=== PATIENT | male | born 1960 | race Hispanic/Latino ===

== ENCOUNTER 2017-01-13 13:59 | Inpatient (IN) | payer MEDICARE ==
[~2017-01-13] VITALS: Ht 165.1 cm; Wt 85.0 kg
[~2017-01-13 13:59] MED LIST: ACET325T51 PO; CALC-761 PO; CHOL100043 PO; CITA20TA11 PO; DOCU-41 PO; GUAI600T86 PO; INSU100I13 SUBQ; KEP500TA PO; LORA-302 PO; MAGN400T4 PO; METO50TA3 PO; MULT-666 PO; OMEG10005 PO; PRD2.5T PO; SENN-133 PO; SULF1TAB35 PO; VALA500T38 PO; ZOF8 PO
[2017-01-13 17:08] VITALS: BP 156/82; PULSE 55; RESP 24; O2SAT 97
[2017-01-13] MEDS ORDERED: Ondansetron 2 mg/mL 2 mL Inj IVPUSH PRN (17:10)
[2017-01-13] MEDS ORDERED: Alum-Mag Hydrox-Simeth 30 mL Suspension PO PRN (17:10)
[2017-01-13] MEDS ORDERED: Polyethylene Glycol (PEG) 17 Gm Powder PO PRN (17:10)
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
[2017-01-13 17:44] LABS: BASOPHILS % (AUTO) 0.3 % (0-3); EOSINOPHILS % (AUTO) 10.7 % (0-5); MONOCYTES % (AUTO) 12.4 % (4-12); Mean Corpuscular Hemoglobin 34.4 pg (27.0-35.0); Mean Corpuscular Volume 103.3 fL (81-100); NEUTROPHILS % (AUTO) 39.1 % (40-74); Platelet Count 139 bil/L (150-400)
[2017-01-13] MEDS ORDERED: Glucose 40% Oral Gel 15 Gm Tube PO PRN (18:05)
--- NOTE | 2017-01-13 19:07 | CONS ---
[address] [address] CONSULTATION REPORT PATIENT: GERRY VILLALPANDO : 1960 MR#: [id number] ADMIT: 01/13/2017 JOB ID: [id number] DATE OF SERVICE: 01/13/[address] Tohmas for this timely consult. HISTORY OF PRESENT ILLNESS: The patient is a fascinating 56-year-old gentleman known to me from two admissions during last year. The patient's relevant past medical history starts back in 2013 when he was diagnosed with Frontier chromosome positive ALL and treated with induction chemo with hyper-CVAD and then just Dasatinib. He then got two cycles of additional chemotherapy with an MINE regimen and then got an allogeneic stem cell transplant in May 2014 at [facility]. He continued on Dasatinib for two years until August 03 and then it was stopped as he had a confirmed two year remission. His post transplant time was complicated by recurrent episodes of CMV reactivation. This was made worse when he had to receive low doses of steroids which led to worsening of his CMV. He was treated for a long period with IV ganciclovir and also received some foscarnet which was very problematic. I saw the patient back in 2015 on a couple of different occasions and, at that time, he was on valacyclovir for prophylaxis as CMV and doing reasonably well overall. During the two admissions I saw him during last year, he had parainfluenza virus three and influenza pneumonia and did reasonably well with both of these admissions. The more recent past medical history starts about a week or so ago when he developed a more or less nonproductive but persistent cough. He eventually sought evaluation and was given azithromycin which, according to both his daughter and the patient, made him better for several days. He then finished the azithromycin and worsened. Dr. Thomas, his heme/onc doctor was concerned about this persistent cough as well as some associated anorexia even though the patient had no fevers, chills, or sweats. He therefore obtained a CT scan of the chest which was done yesterday which shows dramatic bilateral parenchymal infiltrates which are definitely new. This led to the radiologist to offer a differential diagnosis of mycobacteria, fungus or recurrent malignancy. The patient was therefore admitted from heme/onc clinic today for evaluation of this cough. More discussion with the patient basically confirms the above-mentioned history. It seems as if the cough, which is nonproductive and not associated with dyspnea, fever or chills, began a couple of weeks ago. He then went to the [facility] and received azithromycin which definitely seemed to help. He then worsened after finishing the azithromycin which led to Dr. Thomas getting the CT disclosing today's findings. He has not had chest pain, pleuritic or substernal. He has not had hemoptysis, sores in the mouth, trouble swallowing or any GI symptoms. He has not traveled recently though he hails from [facility] and was down that way about two years ago. He has no unusual exposures at home and does not know anyone and has had no contact with anyone with tuberculosis. He reports previous tuberculosis testing prior to transplant was believed to be negative. His only meds at this point from an infection point of view include Bactrim once a day for Pneumocystis prophylaxis as well as valacyclovir 1 g b.i.d. for CMV suppression. His CMV PCR done four days ago through Dr. Thomas's office was negative, continuing a trend of negative PCR studies. PAST MEDICAL HISTORY: 1. Frontier chromosome ALL treated with chemotherapy and then an allogeneic stem cell transplant in 2013. 2. 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 3. Hypertension. 4. Diabetes mellitus with neuropathy. 5. History of recurrent viral pneumonia with documented parainfluenza virus as well as influenza infection. SOCIAL HISTORY: The patient is a nonsmoker, nondrinker. Lives in the local area. He was in [place] apparently in June 2016, according to notes from my prior consult. Additionally, he was in [facility] about two years ago. FAMILY HISTORY: Negative for TB in first and second-degree relatives. REVIEW OF SYSTEMS: The patient notes no headache. He has had some minimal irritation in his left ear. No sinus complaints. No sore throat. No sores in the mouth. No trouble swallowing. No stiff neck. He has a dry cough, as mentioned, but without dyspnea, pleuritic chest pain. No nausea, vomiting, diarrhea, dysuria. No swelling of the joints. Remainder of the review of systems is negative. PHYSICAL EXAMINATION: Reveals a comfortable-looking gentleman who is smiling and obviously not short of breath. His temperature is 36.5 and in clinic recently in the heme/onc clinic he has been consistently afebrile. Pulse in the 50s, respiratory rate in the teens, unlabored, saturating 95% on room air. Blood pressure 93/55. Head without trauma. No sinus tenderness. No conjunctival or scleral abnormalities. No eschars or abnormalities in the nose. The oral cavity is free of ulcerations, pharyngitis or thrush. Neck is supple without adenopathy. No supraclavicular adenopathy. Lungs with a few rhonchi at the bases, coarse rhonchi, but really pretty clear. Cardiac tones: Regular rate and rhythm without notable murmur. Abdomen: Soft and nontender without organomegaly. No Zuniga catheter. No suprapubic tenderness. No inguinal adenopathy. No swelling of the joints. He does have diabetic peripheral neuropathy. As his previously documented with numbness in his lower extremities. No skin breakdown though. The patient is neurologically intact, moves around easily and answers questions fluently. No skin rash anywhere. No petechia. LABORATORIES: Include white count 5400, four days ago. Today's is pending. Of great importance is the fact that the patient has 14% eosinophil and he had the same on a CBC 2 weeks ago. Prior to that, he never had eosinophilia. Creatinine 1.42, ALT 45, CRP 1.1, albumin 3.3. Urinalysis without white cells. Micro studies: None have been obtained yet though we will be after we see the patient. In reviewing his recent cultures, it is notable he had a parainfluenza virus 3 back in May. Prior to that, it had influenza. A chest CT was reviewed in great detail. On the view screen, it was compared to a chest CT done two years ago. His chest CT now shows extensive pulmonary and perihilar infiltrates which the radiologist thought could be consistent with lymphangitic spread of a tumor though fungal or mycobacterial infection might produce a similar pattern. IMPRESSION: This is a fascinating case of a 56-year-old gentleman who had an allogeneic stem cell transplant 2-1/2 years ago. 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 He now presents with about a 2-week history of cough which seemed to get better with azithromycin, but then worsened. A chest CT is dramatic in the bilateral infiltrates that have sprung up since his last CT two years ago. The differential diagnosis is broad. One primary concern I have here is the possibility of coccidiomycosis. This gentleman is from a highly endemic region and was visiting there about a year ago. He has an eosinophilia which is new and coccidioidomycosis is the only fungus that causes eosinophilia, so I am quite concerned. Other fungi of possible concern here would include crypto, Aspergillus, Caesarism and related organisms, but I think aside from cocci and crypto, the fungal possibilities are fairly unlikely. Mycobacterial infections might produce such a pattern and these would be responsive presumably to azithromycin, especially some of the atypical mycobacteria. TB is unlikely due to the lack of exposure and the fact I am sure he was tested before his transplant but it cannot be excluded. More likely might be MAC mycobacterium kansasii or other nontuberculous mycobacteria. As for routine bacteria that can cause such infiltrates, I would be especially concerned about Nocardia which could certainly take on this appearance. The prophylactic Bactrim he is on is not adequate to prevent Nocardia though it is adequate to prevent Pneumocystis. As for parasites, Strongyloides is possible here as the patient grew up in [facility] and, in general, [place] has a fair amount of Strongyloides and [facility] tends to be desert and is less likely. CMV pneumonitis could conceivably look like this, but I think it is highly unlikely given that he is on chronic valacyclovir suppression and his PCR a few days ago was negative. Lastly this could represent leukemia lymphoma process or a vasculitis. RECOMMENDATIONS: 1. This case was discussed in detail at the bedside with Dr. Gerardo and her team. 2. Sputum AFB x3. Should be done with the 1st sample going for nucleic acid amplification for TB. 3. AFB blood culture will be ordered looking for atypical mycobacteria. 4. QuantiFERON Gold will be checked. 5. Sputum Gram stain and culture. 6. Respiratory viral PCR. 7. Serum crypto antigen. 8. Serum Strongyloides antibody. 9. Galactomannan and fungitell will be checked. 10. I do not think the patient needs therapy at that time, as he looks completely nontoxic and really just has essentially asymptomatic pulmonary infiltrates except for a bit of dry cough. 11. If we do not get an answer fairly quickly with respect of course serologic and sputum studies, I think we will need to pursue bronchoscopy. 12. I will alert the lab to the possibility this patient does have coccidioidomycosis as this could be extremely dangerous if it grows on just the open plates on the benches. 13. Total time spent on this case exceeds 70 minutes.
[2017-01-13 20:29] VITALS: BP 122/73; PULSE 59; RESP 20; O2SAT 96
[2017-01-13] MEDS: levETIRAcetam 500 mg Tablet PO SCH (20:34)
[2017-01-13] MEDS: Insulin LISPRO 300 Unit/3 mL Inj SUBQ SCH (20:37)
[2017-01-13] MEDS ORDERED: INSU100C8 SUBQ (22:06)
[2017-01-14] VITALS (11 sets, daily range): BP systolic 126–152; BP diastolic 70–85; PULSE 55–70; RESP 16–22; O2SAT 93–97
[2017-01-14] MEDS: Insulin LISPRO 300 Unit/3 mL Inj SUBQ SCH ×4 (08:00→20:37)
[2017-01-14] MEDS: Insulin GLARgine 100 Unit/mL Syringe SUBQ SCH (08:30)
--- NOTE | 2017-01-14 10:02 | PROG NOTE ---
[address] [address] PROGRESS NOTE PATIENT: GERRY VILLALPANDO : 1960 MR#: [id number] ADMIT: 01/13/2017 JOB ID: [id number] DATE: 01/14/2017 REASON FOR FOLLOWUP: Bilateral pulmonary infiltrates of unknown etiology in a patient who is status post allogeneic stem cell transplant for ALL. INTERVAL HISTORY: Overnight, the patient has felt about the same. No fevers. No chills. Continues to have minimal dry cough, but is not particularly short of breath and does not feel bad otherwise. No GI symptoms. No symptoms. PHYSICAL EXAMINATION: Reveals an afebrile gentleman, in no acute distress. Respiratory rate approximately 20, blood pressure 148/83, saturating well on room air. Sitting up, very comfortable. Oral exam: No thrush or pharyngitis. Lungs are basically clear posteriorly. Cardiac tones without new murmur. Abdomen benign. No skin rash. LABORATORIES: Include a white count of 6800, a near normal differential except for 11% eosinophils, which persists. Creatinine 1.16. Hemoglobin A1c 5.5. Procalcitonin 0.11, which I would consider negative for our purposes. Many pending serologies including Cocci, Crypto, Fungitell, Aspergillus antigen, Strongyloides antibody and QuantiFERON Gold. Cultures include negative blood cultures to date. Sputum shows rare polys and mixed sunny. Sputum for AFB including AFB PCR is pending and we expect results on the PCR hopefully today. Respiratory viral multiplex PCR study is completely negative. IMAGING: Was discussed yesterday with the dramatic bilateral somewhat nodular pulmonary infiltrates. IMPRESSION: This remains a perplexing case of a gentleman with acute lymphocytic leukemia (ALL) in remission following allogeneic stem cell transplant. At this point, leading concerns here for me would be Coccidioidomycosis and Cryptococcus, and we await those serologies. Given his lack of symptoms, fever and an elevated procalcitonin, I see no indication for broad-spectrum antibiotics. Note that if we do not get an answer fairly quickly from our serologies, he will need a bronchoscopy. RECOMMENDATIONS: 1. We continue to await the many studies which are pending. 2. No antibiotics at this time. 3. If we do not get an answer soon, I think this patient will need a bronch, and preferably a bronch with transbronchial lung biopsies as histopathology might be very helpful in identifying some of the viral causes that could produce such a picture.
[2017-01-14] MEDS: Trimethoprim-Sulfa 160 mg-800 mg Tablet PO SCH (10:44)
[2017-01-14] MEDS: levETIRAcetam 500 mg Tablet PO SCH ×2 (10:45→20:33)
[2017-01-14] MEDS ORDERED: fentaNYL-PF 50 mCg/mL 2 mL Inj IVPUSH PRN ×2 (11:10→11:35)
[2017-01-14] MEDS: 0.9% Sodium Chloride 1,000 ML IV SCH ×2 (11:35→13:01)
[2017-01-14] MEDS ORDERED: Lidocaine Topical 2% 30 mL Jelly MUC_MEMBRM PRN (11:35)
[2017-01-14] MEDS ORDERED: Lidocaine PF 2% 5 mL Inj MUC_MEMBRM SCH (11:35)
[2017-01-14] MEDS ORDERED: Lidocaine PF 2% 10 mL Inj ONE (12:03)
--- NOTE | 2017-01-14 13:14 | CONS ---
[address] [address] CONSULTATION REPORT PATIENT: GERRY VILLALPANDO : 1960 MR#: [id number] ADMIT: 01/13/2017 JOB ID: [id number] DATE OF SERVICE: 01/14/2017 PULMONARY CONSULTATION NOTE: The patient is a 56-year-old man with stem-cell transplant for ALL in 2013 admitted to the hospital with bilateral pulmonary infiltrates and cough. I am seeing him in consultation at the request of Dr. Gerardo for bilateral pneumonia. HISTORY OF PRESENT ILLNESS: The patient is Chinese-speaking and had Dr. Gerardo interpreting for me but history was limited because of absence of an horn player at this time. Much of the history I have is obtained from review of medical records. A 56-year-old man with history of type 2 diabetes and ALL with Pawling chromosome who underwent stem allogeneic stem cell transplant in May 2014 at [facility]. She reportedly had recurrent episodes of CMV reactivation for which she was treated with IV ganciclovir and foscarnet. He has been on valacyclovir for CMV prophylaxis as well as Bactrim for PCP prophylaxis. He has been hospitalized with parainfluenza virus as well as influenza pneumonia in 2016. He currently presents with about a week or two of persistent dry cough. He denied any fevers, chills, sweats. He does say he has lost about 14 pounds in the last two weeks. Denies any sputum, hemoptysis, chest pain or shortness of breath. He did have a course of azithromycin as an outpatient and had a chest CT done as an outpatient which showed bilateral infiltrates. He was admitted for this reason, and seen by Dr. Waters who has seen him before and recommended a bronchoscopy. PAST MEDICAL HISTORY: 1. ALL with Pawling chromosome status post allogeneic stem-cell transplant at [facility] in May 2014. 2. Recurrent CMV reactivation. 3. Type 2 diabetes. 4. History of parainfluenza pneumonia and influenza pneumonia in 2016. SOCIAL HISTORY: Nonsmoker. Originally from [place]. No history of exposure to TB. No recent travel. FAMILY HISTORY: No history of TB in immediate family members-parents, siblings, children. REVIEW OF SYSTEMS: See HPI. Ten point review of systems is negative except as mentioned in HPI for dry cough and weight loss. PHYSICAL EXAMINATION: Vital signs reviewed. He is afebrile. Temperature is 36.8, pulse 62, respirations 18, BP 129/85, sats 96% on room air. Pleasant gentleman who is alert and oriented. In no distress. HEENT: No scleral icterus. Oral mucosa is moist. Neck: No cervical lymphadenopathy. Chest: Clear to auscultation bilaterally. Heart: Regular rate and rhythm. No murmurs. Abdomen: Soft, nontender. No organomegaly. Extremities: No cyanosis, clubbing or edema. Skin: No rashes. LABORATORIES: Reviewed. WBC 6.8, hemoglobin 13.5, platelets 139. Chemistry also reviewed and within normal limits. Cultures: No growth to date on blood cultures. Respiratory viral PCR is negative. An AFB smear and culture are pending. Sputum culture is also pending. IMAGING: A chest x-ray and chest CT reviewed. Chest CT, January 12, 2017, shows diffuse bilateral nodular infiltrate which is multilobar and does not seem to involve any particular part of the lung preferentially. There is no lymphadenopathy. ASSESSMENT AND RECOMMENDATIONS: 1. Bilateral nodular infiltrates concerning for pulmonary infection. 2. Immunocompromised patient status post allogeneic stem cell transplant May 2014. 3. History of ALL with Pawling chromosome. This 56-year-old immunocompromised gentleman is presenting with bilateral nodular pulmonary infiltrates. The appearance is concerning for a fungal infection such as Aspergillus but also atypical bacterial infection such as nocardia and mycobacterial disease including tuberculous as well as nontuberculous mycobacteria. Recommendation at this point would be to proceed with bronchoscopy. I do not expect to see something diagnostic on the bronch itself, but I would expect to be able to get samples that we can send for AFB, fungal and viral testing that will hopefully give us a diagnosis. It is helpful that he is not on any antibiotics right now and this will certainly improve our yield. He is getting Bactrim and valganciclovir for prophylaxis for PCP as well as CMV. Therefore, these two diagnoses are probably unlikely. Also the appearance is really not consistent with Pneumocystis. The Bactrim incidentally would also protect him from nocardial infection. I do think that we should get fungal and AFB PCRs on the BAL fluid and I will request those. I think we should hold off on antibiotic therapy until we have results from BAL. It depends on if the patient is clinically stable. We will proceed with bronchoscopy today. Consent was obtained from the patient and he agreed with proceeding.
[2017-01-14 14:33] LABS: BFWBC 51 /mm3; MONOCYTES,BODY FLUID 20 %
[2017-01-14 14:35] LABS: OTHER CELLS,BODY FLUID 19
--- NOTE | 2017-01-14 14:41 | ENDO ---
[address] [address] ENDOSCOPY PROCEDURE PATIENT: GERRY VILLALPANDO : 1960 MR#: [id number] ADMIT: 01/13/2017 JOB ID: [id number] DATE: 01/14/2017 PROCEDURE: Bronchoscopy. PERFORMED BY: Anabella Purvis MD, Pulmonary Medicine. INDICATION: Immunocompromised patient, bilateral pneumonia. DESCRIPTION OF PROCEDURE: Informed consent was obtained from the patient after risks and benefits of the procedure were discussed with him. The patient was asked to gargle lidocaine. Additional lidocaine was administered to the oropharynx via atomizer. IV sedation was then administered with midazolam and fentanyl and scope was passed through the mouth. Epiglottis and vocal cords were visualized and completely normal in appearance. Additional lidocaine was administered here. Scope was passed through the cords into the trachea. Trachea and emma were normal. More lidocaine was administered. We then proceeded to do a complete airway evaluation of both right and left-sided airways. There was no endobronchial lesion, abnormal secretions, mucosal abnormalities or masses. There was some evidence of airway wall edema more notable in the right upper lobe airway but otherwise airways look pretty normal. We then proceeded to do a bronchoalveolar lavage in the medial segment of the lingula on the left. Good return was obtained of clear fluid. Similarly we did a bronchoalveolar lavage in the right upper lobe anterior segment with good return of clearish fluid without any discoloration. The patient tolerated the procedure well. MEDICATIONS: 1. Midazolam 1.5 mg. 2. Fentanyl 50 mcg. 3. Topical lidocaine approximately 14 cc. COMPLICATIONS: None. SAMPLES: BAL right upper lobe and lingula was pooled and sent for bacterial, fungal, AFB, viral, Pneumocystis cytology and cell count. AFB and fungal PCRs were also added and these will be a send out.
--- NOTE | 2017-01-14 18:06 | PCM.ADCARE ---
Advance Care Planning Note Purpose of Encounter: To discuss patient's wishes and goals of care Parties in Attendance: The patient, the patient's daughter, 2 medical students, Dr. Arechiga Decisional Capacity: Good Plan: I reviewed in details the prognosis of the patient's current condition including potential intubation and mechanical intubation as well as CPR. The patient understands his condition and the available options and wishes to be a full code. CODE STATUS: Full code Time Spent Adv.Care Planning: Total time spent [id number] and education and discussion directly related to advanced care plannin minutes Cassie Gerardo DO Jan 14, 2017 18:06
--- NOTE | 2017-01-14 19:36 | CCS NOTE ---
[facility] [address], [address] [address] MEDICAL ONCOLOGY OFFICE NOTE PATIENT: GERRY VILLALPANDO : 1960 MR#: [id number] DATE: 01/13/2017 JOB ID: [id number] DATE: 01/14/2017 SUBJECTIVE: For details of his history, please refer to my office note of yesterday that led to his hospitalization and summarizing his course and findings. I appreciate Dr. Waters of Infectious Disease and Dr. Purvis of Pulmonology for their support of his complex care. He has remained afebrile and is not hypoxic and is undergoing extensive infectious disease workup. He has had sputum sent for AFB smear and culture and had a nasopharyngeal swab and today a bronchial washing. The bronchial washing has revealed out of a large panel of tests one organism of so-called human metapneumovirus. I am not sure about the clinical significance of this and will defer that to Dr. Waters. LABS: Remain stable with white count 6.8, with 39% neutrophils, hemoglobin 13, platelets 139. Chemistry stable, normal creatinine and LFTs. Procalcitonin was only insignificant with 0.11. EXAMINATION: On exam, his vitals are stable. He is afebrile. O2 sat 95% on room air. He appears comfortable. 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 For details, please refer to my summary note of yesterday of his office visit January 13 leading to his admission. I appreciate Infectious Disease and pulmonology support in evaluating this complex case, in particular of concern of a mycobacterial versus a fungal infection. His bronchial lavage washing from earlier today has tested positive for human metapneumovirus, the clinical significance of that is not clear to me. I defer that to Dr. Waters. At this point, we will defer from any steroid treatment since the patient is clinically stable and I would not want to compromise his immune system, and lead to another CMV reactivation. Workup for mycobacterial infection, coccidioidomycosis and cryptococcus are ongoing.
--- NOTE | 2017-01-14 20:45 | PCM.PNMED ---
Subjective Date of Service Jan 14, 2017 Subjective overnight: Patient remains in airborne precautions, in no acute events otherwise noted. Today: Patient states that he understands the need for a bronchoscopy. The patient states that he believes he had a bronchoscopy in the past. The patient denies any ongoing night sweats or weight loss. The bronchoscopy was discussed both before and after with magazine writer Dr. Purvis. She stated that she has sent the BAL for culture. She indicates that if we would like to get a nucleic acid amplification for TB the best would be done on the BAL. Exam Vital Signs Vital Sign - Last Date Time Temp Pulse Resp B/P Pulse Ox O2 Delivery O2 Flow Rate FiO2 01/14/17 05:48 37.1 61 20 128/79 95 Room Air Intake and Output 01/13/17 01/13/17 01/14/17 Cumulative From/Thru 15:00 23:00 07:00 01/13/17 17:06 - 01/14/17 06:54 Intake Total 480 ml 480 ml Balance 480 ml 480 ml Intake Oral 480 ml 480 ml # Voids 2 2 # Bowel Movements 1 1 Exam Gen.: Middle-aged German speaking only male, Alert and oriented x3, no acute distress, sitting comfortably in the hospital bed Eyes: Pupils equal round and reactive to light, sclera anicteric, noninjected conjunctiva HEENT Head atraumatic, normocephalic, Mucus membranes moist without central cyanosis, no oral thrush observed Neck: No cervical lymphadenopathy, neck supple, nontender, No JVD noted Cardiac: regular rate and rhythm with no murmur appreciated Lungs: With mild coarse breath sounds in mid to lower lung esteves bilaterally, no noted wheezing Abdomen: Normoactive bowel sounds, soft nontender nondistended : Zuniga absent Extremities: Radial pulses and dorsalis pedis pulses normal and equivalent bilaterally, No cyanosis, clubbing or edema Skin: Warm and dry No ulcerations/open wounds Neuro: No focal neurologic deficit, normal speech, patient can move upper and lower limbs grossly Psych: Mood and affect appropriate. IVs and Medications Medications Reviewed: Medications were reviewed in detail Lab and Diagnostics Result Diagram: 01/13/17170401/13/171704 X-Rays, CTs and MRIs PROCEDURE: CT CHEST WITHOUT CONTRAST IMPRESSION: 1. There is a new, moderate to severe degree of pulmonary and perihilar opacification as described above, most suggestive of lymphangitic spread of tumor. Disseminated mycobacterial/fungal infection could produce a similar appearance. 2. Corner artery disease. Dictated by: Virgil Omalley M.D. on 01/12/2017 at 9:09 Additional Diagnostics Bronchoscopy SAMPLES: BAL right upper lobe and lingula was pooled and sent for bacterial, fungal, AFB, viral, Pneumocystis cytology and cell count. AFB and fungal PCRs were also added and these will be a send out. Anabella Purvis MD 01/14/17 1302 Assessment & Plan Patient is a 56 year old male with a history of type 2 diabetes mellitus, ALL s/ p bone marrow transplant (in remission), and chronic CMV infection. He presented to [facility] from Dr. Thomas's office on 01/13/17 after having a persistent cough for two weeks. CT of the chest showed new changes suspicious for fungal or mycobacterial disease. Patient admitted for infectious disease and pulmonology work up. Hospital day 2 1. Pulmonary and perihilar opacification, moderate to severe, new finding on CT chest compared to 10/2015, present on admission, presumed stable - With leukocytosis differential diagnoses includes fungal lung infection, mycobacterial lung infection or even lymphangitic tumor spread. - Dr. Waters of infectious disease has been consulted and we appreciate his expertise. - Case discussed with Dr. Purvis who performed bronchoscopy. BAL sent for lab analysis including Gram stain and culture for both bacteria and fungi, cell count, cytology - Sputum culture ordered for bacteria and acid fast staining and fungi and pending as well as sputum AFB and NAAT. - Viral respiratory PCR results pending. - Quantiferon gold results pending. - Blood culture results pending. - Cryptococcus PCR negative 2. Chronic and recurrent CMV, presume stable. Present on admission - Continue valacyclovir 1000 mg BID. 3. Type 2 diabetes mellitus, chronic, presume stable. Present on admission -Well-controlled A1c of 5.5 - Continue Lantus 4 units QAM. - Low dose correction scale will be started. 4. History of ALL s/p allogeneic bone marrow transplant, currently in remission. Present on admission - Continue Bactrim DS 1 tablet daily for pneumocystis prophylaxis. 5. Seizure disorder, chronic, presume stable. Present on admission - Continue Keppra 500 mg BID. 6. Hypertension, chronic, presume stable. Present on admission - Continue metoprolol tartrate 25 mg BID. 7. Depression, chronic, presume stable. Present on admission - Continue citalopram 20 mg daily. 8. Macrocytosis, presumed chronic, present on admission - B12 and folate ordered pending - Antiemetic available PRN. - Antacid available PRN. - Bowel regimen available PRN. - Tylenol available PRN mild pain, fever. Patient will likely remain hospitalized for the next several days while ruling out TB and other infectious etiologies. Case was discussed with both Dr. Waters and Dr. Purvis GI Prophylaxis: Not indicated VTE Prophylaxis: SCDs Resuscitation Status: CPR: Attempt Resuscitation Time spent 1 hour Attending Statement The patient was seen and examined together with Dr. Urban on 01/14/17 and I have added additional information to the note above. Konrad Benitez DO Jan 14, 2017 07:51 Cassie Gerardo DO Jan 16, 2017 15:22
[2017-01-15 05:55] LABS: BASOPHILS % (AUTO) 0.5 % (0-3); EOSINOPHILS % (AUTO) 11.1 % (0-5); MONOCYTES % (AUTO) 15.8 % (4-12); Mean Corpuscular Hemoglobin 34.7 pg (27.0-35.0); Mean Corpuscular Volume 103.2 fL (81-100); NEUTROPHILS % (AUTO) 43.9 % (40-74); Platelet Count 104 bil/L (150-400)
[2017-01-15 06:01] VITALS: BP 146/77; PULSE 58; RESP 18; O2SAT 93
[2017-01-15] MEDS: Insulin LISPRO 300 Unit/3 mL Inj SUBQ SCH ×4 (07:35→22:00)
[2017-01-15] MEDS: Insulin GLARgine 100 Unit/mL Syringe SUBQ SCH (07:38)
[2017-01-15] MEDS: levETIRAcetam 500 mg Tablet PO SCH ×2 (10:10→20:43)
[2017-01-15] MEDS: Trimethoprim-Sulfa 160 mg-800 mg Tablet PO SCH (10:11)
--- NOTE | 2017-01-15 11:39 | PROG NOTE ---
[address] [address] PROGRESS NOTE PATIENT: GERRY VILLALPANDO : 1960 MR#: [id number] ADMIT: 01/13/2017 JOB ID: [id number] DATE: 01/15/2017 INFECTIOUS DISEASE FOLLOW UP NOTE: REASON FOR FOLLOWUP: Extensive bilateral nodular pulmonary infiltrates in a transplant patient. INTERVAL HISTORY: Overnight, the patient reports he is feeling reasonably well. No fevers, chills or sweats. Minimal shortness of breath and cough which are actually improved since admission. No hemoptysis, nausea, vomiting, diarrhea or skin rash. PHYSICAL EXAMINATION: Reveals a very comfortable afebrile gentleman, in no acute distress. Temperature 36.4, pulse 58, respiratory rate 18, blood pressure 144/77, saturating well on room air. He is in no distress as mentioned. Oral cavity benign. Lungs quite clear. Cardiac tones without new murmur. Abdomen soft and nontender. No skin rash. LABORATORIES: Include white count 6000 with continued eosinophilia 11%, creatinine 1.04. Albumin 2.8. Procalcitonin 0.11. Bronch wash had 51 white cells. Cryptococcal antigen serum negative. Galactomannan, Strongyloides, Charles C antibodies, QuantiFERON Gold are pending. On the micro side, we have all the bronch wash studies which are pending including AFB smears, mycobacteria and fungal PCRs, TB specific PCR, Legionella DFA, Pneumocystis smear, CMV culture and so far all of that is pending though we hope to have back the TB results. The only positive we have is the multiplex viral PCR on bronch wash which is positive for human metapneumovirus. IMAGING: We again reviewed the CT scan in detail with Dr. Purvis of Pulmonary. We both feel that it is unlikely but definitely possible that these infiltrates may be secondary to metapneumovirus alone but are concerned about fungal and mycobacterial causes. Imp: Bilateral pulm infiltrates an an ALL patient RECOMMENDATIONS: 1. I would keep the patient in isolation in the hospital until we have back the first nucleic acid implication or PCR for TB. If that is negative, he can be released from isolation and presumably released from the hospital pending the multiple other cultures and serologies that are pending. 2. If the patient's PCR for TB comes back negative and he is discharged, he should followup with me next week, January 21, in the Infectious Disease [facility] so we can catch up on all the many pending cultures and studies. 3. No antibiotics at this point. MTDD
[2017-01-15 12:28] VITALS: BP 140/70; PULSE 50; RESP 20; O2SAT 98
--- NOTE | 2017-01-15 13:31 | PROG NOTE ---
[address] [address] PROGRESS NOTE PATIENT: GERRY VILLALPANDO : 1960 MR#: [id number] ADMIT: 01/13/2017 JOB ID: [id number] DATE: 01/15/2017 PULMONARY PROGRESS NOTE: The patient is a 56-year-old man, status post allogeneic stem cell transplant in 2013 for ALL with [place] chromosome, seen in followup after bronchoscopy for pneumonia in the setting of immunocompromised state. INTERVAL HISTORY: He underwent uneventful bronchoscopy yesterday. Testing is still pending. Patient remains asymptomatic except for his cough. He says his cough is a little better. Denies shortness of breath, fevers, chills, chest pain. REVIEW OF SYSTEMS: As above. PHYSICAL EXAMINATION: Vital signs reviewed. Afebrile. Pulse 50, respirations 20, BP 140/70, sats 98% on room air. General: Alert, lying in bed. Chest is clear to auscultation. LABORATORIES: Reviewed and within normal limits. Most of BAL results are still pending. Gram stain is negative. The only positive result is human metapneumovirus positive PCR on bronchial wash which was interestingly negative on nasopharyngeal swab. ASSESSMENT AND RECOMMENDATIONS: 1. Bilateral nodular pneumonia. 2. Bilateral nodular infiltrates concerning for opportunistic pulmonary infection. 3. Immunocompromised patient, status post allogeneic stem cell transplant May 2014. 4. History of acute lymphocytic leukemia with [place] chromosome. 5. Metapneumovirus pneumonia. Still waiting on bronchoscopy results from January 14 which include AFB, fungal, viral cultures, as well PCRs which are sent out to the [facility]. The only positive result so far is a metapneumovirus PCR which interestingly is positive on bronchial wash but negative on nasopharyngeal swab. I would be surprised if metapneumovirus was the cause of these nodular infiltrates on a chest CT, but it is not impossible in a patient who is as immunocompromised as he is. However, I would wait to see the other test results before ruling out other possible etiologies. I cannot think of anything that I would start him on empirically with regards to antibiotics, especially since he is clinically stable and otherwise asymptomatic with the exception of his cough. I will continue to follow intermittently with Dr. Waters, but nothing else to add from a pulmonary standpoint except to wait on the BAL results. As expected, typically bronchoscopy is not diagnostic from a visual standpoint in patients such as this with opportunistic infection, so I did not "see" anything on the bronchoscopy on airway evaluation that would give me a diagnosis or narrow the differential.
--- NOTE | 2017-01-15 19:00 | PCM.PNMED ---
Subjective Date of Service Jan 15, 2017 Subjective Overnight patient transferred to medical and pediatric care floor. Patient had no concerns this morning, he is not experiencing any pain and does not endorse shortness of breath. He is wondering when he can go home. Necessity of test results was discussed. Encounter done with the assistance of a american sign language interpreter. Exam Vital Signs Vital Sign - Last Date Time Temp Pulse Resp B/P Pulse Ox O2 Delivery O2 Flow Rate FiO2 01/15/17 06:01 36.4 58 18 146/77 93 Room Air 01/14/17 13:09 2 Intake and Output 01/14/17 01/14/17 01/15/17 Cumulative From/Thru 15:00 23:00 07:00 01/13/17 17:06 - 01/15/17 06:43 Intake Total 500 ml 0 ml 980 ml Balance 500 ml 0 ml 980 ml Intake Oral 0 ml 480 ml IV Total 500 ml 500 ml # Voids 2 4 # Bowel Movements 1 Exam Gen.: Middle-aged Swazi speaking only male, Alert and oriented x3, no acute distress, sitting comfortably in the hospital bed Eyes: Pupils equal round and reactive to light, sclera anicteric, noninjected conjunctiva HEENT Head atraumatic, normocephalic, Mucus membranes moist without central cyanosis, no oral thrush observed Neck: No cervical lymphadenopathy, neck supple, nontender, No JVD noted Cardiac: regular rate and rhythm with no murmur appreciated Lungs: With mild coarse breath sounds in mid to lower lung esteves bilaterally, no noted wheezing Abdomen: Normoactive bowel sounds, soft nontender nondistended Extremities: Radial pulses and dorsalis pedis pulses normal and equivalent bilaterally, No cyanosis, clubbing or edema Skin: Warm and dry No ulcerations/open wounds, no rashes or subcutaneous nodules noted Neuro: No focal neurologic deficit, normal speech, patient can move upper and lower limbs grossly Psych: normal mood and affect, alert and oriented 3 Lab and Diagnostics Result Diagram: 01/15/17 0500 01/15/17 0500 X-Rays, CTs and MRIs PROCEDURE: CT CHEST WITHOUT CONTRAST IMPRESSION: 1. There is a new, moderate to severe degree of pulmonary and perihilar opacification as described above, most suggestive of lymphangitic spread of tumor. Disseminated mycobacterial/fungal infection could produce a similar appearance. 2. Corner artery disease. Dictated by: Virgil Omalley M.D. on 01/12/2017 at 9:09 Additional Diagnostics Bronchoscopy SAMPLES: BAL right upper lobe and lingula was pooled and sent for bacterial, fungal, AFB, viral, Pneumocystis cytology and cell count. AFB and fungal PCRs were also added and these will be a send out. Anabella Purvis MD 01/14/17 1302 Assessment & Plan Patient is a 56 year old male with a history of type 2 diabetes mellitus, ALL s/ p bone marrow transplant (in remission), and chronic CMV infection. He presented to [facility] from Dr. Thomas's office on 01/13/17 after having a persistent cough for two weeks. CT of the chest showed new changes suspicious for fungal or mycobacterial disease. Patient admitted for infectious disease and pulmonology work up. Hospital day 3 1. Pulmonary and perihilar opacification, moderate to severe, new CT chest finding, present on admission, presumed stable - A significant change when compared to old chest CT's starting in April 2015 to October 2015. - With leukocytosis differential diagnoses includes fungal lung infection, mycobacterial lung infection or even lymphangitic tumor spread. - Dr. Waters of infectious disease has been consulted and we appreciate his expertise. - s/p bronchoscopy on 01/14. Dr. Purvis stated that she saw nothing with her eyes that would give her a diagnosis. She has ordered all the appropriate labs for the bronchioloalveolar lavage including Gram stain and culture for both bacteria and fungi, cell count, cytology - Sputum culture ordered for bacteria and acid fast staining and fungi and pending as well as sputum AFB and NAAT. - Viral respiratory PCR positive only for human many Pneumovirus - Quantiferon gold ordered and pending. - Blood culture no growth at 2 days - Cryptococcus PCR negative - Patient to remain in isolation until first nucleic acid implication or PCR for TB have resulted - If bronchioloalveolar lavage results are negative and patient is negative for TB recommend proceeding with biopsy. 2. Chronic and recurrent CMV, presume stable. Present on admission - Continue valacyclovir 1000 mg BID. 3. Type 2 diabetes mellitus, chronic, presume stable. Present on admission -Well-controlled A1c of 5.5 - Continue Lantus 4 units QAM. - Low dose correction scale will be started. 4. History of ALL s/p allogeneic bone marrow transplant, currently in remission. Present on admission - Continue Bactrim DS 1 tablet daily for pneumocystis prophylaxis. 5. Seizure disorder, chronic, presume stable. Present on admission - Continue Keppra 500 mg BID. 6. Hypertension, chronic, presume stable. Present on admission - Continue metoprolol tartrate 25 mg BID. 7. Depression, chronic, presume stable. Present on admission - Continue citalopram 20 mg daily. 8. Macrocytosis, presumed chronic, present on admission - B12 and folate ordered pending - Antiemetic available PRN. - Antacid available PRN. - Bowel regimen available PRN. - Tylenol available PRN mild pain, fever. Patient will likely remain hospitalized for the next several days while ruling out TB and other infectious etiologies. GI Prophylaxis: Not indicated VTE Prophylaxis: SCDs Resuscitation Status: CPR: Attempt Resuscitation Attending Statement The patient was seen and examined independently on 01/15/2017 and case discussed with Dr. Masters , I agree with the history, exam and plan as outlined in the note above. Yoselin Masters DO Jan 15, 2017 08:10 Fabian Salazar MD Jan 15, 2017 19:44
[2017-01-15 20:20] VITALS: BP 160/80; PULSE 59; RESP 20; O2SAT 97
[2017-01-16 03:37] VITALS: BP 130/70; PULSE 57; RESP 16; O2SAT 97
[2017-01-16 06:37] LABS: BASOPHILS % (AUTO) 0.6 % (0-3); EOSINOPHILS % (AUTO) 10.5 % (0-5); MONOCYTES % (AUTO) 14.8 % (4-12); Mean Corpuscular Hemoglobin 34.6 pg (27.0-35.0); Mean Corpuscular Volume 103.3 fL (81-100); NEUTROPHILS % (AUTO) 41.2 % (40-74); Platelet Count 112 bil/L (150-400)
[2017-01-16] MEDS: Insulin LISPRO 300 Unit/3 mL Inj SUBQ SCH ×2 (07:58→11:48)
[2017-01-16 08:05] VITALS: BP 121/72; PULSE 64; RESP 16; O2SAT 94
[2017-01-16] MEDS: Insulin GLARgine 100 Unit/mL Syringe SUBQ SCH (08:07)
[2017-01-16] MEDS: Trimethoprim-Sulfa 160 mg-800 mg Tablet PO SCH (08:07)
[2017-01-16] MEDS: levETIRAcetam 500 mg Tablet PO SCH (08:07)
[2017-01-16 14:06] VITALS: BP 133/78; PULSE 53; RESP 16; O2SAT 98
--- NOTE | 2017-01-16 16:19 | PCM.DIMED ---
Yoselin Masters DO 01/16/17 1619: Discharge Instructions Date of Service Jan 16, 2017 Dates of Hospitalization Jan 13, 2017 at 14:52 Discharge Diagnosis Discharge Diagnosis 1. Pulmonary and perihilar opacification 2. Chronic and recurring cytomegalovirus infection 3. Type II diabetes mellitus 4. 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 Seizure disorder 6. Hypertension 7. Depression 8. Macrocytosis Medication Instructions Continue your medications as previously prescribed. Diet Heart Healthy Activity Limited until seen by PCP Patient Instructions It is still not clear what has caused this infection. Many of the tests are still pending. You can learn the results of your follow-up appointment. Follow-up plan Follow-up with Dr. Waters on January 28. You may also follow up with your primary care provider in the next 2 weeks or earlier if your symptoms worsen. Follow-up Provider: Bakari Waters MD Follow-up with PCP in: 2 weeks Provider: Jr Lakhani MD Follow-up in: 2 weeks Fabian Salazar MD 01/16/17 1051: Discharge Instructions Attending's Statement The patient was seen and examined independently on 01/16/2017 and case discussed with Dr. Masters , I agree with the discharge instructions as outlined in the note above. Yoselin Masters DO Jan 16, 2017 16:19 Fabian Salazar MD Jan 16, 2017 23:51
--- NOTE | 2017-01-16 16:42 | PROG NOTE ---
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 INTERVAL HISTORY: Symptom du he says his cough is actually better. Denies fevers, chills, sweats, shortness of breath or chest pain. REVIEW OF SYSTEMS: As above. PHYSICAL EXAMINATION: Vital signs reviewed. He is afebrile. Pulse 64, respirations 16, BP 121/72, sats 98% on room air. General: Alert. Chest: Occasional bilateral fine crackles. No wheezes or rhonchi. LABORATORIES: Reviewed. Cultures also reviewed. Notable for positive human metapneumovirus PCR on bronchial wash and AFB smear on BAL was negative as well. AFB culture, PCP, CMV, etc., are still pending. Legionella DFA is negative but culture is pending. Fungal and AFB PCRs are also pending and these are sent out to the [facility]. ASSESSMENT AND RECOMMENDATIONS: 1. Bilateral nodular infiltrates concerning for opportunistic pulmonary infection. 2. Immunocompromised patient status post allogeneic stem cell transplant. 3. 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 4. Metapneumovirus pneumonia. So far BAL results are negative with the exception of PCR for human metapneumovirus. I suppose it is possible that this is the source of the pulmonary infiltrates since he clinically does not seem sick at all. He is on room air, afebrile and his cough is already improving. His AFB smear is negative which means he does not need airborne isolation any longer. Since he has been doing so well for the last few days, Dr. Waters and I agree that he can be discharged home with close outpatient followup with ID which is already scheduled for about two weeks from now. In the meantime, if any of his BAL results turned positive, we can contact the patient. The patient also understands that if he develops fevers, chills, worsening shortness of breath, etc., he should come back to the hospital. Discussed with the primary team and with Dr. Waters.
--- NOTE | 2017-01-16 17:11 | PROG NOTE ---
[address] [address] PROGRESS NOTE PATIENT: GERRY VILLALPANDO : 1960 MR#: [id number] ADMIT: 01/13/2017 JOB ID: [id number] DATE: 01/16/2017 REASON FOR FOLLOWUP: Bilateral nodular infiltrates in a patient, status post allogenic bone marrow transplant for ALL. INTERVAL HISTORY: The patient continues to feel better and better. No fevers. No chills. No sweats. Minimal nonproductive cough. No GI or symptoms. He feels well and wants to go home. PHYSICAL EXAMINATION: Reveals an afebrile gentleman in no acute distress. Temp 36.7, pulse 53, respiratory rate 16, blood pressure 133/78. He is saturating well on room air. Mental status is clear. Oral cavity negative. Lungs relatively clear bilaterally. LABORATORIES: Include white count stable at 6200, 10% eosinophils continues. Creatinine 1.27. Bronch wash is AFB negative at this point. We are waiting on the AFB PCR on the bronch wash. Cocci antibody still pending. Crypto antigen negative. Fungitell negative. Galactomannan pending. Strongyloides negative and QuantiFERON Gold pending. The AFB PCR is pending on the bronch wash as mentioned as is the fungal PCR from the report I received from [facility]. The bronch wash itself was negative for AFB Pneumocystis. Smear is pending. CMV culture is pending. Recall that the serum quantitative CMV PCR was negative. Respiratory viral PCR was positive for human metapneumovirus. Sputum culture was negative. IMPRESSION: Bilateral pulmonary infiltrates in an acute lymphocytic leukemia patient likely secondary to human metapneumovirus, though we are working to exclude other possibilities such as mycobacteria or fungi. RECOMMENDATIONS: 1. The patient can be discharged today without specific antibiotics. 2. The patient was has been will advised not to go out too much in public but rather stay close to home with people he has already spent time with while we completed our rule out for tuberculosis. 3. The patient will see me in clinic on January 28 for followup on his many studies, but if he has any issues he will call me and I can fit him into my clinic on January 21. This was explained to the patient.
--- NOTE | 2017-01-16 19:03 | CCS NOTE ---
[facility] [address] [address] MEDICAL ONCOLOGY OFFICE NOTE PATIENT: GERRY VILLALPANDO : 1960 MR#: [id number] DATE: 01/13/2017 JOB ID: [id number] DATE: 01/15/2017 Patient appears very stable clinically. Has not had any fevers. Cough is still present, but slightly improved. He does not appear toxic or ill. Workup is ongoing with extensive microbiology evaluation and bronchioalveolar lavage. Serology for cryptococcus antigen came back negative. Fungal antibodies negative, which is very encouraging. Coccidiodes antibody is still pending as is the TB QuantiFERON test. Cultures so far have been negative except for the human metapneumovirus from the bronchoalveolar lavage. Labs otherwise without any significant abnormality. Normal creatinine. ASSESSMENT: A 56-year-old gentleman with above-mentioned history of ALL, that who is admitted for peculiar, very extensive, bilateral patchy pulmonary infiltrates, suggestive for an opportunistic infection. So far, the only positive test has been the bronchoalveolar lavage positive for human metapneumovirus. Fungal antibodies are negative. I spoke with Dr. Waters, who is now starting to think that the metapneumovirus might be the explanation given his immunosuppressive status, although usually it does not cause the such a severe multifocal pneumonia. Remaining tests are going to be followed as an outpatient and he will most likely be discharged later today. We will still hold off on any steroid therapy.
--- NOTE | 2017-01-16 20:35 | PCM.DC.MED ---
Discharge Summary Date of Service Jan 16, 2017 Dates of Hospitalization Date of Hospital Admission Jan 13, 2017 at 14:52 Date of Discharge: Jan 16, 2017 Providers: Admitting Physician: Cassie Gerardo DO Primary Care Physician: Jr Lakhani MD Attending Physician: Cassie Gerardo DO Diagnosis at Time of Discharge Diagnosis at Time of Discharge 1. Pulmonary and perihilar opacification 2. Chronic and recurring cytomegalovirus infection 3. Type II diabetes mellitus 4. 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 Seizure disorder 6. Hypertension 7. Depression 8. Macrocytosis Consultations Infectious disease Pulmonology Procedures XRay, CTs & MRIs PROCEDURE: CT CHEST WITHOUT CONTRAST IMPRESSION: 1. There is a new, moderate to severe degree of pulmonary and perihilar opacification as described above, most suggestive of lymphangitic spread of tumor. Disseminated mycobacterial/fungal infection could produce a similar appearance. 2. Corner artery disease. Dictated by: Virgil Omalley M.D. on 01/12/2017 at 9:09 Other Diagnostics Bronchoscopy SAMPLES: BAL right upper lobe and lingula was pooled and sent for bacterial, fungal, AFB, viral, Pneumocystis cytology and cell count. AFB and fungal PCRs were also added and these will be a send out. Anabella Purvis MD 01/14/17 1302 Brief History History of present illness on admission by Dr. Arechiga: Patient is a 56 year old male with a history of type 2 diabetes mellitus, ALL s/ p bone marrow transplant (in remission), and chronic CMV infection. He presented to [facility] from Dr. Thomas's office on 01/13/17. The patient has been having a persistent cough for about two weeks now. This cough prompted Dr. Thomas to order a CT of the chest which shows new findings that he felt were highly suspicious for possible fungal or mycobacterial illness. The patient does state that he has had a cough for two weeks. It is only modestly productive. He denies fever, chills, headache, and other cold/flu symptoms. He has had no sick contacts. He does endorse shortness of breath periodically but it is not linked to activity and occurs with exertion and at rest. The patient has felt nausea intermittently with a couple incidents of vomiting. He has had a poor appetite for about 1 week and a ten pound weight loss was noted. Patient was born in [place] and grew up in the [place] region near [facility], [place]. He left [place] about 30 years ago and has been living in [place], [place] since. His last visit to [place] was about two years ago and he has not travelled since then. He does not recall any exposure to TB nor has he ever been diagnosed with TB. Hospital Course Patient is a 56 year old male with a history of type 2 diabetes mellitus, ALL s/ p bone marrow transplant (in remission), and chronic CMV infection. He presented to [facility] from Dr. Thomas's office on 01/13/17 after having a persistent cough for two weeks. CT of the chest showed new changes suspicious for fungal or mycobacterial disease. Patient admitted for infectious disease and pulmonology work up. Hospital day 2 1. Pulmonary and perihilar opacification, moderate to severe, new finding on CT chest compared to 10/2015, present on admission, presumed stable - With leukocytosis differential diagnoses includes fungal lung infection, mycobacterial lung infection or even lymphangitic tumor spread. - Dr. Waters of infectious disease has been consulted and we appreciate his expertise. - Case discussed with Dr. Purvis who performed bronchoscopy. BAL sent for lab analysis including Gram stain and culture for both bacteria and fungi, cell count, cytology - Sputum culture ordered for bacteria and acid fast staining and fungi and pending as well as sputum AFB and NAAT. - Viral respiratory PCR results pending. - Quantiferon gold results pending. - Blood culture results pending. - Cryptococcus PCR negative -TB very unlikely ,ID recemented discharge home and follow up pending results with Dr Waters on 01/28 2. Chronic and recurrent CMV, presume stable. Present on admission - Continue valacyclovir 1000 mg BID. 3. Type 2 diabetes mellitus, chronic, presume stable. Present on admission -Well-controlled A1c of 5.5 - Continue Lantus 4 units QAM. - Low dose correction scale will be started. 4. History of ALL s/p allogeneic bone marrow transplant, currently in remission. Present on admission - Continue Bactrim DS 1 tablet daily for pneumocystis prophylaxis. 5. Seizure disorder, chronic, presume stable. Present on admission - Continue Keppra 500 mg BID. 6. Hypertension, chronic, presume stable. Present on admission - Continue metoprolol tartrate 25 mg BID. 7. Depression, chronic, presume stable. Present on admission - Continue citalopram 20 mg daily. 8. Macrocytosis, presumed chronic, present on admission - B12 and folate ordered pending - Antiemetic available PRN. - Antacid available PRN. - Bowel regimen available PRN. - Tylenol available PRN mild pain, fever. discharge home no need for isolation given AFB sputum is negative explained follow up plan to lizeth Fay and patient Exam Vital Signs (Last) Date Time Temp Pulse Resp B/P Pulse Ox O2 Delivery O2 Flow Rate FiO2 01/16/17 14:06 36.7 53 16 133/78 98 Room Air 01/14/17 13:09 2 Exam Gen.: Middle-aged Slovak speaking only male, Alert and oriented x3, no acute distress, sitting comfortably at edge of hospital bed Eyes: Pupils equal round and reactive to light, sclera anicteric, noninjected conjunctiva HEENT Head atraumatic, normocephalic, Mucus membranes moist without central cyanosis, no oral thrush observed Neck: No cervical lymphadenopathy, neck supple, nontender, No JVD noted Cardiac: regular rate and rhythm with no murmur appreciated Lungs: With mild coarse breath sounds in mid to lower lung esteves bilaterally, no noted wheezing or crackles. Abdomen: Normoactive bowel sounds, soft nontender nondistended Extremities: No cyanosis, clubbing or edema Skin: Warm and dry No ulcerations/open wounds, no rashes or subcutaneous nodules noted Neuro: No focal neurologic deficit, normal speech, patient can move upper and lower limbs grossly Psych: normal mood and affect, alert and oriented 3 Test 01/13/17 17:05 01/14/17 13:53 01/15/17 05:00 01/16/17 06:05 Hemoglobin A1c 5.5% (4.8-5.6) Hold Tovar Top Tube Received (Received) Cryptococcus Antigen Negative (Negative) Fungal Antibodies <31pg/mL (<80) Strongyloides IgG Antibody Negative (Negative) TB Test (QFT) Gold In Tube Negative (Negative) TB Test (QFT) Incubation Comment (.) TB Test (QFT) Mitogen 8.47IU/mL (.) TB Test (QFT) Antigen 0.13IU/mL (.) TB Test (QFT) Antigen Minus Nil <0.00IU/mL (.) TB Test (QFT) TB - Nil 0.15IU/mL (.) TB Test (QFT) Positive Criteria Comment (.) TB Test (QFT) Interpretation Comment (.) Body Fluid Source Bronchial washing Body Fluid Color Colorless (Clear) Body Fluid Appearance Hazy Body Fluid WBC 51/mm3 Body Fluid RBC 147/mm3 Body Fluid Polynuclear WBCs 42% Body Fluid Lymphocytes 15% Body Fluid Monocytes 20% Body Fluid Eosinophils 4% Body Fluid Basophils 0% Vitamin B12 Level 481pg/mL (211-946) Folate 6.0ng/mL (>3.0) Procalcitonin 0.11ng/mL (0.00-0.08) White Blood Count 6.2th/mm3 (3.8-10.1) Red Blood Count 3.38mil/mm3 (4.40-5.80) Hemoglobin 11.7g/dL (13.8-17.2) Hematocrit 34.9% (41.0-50.0) Mean Corpuscular Volume 103.3fL (81-100) Mean Corpuscular Hemoglobin 34.6pg (27.0-35.0) Mean Corpuscular Hemoglobin Concent 33.5% (32.0-37.0) Red Cell Distribution Width 13.6% (12.3-15.4) Platelet Count 112bil/L (150-400) Neutrophils (%) (Auto) 41.2% (40-74) Lymphocytes (%) (Auto) 32.7% (14-46) Monocytes (%) (Auto) 14.8% (4-12) Eosinophils (%) (Auto) 10.5% (0-5) Basophils (%) (Auto) 0.6% (0-3) Sodium Level 130mEq/L (134-144) Potassium Level 4.1mEq/L (3.5-5.2) Chloride Level 98mEq/L (97-108) Carbon Dioxide Level 21mmol/L (18-29) Blood Urea Nitrogen 21mg/dL (6-24) Creatinine 1.27mg/dL (0.76-1.27) Estimat Glomerular Filtration Rate 62mL/min (>59) Glucose Level 85mg/dL (60-99) Calcium Level 8.6mg/dL (8.5-10.1) Total Bilirubin 0.4mg/dL (0.0-1.2) Aspartate Amino Transf (AST/SGOT) 26U/L (0-50) Alanine Aminotransferase (ALT/SGPT) 22U/L (0-44) Alkaline Phosphatase 68U/L (25-150) Total Protein 6.8g/dL (6.4-8.4) Albumin 2.9g/dL (3.4-5.0) Microbiology Results Bronchial washing was negative for acid-fast bacilli, positive for human met a Pneumovax Legionella, CMV culture is pending Discharge Medications Discharge Medications Calcium Citrate/Vitamin D3 (Citracal + D Maximum Caplet) 1 Each Tablet 2 EACH PO BIDWM (Reported) Cholecalciferol (Vitamin D3) (Vitamin D) 1,000 Unit Tablet 1,000 UNIT PO DAILY ( Reported) Citalopram (Citalopram) 20 Mg Tablet 20 MG PO DAILY (Reported) Insulin Aspart (NovoLOG U100 Insulin Vial) 100 U/Ml U 2-4 UNIT SUBQ TIDWM ( Reported) Levetiracetam (Keppra) 500 Mg Tablet 500 MG PO BID (Reported) Magnesium Oxide (Magnesium Oxide) 400 Mg Tablet 400 MG PO DAILY (Reported) Metoprolol Tartrate (Metoprolol Tartrate) 50 Mg Tablet 25 MG PO BID (Reported) Multivitamin (Once Daily) 1 Each Tablet 1 EACH PO DAILY (Reported) Marbury-3 Fatty Acids (Marbury-3) 1,000 Mg Capsule 1,000 MG PO DAILY (Reported) Sulfamethoxazole/Trimeth 800-160 mg (Bactrim DS 800-160 mg) 1 Each Tablet 1 TABLET PO DAILY (Reported) Valacyclovir (Valacyclovir) 500 Mg Tablet 1,000 MG PO BID (Reported) As needed Acetaminophen (Acetaminophen) 325 Mg Tablet 325 MG PO DAILY PRN PRN For Pain ( Reported) Docusate Sodium (Colace) 100 Mg Capsule 100 MG PO BID PRN PRN For Constipation ( Reported) Guaifenesin (Guaifenesin ER) 600 Mg Tab.er.12h 1,200 MG PO BID PRN PRN For Cough (Reported) Lorazepam (Ativan) 0.5 Mg Tablet 0.5 MG PO Q6HRS PRN PRN PRN For Insomnia ( Reported) Ondansetron (Zofran) 8 Mg Tab 8 MG PO Q8HRS PRN PRN PRN For Nausea (Reported) Sennosides (Senna) 8.6 Mg Tablet 17.2 MG PO DAILY PRN PRN For Constipation ( Reported) Additional med instructions Continue your medications as previously prescribed. Followup Plan Disposition: Discharged home Follow-up plan Follow-up with Dr. Waters on January 28. You may also follow up with your primary care provider in the next 2 weeks or earlier if your symptoms worsen. Discharge Diet: Heart Healthy Discharge Activity: Limited until seen by PCP Patient Instructions It is still not clear what has caused this infection. Many of the tests are still pending. You can learn the results of your follow-up appointment. Follow-up Provider: Bakari Waters MD Follow-up with PCP in: 2 weeks Provider: Jr Lakhani MD Follow-up in: 2 weeks Mid-level Provider: Mckinley Rahman MD Follow-up with Mid-level in: 1 week Time spent 35 minutes Attending Statement The patient was seen and examined independently on 01/16/2017 and case discussed with Dr. Masters , I agree with the discharge summary as outlined in the note above. copies to: Mckinley Rahman MD; Bakari Waters MD; Jr Lakhani MD, Erika R DO Jan 16, 2017 20:35 Fabian Salazar MD Jan 16, 2017 23:55
--- NOTE | 2017-01-19 16:25 | PATH ---
SURGICAL PATHOLOGY Attending Physician:Anabella Purvis MD CASE STATUS: Signed Out PATIENT NAME: GERRY VILLALPANDO PID: [id number] : 1960 DATE COLLECTED:01/14/2017 00:00 SPECIMEN: Bronchial Washing CLINICAL HISTORY: Bronchial Washing ICD-10 code not given FINAL DIAGNOSIS: Bronchial Wash, Cytology: No cytologic evidence of malignancy. Alveolar macrophages, columnar epithelial cells, and blood cells identified. ICD10 R91.8 GROSS DESCRIPTION: Received fresh on 01/15/2017 is approximately 10 cc of clear colorless fluid. Prepared are one cell block and one ThinPrep slide. Vo MICRO DESCRIPTION: Examined are one ThinPrep slide and one cell block slide. These show alveolar macrophages, a few columnar epithelial cells, and peripheral blood cells. No atypical or malignant cells identified. ICD-9 CODES: CPT CODES: 1: 81359, 28210 Electronically Signed Out Alaina Joshi MD [facility] [address], [place] [address] Technical component performed at [facility], [facility] [address], [place], [address]
[2017-01-22 22:07] LABS: Cryptococcal Ag Negative (Negative)
[2017-02-20] MEDS ORDERED: FLUC100T4 PO (11:30)
[2017-02-25] MEDS ORDERED: PRE20 PO (11:16)
== END 2017-01-16 18:00 | disposition home or self-care (01) | DRG 194 ==
LOC: PCC 14:52 → MPC 01-14 23:13
PROVIDERS: ADMIT Neuromusculoskeletal Medicine & OMM; ATTEND Neuromusculoskeletal Medicine & OMM
PROC: 0B998ZX Drainage of Lingula Bronchus, Via Natural or Artificial Opening Endoscopic, Diagnostic (ICD-10-PCS; principal; 2017-01-14 12:30)
PROC: 0B948ZX Drainage of Right Upper Lobe Bronchus, Via Natural or Artificial Opening Endoscopic, Diagnostic (ICD-10-PCS; 2017-01-14 12:30)
DX: J12.3 Human metapneumovirus pneumonia (principal); Z94.81 Bone marrow transplant status; B25.9 Cytomegaloviral disease, unspecified; C91.01 Acute lymphoblastic leukemia, in remission; E11.9 Type 2 diabetes mellitus without complications; I10 Essential (primary) hypertension; F32.9 Major depressive disorder, single episode, unspecified; D75.89 Other specified diseases of blood and blood-forming organs; G40.909 Epilepsy, unspecified, not intractable, without status epilepticus; Z87.891 Personal history of nicotine dependence

== ENCOUNTER 2017-01-28 17:40 | Inpatient (IN) | payer MEDICAID, MEDICARE ==
[~2017-01-28] VITALS: Ht 167.6 cm; Wt 81.0 kg
[~2017-01-28 17:40] MED LIST changes: +INSU100C8 SUBQ; -INSU100I13 SUBQ; -PRD2.5T PO
[2017-01-28 18:43] VITALS: PULSE 71
[2017-01-28] MEDS ORDERED: Alum-Mag Hydrox-Simeth 30 mL Suspension PO PRN ×2 (18:45→19:25)
[2017-01-28] MEDS ORDERED: Ondansetron 2 mg/mL 2 mL Inj IVPUSH PRN (18:45)
[2017-01-28] MEDS: Sodium Chloride LOK Flush 10 mL Syringe IVFLUSH SCH (18:45)
[2017-01-28] MEDS ORDERED: Polyethylene Glycol (PEG) 17 Gm Powder PO PRN ×2 (18:45→19:25)
[2017-01-28 18:52] VITALS: BP 131/75; PULSE 65; RESP 22; O2SAT 100
--- NOTE | 2017-01-28 19:06 | NUR ---
Admit Pt admitted to the unit around 184. Family members at the bedside. VSS. Pt is alert. Telemetry leads attached. SR 70s. Pt on 10L oxy mask satting at 95%. Physicians currently speaking with patient.
[2017-01-28 19:30] VITALS: BP 123/71; PULSE 62; RESP 18; O2SAT 98
--- NOTE | 2017-01-28 19:38 | ABG ---
DateTimeAnalyzed 19:36:00 -_ pH ____7.410 - 7.350 7.450 pCO2 ___32.2__ -mmHg 35.0 45.0 pO2 ___84.7__ -mmHg 69.0 116 HCO3- ___20.0__ -mmol/L 22.0 26.0 ABE ___-3.3__ -mmol/L -2.0 2.0 tHb ___11.7__ -g/dL O2Hb ___94.2__ -% COHb ____0.9__ -% MetHb ____1.2__ -% sO2 ___96.2__ -% 25.0 FIO2 ___60.0__ -% Drawn By AF - Date/Time Notified____ 19:38:00 -_ Notified By AF - B 748 -mmHg tO2 ___15.5__ -Vol% Drake test _Positive -
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
--- NOTE | 2017-01-28 20:13 | DRSVH ---
PROCEDURE: X-RAY CHEST ONE VIEW, PORTABLE ([id number]) INDICATIONS: dyspnea TECHNIQUE: One view of the chest was acquired. COMPARISON: [facility], CR, XR CHEST 2VW, 08/25/2016, 11:32. [facility], CT , CT CHEST WO CON, 01/12/2017, 8:17. FINDINGS: Surgical changes and devices: None. Lungs and pleura: There are multiple bilateral patchy and confluent opacities within the lungs bilate rally appearing slightly worse when compared to CT exam of 01/12/17. Mediastinum: Mediastinal contours appear normal. Heart size is normal. Bones and chest wall: No suspicious bony lesions. Overlying soft tissues appear unremarkable. IMPRESSION: Bilateral patchy confluent opacities in the lungs, appearing mildly worse when compared t o 01/12/17. As previously identified, this could be related to infection including atypical like mycob acterial or fungal. However, lymphangitic spread of tumor should also be considered. Dictated by: Mela Solorio M.D. on 01/28/2017 at 20:08 Approved by: Mela Solorio M.D. on 01/28/2017 at 20:11
[2017-01-28 20:22] LABS: BASOPHILS % (AUTO) 0.6 % (0-3); EOSINOPHILS % (AUTO) 3.4 % (0-5); MONOCYTES % (AUTO) 13.7 % (4-12); Mean Corpuscular Volume 101.5 fL (81-100); NEUTROPHILS % (AUTO) 48.9 % (40-74); Platelet Count 233 bil/L (150-400)
[2017-01-28 20:37] LABS: INR 1.08 ratio
[2017-01-28 23:36] VITALS: BP 133/79; PULSE 65; RESP 20; O2SAT 94
[2017-01-29] VITALS (11 sets, daily range): BP systolic 121–152; BP diastolic 68–82; PULSE 60–114; RESP 16–24; O2SAT 96–99
[2017-01-29] MEDS: Sodium Chloride LOK Flush 10 mL Syringe IVFLUSH SCH ×3 (00:30→17:07)
[2017-01-29] MEDS: Heparin 5,000 Unit/mL Inj SUBQ SCH ×3 (02:05→17:06)
[2017-01-29] MEDS ORDERED: LORazepam 0.5 mg Tablet PO PRN (02:35)
[2017-01-29] MEDS ORDERED: Glucose 40% Oral Gel 15 Gm Tube PO PRN (02:40)
[2017-01-29 04:34] LABS: APPEARANCE,URINE CLEAR (CLEAR,HAZY); COLOR,URINE YELLOW (YELLOW); OCCULT BLOOD,URINE SMALL (NEGATIVE); UROBILINOGEN,URINE NORMAL (NORMAL)
--- NOTE | 2017-01-29 06:40 | NUR ---
Ambulation Pt steady on his feet requiring only SBA for safety while walking to the BR and back to bed. Denies any SOB or dizziness. On 6L NC and Sp02 at 98%.
[2017-01-29] MEDS: Insulin LISPRO 300 Unit/3 mL Inj SUBQ SCH ×4 (08:00→22:00)
[2017-01-29 08:42] LABS: BASOPHILS % (AUTO) 0.6 % (0-3); EOSINOPHILS % (AUTO) 6.5 % (0-5); MONOCYTES % (AUTO) 15.4 % (4-12); Mean Corpuscular Hemoglobin 34.6 pg (27.0-35.0); Mean Corpuscular Volume 102.6 fL (81-100); NEUTROPHILS % (AUTO) 44.5 % (40-74); Platelet Count 227 bil/L (150-400)
[2017-01-29] MEDS: levETIRAcetam 500 mg Tablet PO SCH ×2 (09:14→22:00)
[2017-01-29] MEDS: Trimethoprim-Sulfa 160 mg-800 mg Tablet PO SCH (09:17)
--- NOTE | 2017-01-29 11:21 | DRSVH ---
PROCEDURE: CT CHEST WITH CONTRAST ([id number]) INDICATIONS: 56-year-old male with history of acute lymphoblastic leukemia with dyspnea. TECHNIQUE: After the administration of intravenous contrast, 5 mm thick sections acquired from the pulmonary api anastacia to the posterior costophrenic angles. 7 mm thick coronal and sagittal MIP reformats were acquire d. For radiation dose reduction, the following was used: automated exposure control, adjustment of mA and/or kV according to patient size. COMPARISON: [facility], CT, CT CHEST WO [facility], 01/12/2017, 8:17. FINDINGS: Image quality: Excellent. Lungs and pleura: There are increased bilateral pulmonary nodules involving all lobes with confluent areas of perihilar consolidation associated with air bronchograms. The nodules appear to follow a p erilymphatic distribution with involvement along the bronchovascular bundles and subpleural regions. Interlobular septal thickening is not a dominant feature. No pleural effusions or pneumothorax. Mediastinum: Heart size is normal. No pericardial effusion. No mediastinal or hilar adenopathy by size criteria. Thoracic aorta and central pulmonary arteries are normal in size. Esophagus is obey l in caliber. No hiatal hernia. Bones and chest wall: No suspicious bony lesions. No vertebral body compression fractures. No axil vikki or supraclavicular adenopathy by size criteria. Thyroid gland demonstrates no discrete nodules. Abdomen: Visualized upper abdomen demonstrates surgical absence of the gallbladder. IMPRESSION: 1. Increased bilateral pulmonary nodules with confluent areas of consolidation in a perilymphatic di stribution. 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 The differential also includes lymphocyt ic interstitial pneumonia, sarcoidosis, occupational pneumoconiosis, and amyloidosis. Dictated by: Giovanni Stoll M.D. on 01/29/2017 at 11:07 Approved by: Giovanni Stoll M.D. on 01/29/2017 at 11:19
--- NOTE | 2017-01-29 11:53 | NUR ---
Oxymask Pt tolerating 3L oxymask SPO2 98% at approximately 1154. Care continues.
--- NOTE | 2017-01-29 13:55 | PCM.CONSUR ---
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 On chronic Bactrim for PCP prophylaxis. Patient was recently admitted to [facility] on 01/13/2017 at the request of Dr. Thomas, following two-week history of upper respiratory infection symptoms to include productive cough and dyspnea. Patient had CT of the chest done suggestive of moderate to severe degree pulmonary and perihilar opacification most suggestive of lymphangitic spread of tumor. Dawson negative on BAL at this point. He was seen as an outpatient in Dr. Waters is clinic this afternoon. His breathing status has worsened since discharge requiring increased work of breathing especially with exertion. Patient states he is only able to ambulate 10 feet before becoming short of breath and dizzy and needing to sit down. Associated symptoms include nausea, headache, one episode of diarrhea this morning. Patient is currently on oxygen mask satting 98% on 8L. Patient was admitted to the hospital at the request of Dr. Waters infectious disease. Pneumonia workup was initiated to include viral PCR. He denies fever, chills, recent sick contacts, recent travel since last hospitalization, abdominal pain, constipation. Patient was born in [place] and grew up in the [facility] region near [facility]. He left [place] about 30 years ago and has been living in [place], [place] since. His last visit to [place] was about two years ago and he has not travelled since then. CXR: Bilateral patchy confluent opacities in the lungs, appearing mildly worse when compared to 01/12/17. As previously identified, this could be related to infection including atypical like mycobacterial or fungal. However, lymphangitic spread of tumor should also be considered. ABG on 01/28/2017: PH 7.410, PCO2 32, PO2 84.7, bicarbonate 20, base -3.3 Vital signs: 37.0 temperature, respiratory rate 18, pulse 62, blood pressure 123 /71 with a map of 88, 98% on 8 L oxygen mask Hemogram showed WBCs 6.5, H/H 12.0/34.8, MCV 101.5, platelets 233, neutrophil percent 48.9 Chemistries were pending at time of this note. PT/INR: 11.6/1.08 Serologies done on last admission 01/13/2017 were as follows: Coccidioides inconclusive Cryptococcus is negative Fungal antibodies less than 31 and negative Hepatitis B surface antigen negative Hepatitis B antibody nonreactive Hepatitis C antibody was in 0.1 HIV nonreactive Urine Legionella negative Galactomannan 0.04 Strongyloides immunglobulin negative TB Quant gold negative Bronchial washings from 01/14/2017; Metaneumovirus Virus positive Legionella negative AFB negative PCP negative Sputum Gram stain negative for PMNs, negative organisms Fungal culture negative HSV negative Adenovirus negative Coronavirus negative Influenza negative History collected from clinic notes from oncology and ID as well as H&P from admission. Reason for Consultation Collection of Pulmonary Tissue sample for diagnostic purposes. Allergy Allergies: Coded Allergies: gabapentin (Verified Allergy, Unknown, Anaphylaxis, 08/19/16) linezolid (Verified Adverse Reaction, Severe, Anaphylaxis, 08/25/16) Had angioedema due to either oseltamavir or linezolid Uncoded Allergies: oselta (Adverse Reaction, Severe, Anaphylaxis, 08/25/16) Had angioedema due to either oseltamavir or linezolid Medications Home Meds Incl Beta Blockers: Yes Acetaminophen (Acetaminophen) 325 Mg Tablet 325 MG PO DAILY PRN PRN For Pain ( Reported) Calcium Citrate/Vitamin D3 (Citracal + D Maximum Caplet) 1 Each Tablet 2 EACH PO BIDWM (Reported) Cholecalciferol (Vitamin D3) (Vitamin D) 1,000 Unit Tablet 1,000 UNIT PO DAILY ( Reported) Citalopram (Citalopram) 20 Mg Tablet 20 MG PO DAILY (Reported) Docusate Sodium (Colace) 100 Mg Capsule 100 MG PO BID PRN PRN For Constipation ( Reported) Guaifenesin (Guaifenesin ER) 600 Mg Tab.er.12h 1,200 MG PO BID PRN PRN For Cough (Reported) Insulin Aspart (NovoLOG U100 Insulin Vial) 100 U/Ml U 2-4 UNIT SUBQ TIDWM ( Reported) Levetiracetam (Keppra) 500 Mg Tablet 500 MG PO BID (Reported) Lorazepam (Ativan) 0.5 Mg Tablet 0.5 MG PO Q6HRS PRN PRN PRN For Insomnia ( Reported) Magnesium Oxide (Magnesium Oxide) 400 Mg Tablet 400 MG PO DAILY (Reported) Metoprolol Tartrate (Metoprolol Tartrate) 50 Mg Tablet 25 MG PO BID (Reported) Multivitamin (Once Daily) 1 Each Tablet 1 EACH PO DAILY (Reported) [place]-3 Fatty Acids ([place]-3) 1,000 Mg Capsule 1,000 MG PO DAILY (Reported) Ondansetron (Zofran) 8 Mg Tab 8 MG PO Q8HRS PRN PRN PRN For Nausea (Reported) Sennosides (Senna) 8.6 Mg Tablet 17.2 MG PO DAILY PRN PRN For Constipation ( Reported) Sulfamethoxazole/Trimeth 800-160 mg (Bactrim DS 800-160 mg) 1 Each Tablet 1 TABLET PO DAILY (Reported) Valacyclovir (Valacyclovir) 500 Mg Tablet 1,000 MG PO BID (Reported) Past Surgical History Surgeries: Yes (doesn't remember the surgery but thinks it was gallblader removal.) Patient/Family Past Surgical: Positive for:: Blood Transfusions, Denies:: Anesthesia Reactions, Blood Transfuse Reaction, Malignant Hyperthermia Social History Hx Alcohol Use: Yes Hx Substance Use: No Hx Tobacco Use: Yes (Quit 27 years ago; prior to that smoked 1/2PPD for 30 years) PMH HEENT History History of ENT Problems?: No HEENT History: Denies:: Abnormal Airway Cataracts Difficult Intubation Dysphagia Hearing Problem Sinus Problem Cardiovascular History History of Heart Problems?: No Cardiovascular History: Positive for:: Hypertension Denies:: AICD Atrial Fibrillation Cardiac Surgery Chest Pain Congestive Heart Failure Edema Heart Murmur Irregular Heartbeat Pacemaker Rheumatic Fever Thrombophlebitis Valvular Heart Disease Respiratory History of Respiratory Problem: Yes Respiratory History: Positive for:: Dyspnea Pneumonia Denies:: Asthma COPD Chest Surgery Emphysema Hemoptysis Tuberculosis Neurological History Hx Neurologic Problems?: No Neurological History: Positive for:: CVA (in 2015) Seizures (one year ago, brought on by headaches) Denies:: Alzheimer's Disease Dementia Dizziness Headaches Parkinson's Disease Gastrointestinal History HX of GI Problems?: No Gastrointestinal History: Denies:: Cirrhosis Diverticulitis Gastroesphageal Reflux Gastrointestinal Bleeding Heartburn Hepatitis Hiatal Hernia Rectal Bleeding Genitourinary History Hx of Gu Problems?: No Genitourinary History: Denies: HX of Hemodialysis Kidney Stones Urinary Tract Infection Female/Male History Reproductive History Male: Denies: Prostate Problems Scrotal Mass Musculoskeletal History Hx Musculoskeletal Problems?: No Musculoskeletal History: Denies:: Back Injury Joint Replacement Musculoskeletal Trauma Psycho Social History Hx of Psycho/Social Problems?: No Psycho Social History: Denies:: Anxiety Bipolar Disorder Hx Depression Suicide Attempt Other History Hx Any Other Health Problems?: Yes Other History: Positive for:: Cancer (Leukemia) Hospitalization Denies:: Endocrine Disease Thyroid Disease Diabetes: YesBedside Blood Glucose: 80 Social History Hx Alcohol Use: YesHx Substance Use: NoHx Tobacco Use: Yes (Quit 27 years ago ; prior to that smoked 1/2PPD for 30 years) Smoking Status: Never Smoker Objective Exam Objective Did not complete interview. Will hold off till after IR attempts are unsuccessful, surgery will then complete interview and exam. Vital Signs & I/O Vital Sign- Last 8 Hours Date Time Temp Pulse Resp B/P Pulse Ox O2 Delivery O2 Flow Rate FiO2 01/29/17 11:56 36.9 60 18 126/78 96 OxyMask 3.00 01/29/17 09:05 Supplement Oxygen 01/29/17 09:05 36.6 67 16 138/82 99 01/29/17 08:00 114 01/29/17 05:28 68 Intake and Output- Last 8 Hour 01/29/17 Cumulative From/Thru 07:00 01/28/17 19:30 - 01/29/17 06:09 Intake Total 200 ml 200 ml Output Total 300 ml 300 ml Balance -100 ml -100 ml Intake Oral 200 ml 200 ml Output Urine Total 300 ml 300 ml Lab & Micro Results Laboratory Tests Test 01/28/17 20:12 01/29/17 04:20 01/29/17 04:25 01/29/17 04:40 White Blood Count 6.5th/mm3 (3.8-10.1) Red Blood Count 3.43mil/mm3 (4.40-5.80) Hemoglobin 12.0g/dL (13.8-17.2) Hematocrit 34.8% (41.0-50.0) Mean Corpuscular Volume 101.5fL (81-100) Mean Corpuscular Hemoglobin 35.0pg (27.0-35.0) Mean Corpuscular Hemoglobin Concent 34.5% (32.0-37.0) Red Cell Distribution Width 13.8% (12.3-15.4) Platelet Count 233bil/L (150-400) Neutrophils (%) (Auto) 48.9% (40-74) Lymphocytes (%) (Auto) 32.6% (14-46) Monocytes (%) (Auto) 13.7% (4-12) Eosinophils (%) (Auto) 3.4% (0-5) Basophils (%) (Auto) 0.6% (0-3) Prothrombin Time 11.6sec (8.1-12.5) Prothromb Time International Ratio 1.08ratio Sodium Level 126mEq/L (134-144) Potassium Level 4.6mEq/L (3.5-5.2) Chloride Level 95mEq/L (97-108) Carbon Dioxide Level 17mmol/L (18-29) Blood Urea Nitrogen 20mg/dL (6-24) Creatinine 1.33mg/dL (0.76-1.27) Estimat Glomerular Filtration Rate 59mL/min (>59) Glucose Level 142mg/dL (60-99) Hemoglobin A1c 5.4% (4.8-5.6) Calcium Level 8.8mg/dL (8.5-10.1) Magnesium Level 2.0mg/dL (1.6-2.6) Total Bilirubin 0.4mg/dL (0.0-1.2) Aspartate Amino Transf (AST/SGOT) 56U/L (0-50) Alanine Aminotransferase (ALT/SGPT) 41U/L (0-44) Alkaline Phosphatase 95U/L (25-150) Pro-B-Type Natriuretic Peptide 602.0pg/mL (0-210) Total Protein 7.8g/dL (6.4-8.4) Albumin 2.7g/dL (3.4-5.0) Procalcitonin 0.19ng/mL (0.00-0.08) 0.20ng/mL (0.00-0.08) Hold Tovar Top Tube Received (Received) Urine Color Yellow (YELLOW) Urine Appearance Clear (CLEAR,HAZY) Urine pH 7.0 (5.0-8.0) Urine Specific [place] 1.005 (1.003-1.035) Urine Protein Negativemg/dL (NEG,TRACE) Urine Glucose (UA) Negativemg/dL (NEGATIVE) Urine Ketones Negativemg/dL (NEGATIVE) Urine Occult Blood Small (NEGATIVE) Urine Nitrite Negative (NEGATIVE) Urine Bilirubin Negative (NEGATIVE) Urine Urobilinogen Normalmg/dL (NORMAL) Urine Leukocyte Esterase Negative (NEGATIVE) Urine RBC 3-10/hpf (0-2) Urine WBC 0-5/hpf (0-5) Urine Epithelial Cells Occasional/hpf (NONE-MOD) Urine Crystals None seen (NONE SEEN) Urine Bacteria None/hpf (NONE-FEW) Urine Hyaline Casts None/lpf (NONE) Urine Granular Casts None seen (NONE SEEN) Urine Waxy Casts None seen (NONE SEEN) Urine Red Blood Cell Casts None seen (NONE SEEN) Urine White Blood Cell Casts None seen (NONE SEEN) Urine Mucus None seen (None Seen) Urine Trichomonas None seen (NONE SEEN) Urine Yeast None (NONE SEEN) Urinalysis Comment None Urine Culture Reflexed Not indicated Urine Legionella pneumophilia Ag Negative (Negative) Test 01/29/17 08:20 White Blood Count 6.4th/mm3 (3.8-10.1) Red Blood Count 3.47mil/mm3 (4.40-5.80) Hemoglobin 12.0g/dL (13.8-17.2) Hematocrit 35.6% (41.0-50.0) Mean Corpuscular Volume 102.6fL (81-100) Mean Corpuscular Hemoglobin 34.6pg (27.0-35.0) Mean Corpuscular Hemoglobin Concent 33.7% (32.0-37.0) Red Cell Distribution Width 14.0% (12.3-15.4) Platelet Count 227bil/L (150-400) Neutrophils (%) (Auto) 44.5% (40-74) Lymphocytes (%) (Auto) 32.5% (14-46) Monocytes (%) (Auto) 15.4% (4-12) Eosinophils (%) (Auto) 6.5% (0-5) Basophils (%) (Auto) 0.6% (0-3) Sodium Level 128mEq/L (134-144) Potassium Level 4.6mEq/L (3.5-5.2) Chloride Level 100mEq/L (97-108) Carbon Dioxide Level 18mmol/L (18-29) Blood Urea Nitrogen 19mg/dL (6-24) Creatinine 1.13mg/dL (0.76-1.27) Estimat Glomerular Filtration Rate 71mL/min (>59) Glucose Level 75mg/dL (60-99) Calcium Level 8.5mg/dL (8.5-10.1) Total Bilirubin 0.4mg/dL (0.0-1.2) Aspartate Amino Transf (AST/SGOT) 49U/L (0-50) Alanine Aminotransferase (ALT/SGPT) 36U/L (0-44) Alkaline Phosphatase 89U/L (25-150) Total Protein 6.9g/dL (6.4-8.4) Albumin 2.5g/dL (3.4-5.0) Microbiology 01/28/17 Blood Culture, Received Pending 01/29/17 MRSA (PCR) - Final, Complete 01/29/17 Influenza Screen - Final, Complete 01/29/17 Streptococcus pneumoniae Ag Screen - Final, Complete Result Diagram: 01/29/1781901/29/17819 Review of Systems: Constitutional: Negative, except as otherwise mentioned in the history above. Ophthalmologic: Negative, except as otherwise mentioned in the history above. Cardiovascular: Negative, except as otherwise mentioned in the history above. Respiratory: Negative, except as otherwise mentioned in the history above. Gastrointestinal: Negative, except as otherwise mentioned in the history above. Genitourinary: Negative, except as otherwise mentioned in the history above. Musculoskeletal: Negative, except as otherwise mentioned in the history above. Neurological: Negative, except as otherwise mentioned in the history above. Psychiatric: Negative, except as otherwise mentioned in the history above. Hematologic/Lymphatic: Negative, except as otherwise mentioned in the history above. Allergic/Immunologic: Negative, except as otherwise mentioned in the history above. H&P Surgical Exam Exam Additional Information Physical exam withheld until percutaneous biopsy isn't successful. Assessment & Plan Assessment Patient with cough of unknown origin and pulmonary infiltrates on recent CT chest. Negative BAL. 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 Plan: Dr. Amaya will attempt Percutaneous pulmonary biopsy. There are 3 possible sites of percoutaneous access. Will await results, and If tissue biopsy was not successful with IR Surgery will attempt VATS. Discussed case with Dr. Amaya with IR, Dr. Waters with ID and Dr. Nuno with ICU/Pulmonary. Attending Statement: I personally discussed the case with Pulmonary Service and IR service. BRODIE STOREY DO Jan 29, 2017 13:32 Izaiah Corbett MD Jan 31, 2017 10:18
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
--- NOTE | 2017-01-29 15:30 | NUR ---
Social Work: Initial Assessment D: Per EMR review, pt is a 56 year old male admitted for Resp. Failure. Pt is Medicare with [facility] supplement; pt has no LTC insurance or VA benefits. PCP is Jr Lakhani MD. NOK is Yvette Valles, , . Advanced directives not completed- [place] Directives provided to pt. Readmit score not entered at this time. Pt is Bolivian speaking and requires an record press operator. ELECTRONIC DIE MAKER met with pt and spouse at bedside with the assistance of the record press operator on a stick. Sw role explained and contact info provided. See initial assessment. Pt is a readmit and was discharged home on 01/16 with no sw needs. Pt lives in [place] with his spouse. He is I at baseline but has been feeling very SOB. Pt does not have home 02. Pt has never had HH or [facility]. Pt drives when he is feeling well. Pt does not have [facility]. Pt and family state they intend for the pt to return home when he is medically stable but would like him to evaluated for his 02 needs. EMR reviewed; pt currently on 3 L 02. Pt has been ambulating to the bathroom I. A: pt who is I at baseline. P: Anticipate pt to discharge home via POV; ELECTRONIC DIE MAKER to r/o HH and/or home 02. AISHA Morrow Addendum: 01/29/17 at 1539 by ELIZABETH ROBERTS Amended: Links added.
--- NOTE | 2017-01-29 17:17 | PCM.PNMED ---
Subjective Date of Service Jan 29, 2017 Subjective This morning patient states that he fells better. He is comfortably sitting at the table eating lunch. He denies chest pain but does c/o mild shortness of breath. His is by bedside.She translates as the patient does not speak Kazakh. Exam Vital Signs Vital Sign - Last Date Time Temp Pulse Resp B/P Pulse Ox O2 Delivery O2 Flow Rate FiO2 01/29/17 16:20 37.1 64 18 152/81 97 OxyMask 4.00 Intake and Output 01/28/17 01/28/17 01/29/17 Cumulative From/Thru 15:00 23:00 07:00 01/28/17 19:30 - 01/29/17 06:09 Intake Total 200 ml 200 ml Output Total 300 ml 300 ml Balance -100 ml -100 ml Intake Oral 200 ml 200 ml Output Urine Total 300 ml 300 ml Exam General: Patient is alert and oriented 3, appears in mild distress but resting comfortably in bed speaking in full sentences. He is wearing a nonrebreather oxygen mask HEENT: NC/AT, eyes, PERRLA, EOMI, neck, soft supple, no adenopathy, no JVD, no masses, no thyromegaly, throat mucous membranes pink and moist, no erythema, no exudates. Lungs: Mild bilateral crackles in the lung bases otherwise lung sounds are good , no wheezes, no rhonchi,no use of accessory muscles of respiration, good air movement, good respiratory effort. Heart: Regular rate and rhythm, no murmur, S1-S2 present, no rub, no click, no distant heart sounds, Abdomen: Soft, nontender, nondistended, bowel sounds active, no rebound, no guarding, Genitourinary: No CVA tenderness, no suprapubic tenderness, no Zuniga catheter, Extremities: Muscle strength, 5 out of 5 upper/lower extremity and symmetric laterally, pulses equal and symmetric upper/lower extremity including radial and dorsalis pedis, no edema Neurologic: Grossly neurologically intact, speaking in full sentences, no focal neurological signs. Skin: Warm, dry, intact without rash Psychiatric: Mood and affect are congruent and appropriate. IVs and Medications Medications Home medications: Calcium Citrate/Vitamin D3 (Citracal + D Maximum Caplet) 1 Each Tablet 2 EACH PO BIDWM (Reported) Cholecalciferol (Vitamin D3) (Vitamin D) 1,000 Unit Tablet 1,000 UNIT PO DAILY ( Reported) Citalopram (Citalopram) 20 Mg Tablet 20 MG PO DAILY (Reported) Insulin Aspart (NovoLOG U100 Insulin Vial) 100 U/Ml U 2-4 UNIT SUBQ TIDWM ( Reported) Levetiracetam (Keppra) 500 Mg Tablet 500 MG PO BID (Reported) Magnesium Oxide (Magnesium Oxide) 400 Mg Tablet 400 MG PO DAILY (Reported) Metoprolol Tartrate (Metoprolol Tartrate) 50 Mg Tablet daily [place]-3 Fatty Acids ([place]-3) 1,000 Mg Capsule 1,000 MG PO DAILY (Reported) Sulfamethoxazole/Trimeth 800-160 mg (Bactrim DS 800-160 mg) 1 Each Tablet 1 TABLET PO DAILY (Reported) Valacyclovir (Valacyclovir) 500 Mg Tablet 1,000 MG PO BID (Reported) Lab and Diagnostics Result Diagram: 01/29/17 0820 01/29/17 0820 Microbiology Microbiology 01/28/17 Blood Culture, Received Pending 01/29/17 MRSA (PCR) - Negative 01/29/17 Influenza Screen - Negative 01/29/17 Streptococcus pneumoniae Ag Screen - Negative 01/29/17 Nasopharyngeal viral PCR all negative, including CMV X-Rays, CTs and MRIs X-RAY CHEST IMPRESSION: Bilateral patchy confluent opacities in the lungs, appearing mildly worse when compared to 01/12/17. As previously identified, this could be related to infection including atypical like mycobacterial or fungal. However, lymphangitic spread of tumor should also be considered. Dictated and approved by: Mela Solorio M.D. on 01/28/2017 at 20:08 CT CHEST WITH CONTRAST IMPRESSION: 1. Increased bilateral pulmonary nodules with confluent areas of consolidation in a perilymphatic distribution. 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 The differential also includes lymphocytic interstitial pneumonia, sarcoidosis, occupational pneumoconiosis, and amyloidosis. Dictated and approved by: Giovanni Stoll M.D. on 01/29/2017 at 11:07 Additional Diagnostics 01/28/17 PROCEDURE: X-RAY CHEST ONE VIEW, PORTABLE IMPRESSION: Bilateral patchy confluent opacities in the lungs, appearing mildly worse when compared to 01/12/17. As previously identified, this could be related to infection including atypical like mycobacterial or fungal. However, lymphangitic spread of tumor should also be considered. Dictated by: Mela Solorio M.D. on 01/28/2017 at 20:08 Approved by: Mela Solorio M.D. on 01/28/2017 at 20:11 01/29/17 PROCEDURE: CT CHEST WITH CONTRAST IMPRESSION: 1. Increased bilateral pulmonary nodules with confluent areas of consolidation in a perilymphatic distribution. 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 The differential also includes lymphocytic interstitial pneumonia, sarcoidosis, occupational pneumoconiosis, and amyloidosis. Dictated by: Giovanni Stoll M.D. on 01/29/2017 at 11:07 Approved by: Giovanni Stoll M.D. on 01/29/2017 at 11:19 . Assessment & Plan Patient is a 56 year old male with a history of type 2 diabetes mellitus, ALL s/ p bone marrow transplant (in remission), and chronic CMV infection. He presented to [facility] from Dr. Waters office on 01/28/2017. Patient admitted for infectious disease and pulmonology work up. Hospital day 2. 1. Pulmonary and perihilar opacification, moderate to severe, CT chest finding from 01/12/2017, present on admission. - Patient was recently admitted to [facility] having been discharged two weeks ago () for respiratory infection symptoms. At that hospitalization, he had extensive work-up for infection including BAL. BAL was negative for CMV, AFB, legionella, PCP, fungus, HSV, adenovirus, coronovirus and influenza, but was positive for metaneumovirus. Pathology did not show malignancy although it would be difficult to show pathology for ALL with a BAL since there would just be lymphocytes. Micro of blood, sputum, urine showed Coccidioides inconclusive, negative cryptococcus, negative fungal Ab, no hepatitis or HIV, legionella negative, galactomannan low, strongyloides immunoglobulin negative, TB quat gold negative. - CXR Bilateral patchy confluent opacities in the lungs, appearing mildly worse when compared to 01/12/17. As previously identified, this could be related to infection including atypical like mycobacterial or fungal. However, lymphangitic spread of tumor should also be considered. - Viral respiratory PCR negative, Urine strep pneumo and Legionella negative - Blood culture ordered and pending. - Today's CT chest findings are remarkable for bilateral pulmonary nodules - Dr. Amaya will attempt Percutaneous pulmonary biopsy. There are 3 possible sites of percutaneous access. Will await results, and If tissue biopsy was not successful with IR Surgery will attempt VATS. Discussed case with Dr. Amaya with IR, Dr. Waters with ID and Dr. Nuno with ICU/Pulmonary. 2. Chronic and recurrent CMV - Continue valacyclovir 1000 mg BID. 3. Type 2 diabetes mellitus, chronic, presume stable. - Continue Lantus 4 units QAM. - Low dose correction scale will be started. - Last A1c was 5.5 4. 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 - Continue Bactrim DS 1 tablet daily for PCP prophylaxis. 5. Seizure disorder, chronic, presume stable. - Continue Keppra 500 mg BID. 6. Hypertension, chronic, presume stable. - Continue metoprolol tartrate 25 mg BID. 7. Depression, chronic, presume stable. - Continue citalopram 20 mg daily. - Antiemetic available PRN. - Antacid available PRN. - Bowel regimen available PRN. - Tylenol available PRN mild pain, fever. Patient admitted under inpatient status with expected length of stay greater than 2 midnights for severity of present symptoms, complexities of treatment plan and risk for adverse events. VTE Prophylaxis: Subcutaneous heparin Resuscitation Status: CPR: Attempt Resuscitation Infectious disease Dr. Waters Pulmonology Dr. Purvis Patient's PCP Jr Lakhani Resuscitation Status: CPR: Attempt Resuscitation Attending Statement The patient was seen and examined together with Dr. Barrios on 01/29/17 and I agree with the history, exam and plan as outlined in the note above. Daria Barrios DO Jan 29, 2017 17:17 Fabian Salazar MD Jan 29, 2017 18:44
[2017-01-29] MEDS ORDERED: Albuterol-Ipratropium 3 mL Inhalation Solution NEB PRN (18:25)
--- NOTE | 2017-01-29 19:34 | NUR ---
O2 Pt desatting on ambulation 87%. Oxymask at 15L. Called RT. Notified MD. FiO2 administered by RT 50L at 50%. Pt resting, family at bedside. Pt shivering at shift report in room, provided 3 warm blankets, increased room temperature. Care continues.
--- NOTE | 2017-01-29 22:17 | PROG NOTE ---
[address] [address] PROGRESS NOTE PATIENT: GERRY VILLALPANDO : 1960 MR#: [id number] ADMIT: 01/28/2017 JOB ID: [id number] INFECTIOUS DISEASES FOLLOWUP: DATE: 01/29/2017 INTERVAL HISTORY: Recall that this is the 56-year-old gentleman who was seen yesterday in the outpatient clinic and whom I admitted from the outpatient clinic. 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 Following his transplant, he developed issues with ongoing CMV infection and required long courses of intravenous as well as oral anti-CMV treatment. More recently, the patient has been admitted three times in the last eight months or so with severe viral infections including parainfluenza virus #3, influenza, and last month human metapneumovirus. The patient was discharged about 2-1/2 weeks ago after he had a bronchoscopy on January 12, 2017, and a CT scan. At that point, it seemed as if his human metapneumovirus infection was improving. He had some nodular diffuse infiltrates which we were attempting to further evaluate with the bronch and the patient was sent home in reasonably good condition. Subsequently, found that all the studies from the bronch including a CMV bronch wash as well as Pneumocystis stains, routine fungal and AFB stains and cultures, and PCR done for fungi and mycobacteria were all entirely negative. The patient presented yesterday to [facility] for followup on these various studies and was found to be profoundly dyspneic with O2 sats in the 70s. He improved very slowly with a non-rebreather mask, and for that reason, we admitted him through clinic. The patient reports that overnight he is a little less short of breath. He has no fevers, no chills, no sweats. No significant headache or sore throat. He does not have any productive cough, but he says he gets short of breath just taking a couple of steps to the bathroom or even while eating. He and his agree that his shortness of breath has been progressive over the last few weeks. PHYSICAL EXAMINATION: Reveals an afebrile, chronically ill-appearing gentleman. Temperature 37.1 and he has been afebrile overnight since admission. Blood pressure 152/81, pulse 64, respiratory rate 18, pulse ox 98%, and he is on 4 L by nasal prongs. His mental status is sharp. Oral cavity unremarkable. Lungs remarkably clear posteriorly considering his oxygen situation. Cardiac tones: Regular rate and rhythm without significant new murmur. No skin rashes noted. LABORATORIES: Include white count 6400, platelet count 227. Creatinine 1.13. LFTs are normal. Albumin 2.5. Pro calcitonin 0.2. Urinalysis unremarkable. Urine Legionella and pneumococcal antigen negative. Blood cultures negative. Respiratory viral PCR culture negative for human metapneumovirus and negative for all other tested viruses. We reviewed carefully the CT scan and compared it to the one done January 12, 2017. We did this with the pulmonary attending. The new CT shows diffuse nodular and ground-glass infiltrates which are dramatically worse than they were on 2016. The radiologist opined that these could be from a wide variety of sources and included specifically lymphangitic spread of cancer as well as acute interstitial pneumonia, sarcoid, and amyloidosis. 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 We initially had a positive PCR in late December for human metapneumovirus, but that has now turned negative and he is worse. The only way forward here is to obtain some lung tissue. RECOMMENDATIONS: 1. After long discussions today between IR Surgery and Pulmonary, it has been decided to do a percutaneous lung biopsy tomorrow. 2. It will be essential that part of this lung biopsy be sent for histopath and special stains and another part sent for culture and PCR studies for bacteria, fungi, and mycobacteria. 3. CMV pulmonary infection would be best diagnosed by CMV culture of the biopsy material as well as by special stain. Thank you very much. Note that this case was discussed in great detail with the patient and his using an salon customer experience specialist.
--- NOTE | 2017-01-29 22:51 | NUR ---
N/V/Fever patient family called to room awoke nauseated experienced small emesis declined medication at this time nausea resolved after emesis Upon VS check fever of 103 notified MD obtained orders for Tylenol otherwise no new orders
[2017-01-30] VITALS (13 sets, daily range): BP systolic 104–157; BP diastolic 74–86; PULSE 49–96; RESP 16–24; O2SAT 93–100
[2017-01-30] MEDS: Sodium Chloride LOK Flush 10 mL Syringe IVFLUSH SCH ×3 (00:46→16:30)
[2017-01-30 04:50] LABS: BASOPHILS % (AUTO) 0.6 % (0-3); EOSINOPHILS % (AUTO) 4.7 % (0-5); MONOCYTES % (AUTO) 13.8 % (4-12); Mean Corpuscular Hemoglobin 35.1 pg (27.0-35.0); NEUTROPHILS % (AUTO) 46.2 % (40-74); Platelet Count 237 bil/L (150-400)
[2017-01-30 05:00] LABS: INR 1.11 ratio
[2017-01-30] MEDS: Insulin LISPRO 300 Unit/3 mL Inj SUBQ SCH ×4 (08:00→22:00)
[2017-01-30] MEDS: levETIRAcetam 500 mg Tablet PO SCH ×2 (08:01→20:14)
--- NOTE | 2017-01-30 08:05 | NUR ---
Bradycardia Pt bradycardic since 2330 per nurse monitoring. HR 49 this am. Pt states he's sleepy, lethargic. BP 115/75, T 36.8 FiO2 50L at 50% SPO2 100%. Repositioned pt, increased HR 54. MD notified. Care continues.
[2017-01-30] MEDS: Trimethoprim-Sulfa 160 mg-800 mg Tablet PO SCH (08:30)
--- NOTE | 2017-01-30 10:52 | PROG NOTE ---
[address] [address] PROGRESS NOTE PATIENT: GERRY VILLALPANDO : 1960 MR#: [id number] ADMIT: 01/28/2017 JOB ID: [id number] DATE: 01/30/2017 INFECTIOUS DISEASE FOLLOWUP NOTE: REASON FOR FOLLOWUP: ALL patient with recurrent viral respiratory tract infections, now admitted with progressive pulmonary infiltrates of unknown etiology with borderline respiratory function. INTERVAL HISTORY: Overnight, the patient has started to spike high fevers. These are new, and the patient and his deny that he has had fevers in the past couple of weeks leading up to last night's multiple spiking temperature elevations. He does not have significant chills or sweats associated with this fever and states, if anything, he feels a bit better overnight. He is still moderately short of breath and on 6 L by nasal prongs. He gets more short of breath when he gets up to go to the bathroom or do anything else. The patient denies sore throat. He has no cough and certainly no productive cough or hemoptysis. No chest pain. He has had a bit of nausea and he vomited once but no diarrhea and currently no nausea, vomiting, or diarrhea. He has had no difficulties with urination. Using the product tester fiberglass we went through a relatively complete review of systems and found nothing else today. OBJECTIVE: Temperature overnight spiked to 39.5 on one occasion and then dropped to 38 and then, he became afebrile again, currently 36.8. Pulse 50, respiratory rate 16, but he is on 6 L by nasal prongs. Blood pressure 115/75. Mental status: Completely clear. Eyes: With conjunctival hyperemia but no other abnormalities. Oral cavity: Benign. Lungs: Shockingly clear when auscultated posteriorly despite his very abnormal chest x-ray, which is indicative of interstitial pneumonia. Cardiac tones: Regular rate and rhythm without murmur, somewhat bradycardic. Abdomen: Soft and nontender. No new skin rashes appreciated. LABORATORIES: Include a white count of 6800, with 14% monos. Creatinine 1.22. AST stable at 56, albumin 2.5. Procalcitonin 0.2. Urinalysis is negative. Urine legionella and pneumococcus are negative. Blood cultures from two days ago negative. Respiratory viral PCR panel negative. MRSA screen negative. IMAGING: Includes a chest CT we discussed extensively yesterday which shows worsening bilateral infiltrates as compared to the CT of the chest done on January 12 which showed the bilateral nodular infiltrates with some ground glass infiltrates as well. IMPRESSION: This is a confusing case. The patient has acute lymphocytic leukemia and underwent stem cell transplant a couple of years ago. Since then, he has been troubled by frequent reactivations of cytomegalovirus, which seemed to be quiescent recently based on negative serum viral load and negative bronchial wash CMV cultures in late December. In May he had severe parainfluenza virus 3 infection and in the fall, influenza A. He was admitted in late December with respiratory process, which was PCR positive for human metapneumovirus. An extensive search for other pathogen including Charles C antibodies, crypto antigen, QuantiFERON Gold and bronchial wash with multiple PCRs were entirely negative. We were left with the assumption that perhaps his infiltrates seen on the CT scan of January 12 were due to human metapneumovirus. Unfortunately, the patient has gotten more short of breath as an outpatient which culminated in his admission on the from the [facility] where we had seen him. He continues, at this point, to be quite dyspneic but otherwise looks nontoxic. Last night's high fever to 39.5 is worrisome but overall, the patient says he feels better, and I am still not seen a compelling indication to start antibiotics in this hemodynamically stable gentleman with normal white count and relatively normal procalcitonin. The differential diagnosis here is broad and includes noninfectious causes such as pulmonary malignancy perhaps due to acute lymphocytic leukemia or another process engendered by his immunosuppression, sarcoid, amyloid, interstitial pneumonitis, or atypical infection. RECOMMENDATIONS: 1. I agree completely with the plans for lung biopsy today which is scheduled tentatively for noon. 2. I see no indication for additional antibiotics or any antibiotics at this point beyond the prophylactic Bactrim, and acyclovir he receives on a chronic basis. 3. Today, we have ordered two fungal blood cultures, as well as a repeat galactomannan, Fungitell and quantitative CMV PCR on blood. 4. We await with interest the results of today's biopsy, and I will be in touch with the [facility] regarding appropriate processing of those specimens.
--- NOTE | 2017-01-30 11:23 | NUR ---
Oxygen Off FiO2 per patient request, on 7L Oxymask SPO2 98%. Pt tolerating well. Care continues.
--- NOTE | 2017-01-30 11:43 | PCM.PNMED ---
Subjective Date of Service Jan 30, 2017 Subjective Overnight: patient had nausea and experienced small emesis. Nausea resolved after emesis. He also had fever of 103 and was given Tylenol. He was bradycardic with heart rate of 49 this am. Patient continues to be sleepy and lethargic for the most of the time. Currently on 7L oxymask SpO2 98%. Exam Vital Signs Vital Sign - Last Date Time Temp Pulse Resp B/P Pulse Ox O2 Delivery O2 Flow Rate FiO2 01/30/17 11:26 36.7 63 16 119/74 97 OxyMask 7.00 01/30/17 09:48 45 Intake and Output 01/29/17 01/29/17 01/30/17 Cumulative From/Thru 15:00 23:00 07:00 01/28/17 19:30 - 01/30/17 05:41 Intake Total 840 ml 0 ml 1040 ml Output Total 1150 ml 350 ml 1800 ml Balance -310 ml -350 ml -760 ml Intake Oral 840 ml 0 ml 1040 ml Output Urine Total 1150 ml 350 ml 1800 ml Exam General: Patient is alert and oriented 3, appears to be dyspneic HEENT: NC/AT, conjunctival hyperemia, neck, soft supple, no adenopathy Lungs: Mild bilateral crackles in the lung bases otherwise normal Heart: Regular rate and rhythm, no murmur, bradycardic Abdomen: Soft, nontender, nondistended, bowel sounds active Extremities: No edema Neurologic: Grossly neurologically intact Skin: Warm, dry, intact without rash Lab and Diagnostics Result Diagram: 01/30/17 0435 01/30/17 0435 Microbiology Microbiology 01/28/17 Blood Culture, Received Pending 01/29/17 MRSA (PCR) - Negative 01/29/17 Influenza Screen - Negative 01/29/17 Streptococcus pneumoniae Ag Screen - Negative 01/29/17 Nasopharyngeal viral PCR all negative, including CMV X-Rays, CTs and MRIs X-RAY CHEST IMPRESSION: Bilateral patchy confluent opacities in the lungs, appearing mildly worse when compared to 01/12/17. As previously identified, this could be related to infection including atypical like mycobacterial or fungal. However, lymphangitic spread of tumor should also be considered. Dictated and approved by: Mela Solorio M.D. on 01/28/2017 at 20:08 CT CHEST WITH CONTRAST IMPRESSION: 1. Increased bilateral pulmonary nodules with confluent areas of consolidation in a perilymphatic distribution. 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 The differential also includes lymphocytic interstitial pneumonia, sarcoidosis, occupational pneumoconiosis, and amyloidosis. Dictated and approved by: Giovanni Stoll M.D. on 01/29/2017 at 11:07 Additional Diagnostics 01/28/17 PROCEDURE: X-RAY CHEST ONE VIEW, PORTABLE IMPRESSION: Bilateral patchy confluent opacities in the lungs, appearing mildly worse when compared to 01/12/17. As previously identified, this could be related to infection including atypical like mycobacterial or fungal. However, lymphangitic spread of tumor should also be considered. Dictated by: Mela Solorio M.D. on 01/28/2017 at 20:08 Approved by: Mela Solorio M.D. on 01/28/2017 at 20:11 01/29/17 PROCEDURE: CT CHEST WITH CONTRAST IMPRESSION: 1. Increased bilateral pulmonary nodules with confluent areas of consolidation in a perilymphatic distribution. 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 The differential also includes lymphocytic interstitial pneumonia, sarcoidosis, occupational pneumoconiosis, and amyloidosis. Dictated by: Giovanni Stoll M.D. on 01/29/2017 at 11:07 Approved by: Giovanni Stoll M.D. on 01/29/2017 at 11:19 . Assessment & Plan Mr. 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 1. Acute hypoxic respiratory failure, present on admission. 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 -Recent hospitalization with human metapneumovirus -Additional infectious work up negative for crypto antigen, fungus, AFB, legionella, HSV, adenovirus, QuantiFERON Gold -No compelling indication to start antibiotics at this time per ID (normal white count and relatively normal procalcitonin -Chest CT shows worsening bilateral infiltrates as compared to the CT of the chest done on January 12 -DDx: noninfectious causes such as pulmonary malignancy, sarcoid, amyloid, interstitial pneumonitis, lymphangitis carcinomatosis -Percutaneous pulmonary biopsy today by Dr. Amaya 2. Chronic and recurrent CMV - Continue valacyclovir 1000 mg BID. 3. Type 2 diabetes mellitus, chronic, presume stable. - Continue Lantus 4 units QAM. - Low dose correction scale will be started. - Last A1c was 5.5 4. 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 - Continue Bactrim DS 1 tablet daily for PCP prophylaxis. 5. Seizure disorder, chronic, presume stable. - Continue Keppra 500 mg BID. 6. Hypertension, chronic, presume stable. - Continue metoprolol tartrate 25 mg BID. 7. Depression, chronic, presume stable. - Continue citalopram 20 mg daily. - Antiemetic available PRN. - Antacid available PRN. - Bowel regimen available PRN. - Tylenol available PRN mild pain, fever. Patient admitted under inpatient status with expected length of stay greater than 2 midnights for severity of present symptoms, complexities of treatment plan and risk for adverse events. VTE Prophylaxis: Subcutaneous heparin Resuscitation Status: CPR: Attempt Resuscitation Infectious disease Dr. Waters Pulmonology Dr. Purvis Patient's PCP Jr Winkes Include a white count of 6800, with 14% monos. Creatinine 1.22. AST stable at 56, albumin 2.5. Procalcitonin 0.2. Urinalysis is negative. Urine legionella and pneumococcus are negative. Blood cultures from two days ago negative. Respiratory viral PCR panel negative. MRSA screen negative. IMAGING: Includes a chest CT we discussed extensively yesterday which shows worsening bilateral infiltrates as compared to the CT of the chest done on January 12 which showed the bilateral nodular infiltrates with some ground glass infiltrates as well. IMPRESSION: This is a confusing case. The patient has acute lymphocytic leukemia and underwent stem cell transplant a couple of years ago. Since then, he has been troubled by frequent reactivations of cytomegalovirus, which seemed to be quiescent recently based on negative serum viral load and negative bronchial wash CMV cultures in late December. In May he had severe parainfluenza virus 3 infection and in the fall, influenza A. He was admitted in late December with respiratory process, which was PCR positive for human metapneumovirus. An extensive search for other pathogen including Charles C antibodies, crypto antigen, QuantiFERON Gold and bronchial wash with multiple PCRs were entirely negative. We were left with the assumption that perhaps his infiltrates seen on the CT scan of January 12 were due to human metapneumovirus. Unfortunately, the patient has gotten more short of breath as an outpatient which culminated in his admission on the from the [facility] where we had seen him. He continues, at this point, to be quite dyspneic but otherwise looks nontoxic. Last night's high fever to 39.5 is worrisome but overall, the patient says he feels better, and I am still not seen a compelling indication to start antibiotics in this hemodynamically stable gentleman with normal white count and relatively normal procalcitonin. The differential diagnosis here is broad and includes noninfectious causes such as pulmonary malignancy perhaps due to acute lymphocytic leukemia or another process engendered by his immunosuppression, sarcoid, amyloid, interstitial pneumonitis, or atypical infection. RECOMMENDATIONS: 1. I agree completely with the plans for lung biopsy today which is scheduled tentatively for noon. 2. I see no indication for additional antibiotics or any antibiotics at this point beyond the prophylactic Bactrim, and acyclovir he receives on a chronic basis. 3. Today, we have ordered two fungal blood cultures, as well as a repeat galactomannan, Fungitell and quantitative CMV PCR on blood. 4. We await with interest the results of today's biopsy, and I will be in touch with the [facility] regarding appropriate processing of those specimens. Attending Statement The patient was seen and examined together with Dr. Barrios on 01/30/17 and I agree with discharge instructions as outlined in the note above. Daria Barrios DO Jan 30, 2017 11:43 Fabian Salazar MD Jan 30, 2017 13:43
--- NOTE | 2017-01-30 13:37 | NUR ---
Blood Glucose Pt BG 68. Administering D5 bolus 25mL per order. MD notified. Recheck BG at 1350. Addendum: 01/30/17 at 1352 by VIC VALERA RN 15 minute check: BG 154.
[2017-01-30] MEDS: Dextrose 5% 0.9% NaCl 1,000 ML IV SCH (13:58)
--- NOTE | 2017-01-30 14:04 | NUR ---
Off floor to CT scan Pt off floor to CT Scan, transported via bed, IV D5W. BG 154.
--- NOTE | 2017-01-30 14:11 | NUR ---
Back to floor Pt transported back to floor, per transporter procedure postponed till further notice.
--- NOTE | 2017-01-30 18:30 | NUR ---
O2 Pt insisted on using bathroom for bowel movement with 6L oxymask. Pt desatted to high 70s, HiFlo administered 50L at 50% pt increased to 87%. RT called, reset FiO2 90L at 45%. SPO2 99%. Care continues.
[2017-01-31] VITALS (16 sets, daily range): BP systolic 107–130; BP diastolic 65–80; PULSE 56–88; RESP 20–26; O2SAT 92–100
[2017-01-31] MEDS: Sodium Chloride LOK Flush 10 mL Syringe IVFLUSH SCH ×4 (00:51→23:49)
[2017-01-31] MEDS: Dextrose 5% 0.9% NaCl 1,000 ML IV SCH ×2 (03:10→11:42)
[2017-01-31 04:21] LABS: BASOPHILS % (AUTO) 0.7 % (0-3); MONOCYTES % (AUTO) 13.6 % (4-12); Mean Corpuscular Hemoglobin 34.9 pg (27.0-35.0); Mean Corpuscular Volume 102.1 fL (81-100); NEUTROPHILS % (AUTO) 52.9 % (40-74); Platelet Count 239 bil/L (150-400)
--- NOTE | 2017-01-31 07:23 | NUR ---
Shivering/Emesis/Respiratory At beginning of shift pt c/o being cold and began to shiver. Pt's temp was taken and pt was afebrile. While the pt was shivering the pt's SpO2 did decrease to 89% and the pt's HR increased into the 120s. Pt also was hypertensive during the time when he was shivering. Multiple warm blankets were applied to the pt with no relief from the feeling of being cold and shivering. Pt had a small amount of clear emesis after drinking a few sips of water. After that pt was able to tolerate all PO. Pt was given HS PO medications including metoprolol. Within approximately 30-45 minutes of receiving HS PO medications the pt's shivering stopped and the pt's HR went down into the 70s. Once pt was asleep and no longer shivering the pt's O2 needs decreased. At beginning of shift pt was on hi-flow at 45L/90%. Pt was slowly titrated down by RT. Final settings on hi-eliel this AM for shift change was 45L/60% with SpO2 >92%.
[2017-01-31] MEDS: Insulin LISPRO 300 Unit/3 mL Inj SUBQ SCH ×4 (08:00→21:25)
[2017-01-31] MEDS: Trimethoprim-Sulfa 160 mg-800 mg Tablet PO SCH (11:40)
[2017-01-31] MEDS: levETIRAcetam 500 mg Tablet PO SCH ×2 (11:41→21:25)
--- NOTE | 2017-01-31 12:15 | NUR ---
NUTRITION ASSESSMENT: ASSESS:56 YO male admitted with hypoxic respiratory failure, pneumonia dyspnea, shortness of breath. 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 Lung biopsy tentatively scheduled for Thursday. Of note, pt. with weight loss 11.2 kg x 10 weeks = 12.19% = severe malnutrition. PMHx:Acute lymphocytic leukemia s/p stem cell transplant two years ago , frequent reactivations of cytomegalovirus, recent severe parainfluenza virus and influenza A, recent hospitalization with human metapneumovirus, type 2 diabetes, seizure disorder, HTN. DIET:Consistent carb. PO intake 100% x 1 tray. LABS: A1c 5.4, ca 8.4, AST 52, Alb 2.4. MEDICATIONS: Reviewed. NUTRITION FOCUSED PHYSICAL ASSESSMENT: GI symptoms / stool: BM x 1 (01/30).Ross: 19 Skin Integrity: No issues reported. ANTHROPOMETRICS: Current Wt: 80.7 kgBMI: 28.0 kg/m2.Admit weight: 82 kg. IBW: ESTIMATED NEEDS (CANCER): Calories: 2050 - 2460 kcal (25 - 30 kcal / kg BW) Protein: 82 - 123 g protein (1.0 - 1.5 g / kg BW) Fluid: 2460 - 2870 mL (30 - 35 mL / kg BW) NUTRITION DIAGNOSIS: 1)Increased nutrient needs related to ALL with potential pulmonary involvement, as evidenced by lung biopsy scheduled for Thursday. 2)Severe malnutrition related to ALL, recent severe parainfluenza virus and influenza A, recent hospitalization with human metapneumovirus, as evidenced by 12.19% weight loss x 10 weeks. INTERVENTION: 1) Will add Glucerna to lunch and dinner trays. MONITOR/EVALUATE: Diet / supplement tolerance, PO intake, labs, GI/nutrition status. Follow up per high nutrition risk guidelines.
--- NOTE | 2017-01-31 17:38 | PCM.PNMED ---
Subjective Date of Service Jan 31, 2017 Subjective Overnight patient pulse increased to 104 and respiration rate to 24, he was shivering but afebrile, desat O2 88%. Had one episode of small emesis. He was given metoprolol after which his heart rate went back to 70. he slept the rest of the night. This morning he denies any pain or discomfort. Exam Vital Signs Vital Sign - Last Date Time Temp Pulse Resp B/P Pulse Ox O2 Delivery O2 Flow Rate FiO2 01/31/17 16:22 37.0 56 24 111/68 98 Hi-Flow 01/31/17 11:53 60 01/31/17 04:15 45 Intake and Output 01/30/17 01/30/17 01/31/17 Cumulative From/Thru 15:00 23:00 07:00 01/28/17 19:30 - 01/31/17 06:24 Intake Total 400 ml 800 ml 2240 ml Output Total 3 ml 1803 ml Balance 400 ml 797 ml 437 ml Intake Oral 400 ml 800 ml 2240 ml Output Urine Total 3 ml 1803 ml # Voids 4 4 # Bowel Movements 1 1 Exam General: Patient is alert and oriented 3, appears to be dyspneic HEENT: NC/AT, conjunctival hyperemia, neck, soft supple, no adenopathy Lungs: Mild bilateral crackles in the lung bases otherwise normal Heart: Regular rate and rhythm, no murmur, bradycardic Abdomen: Soft, nontender, nondistended, bowel sounds active Extremities: No edema Neurologic: Grossly neurologically intact Skin: Warm, dry, intact without rash Lab and Diagnostics Result Diagram: 01/31/17 0410 01/31/17 0410 Microbiology Microbiology 01/28/17 Blood Culture, Received Pending 01/29/17 MRSA (PCR) - Negative 01/29/17 Influenza Screen - Negative 01/29/17 Streptococcus pneumoniae Ag Screen - Negative 01/29/17 Nasopharyngeal viral PCR all negative, including CMV X-Rays, CTs and MRIs X-RAY CHEST IMPRESSION: Bilateral patchy confluent opacities in the lungs, appearing mildly worse when compared to 01/12/17. As previously identified, this could be related to infection including atypical like mycobacterial or fungal. However, lymphangitic spread of tumor should also be considered. Dictated and approved by: Mela Solorio M.D. on 01/28/2017 at 20:08 CT CHEST WITH CONTRAST IMPRESSION: 1. Increased bilateral pulmonary nodules with confluent areas of consolidation in a perilymphatic distribution. 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 The differential also includes lymphocytic interstitial pneumonia, sarcoidosis, occupational pneumoconiosis, and amyloidosis. Dictated and approved by: Giovanni Stoll M.D. on 01/29/2017 at 11:07 Additional Diagnostics 01/28/17 PROCEDURE: X-RAY CHEST ONE VIEW, PORTABLE IMPRESSION: Bilateral patchy confluent opacities in the lungs, appearing mildly worse when compared to 01/12/17. As previously identified, this could be related to infection including atypical like mycobacterial or fungal. However, lymphangitic spread of tumor should also be considered. Dictated by: Mela Solorio M.D. on 01/28/2017 at 20:08 Approved by: Mela Solorio M.D. on 01/28/2017 at 20:11 01/29/17 PROCEDURE: CT CHEST WITH CONTRAST IMPRESSION: 1. Increased bilateral pulmonary nodules with confluent areas of consolidation in a perilymphatic distribution. 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 The differential also includes lymphocytic interstitial pneumonia, sarcoidosis, occupational pneumoconiosis, and amyloidosis. Dictated by: Giovanni Stoll M.D. on 01/29/2017 at 11:07 Approved by: Giovanni Stoll M.D. on 01/29/2017 at 11:19 . Assessment & Plan Mr. 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 1. Acute hypoxic respiratory failure, present on admission. 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 -Recent hospitalization with human metapneumovirus -Additional infectious work up negative for crypto antigen, fungus, AFB, legionella, HSV, adenovirus, QuantiFERON Gold -No compelling indication to start antibiotics at this time per ID (normal white count and relatively normal procalcitonin -Chest CT shows worsening bilateral infiltrates as compared to the CT of the chest done on January 12 -DDx: noninfectious causes such as pulmonary malignancy, sarcoid, amyloid, interstitial pneumonitis, lymphangitis carcinomatosis -Percutaneous pulmonary biopsy on Thursday by Dr. Amaya -As a side note talked to Dr. Corbett about possibly doing VATS today, but Dr. Corbett felt that percutaneous pulmonary biopsy needs to be done first 2. Chronic and recurrent CMV - Continue valacyclovir 1000 mg BID. 3. Type 2 diabetes mellitus, chronic, presume stable. - Continue Lantus 4 units QAM. - Low dose correction scale will be started. - Last A1c was 5.5 4. 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 - Continue Bactrim DS 1 tablet daily for PCP prophylaxis. 5. Seizure disorder, chronic, presume stable. - Continue Keppra 500 mg BID. 6. Hypertension, chronic, presume stable. - Continue metoprolol tartrate 25 mg BID. 7. Depression, chronic, presume stable. - Continue citalopram 20 mg daily. - Antiemetic available PRN. - Antacid available PRN. - Bowel regimen available PRN. - Tylenol available PRN mild pain, fever. Patient admitted under inpatient status with expected length of stay greater than 2 midnights for severity of present symptoms, complexities of treatment plan and risk for adverse events. VTE Prophylaxis: Subcutaneous heparin Resuscitation Status: CPR: Attempt Resuscitation Infectious disease Dr. Waters Pulmonology Dr. Purvis Patient's PCP Daria Ashraf DO Jan 31, 2017 17:38 Include a white count of 6800, with 14% monos. Creatinine 1.22. AST stable at 56, albumin 2.5. Procalcitonin 0.2. Urinalysis is negative. Urine legionella and pneumococcus are negative. Blood cultures from two days ago negative. Respiratory viral PCR panel negative. MRSA screen negative. IMAGING: Includes a chest CT we discussed extensively yesterday which shows worsening bilateral infiltrates as compared to the CT of the chest done on January 12 which showed the bilateral nodular infiltrates with some ground glass infiltrates as well. IMPRESSION: This is a confusing case. The patient has acute lymphocytic leukemia and underwent stem cell transplant a couple of years ago. Since then, he has been troubled by frequent reactivations of cytomegalovirus, which seemed to be quiescent recently based on negative serum viral load and negative bronchial wash CMV cultures in late December. In May he had severe parainfluenza virus 3 infection and in the fall, influenza A. He was admitted in late December with respiratory process, which was PCR positive for human metapneumovirus. An extensive search for other pathogen including Charles C antibodies, crypto antigen, QuantiFERON Gold and bronchial wash with multiple PCRs were entirely negative. We were left with the assumption that perhaps his infiltrates seen on the CT scan of January 12 were due to human metapneumovirus. Unfortunately, the patient has gotten more short of breath as an outpatient which culminated in his admission on the from [facility] where we had seen him. He continues, at this point, to be quite dyspneic but otherwise looks nontoxic. Last night's high fever to 39.5 is worrisome but overall, the patient says he feels better, and I am still not seen a compelling indication to start antibiotics in this hemodynamically stable gentleman with normal white count and relatively normal procalcitonin. The differential diagnosis here is broad and includes noninfectious causes such as pulmonary malignancy perhaps due to acute lymphocytic leukemia or another process engendered by his immunosuppression, sarcoid, amyloid, interstitial pneumonitis, or atypical infection. RECOMMENDATIONS: 1. I agree completely with the plans for lung biopsy today which is scheduled tentatively for noon. 2. I see no indication for additional antibiotics or any antibiotics at this point beyond the prophylactic Bactrim, and acyclovir he receives on a chronic basis. 3. Today, we have ordered two fungal blood cultures, as well as a repeat galactomannan, Fungitell and quantitative CMV PCR on blood. 4. We await with interest the results of today's biopsy, and I will be in touch with the [facility] regarding appropriate processing of those specimens. Daria Barrios DO Jan 31, 2017 17:38
[2017-02-01] VITALS (12 sets, daily range): BP systolic 104–121; BP diastolic 63–91; PULSE 59–65; RESP 22–24; O2SAT 94–97
[2017-02-01] MEDS: Trimethoprim-Sulfa 160 mg-800 mg Tablet PO SCH ×3 (02:43→17:04)
[2017-02-01] MEDS: Meropenem Inj 2,000 MG in 0.9% Sodium Chloride 100 ML IV SCH ×3 (02:43→17:05)
[2017-02-01] MEDS: Azithromycin Inj 500 MG in Dextrose 5% w/Vial Mate 250 ML IV SCH (02:44)
[2017-02-01 04:52] LABS: Mean Corpuscular Hemoglobin 34.8 pg (27.0-35.0); Mean Corpuscular Volume 101.2 fL (81-100)
--- NOTE | 2017-02-01 07:38 | NUR ---
Respiratory/Activity/Temp Pt remained on hi-flow throughout the shift at 45L/60% with SpO2 >92%. Pt does not c/o SOB at this time. Pt has not been OOB the entire shift. Pt did have a low-grade temperature during the end of the shift at 99.7 F and was slightly diaphoretic while sleeping. Pt does not c/o pain.
[2017-02-01] MEDS: Insulin LISPRO 300 Unit/3 mL Inj SUBQ SCH ×4 (07:50→22:00)
[2017-02-01] MEDS: levETIRAcetam 500 mg Tablet PO SCH ×2 (07:57→22:03)
[2017-02-01] MEDS: Sodium Chloride LOK Flush 10 mL Syringe IVFLUSH SCH ×2 (07:58→17:04)
[2017-02-01] MEDS ORDERED: 0.9% Sodium Chloride 250 ML ONE ×2 (08:02→09:30)
--- NOTE | 2017-02-01 08:53 | ABG ---
DateTimeAnalyzed 08:50:00 -_ pH ____7.425 - pCO2 ___33.0__ -mmHg pO2 ___60.9__ -mmHg HCO3- ___21.3__ -mmol/L ABE ___-1.9__ -mmol/L tHb ___12.8__ -g/dL O2Hb ___89.4__ -% COHb ____1.0__ -% MetHb ____1.1__ -% sO2 ___91.3__ -% FIO2 ___60.0__ -% Drawn By lab - Date/Time Notified____ 08:52:00 -_ Notified By ams - Notified Whom Dr Martin - B 757 -mmHg tO2 ___16.1__ -Vol% Drake test N/A -
--- NOTE | 2017-02-01 09:35 | PROG NOTE ---
[address] [address] PROGRESS NOTE PATIENT: GERRY VILLALPANDO : 1960 MR#: [id number] ADMIT: 01/28/2017 JOB ID: [id number] DATE: 02/01/2017 REASON FOR FOLLOWUP: Respiratory failure with extensive and worsening bilateral pulmonary infiltrates. INTERVAL HISTORY: Over the past 48 hours since I have last seen the patient, he has had a gradual decline in his respiratory status. He now reports increasing shortness of breath with very minimal dry cough. The shortness of breath has progressed to the point where he now is requiring very high flow nasal oxygen and is unable really to get out of bed secondary to profound dyspnea. He and his both state adamantly he has no fevers, no chills, no sweats. He has no headache, no sores in the mouth, no chest pain, no hemoptysis of course. No abdominal pain, nausea, vomiting, or diarrhea. PHYSICAL EXAMINATION: Reveals an afebrile gentleman, temperature 36.8, pulse in the 60s, respiratory rate in the low 20s on high-flow nasal oxygen and saturating fairly well. His blood pressure is 121/71. He is awake and alert. He looks depressed. Eyes without conjunctivitis. Oral cavity negative. Lungs with scattered fine rales lower lung esteves. Cardiac tones regular rate and rhythm without new murmur. Abdomen soft and nontender. No skin rash. LABORATORIES: Include a white count 7500. Platelets 224, the diff on the white count has been totally normal. His creatinine is 1.17 which is stable. Procalcitonin last done yesterday is 0.36 which is slightly up from admission. Urinalysis was of course negative. CMV quantitative PCR and blood is pending. Fungitell and galactomannan is pending. All other studies have been negative so far this admission including blood cultures, urine antigens for pneumococcus and Legionella. Respiratory viral PCR panel and sputum fungal blood cultures are also pending. Recall that our CT scan on admission on the showed increased bilateral pulmonary nodules in a perilymphatic pattern which the radiologist opined would likely be due to lymphangitic carcinomatosis with a broad differential. IMPRESSION: This has been a very complex case over the past year or so during which I have known this patient. He has been admitted 3 times for respiratory tract infections over the past 9 months including parainfluenza virus #3 last summer, influenza in the fall, and in December a metapneumovirus infection. After each of these 3 serious viral infections the patient bounced back significantly. During his late December admission we were very concerned because a CT scan showed a number of pulmonary nodules and some small infiltrates that would be unusual for human metapneumovirus. Because of our concerns about a possible other pathogen the patient was bronched on January 12, but the results of this bronchoscopy were entirely negative. The patient was discharged looking fairly good the last week of December. Since then, he has gotten more short of breath, but without any real fevers or chills. I admitted him from clinic on January 29 when he showed up for his regular followup appointment looking very dyspneic. The CT scan showed that his infiltrates were much worse at that time, and we have commenced a workup. So far, we have all negative cultures. Aside from a single high fever spike night, he has been completely afebrile with normal white count and procalcitonin is less than 0.4 on 2 occasions. I doubt that this represents a bacterial process, and of course I am concerned about the possibility of fungal or mycobacterial process. Nocardia would also fit with this differential diagnosis. Overall my suspicion has been that this has been a noninfectious cause such as pulmonary malignancy or some vasculitic process, but we still did not have any lung tissue. At the end of last week we arranged for a needle biopsy of the lung. After considerable discussion between surgery and Interventional Radiology as to whether a needle biopsy of the lung or a VATS procedure would be the correct approach to this patient. From an Infectious Disease point of view, it makes little difference but I think the main thing is that we get tissue in a timely fashion as we really have no idea what is going on with this steadily declining patient. On Thursday, he was scheduled for needle biopsy and extensive efforts were made to arrange proper handling of specimens, but it was canceled because his respiratory status was getting worse and the interventional radiologist, with whom I spoke in detail, was very concerned about the possibility of causing a respiratory decompensation. It was decided instead to do this tomorrow, Thursday the , with anesthesia back up. I also discussed the case again yesterday with the surgeon on-call regarding VATS but the surgical opinion is that we should proceed with needle biopsy 1st and if that is nondiagnostic to go to VATS. Again, this makes little difference from an Infectious Disease point of view, as the issue here is tissue rather than the exact method by which it is procured. RECOMMENDATIONS: 1. Last night I became increasingly concerned about his declining respiratory status and decided we had no alternative but to treat with broad-spectrum antibiotics even though this does not appear to be in any way a typical process. I based this decision on the fact the biopsy has now been delayed and so our initial plan to get a biopsy swiftly while we waited on antibiotics has now had given way to the pragmatism as just covering this worsening patient on the off chance this is a bacterial or fungal process. 2. At this point, I have started a combination of high-dose Bactrim which will provide coverage for Pneumocystis as well as Nocardia. Note that he has been on Bactrim prophylaxis at low doses, which should be effective in terms of Pneumocystis prevention, but the possibility of Nocardia still exists as does the possibility of a serious Staph aureus infection of course, which would be covered by high-dose Bactrim . 3. Cresemba will be added in maximal IV doses. Cresemba is a new broad-spectrum azole antifungal with coverage against many organisms including mucor. 4. Meropenem will be added for broad-spectrum antibiotic coverage even though as mentioned above I think it is highly unlikely this is a typical bacterial process. 5. We await and urgently need tissue to resolve the issue as to the nature of these bilateral pulmonary infiltrates and his ongoing respiratory decline. This case discussed with the primary team as well as general surgery and others within the past 24 hours. PELOND
--- NOTE | 2017-02-01 10:30 | NUR ---
Social Work- Continued D/C Planning D: EMR review. Pt is on day 4 of hospitalization for Resp. Failure. 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 Pt is not medically stable at this time. Pt has been ambulating I. Pt to receive lung biopsy on Thursday. ID is following pt. Pt continues to be on high flow O2. Pt anticipated to discharge home with to transport via POV. R/O HH and home O2. SW will continue to follow. A: pt who is I at baseline. P: Anticipate pt to discharge home via POV; SUPERVIS[employer] to r/o HH and/or home 02. Debbi Koehler [employer]
--- NOTE | 2017-02-01 13:42 | PCM.PNMED ---
Subjective Date of Service Feb 01, 2017 Subjective Patient continues to have worsening of his dyspnea now requiring high flow FIO2 60%. Patient not on home oxygen at baseline . Remains afebrile but had an episode of fever 2 days ago. IR Biopsy has been postponed to Thursday to be done with anesthesia. Exam Vital Signs Vital Sign - Last Date Time Temp Pulse Resp B/P Pulse Ox O2 Delivery O2 Flow Rate FiO2 02/01/17 12:04 37.0 61 24 104/63 96 Hi-flow 60 02/01/17 09:15 45 Intake and Output 01/31/17 01/31/17 02/01/17 Cumulative From/Thru 15:00 23:00 07:00 01/28/17 19:30 - 02/01/17 06:22 Intake Total 180 ml 800 ml 3220 ml Output Total 300 ml 400 ml 2503 ml Balance -120 ml 400 ml 717 ml Intake Oral 180 ml 200 ml 2620 ml IV Total 600 ml 600 ml Output Urine Total 300 ml 400 ml 2503 ml # Voids 1 2 7 # Bowel Movements 1 2 Exam General: Patient is alert and oriented 3, in moderate respiratory distress requiring high flow FIO2 60% HEENT: NC/AT, conjunctival hyperemia, neck, soft supple, no adenopathy Lungs: Mild bilateral crackles in the lung bases otherwise normal Heart: Regular rate and rhythm, no murmur, bradycardic Abdomen: Soft, nontender, nondistended, bowel sounds active Extremities: No edema Neurologic: Grossly neurologically intact Skin: Warm, dry, intact without rash IVs and Medications Medications Reviewed: Medications were reviewed in detail Lab and Diagnostics Result Diagram: 02/01/17 0445 02/01/17 0445 Microbiology Microbiology 01/28/17 Blood Culture, Received Pending 01/29/17 MRSA (PCR) - Negative 01/29/17 Influenza Screen - Negative 01/29/17 Streptococcus pneumoniae Ag Screen - Negative 01/29/17 Nasopharyngeal viral PCR all negative, including CMV X-Rays, CTs and MRIs X-RAY CHEST IMPRESSION: Bilateral patchy confluent opacities in the lungs, appearing mildly worse when compared to 01/12/17. As previously identified, this could be related to infection including atypical like mycobacterial or fungal. However, lymphangitic spread of tumor should also be considered. Dictated and approved by: Mela Solorio M.D. on 01/28/2017 at 20:08 CT CHEST WITH CONTRAST IMPRESSION: 1. Increased bilateral pulmonary nodules with confluent areas of consolidation in a perilymphatic distribution. 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 The differential also includes lymphocytic interstitial pneumonia, sarcoidosis, occupational pneumoconiosis, and amyloidosis. Dictated and approved by: Giovanni Stoll M.D. on 01/29/2017 at 11:07 Additional Diagnostics 01/28/17 PROCEDURE: X-RAY CHEST ONE VIEW, PORTABLE IMPRESSION: Bilateral patchy confluent opacities in the lungs, appearing mildly worse when compared to 01/12/17. As previously identified, this could be related to infection including atypical like mycobacterial or fungal. However, lymphangitic spread of tumor should also be considered. Dictated by: Mela Solorio M.D. on 01/28/2017 at 20:08 Approved by: Mela Solorio M.D. on 01/28/2017 at 20:11 01/29/17 PROCEDURE: CT CHEST WITH CONTRAST IMPRESSION: 1. Increased bilateral pulmonary nodules with confluent areas of consolidation in a perilymphatic distribution. 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 The differential also includes lymphocytic interstitial pneumonia, sarcoidosis, occupational pneumoconiosis, and amyloidosis. Dictated by: Giovanni Stoll M.D. on 01/29/2017 at 11:07 Approved by: Giovanni Stoll M.D. on 01/29/2017 at 11:19 . Assessment & Plan Mr. 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 1. Acute hypoxic respiratory failure, present on admission. 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 -Patient has somehow rapid decline of his respiratory status in the last 48 hrs. he also had an episode of fever 2 days ago. The initial plan was to hold off on antibiotics until tissue biopsy was obtained. Patient has decline in his respiratory status and IR biopsy postponed to Thursday. Due to concern of atypical infection possibly fungal ,Dr Waters started him on meropenem, azithromycin and antifungal Cresemba today 02/01 . he also did not get any antibiotic trial on recent hospitalization as well. 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 -Recent hospitalization with same diffuse infiltrate. Infectious Workup unrevealing except Human metapneumovirus -Additional infectious work up negative for crypto antigen, fungus, AFB, legionella, HSV, adenovirus, QuantiFERON Gold -Chest CT shows worsening bilateral infiltrates as compared to the CT of the chest done on January 12 -DDx: noninfectious causes such as pulmonary malignancy, sarcoid, amyloid, interstitial pneumonitis, lymphangitis carcinomatosis -Percutaneous pulmonary biopsy on Thursday by Dr. Amaya with anaesthesia 2. Chronic and recurrent CMV - Continue valacyclovir 1000 mg BID. 3. Type 2 diabetes mellitus, chronic, presume stable. - Continue Lantus 4 units QAM. - Low dose correction scale will be started. - Last A1c was 5.5 4. 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 - Continue Bactrim DS 1 tablet daily for PCP prophylaxis. 5. Seizure disorder, chronic, presume stable. - Continue Keppra 500 mg BID. 6. Hypertension, chronic, presume stable. - Continue metoprolol tartrate 25 mg BID. 7. Depression, chronic, presume stable. - Continue citalopram 20 mg daily. - Antiemetic available PRN. - Antacid available PRN. - Bowel regimen available PRN. - Tylenol available PRN mild pain, fever. Disposition: Patient in acute hypoxic respiratory failure of unclear etiology, may need several days of inpatient hospitalization for workup and treatment. Fabian Salazar MD Feb 01, 2017 13:42
--- NOTE | 2017-02-01 14:13 | NUR ---
[facility] signed with family interpreting as hospital buncher hand not available on the weekend and the portable buncher hand was not working. AISHA Álvarez
--- NOTE | 2017-02-01 16:45 | NUR ---
Respiratory Pt. 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 Blood gas was ordered and done. Dr. Salazar reviewed blood gas result. No new order. Continue IV antibiotics per ID. Pt. still on high flow O2 (45L/min and 60% FiO2). He was able to sit up and dangle with min. assist. Pt. and spouse was instructed NPO after midnight, anticipate lung biopsy with anesthesia back-up tomorrow 02/03/17.
[2017-02-02] VITALS (15 sets, daily range): BP systolic 99–124; BP diastolic 61–82; PULSE 55–67; RESP 17–24; O2SAT 92–98
[2017-02-02] MEDS: Sodium Chloride LOK Flush 10 mL Syringe IVFLUSH SCH ×3 (00:30→15:58)
[2017-02-02] MEDS: Trimethoprim-Sulfa 160 mg-800 mg Tablet PO SCH ×3 (00:34→16:03)
[2017-02-02] MEDS: Azithromycin Inj 500 MG in Dextrose 5% w/Vial Mate 250 ML IV SCH (00:35)
[2017-02-02] MEDS: Meropenem Inj 2,000 MG in 0.9% Sodium Chloride 100 ML IV SCH ×3 (00:53→16:21)
[2017-02-02 04:46] LABS: BASOPHILS % (AUTO) 0.6 % (0-3); EOSINOPHILS % (AUTO) 7.5 % (0-5); Mean Corpuscular Hemoglobin 34.9 pg (27.0-35.0); Mean Corpuscular Volume 102.3 fL (81-100); NEUTROPHILS % (AUTO) 47.3 % (40-74); Platelet Count 234 bil/L (150-400)
--- NOTE | 2017-02-02 05:15 | NUR ---
Blood sugar: Pt's blood sugar checked this early education teacher as HS sugar was 86 and pt is NPO. Blood sugar was 72, night resident notified and aware of value. No new orders, recheck in a couple hours. Addendum: 02/02/17 at 0627 by MACIEL IVEY RN Rechecked sugar at 0530, it was down to 69. 1/2 amp D50 administered, sugar increased to 118.
[2017-02-02] MEDS: Insulin LISPRO 300 Unit/3 mL Inj SUBQ SCH ×4 (08:00→21:16)
[2017-02-02] MEDS: levETIRAcetam 500 mg Tablet PO SCH ×2 (08:26→21:14)
--- NOTE | 2017-02-02 08:57 | PROG NOTE ---
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 INTERVAL HISTORY: Over the weekend, the patient has remained severely dyspneic with even minimal exertion. Just sitting up to eat or getting up to use the urinal leaves the patient profoundly short of breath with desaturation to the 70s. He is currently requiring high-flow nasal oxygen to maintain reasonable saturations at rest. The patient states he has had no fevers, chills, or sweats over the weekend. His cough continues to be very minimal and nonproductive, as it has been for weeks. He has no chest pain. He does note some mild headache, no sore throat. No nausea, vomiting, diarrhea or dysuria. PHYSICAL EXAMINATION: Reveals a critically ill gentleman, moderately short of breath at rest lying in bed. Temperature 36.7, pulse 60, respiratory rate 20-25, blood pressure 122/67, saturating well on high-flow nasal oxygen. Note that he desaturates though with minimal movement. Mental status is clear. Oral cavity without thrush or pharyngitis. Eyes without conjunctivitis. Lungs were carefully auscultated from the posterior as well as the anterior approach. There are no significant rales or rhonchi. No pleural rub is heard. Cardiac tones regular rate and rhythm. Abdomen soft, nontender. No skin rash noted. LABORATORIES: Include white count stable at 8500, now with 7% eosinophils, which is new. Creatinine 1.29, which likely represents an artifactual jump due to the addition of high-dose Bactrim. Procalcitonin is bouncing between 0.2-0.35, today is 0.2. Urinalysis without pyuria. Crypto antigen, CMV, PCR, Fungitell and galactomannan all pending. Blood cultures, MRSA screen, urine pneumococcal and Legionella antigens and respiratory viral panel for PCR all negative. IMPRESSION: This patient continues to be an enigma. He has progressive bilateral pulmonary infiltrates of a nodular type, which are completely unexplained. A bronch wash done during the last week of December and sent for fungal and AFB PCRs as well as multiple other studies and cytology was negative and, at that point, it seemed likely the patient's pulmonary problems were due to the metapneumovirus. Unfortunately, over the next 15-20 days, he has progressively worsened, leading to this admission. We are still awaiting a lung biopsy by transbronchial needle biopsy or by VATS procedure. Over the weekend, due to increasing concerns about possible untreated infection, I added azithromycin, high-dose Bactrim, Cresemba and meropenem. There has been no real change at all since the addition of these antibiotics Thursday evening, which was January 31. RECOMMENDATIONS: 1. Will continue with these antibiotics. 2. This case was discussed in detail over the weekend with surgery as well as the Pulmonary attending at the bedside today. 3. We await either needle biopsy today or, if that cannot be done, a prompt switch to VATS procedure to attempt to obtain some tissue and figure out what is going on with this patient. Possibilities include many noninfectious causes as well as a wide gamut of possible bacterial, mycobacterial, fungal or viral infections. 4. Total time we spent on this case over the last 24 hours since I wrote yesterday's note is well over 1 hour. Addendum at 1230 Anesth called me-they feel risk of VATS excessive. Attempting transfer to as we are unable to get tissue here Long talk with family who are understandably upset regarding his decline over past several days RAFAEL
--- NOTE | 2017-02-02 09:22 | DRSVH ---
PROCEDURE: X-RAY CHEST ONE VIEW, PORTABLE ([id number]) INDICATIONS: dyspnea TECHNIQUE: One view of the chest was acquired. COMPARISON: [facility], CR, XR CHEST 1VW (PORTABLE), 01/28/2017, 19:36. FINDINGS: Surgical changes and devices: None. Lungs and pleura: No pleural effusions or pneumothorax. Lungs are abnormal with prominent patchy bi lateral moderate and moderately severe alveolar opacification, best seen during recent CT scanning. A lung biopsy is scheduled for 02/02/17. Mediastinum: Mediastinal contours appear normal. Heart size is normal. Bones and chest wall: No suspicious bony lesions. Overlying soft tissues appear unremarkable. IMPRESSION: Relatively severe patchy bilateral moderate and moderately severe alveolar opacification best seen by recent CT scanning 4 days ago. No contraindication to anticipated lung biopsy scheduled for later today. Dictated by: Parag Lemus M.D. on 02/02/2017 at 9:18 Approved by: Parag Lemus M.D. on 02/02/2017 at 9:20
--- NOTE | 2017-02-02 11:40 | PCM.PNMED ---
Subjective Date of Service Feb 02, 2017 Subjective PULMONOLOGY PROGRESS NOTE Note that [place]ian interpretation was through our hospital cnc maintenance technician service. Over the weekend patient has progressively worsened. He feels very tired and is requiring more oxygen. Patient is too tired to speak very much but is in the room and through the cnc maintenance technician, is discussing the case with the physicians. She believes that he is getting worse and would like him transferred out if the biopsy cannot be done at this hospital. Exam Vital Signs Vital Sign - Last Date Time Temp Pulse Resp B/P Pulse Ox O2 Delivery O2 Flow Rate FiO2 02/02/17 11:13 60 02/02/17 08:17 37.0 22 112/66 97 High flow 60 02/02/17 07:43 50 Intake and Output 02/01/17 02/01/17 02/02/17 Cumulative From/Thru 15:00 23:00 07:00 01/28/17 19:30 - 02/02/17 06:45 Intake Total 930 ml 50 ml 4200 ml Output Total 1300 ml 600 ml 4403 ml Balance -370 ml -550 ml -203 ml Intake Oral 300 ml 50 ml 2970 ml IV Total 630 ml 1230 ml Output Urine Total 1300 ml 600 ml 4403 ml # Voids 2 9 # Bowel Movements 2 Exam General: Patient is sleepy and stated so. Otherwise, he is not participatory in the conversation but is actively listening and nodding appropriately. HEENT: NC/AT, Lungs: Clear to auscultation B/L. On high flow O2. Heart: Regular rate and rhythm, no murmur Abdomen: Soft Extremities: No edema Neuro: EOMI IVs and Medications Medications Reviewed: Medications were reviewed in detail Lab and Diagnostics Result Diagram: 02/02/17 0440 02/02/17 0440 Microbiology Microbiology 01/28/17 Blood Culture, Received Pending 01/29/17 MRSA (PCR) - Negative 01/29/17 Influenza Screen - Negative 01/29/17 Streptococcus pneumoniae Ag Screen - Negative 01/29/17 Nasopharyngeal viral PCR all negative, including CMV X-Rays, CTs and MRIs X-RAY CHEST IMPRESSION: Bilateral patchy confluent opacities in the lungs, appearing mildly worse when compared to 01/12/17. As previously identified, this could be related to infection including atypical like mycobacterial or fungal. However, lymphangitic spread of tumor should also be considered. Dictated and approved by: Mela Solorio M.D. on 01/28/2017 at 20:08 CT CHEST WITH CONTRAST IMPRESSION: 1. Increased bilateral pulmonary nodules with confluent areas of consolidation in a perilymphatic distribution. 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 The differential also includes lymphocytic interstitial pneumonia, sarcoidosis, occupational pneumoconiosis, and amyloidosis. Dictated and approved by: Giovanni Stoll M.D. on 01/29/2017 at 11:07 Date of Service: 02/02/17 0816 X-RAY CHEST ONE VIEW, PORTABLE IMPRESSION: Relatively severe patchy bilateral moderate and moderately severe alveolar opacification best seen by recent CT scanning 4 days ago. No contraindication to anticipated lung biopsy scheduled for later today. Dictated by: Parag Lemus M.D. on 02/02/2017 at 9:18 Approved by: Parag Lemus M.D. on 02/02/2017 at 9:20 . Additional Diagnostics 01/28/17 PROCEDURE: X-RAY CHEST ONE VIEW, PORTABLE IMPRESSION: Bilateral patchy confluent opacities in the lungs, appearing mildly worse when compared to 01/12/17. As previously identified, this could be related to infection including atypical like mycobacterial or fungal. However, lymphangitic spread of tumor should also be considered. Dictated by: Mela Solorio M.D. on 01/28/2017 at 20:08 Approved by: Mela Solorio M.D. on 01/28/2017 at 20:11 01/29/17 PROCEDURE: CT CHEST WITH CONTRAST IMPRESSION: 1. Increased bilateral pulmonary nodules with confluent areas of consolidation in a perilymphatic distribution. 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 The differential also includes lymphocytic interstitial pneumonia, sarcoidosis, occupational pneumoconiosis, and amyloidosis. Dictated by: Giovanni Stoll M.D. on 01/29/2017 at 11:07 Approved by: Giovanni Stoll M.D. on 01/29/2017 at 11:19 . Assessment & Plan Mr. 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 Nam[place]ian translation is through the hospital translation service. 1. Acute hypoxic respiratory failure, present on admission. Active -Patient continues to decline regarding his respiratory status, now requiring hi -flow oxygen. VATS procedure was scheduled for this morning; however, upon examination by anesthesiology, it was determined that the patient would not likely survive the procedure and the surgery was cancelled. Guided needle biopsy has only a small likelihood of giving a firm diagnosis and might only serve to delay specific treatment. Given his worsening conditions and the likely low-yield, it was cancelled as well. After much discussion between surgery (Dr. Tesfaye), anesthesiology, hospitalist team (Drs. Pérez & Denis), Bench Jeweler, Dr. Castellanos, patient's and patient,it was decided to call and [facility] for transfer request. His stem cell transplant was at three years ago. If we are unable to find an accepting doctor at or [facility], Dr. Castellanos will attempt a bronchoscopy with biopsy. A bronch is obviously not ideal and will be performed if patient stays here at [facility]. Infectious disease physician, Dr. Waters, has patient on empiric antibiotics. Patient will be moved to CCU at this time because of increased intensity of care. . [facility] Addendum: 56 yr male admitted with Acute respiratory failure, hypoxic, secondary to bilat pulmonary infiltrate of unclear etiology. D/W family in detail regarding need of diagnostic evaluation preferably VAT and Wedge biopsy for definitive diagnosis. Initially agreed upon to proceed with VATS and also transfer to [facility] has received BMT in [facility] . Arrangements were made but later on family changed their mind and do not want to proceed with intubation for purpose of transportation or procedure. They want to continue empiric treatment with steroids , antibiotics,antiviral and antifungal.Pt. was also offered for possible transfer with [facility] and 100%fio2 with associated risk but family is declining transfer at this time. I talked to family on multiple occasions, they understand that if pt. cond gets worse he may not be able to get transferred at that time. They seems to be understanding and willing to take the chance. Will cont. steroids Will cont Abx, anti viral and anti fungal meds as recommended by ID Cont. other supportive care Pt. overall condition is critical. At least 120 mins of CCT provided in pt. care including transfer calls, family meetings, D/W other physician involved in care. Brian Castellanos MD Pulm/[facility] Time spent 90 minutes total Attending Statement CCM Addendum: 56 yr male admitted with Acute respiratory failure, hypoxic, secondary to bilat pulmonary infiltrate of unclear etiology. D/W family in detail regarding need of diagnostic evaluation preferably VAT and Wedge biopsy for definitive diagnosis. Initially agreed upon to proceed with VATS and also transfer to [facility] has received BMT in [facility] . Arrangements were made but later on family changed their mind and do not want to proceed with intubation for purpose of transportation or procedure. They want to continue empiric treatment with steroids , antibiotics,antiviral and antifungal.Pt. was also offered for possible transfer with [facility] and 100%fio2 with associated risk but family is declining transfer at this time. I talked to family on multiple occasions, they understand that if pt. cond gets worse he may not be able to get transferred at that time. They seems to be understanding and willing to take the chance. Will cont. steroids Will cont Abx, anti viral and anti fungal meds as recommended by ID Cont. other supportive care Pt. overall condition is critical. At least 120 mins of CCT provided in pt. care including transfer calls, family meetings, D/W other physician involved in care. Brian Castellanos MD Pulm/[facility] Sonia Hernandez DO Feb 02, 2017 11:40 Brian Castellanos MD Feb 02, 2017 16:40
--- NOTE | 2017-02-02 12:16 | NUR ---
Multidisciplinary Communication/Care/Family Frustrations About 0740 - Was in the patient room and the thought he was becoming dehydrated and asked for IV fluids. Told her this nurse would discuss it with the Doctor. Jr the Respiratory Therapist (RT) was in the room assess his O2 needs and noted that the continuous pulse oximeter in the room was reading 95%, but RT's personal finger oximeter was only reading about 89%. He turned up his high flow O2 to 50L and 65%. He also discussed with this nurse how the pt's lungs sound clear, his respirations were 22, but he was concerned that maybe he didn't have the mental O2 drive that he should. About 0800 - Was getting his morning medication together and noted that both Valtrex by mouth and Cresemba IV were missing. Discussed this with the Pharmacist Parag Wen who said he would look into getting them. 08 - Spoke with Dr. Nuno about 's concerns of him becoming dehydrated and RT's concerns about mental O2 drive. He was preparing to go in the room to assess the patient he after looking at his labs said he was not concerned about dehydration at this time. The science interpreter was called so that he could have his assessment performed and medications given. Dr. Waters and Dr. Nuno came into the room with the science interpreter to assess and make the plan of care. They spoke to the patient and his about performing a lung biopsy as soon as possible. Took his blood glucose and noted it was 76 and that he was complaining of a headache and feeling sweaty. 0854 - Paged Dr. Lexis Barrios to discuss the blood glucose concerns, but did not receive a response. Also, spoke with the via the science interpreter about her frustrations with the care he has received here. She said that this biopsy was supposed to happen on Thursday, but that it did not and nothing was done over the weekend. She requested that he be transferred to [facility] where he could receive better round the clock care. Told her that this nurse heard her frustrations and would speak to the Doctors about her concerns and see what could be done. 904 - Spoke with Pharmacist Parag Wen about her D50 protocol parameters of giving if the blood glucose was lower than 70s, but that he was symptomatic. He said to try and track down one of the [facility] team doctors to get the protocol changed. Spoke with Dr. Pérez and Denis about the protocol and Dr. Barrios said she would change it, but to go ahead and given half a D50 ampule. Also, notified them that this was the second dose of D50 would receive within that last 5 hours. Gave it and upon recheck a few minutes later his blood glucose was 98 and he said his headache had decreased and he no longer felt sweaty. 1000 - During morning multidisciplinary rounds discussed the 's request to transfer to the [facility] and discussed his care with Dr. Pérez and Dr. Franklin. The Cresemba IV had not arrived yet and so a 2nd request was made to Pharmacist Parag Martin. He said that the pharmacy was running low or was out of the medication, but was working on obtaining more. He said he would follow up on the status of it. 1045 - The charge nurse, Meli Mckinley, spoke via the science interpreter with patient and his about their frustrations regarding his care and requested to transfer to the . Discussed this and his care with the doctors. 1140 - The Doctor's were working on calling the to see if transfer was possible, but found out they would not accept him. Said they would look into transferring to [place]. He was transferred from [facility] 2030 to CCU 2019 with the assistance of this nurse, a FAST FOOD MANAGER, the charge nurse, and two respiratory therapists. He was temporarily placed on a non-rebreather for the transport before being placed back on the highflow O2 once in the room. His belongings were taken with him and the family followed. Gave report to Huong JEFFERSON from the CCU being sure to mention his blood glucose issues and the family's frustrations and wishes for transfer. Care continues.
[2017-02-02] MEDS ORDERED: MethylprednisoLONE Sodium Succinate 62.5 mg/mL 2 mL Inj IVPUSH ONE (13:55)
[2017-02-02] MEDS: Dextrose 5% 0.9% NaCl 1,000 ML IV SCH (14:20)
--- NOTE | 2017-02-02 14:30 | NUR ---
spiritual care: staff with translator/interpreter, introduced self to family and per request contacted wrapping machine operator. Father Iain arrived and offered prayer/ritual. Family appreciative of spiritual support as medical plan is taking shape and concerns are expressed. Pt participated in prayer, very drowsy. will plan to follow
--- NOTE | 2017-02-02 14:48 | NUR ---
P: Respiratory Distress I: Transferred form 2030 to 2019 and status changed to CCU. High Flow 50Liters/70% FiO2. Turns self in bed. NPO. Saline lock patent without redness or swelling at the site. IVF infusing without difficulty. Blood sugar 77 and D5NS at 50cc hung to stabilize blood sugars. Voids per urinal. SB with BP stable. Family at bedside. E: Guarded S: Alert and oriented. Frequent rounding. Awaiting possible transfer to [facility].
[2017-02-02] MEDS: MethylprednisoLONE Sodium Succinate 62.5 mg/mL 2 mL Inj IVPUSH SCH (17:03)
--- NOTE | 2017-02-02 17:50 | NUR ---
P: Respiratory Distress I: Transfer discontinued. Bronch cancelled. Pt taking diet and fluids well. HNV this shift, but has been NPO since midnight with TKO IVF. E: Stable S: Alert and oriented. Family at beside and helped make the decisions above.
--- NOTE | 2017-02-02 17:52 | PCM.PNMED ---
Subjective Date of Service Feb 02, 2017 Subjective Patient continues to require high flow oxygen 50L/min, FiO2 65%. He remains to spend all of his time in bed as even minimal physical activity such as walking to the bathroom causes O2 desaturation. He continues to be very weak and tired. Decision to be transferred to [facility] was made earlier in the day, however, patient's family has changed their mind. foam rubber fabricator helped to facilitate the conversation. Exam Vital Signs Vital Sign - Last Date Time Temp Pulse Resp B/P Pulse Ox O2 Delivery O2 Flow Rate FiO2 02/02/17 16:37 36.8 58 17 124/82 98 High Flow 70 02/02/17 15:58 50 Intake and Output 02/01/17 02/01/17 02/02/17 Cumulative From/Thru 15:00 23:00 07:00 01/28/17 19:30 - 02/02/17 06:45 Intake Total 930 ml 50 ml 4200 ml Output Total 1300 ml 600 ml 4403 ml Balance -370 ml -550 ml -203 ml Intake Oral 300 ml 50 ml 2970 ml IV Total 630 ml 1230 ml Output Urine Total 1300 ml 600 ml 4403 ml # Voids 2 9 # Bowel Movements 2 Exam General: Patient is alert and oriented 3, in moderate respiratory distress requiring high flow FIO2 50-60% HEENT: Conjunctival hyperemia, neck, soft supple, no adenopathy Lungs: Mild bilateral crackles in the lung bases otherwise normal Heart: Regular rate and rhythm, no murmur, bradycardic Abdomen: Soft, nontender, nondistended, bowel sounds active Extremities: No edema Neurologic: Grossly neurologically intact Skin: Warm, dry, intact without rash Lab and Diagnostics Result Diagram: 02/02/17 0440 02/02/17 0440 Microbiology Microbiology 01/28/17 Blood Culture, Received Pending 01/29/17 MRSA (PCR) - Negative 01/29/17 Influenza Screen - Negative 01/29/17 Streptococcus pneumoniae Ag Screen - Negative 01/29/17 Nasopharyngeal viral PCR all negative, including CMV X-Rays, CTs and MRIs X-RAY CHEST IMPRESSION: Bilateral patchy confluent opacities in the lungs, appearing mildly worse when compared to 01/12/17. As previously identified, this could be related to infection including atypical like mycobacterial or fungal. However, lymphangitic spread of tumor should also be considered. Dictated and approved by: Mela Solorio M.D. on 01/28/2017 at 20:08 CT CHEST WITH CONTRAST IMPRESSION: 1. Increased bilateral pulmonary nodules with confluent areas of consolidation in a perilymphatic distribution. 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 The differential also includes lymphocytic interstitial pneumonia, sarcoidosis, occupational pneumoconiosis, and amyloidosis. Dictated and approved by: Giovanni Stoll M.D. on 01/29/2017 at 11:07 X-RAY CHEST IMPRESSION: Relatively severe patchy bilateral moderate and moderately severe alveolar opacification best seen by recent CT scanning 4 days ago. No contraindication to anticipated lung biopsy scheduled for later today. Dictated and approved by: Parag Lemus M.D. on 02/02/2017 at 9:18 X-RAY CHEST IMPRESSION: Relatively severe patchy bilateral moderate and moderately severe alveolar opacification best seen by recent CT scanning 4 days ago. No contraindication to anticipated lung biopsy scheduled for later today. Dictated and approved by: Parag Lemus M.D. on 02/02/2017 at 9:18 Additional Diagnostics 01/28/17 PROCEDURE: X-RAY CHEST ONE VIEW, PORTABLE IMPRESSION: Bilateral patchy confluent opacities in the lungs, appearing mildly worse when compared to 01/12/17. As previously identified, this could be related to infection including atypical like mycobacterial or fungal. However, lymphangitic spread of tumor should also be considered. Dictated by: Mela Solorio M.D. on 01/28/2017 at 20:08 Approved by: Mela Solorio M.D. on 01/28/2017 at 20:11 01/29/17 PROCEDURE: CT CHEST WITH CONTRAST IMPRESSION: 1. Increased bilateral pulmonary nodules with confluent areas of consolidation in a perilymphatic distribution. 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 The differential also includes lymphocytic interstitial pneumonia, sarcoidosis, occupational pneumoconiosis, and amyloidosis. Dictated by: Giovanni Stoll M.D. on 01/29/2017 at 11:07 Approved by: Giovanni Stoll M.D. on 01/29/2017 at 11:19 . Assessment & Plan Mr. 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 1. Acute hypoxic respiratory failure, present on admission. 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 -Patient has somehow rapid decline of his respiratory status in the last 48 hrs. he also had an episode of fever 2 days ago. The initial plan was to hold off on antibiotics until tissue biopsy was obtained. Patient has decline in his respiratory status and IR biopsy postponed to Thursday. Due to concern of atypical infection possibly fungal ,Dr Waters started him on meropenem, azithromycin and antifungal Cresemba today 02/01. He also did not get any antibiotic trial on recent hospitalization as well. 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 -Recent hospitalization with same diffuse infiltrate. Infectious Workup unrevealing except Human metapneumovirus -Additional infectious work up negative for crypto antigen, fungus, AFB, legionella, HSV, adenovirus, QuantiFERON Gold -Chest CT shows worsening bilateral infiltrates as compared to the CT of the chest done on January 12 -Differential diagnosis. noninfectious causes such as pulmonary malignancy, sarcoid, amyloid, interstitial pneumonitis, lymphangitis carcinomatosis -Percutaneous pulmonary biopsy was planned today with anaesthesia. However, due to the fact that patient's respiratory status continues to decline, and after extensive discussion between surgery, anesthesiology, hospitalist team, house steward/stewardess, Dr. Castellanos, patient's and patient,it was decided to transfer patient to [facility] for a higher level of care.Call was placed and patient was accepted, however, patient needed to be intubated for the transfer but the family was reluctant to do intubation, so they declined the transfer. Patient will be moved to CCU and started on solu-medrol, 80 mg intravenously every 8 hours. Will continue steroids, antibiotics and other supportive care at this time. However, patient's prognosis is poor. 2. Chronic and recurrent CMV - Continue valacyclovir 1000 mg BID. 3. Type 2 diabetes mellitus, chronic, presume stable. - Continue Lantus 4 units QAM. - Low dose correction scale will be started. - Last A1c was 5.5 4. 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 - Continue Bactrim DS 1 tablet daily for PCP prophylaxis. 5. Seizure disorder, chronic, presume stable. - Continue Keppra 500 mg BID. 6. Hypertension, chronic, presume stable. - Continue metoprolol tartrate 25 mg BID. 7. Depression, chronic, presume stable. - Continue citalopram 20 mg daily. - Antiemetic available PRN. - Antacid available PRN. - Bowel regimen available PRN. - Tylenol available PRN mild pain, fever. Disposition: Patient in acute hypoxic respiratory failure of unclear etiology, may need several days of inpatient hospitalization for workup and treatment. Pain Evaluation: Adequate Pain Control GI Prophylaxis: H2 jeanie VTE Prophylaxis: Sub-Q Heparin (Unfractionated) Resuscitation Status: CPR: Attempt Resuscitation Attending Statement The patient was seen and examined together with Dr. Barrios on 02/02/2017 and I agree with the history, exam and plan as outlined in the note above. . Daria Barrios DO Feb 02, 2017 17:52 Carlton Pérez MD Feb 06, 2017 07:53 extensive discussion between surgery, anesthesiology, hospitalist team, house steward/stewardess, Dr. Castellanos, patient's and patient,it was decided to transfer patient to [facility] for a higher level of care.Call was placed and patient was accepted, however, patient needed to be intubated for the transfer but the family was reluctant to do intubation, so they declined the transfer. Patient will be moved to CCU and started on solu-medrol, 80 mg intravenously every 8 hours. Will continue steroids, antibiotics and other supportive care at this time. However, patient's prognosis is poor. 2. Chronic and recurrent CMV - Continue valacyclovir 1000 mg BID. 3. Type 2 diabetes mellitus, chronic, presume stable. - Continue Lantus 4 units QAM. - Low dose correction scale will be started. - Last A1c was 5.5 4. 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 - Continue Bactrim DS 1 tablet daily for PCP prophylaxis. 5. Seizure disorder, chronic, presume stable. - Continue Keppra 500 mg BID. 6. Hypertension, chronic, presume stable. - Continue metoprolol tartrate 25 mg BID. 7. Depression, chronic, presume stable. - Continue citalopram 20 mg daily. - Antiemetic available PRN. - Antacid available PRN. - Bowel regimen available PRN. - Tylenol available PRN mild pain, fever. Disposition: Patient in acute hypoxic respiratory failure of unclear etiology, may need several days of inpatient hospitalization for workup and treatment. Daria Barrios DO Feb 02, 2017 17:52
--- NOTE | 2017-02-02 19:16 | CCS NOTE ---
[facility] [address] [place] [id number] MEDICAL ONCOLOGY OFFICE NOTE PATIENT: GERRY VILLALPANDO : 1960 MR#: [id number] DATE: 01/28/2017 JOB ID: [id number] DATE: 02/02/2017 HISTORY OF PRESENT ILLNESS: I was notified today around noontime by Dr. Waters about the patient having been admitted last Thursday with worsening respiratory status. He has a history of [place] chromosome positive acute lymphoblastic leukemia/ALL that has been in remission post treatment and allogeneic stem cell transplant. For details, please refer to my summary notes of January 13, 2017. He was diagnosed with this leukemia three years ago in spring 2016 treated with induction chemotherapy followed by allogeneic stem cell transplant at [facility] in May 2014 combined with oral agent, dasatinib, that continued until July 2016 for maintenance. He has been in documented remission since then, including a flow cytometry from peripheral blood that was done on January 13, 2017. He had a recent hospitalization between January 13 and January 16 for a peculiar pulmonary process with new onset of patchy solid multifocal and nodular-appearing consolidations in the periphery of the lungs diffusely with mass-like consolidations as summarized in my previous notes, her CT scan that we obtained on January 12 and he was admitted the following day for a workup. Given the pattern of these changes and a rather subacute onset, an infectious process was favored and he was broadly evaluated and worked up by Infectious Disease and Pulmonary Medicine including a bronchoscopy with bronchial lavage with cultures. He was fairly oligosymptomatic with a slight cough, no shortness of breath or room-air hypoxia, and had requested to be discharged which was followed through on January 16. He had a followup on January [address] Waters with Infectious Disease to evaluate the pending serologies and tests. His fungal antibodies were negative. However, apparently he did start becoming more symptomatic by the end of the week around January 22. He had called our office on afternoon, January 22, with his stating that he was getting more short of breath now. Since I was leaving town the following day, I advised him to go to the emergency department and be reimaged and evaluated. However, apparently he did not go. His was not able to convince him. He awaited the followup that was previously scheduled with Dr. Waters on January 28 at which time he was noticed by him that he was fairly short of breath and he was admitted at that time. I was out of town this entire past week and returned today when notified by Dr. Waters about his admission and his oxygen requirements worsening over the past few days. The only positive culture was from the previous bronchial lavage showing positivity for human metapneumovirus which likely cannot explain the severity of his course. All others including Pneumocystis and cytomegalovirus and AFB smears and fungal antibodies and cultures have remained negative including Aspergillus galactomannan antigen. He has had a previous CMV reactivation biochemically and which took a long time to get under control but eventually became undetectable. His last CMV PCR from peripheral blood of January 09, 2017 was still undetectable performed at [facility] at the time he was having this pulmonary infiltrate. Repeat CT of the chest performed upon readmission on January 29 shows radiographic worsening of those changes with bilateral pulmonary nodules involving all lobes more confluent in the perihilar area now with air bronchograms. A broad differential diagnosis was given including so-called lymphocytic interstitial pneumonia, sarcoidosis, amyloidosis and lymphangitic carcinomatosis which is not the case in this gentleman. Also, leukemic infiltrate is highly unlikely given the fact that he has documented remission based on flow cytometry of just 2-1/2 weeks ago. He has been placed on a broad antimicrobial coverage including meropenem, azithromycin and Bactrim. His bronchial lavage for Pneumocystis was negative. He did have one episode of fever of 39.5 in the evening of January 29 and has been afebrile since then. His oxygen requirement has significantly increased particularly over the past weekend since January 30, now on initially 50% and now on 70% FiO2 with high-flow nasal oxygen. At this level, his oxygenation is currently 98%. LABORATORIES: White count 8.6, hemoglobin 12.0, platelets 234. Differential shows no major abnormalities. Slight increase in monocytes. Chemistry shows a slightly abnormal creatinine of 1.29 today, but it has been in the last few days rather normal with 1.2. Liver enzymes essentially normal except slight elevation of AST of 57. Albumin 2.4. Procalcitonin only minimally elevated with 0.29. His fungal antibodies that were undetectable on January 13, 2017 are repeated on January 30 and are pending. Aspergillus galactomannan antigen of January 30 which was his 2nd test was again negative with 0.03. PHYSICAL EXAMINATION: On exam, he is currently afebrile, blood pressure 123/78, O2 sat 98% on high-flow oxygen of 65,FiO2 with nasal administration. He is oriented and answers questions. I visited him with his and son and daughter with grease and tallow pumper. His is relatively rarely with him during his clinic visits with me in the last three years, but his daughter is routinely with him. He describes feeling weak and somewhat dizzy and short of breath. Denies any chest pain. His lungs show coarse breath sounds. No wheezing. Oral cavity shows no lesions. Skin shows no rash, and there is no evidence of systemic [id number] disease. ASSESSMENT AND PLAN: A 56-year-old gentleman with history of [place] chromosome positive acute lymphoblastic leukemia diagnosed three years ago who is currently in documented remission by flow cytometry of peripheral blood of three weeks ago and has received allogeneic stem cell transplant in May 2014 at [facility] and was on maintenance oral dasatinib which is a tyrosine kinase inhibitor until July 2016 and was then discontinued. He did not have any evidence of bkjrw-bzkopg-wknr disease chronically post transplant, although he did have one episode of a peculiar mild pneumonitis in 2014 which had a totally different radiographic appearance than what is going on currently. He did receive a course of prednisone which helped at that time, but that resulted in a reactivation of CMV which took almost one and a half years to control. This was only a biochemical reactivation of CMV and not a CMV infection, but he had to be on IV ganciclovir and at times foscarnet for a year and a half until he became CMV-negative since last July, and this has been verified again just recently with the PCR of peripheral blood. He has developed this new pulmonary process, as described above, which has been mostly radiographically apparent on the CT scan of January 12, and he had barely symptoms, but now he has become much more symptomatic with room-air hypoxia and weakness. He was admitted for a few days between January 13 and January 16 and was evaluated both by Infectious Disease and Pulmonology including a bronchoscopy and extensive serologic and cultural workup without any obvious etiology. The radiographic changes are worsening on the current CAT scan when he was readmitted. Again, last week I was out of town and learned about his readmission around noon. I have visited the patient and family twice today and had protracted conversations with the physicians involved including Dr. Waters who involved me earlier today around noon and Dr. Castellanos of Pulmonary and Critical Care and Dr. Pérez of the hospitalist team. In summary, Dr. Waters had planned for a CT-guided percutaneous biopsy, but this was then canceled by Radiology at the last minute due to concern about the patient's worsening hypoxia. A surgical VATS associated biopsy was being considered, but that was also declined by Anesthesiology for same reasons. The patient was being considered for a transfer to the [facility] and possibly repeat bronchoscopy with transbronchial biopsy attempts but for both of these procedures he would require an intubation to make sure his oxygenation is adequately managed. Dr. Castellanos was able to arrange for transfer but at the last minute, the family has decided not to proceed with that. They had multiple family members now involved and discussed this and in my second visit along with Dr. Pérez, the family and the patient clearly do not want him to have an intubation for the purpose of a procedure or for the sake of transfer. They are afraid that he might not recover. I had recommended empiric initiation of treatment with steroids for possibility of a noninfectious autoimmune process such as a lymphocytic pneumonitis or other processes since an infectious etiology at this point is not established, and the patient despite of antibiotics is worsening. This was carried out in early afternoon with Solu-Medrol 80 mg IV which is 1 mg/kg. The family would like to see whether the initiation of steroids can help him improve, and they are willing to take the risk that he might further deteriorate, and the patient is desiring that as well. He is willing to consider intubation for restoring his airway and oxygenation in an emergency setting should his condition deteriorate, but not for the purpose of bronchoscopy or biopsy or transfer. I re-emphasized that despite of initiation of steroids, his condition might further deteriorate and we might not learn what exactly is going on in his lungs without a biopsy, but the family and patient are aware of this limitation and would prefer not to have intubation or transfer at this point. With the previous admission a couple of weeks ago, initiation of steroids was weighed into the differential diagnosis, but it was deferred as an infectious workup was still in process and we did not want to subject him likely to steroids, particularly with him not being much symptomatic and risk another episodes of CMV reactivation that would take more than a year to control. However, currently this is a different situation. It appears that the fungal pneumonia seems to become less likely with the fungal antibody and Aspergillus galactomannan and bronchial lavage being all negative. The patient's situation remains guarded. TIME SPENT WITH PATIENT: Approximately 1 hour and 20 minutes were spent in counseling and coordination of care.
[2017-02-02] MEDS ORDERED: Famotidine Inj 20 MG in IV Premix 1 EACH IV SCH (20:30)
--- NOTE | 2017-02-02 21:31 | PCM.PNSURG ---
Subjective Visit Information: Reason for Visit Resp Failure Surgery/Surgery Date Post-Op Day # Date of Admission: Jan 28, 2017 at 18:48 Hospital Day # Subjective: I was contacted by Dr. Coleman, CCU attending, regarding this patient and the possibility of VATS biopsies for pulmonary infiltrates. He has worsening hypoxia and severe bilateral infiltrates. I reviewed his case in detail and discussed with our anesthesiology team to determine if he is a candidate for VATS bx. Dr. Camarena reviewed the case and talked to the patient and they determined together that he was not a candidate for intubation/single lung ventilation. Therefore, I did not meet the patient or examine him but was involved in the decision making process today. Aida Tesfaye MD General Surgeon Objective Vital Sign- Last 8 Hours Date Time Temp Pulse Resp B/P Pulse Ox O2 Delivery O2 Flow Rate FiO2 02/02/17 20:00 36.7 67 18 99/61 97 High Flow 70 02/02/17 19:42 63 22 97 Nasal Cannula 50 70 02/02/17 16:37 36.8 58 17 124/82 98 High Flow 70 02/02/17 15:58 59 20 97 Nasal Cannula 50 70 Intake and Output- Last 8 Hour 02/02/17 Cumulative From/Thru 07:00 01/28/17 19:30 - 02/02/17 06:45 Intake Total 50 ml 4200 ml Output Total 600 ml 4403 ml Balance -550 ml -203 ml Intake Oral 50 ml 2970 ml IV Total 1230 ml Output Urine Total 600 ml 4403 ml # Voids 2 9 # Bowel Movements 2 Result Diagram: 02/02/17 0440 02/02/17 0440 Assessment & Plan VTE Prophylaxis: Sub-Q Heparin (Unfractionated) Resuscitation Status: CPR: Attempt Resuscitation Aida Tesfaye MD Feb 02, 2017 21:31
[2017-02-03] VITALS (11 sets, daily range): BP systolic 98–135; BP diastolic 60–69; PULSE 52–77; RESP 16–23; O2SAT 95–98
[2017-02-03] MEDS: Sodium Chloride LOK Flush 10 mL Syringe IVFLUSH SCH ×3 (00:30→15:04)
[2017-02-03] MEDS: Azithromycin Inj 500 MG in Dextrose 5% w/Vial Mate 250 ML IV SCH (01:10)
[2017-02-03] MEDS: Trimethoprim-Sulfa 160 mg-800 mg Tablet PO SCH ×2 (01:10→08:27)
[2017-02-03] MEDS: Meropenem Inj 2,000 MG in 0.9% Sodium Chloride 100 ML IV SCH ×3 (01:10→16:01)
[2017-02-03] MEDS: MethylprednisoLONE Sodium Succinate 62.5 mg/mL 2 mL Inj IVPUSH SCH ×3 (02:44→17:05)
[2017-02-03 03:38] LABS: BASOPHILS % (AUTO) 0.2 % (0-3); EOSINOPHILS % (AUTO) 0 % (0-5); MONOCYTES % (AUTO) 3.2 % (4-12); Mean Corpuscular Hemoglobin 34.8 pg (27.0-35.0); Mean Corpuscular Volume 102.7 fL (81-100); NEUTROPHILS % (AUTO) 65.1 % (40-74); Platelet Count 219 bil/L (150-400)
[2017-02-03 03:55] LABS: Magnesium 2.2 mg/dL (1.6-2.6)
--- NOTE | 2017-02-03 05:30 | ABG ---
DateTimeAnalyzed 05:27:00 -_ pH ____7.365 - 7.350 7.450 pCO2 ___31.5__ -mmHg 35.0 45.0 pO2 ___72.8__ -mmHg 69.0 116 HCO3- ___17.6__ -mmol/L 22.0 26.0 ABE ___-6.4__ -mmol/L -2.0 2.0 tHb ___12.0__ -g/dL O2Hb ___92.5__ -% COHb ____0.5__ -% MetHb ____1.1__ -% sO2 ___94.0__ -% 25.0 FIO2 ___70.0__ -% Drawn By blf - Date/Time Notified____ 05:30:00 -_ Spontaneous_RR ___18.0__ -b/min Liter_Flow ___50.0__ -L/min Oxygen Device 1 HIGH FLOW NC - Notified By BLF - Notified Whom ABU ASHWINI RN - B 754 -mmHg tO2 ___15.6__ -Vol% Drake test _Positive -
--- NOTE | 2017-02-03 07:18 | NUR ---
Respiratory Pt remains on High Flow 50 L FIO2 70% . Pt denies SOB. VSS. No overt complications noted. Family at the bedside providing support and comfort.
[2017-02-03] MEDS: Insulin LISPRO 300 Unit/3 mL Inj SUBQ SCH ×4 (08:00→20:33)
[2017-02-03] MEDS: levETIRAcetam 500 mg Tablet PO SCH ×2 (08:27→19:42)
--- NOTE | 2017-02-03 08:39 | DRSVH ---
PROCEDURE: X-RAY CHEST ONE VIEW, PORTABLE ([id number]) INDICATIONS: RESPIRATORY FAILURE, BOOP, PARAKEET RAISER? TECHNIQUE: One view of the chest was acquired. COMPARISON: [facility], CT, CT CHEST W CON, 01/29/2017, 1:52. [facility], CR , XR CHEST 1VW (PORTABLE), 02/02/2017, 8:35. FINDINGS: Surgical changes and devices: None. Lungs and pleura: Bilateral patchy consolidations consistent with pneumonia or BOOP. Overall, no sig nificant change. No pleural effusions or pneumothorax. Mediastinum: Mediastinal contours appear normal. Heart size is normal. Bones and chest wall: No suspicious bony lesions. Overlying soft tissues appear unremarkable. IMPRESSION: Bilateral patchy consolidations are unchanged. Dictated by: Suzi Gu M.D. on 02/03/2017 at 8:37 Approved by: Suzi Gu M.D. on 02/03/2017 at 8:38
--- NOTE | 2017-02-03 09:01 | PROG NOTE ---
[address] [address] PROGRESS NOTE PATIENT: GERRY VILLALPANDO : 1960 MR#: [id number] ADMIT: 01/28/2017 JOB ID: [id number] DATE: 02/03/2017 INFECTIOUS DISEASE FOLLOWUP NOTE: REASON FOR FOLLOWUP: Bilateral pulmonary infiltrates in a patient status post stem cell transplant for ALL. INTERVAL HISTORY: Yesterday, marked and extraordinary burst of activity regarding this patient and possible transfer to [place]. The patient's family was disconcerted that a lung biopsy had not been performed during his five days in the hospital between Thursday evening and yesterday, and requested transfer to the [facility] when it became clear that a lung biopsy was not going to be done here either by the percutaneous route or through a VATS procedure due to concerns about anesthesia and possible borderline respiratory function. Eventually, a transfer was worked out but the ICU team here felt the patient should be intubated or at least on BiPAP for safe transfer, and the patient and family, after discussion, concluded that they did not want the patient to be more aggressively supported with respect to his respiratory status unless it was absolutely essential for reasons other than simply to transfer. Overnight, the patient reports that he is slightly better. He reports his cough, which was already minimal, is now essentially gone. He notes he is slightly less short of breath than he was. He has no fever, no chills, no sweats. No significant headache. He has some chronic eye and foot complaints related to his earlier chemo and stem cell transplant but these have not changed. No nausea, vomiting, diarrhea and no overt toxicity of the medications that he has noted. The patient reports his appetite is good, and he is eating his meals and is preparing to eat his breakfast. PHYSICAL EXAMINATION: Reveals an afebrile gentleman, temperature 36.8, pulse 56, respiratory rate 18, blood pressure 102/63. He is still on 70% high-flow nasal oxygen but is oxygenating 98 or so percent on that. In general, the patient is more awake and interactive than he was yesterday. His mental status is clear. Eyes without conjunctivitis. Oral cavity: No thrush, pharyngitis, or ulcerative lesions. Neck is supple. Lungs remain strangely clear despite careful posterior auscultation suggesting this is largely an interstitial process. Cardiac exam: Regular rate and rhythm without significant murmur. He remains relatively bradycardic considering how ill he is with a pulse consistently around 58-60. His abdomen is soft and nontender without organomegaly. His feet and legs are without edema, skin breakdown, or rash. LABORATORIES: Include a white count this morning 6500 and platelets 219. Creatinine 1.46, and this is steadily increasing from a baseline of about 1.2, likely due to the addition of high-dose Bactrim. His potassium is 5.4, sodium 126, glucose 246 and undoubtedly due to the steroids that were added yesterday. ALT and AST continue to slowly climb; AST 63 and ALT 48. Albumin 2.3. Last procalcitonin was 0.25. The CMV quantitative PCR has returned negative. Recall that we had one in late December which was negative and now, we have another CMV PCR in blood which is negative. In addition, we had the bronch CMV culture from late December which was also negative. The galactomannan has come back negative. Fungitell is still pending, as is the repeat crypto antigen, with the first one having been negative. Other cultures of note include MRSA PCR of the nares which is negative, sputum from the had no polys and grew minimal oral normal sunny, fungal blood cultures are negative, respiratory viral PCR negative and the urine legionella and pneumococcal antigens are negative. IMAGING: A chest x-ray was just done and I compared on the screen to prior films. I did not see much difference in the extensive bilateral infiltrates. The heme/onc notes were reviewed. , Dr. Thomas and I had a long meeting yesterday afternoon after the prior notes were written and discussed possible transfer, as well as the addition of steroids. We all felt that the addition of steroids was worthwhile, though not completely a risk free intervention, and high-dose steroids were instituted yesterday afternoon in addition to our plans to continue broad-spectrum coverage. IMPRESSION: This patient appears slightly better today than yesterday but remains critically ill from a respiratory point of view. Beginning a little more than a month ago the patient started to develop increasing shortness of breath with a minimal dry cough and some weight loss. Pulmonary nodular infiltrates were found on imaging in late December which led to a bronchoscopy and a series of blood tests, which failed to find any cause except for the presence of a human metapneumovirus. The patient was observed following his discharge while we awaited AFB and fungal PCRs and other cultures. He was then seen in my clinic on December 28 and it became clear that his shortness of breath after having improved for a while had gotten much worse and that led to this readmission. Our goal since readmission on the evening of the was to pursue a lung biopsy by either percutaneous route or through video-assisted thoracoscopic surgery but we have been unable to get either one because of concerns about a percutaneous biopsy causing a pneumothorax with resultant difficulties and because of Anesthesia's concerns about using one lung ventilation as part of the video-assisted thoracoscopic surgery. Unfortunately, this has left us in a position where we really have no idea whether this is an inflammatory, noninfectious process or an infection. I have once again reviewed the literature related to late stem cell or bone marrow transplant pulmonary infections. If this is an infection, it would seem to be the leading candidates here would be a fungus such as aspergillus, an atypical bacterial process such as nocardia, or perhaps mycobacterium. The PCRs that were done on the bronchial wash during the last couple days of December are very specific but there sensitivity in a bronchial wash is by no means perfect leaving all of these possibilities on the board. When the patient deteriorated and we were unable to get a biopsy over the weekend, Cresemba, high-dose Bactrim, azithromycin and meropenem were added. It is unclear how long any of these should be continued but my sense would be to continue fairly short-term with azithromycin and meropenem, as this is unlikely a conventional bacterial process and if it was, it should respond fairly promptly. More challenging is what to do with the high-dose Bactrim, which is now causing an increase in his creatinine, which is likely artifactual, plus an increase in his potassium which is real. Also, perhaps most difficult to knows is what to do with the Cresemba. This is a potent new azole antifungal agent with reasonably good coverage for most fungi, though not for pseudallescheria or necessarily fusarium, both of which are quite unlikely in this circumstance. If the patient would seem to improve over the next few days, I think we would be locked into a very long course of Cresemba unless we had tissue or a culture to definitively identify a fungus. RECOMMENDATIONS: 1. After a prolonged discussion with the ICU team, Heme/Onc, Surgery, Interventional Radiology and the Medicine teams caring for the patient, I believe our present course is reasonable given the absence of any additional data. 2. Will add an LDH and CRP to today's labs. 3. Will continue with our broad-spectrum antibiotics including azithromycin, meropenem, Septra and Cresemba. 4. Will continue with our trial of steroids. 5. Will continue to carefully monitor the patient's respiratory status, as well as chest x-ray. 6. Should the patient's condition improve enough to allow it, I think a VATS procedure would be ideal to try and definitively answer what is the nature of these infiltrates. 7. Should the patient deteriorate to the point he requires intubation, then I think it would be reasonable to either move the patient to the [facility] for additional invasive studies or perhaps to attempt a VATS procedure or least a bronchoscopy with wash and transbronchial lung biopsies here. 8. This situation was discussed using an log operations coordinator again with the family today.
--- NOTE | 2017-02-03 09:11 | PCM.PNMED ---
Subjective Date of Service Feb 03, 2017 Subjective PULMONOLOGY / INTENSIVE CARE PROGRESS NOTE Overnight the patient states that his breathing is easier and his cough has lessened in frequency. He feels stronger. He has been eating but not ambulating. Denies any pain (other than usual B/L foot pain from diabetic neuropathy), nausea, vomiting, constipation, diarrhea, dizziness, chest pain. Exam Vital Signs Vital Sign - Last Date Time Temp Pulse Resp B/P Pulse Ox O2 Delivery O2 Flow Rate FiO2 02/03/17 08:23 36.5 54 18 118/69 96 70 02/03/17 04:00 High Flow 02/03/17 01:10 50 Intake and Output 02/02/17 02/02/17 02/03/17 Cumulative From/Thru 15:00 23:00 07:00 01/28/17 19:30 - 02/03/17 04:42 Intake Total 1192 ml 943 ml 6335 ml Output Total 0 ml 450 ml 4853 ml Balance 1192 ml 493 ml 1482 ml Intake Oral 240 ml 400 ml 3610 ml IV Total 952 ml 543 ml 2725 ml Output Urine Total 0 ml 450 ml 4853 ml # Voids 9 # Bowel Movements 2 Exam General: Much more interactive today. Sat up when talked to, unlike yesterday. HEENT: NC/AT Lungs: Clear to auscultation B/L. On high flow nasal oxygen. No use of accessory muscles. Speaking in full sentences without distress. Heart: Regular rate and rhythm, no murmurs appreciated Abdomen: Soft and non-tender Extremities: No edema, diminished dorsalis pedis and posterior tibial pulses but equal B/L Neuro: EOMI IVs and Medications IV Fluids None. Patient is drinking. Medications Reviewed: Medications were reviewed in detail Lab and Diagnostics Procalcitonin 0.21, LDH 351, CRP 8.0 Hyperkalemia (see below), elevated creatinine (see below), hyponatremia (see below) ABG: pH 7.365 / pCO2 31.5 / pO2 7.8 / HCO3- 17.6 Result Diagram: 02/03/17 0330 02/03/17 0330 Microbiology Microbiology 01/28/17 Blood Culture, Received Pending 01/29/17 MRSA (PCR) - Negative 01/29/17 Influenza Screen - Negative 01/29/17 Streptococcus pneumoniae Ag Screen - Negative 01/29/17 Nasopharyngeal viral PCR all negative, including CMV Serology: cryptococcus Ag pending, CMV DNA negative, fungal antibodies pending, Urine L. pneumophilia Ag negative, A. galactomannan Ag 0.03 . X-Rays, CTs and MRIs X-RAY CHEST IMPRESSION: Bilateral patchy confluent opacities in the lungs, appearing mildly worse when compared to 01/12/17. As previously identified, this could be related to infection including atypical like mycobacterial or fungal. However, lymphangitic spread of tumor should also be considered. Dictated and approved by: Mela Solorio M.D. on 01/28/2017 at 20:08 CT CHEST WITH CONTRAST IMPRESSION: 1. Increased bilateral pulmonary nodules with confluent areas of consolidation in a perilymphatic distribution. 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 The differential also includes lymphocytic interstitial pneumonia, sarcoidosis, occupational pneumoconiosis, and amyloidosis. Dictated and approved by: Giovanni Stoll M.D. on 01/29/2017 at 11:07 X-RAY CHEST IMPRESSION: Relatively severe patchy bilateral moderate and moderately severe alveolar opacification best seen by recent CT scanning 4 days ago. No contraindication to anticipated lung biopsy scheduled for later today. Dictated and approved by: Parag Lemus M.D. on 02/02/2017 at 9:18 X-RAY CHEST IMPRESSION: Relatively severe patchy bilateral moderate and moderately severe alveolar opacification best seen by recent CT scanning 4 days ago. No contraindication to anticipated lung biopsy scheduled for later today. Dictated and approved by: Parag Lemus M.D. on 02/02/2017 at 9:18 X-RAY CHEST IMPRESSION: Bilateral patchy consolidations are unchanged. Dictated by: Suzi Gu M.D. on 02/03/2017 at 8:37 . Additional Diagnostics 01/28/17 PROCEDURE: X-RAY CHEST ONE VIEW, PORTABLE IMPRESSION: Bilateral patchy confluent opacities in the lungs, appearing mildly worse when compared to 01/12/17. As previously identified, this could be related to infection including atypical like mycobacterial or fungal. However, lymphangitic spread of tumor should also be considered. Dictated by: Mela Solorio M.D. on 01/28/2017 at 20:08 Approved by: Mela Solorio M.D. on 01/28/2017 at 20:11 01/29/17 PROCEDURE: CT CHEST WITH CONTRAST IMPRESSION: 1. Increased bilateral pulmonary nodules with confluent areas of consolidation in a perilymphatic distribution. 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 The differential also includes lymphocytic interstitial pneumonia, sarcoidosis, occupational pneumoconiosis, and amyloidosis. Dictated by: Giovanni Stoll M.D. on 01/29/2017 at 11:07 Approved by: Giovanni Stoll M.D. on 01/29/2017 at 11:19 . Assessment & Plan Mr. 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 Hospital day 6 (02/03). 1. Acute hypoxic respiratory failure, secondary to B/L pulmonary infiltrate of unclear etiology, present on admission. Active -Patient continues to be on 70% high-flow nasal oxygen. Saturating 97%. Continues to be unclear whether this is an infectious or inflammatory process. Appreciate infectious disease, Dr. Waters, who is managing the antibiotics, anti-viral and anti-fungal medications. Appreciate oncology, Dr. Thomas, who recommended Solu-Medrol 80 mg IV (1 mg/kg) empiric steroids for possibility of a noninfectious autoimmune process such as a lymphocytic pneumonitis. Respiratory acidosis with hyponatremia - bicarb 1300mg every 6 hours. If patient worsens requiring intubation, will again discuss transfer with patient' s family. At this point, continue with antibiotics, supportive care, steroids, with the hope that patient will improve to the point of getting a tissue biopsy. Patient's overall condition is critical. 2. Acute kidney injury, not present on admission - Creatinine 1.46 from 1.2. Bactrim is contributing. Will continue to monitor creatinine. Patient is eating and drinking but is not on IV fluids given his pulmonary infiltrates. 3. Elevated transaminases, not present on admission - Again, likely to be antibiotic medications. Continue to monitor liver function. 4. Electrolyte disturbances, hyponatremia, hyperkalemia, not present on admission - bicarb 1300mg every 6 hours to help with acidosis and sodium. Monitor K+ closely and treat. 5. Type 2 diabetes mellitus, chronic, presume stable. - Insulin. Last A1c was 5.5 6. 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 - Appreciate oncology, Dr. Thomas 7. Seizure disorder, chronic, presume stable. - Continue Keppra 8. Hypertension, chronic, stable. - currently 102/63 9. Depression, chronic, presume stable. - Continue citalopram 20 mg daily. Total time: 60 minutes GI Prophylaxis: H2 jeanie VTE Prophylaxis: Sub-Q Heparin (Unfractionated) Resuscitation Status: CPR: Attempt Resuscitation Attending Statement [facility] addendum: Above note reviewed, agreed with plan. Pt. remain stable over night, continue to require O2 HFNC 70%. Chest xray without sig change. Hemodynamics are stable.Evidence of worsening renal function , non oliguric, with associated metabolic acidosis. Will continue HFNC as needed Start PO Bicarb Cont. Abx per ID Agree with decreasing Bactrim dose for concern of renal failure Cont. Steroids empirically Supportive care for now. 35 min of CCT provided . Brian Castellanos MD Pulm./[facility] Sonia Hernandez DO Feb 03, 2017 09:11 Brian Castellanos MD Feb 03, 2017 11:24
[2017-02-03] MEDS: Dextrose 5% 0.9% NaCl 1,000 ML IV SCH ×2 (09:59→20:34)
[2017-02-03 10:11] LABS: Antiribosomal P Antibodies <0.2 AI (0.0-0.9); Antiscleroderma - 70 AB <0.2 AI (0.0-0.9); Cryptococcal Ag Negative (Negative)
[2017-02-03] MEDS: Heparin 5,000 Unit/mL Inj SUBQ SCH ×2 (10:11→16:02)
--- NOTE | 2017-02-03 10:39 | NUR ---
NUTRITION FOLLOW-UP: ASSESS: 56 YO male admitted with hypoxic respiratory failure, pneumonia dyspnea, shortness of breath. Pulmonology, ID and Oncology are following. Pt is slowly improving. Lung Biopsy was cancelled. He is tolerating PO well on Diabetic Diet at 95-100% of meals, however he has been on and off NPO. Pt has lost ~11.2 kg x 10 weeks = 12.19% = severe wt loss. Wt loss likely related to decreased respiratory status. 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 DIET: Consistent carb. PO intake 95-100% LABS: Na 126, K 5.4, CO2 16, Bun 25, Third Rigger 1.46, Glu 246, Ca 8.2, AST 63, ALT 48, Alb 2.3 MEDICATIONS: Reviewed. Solu-medrol GI: BM x 1 (01/31). Skin Integrity: No issues reported. ANTHROPOMETRICS: Current Wt: 78.3 kg BMI: 27.9 kg/m2. Admit weight: 82 kg ESTIMATED NEEDS: IVETTE Calories: 2050 - 2460 kcal (25 - 30 kcal / kg BW) Protein: 65-80 g protein (.8-1.0 g / kg BW) NUTRITION DIAGNOSIS: 1) Increased nutrient needs related to respiratory status, as evidenced by pt with recent wt loss.--IMPROVING 2) Moderate pro/kcal malnutrition related to chronic illness as evidenced by 12.19% weight loss x 10 weeks and increased weakness.--IMPROVING INTERVENTION: 1) Continue Glucerna on L and D trays MONITOR/EVALUATE: PO intake, wt, labs, GI/nutrition status. Follow up per moderate nutrition risk guidelines.
--- NOTE | 2017-02-03 15:23 | PCM.PNMED ---
Subjective Date of Service Feb 03, 2017 Subjective Patient states that he noticed improvement in his overall wellbeing. he states he feels less tired and his appetite has improved (patient is on high dose steroid). He has not been ambulating yet even from bed to chair and he expressed desire to try to do so. Denies headache, chest pain, nausea, vomiting , constipation, diarrhea, dizziness. Exam Vital Signs Vital Sign - Last Date Time Temp Pulse Resp B/P Pulse Ox O2 Delivery O2 Flow Rate FiO2 02/03/17 12:00 36.5 64 18 116/66 95 70 02/03/17 12:00 Supplement Oxygen 02/03/17 11:31 50 Intake and Output 02/02/17 02/02/17 02/03/17 Cumulative From/Thru 15:00 23:00 07:00 01/28/17 19:30 - 02/03/17 04:42 Intake Total 1192 ml 943 ml 6335 ml Output Total 0 ml 450 ml 4853 ml Balance 1192 ml 493 ml 1482 ml Intake Oral 240 ml 400 ml 3610 ml IV Total 952 ml 543 ml 2725 ml Output Urine Total 0 ml 450 ml 4853 ml # Voids 9 # Bowel Movements 2 Exam General: Patient is alert and oriented 3, in no acute distress, with eyes open HEENT: Conjunctival hyperemia, neck, soft supple, no adenopathy Lungs: Mild bilateral crackles in the lung bases otherwise normal, requiring high flow 50 L, FIO2 70% Heart: Regular rate and rhythm, no murmur, bradycardic Abdomen: Soft, nontender, nondistended, bowel sounds active Extremities: No edema Neurologic: Grossly neurologically intact Skin: Warm, dry, intact without rash Lab and Diagnostics Result Diagram: 02/03/17 0330 02/03/17 0330 Microbiology Microbiology 01/28/17 Blood Culture, Received Pending 01/29/17 MRSA (PCR) - Negative 01/29/17 Influenza Screen - Negative 01/29/17 Streptococcus pneumoniae Ag Screen - Negative 01/29/17 Nasopharyngeal viral PCR all negative, including CMV Serology: cryptococcus Ag pending, CMV DNA negative, fungal antibodies pending, Urine L. pneumophilia Ag negative, A. galactomannan Ag 0.03 . X-Rays, CTs and MRIs X-RAY CHEST IMPRESSION: Bilateral patchy confluent opacities in the lungs, appearing mildly worse when compared to 01/12/17. As previously identified, this could be related to infection including atypical like mycobacterial or fungal. However, lymphangitic spread of tumor should also be considered. Dictated and approved by: Mela Solorio M.D. on 01/28/2017 at 20:08 CT CHEST WITH CONTRAST IMPRESSION: 1. Increased bilateral pulmonary nodules with confluent areas of consolidation in a perilymphatic distribution. 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 The differential also includes lymphocytic interstitial pneumonia, sarcoidosis, occupational pneumoconiosis, and amyloidosis. Dictated and approved by: Giovanni Stoll M.D. on 01/29/2017 at 11:07 X-RAY CHEST IMPRESSION: Relatively severe patchy bilateral moderate and moderately severe alveolar opacification best seen by recent CT scanning 4 days ago. No contraindication to anticipated lung biopsy scheduled for later today. Dictated and approved by: Parag Lemus M.D. on 02/02/2017 at 9:18 X-RAY CHEST IMPRESSION: Relatively severe patchy bilateral moderate and moderately severe alveolar opacification best seen by recent CT scanning 4 days ago. No contraindication to anticipated lung biopsy scheduled for later today. Dictated and approved by: Parag Lemus M.D. on 02/02/2017 at 9:18 X-RAY CHEST IMPRESSION: Bilateral patchy consolidations are unchanged. Dictated by: Suzi Gu M.D. on 02/03/2017 at 8:37 . Additional Diagnostics 01/28/17 PROCEDURE: X-RAY CHEST ONE VIEW, PORTABLE IMPRESSION: Bilateral patchy confluent opacities in the lungs, appearing mildly worse when compared to 01/12/17. As previously identified, this could be related to infection including atypical like mycobacterial or fungal. However, lymphangitic spread of tumor should also be considered. Dictated by: Mela Solorio M.D. on 01/28/2017 at 20:08 Approved by: Mela Solorio M.D. on 01/28/2017 at 20:11 01/29/17 PROCEDURE: CT CHEST WITH CONTRAST IMPRESSION: 1. Increased bilateral pulmonary nodules with confluent areas of consolidation in a perilymphatic distribution. 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 The differential also includes lymphocytic interstitial pneumonia, sarcoidosis, occupational pneumoconiosis, and amyloidosis. Dictated by: Giovanni Stoll M.D. on 01/29/2017 at 11:07 Approved by: Giovanni Stoll M.D. on 01/29/2017 at 11:19 . Assessment & Plan Mr. 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 1. Acute hypoxic respiratory failure, present on admission. 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 -Patient has somehow rapid decline of his respiratory status in the last 48 hrs. he also had an episode of fever 2 days ago. The initial plan was to hold off on antibiotics until tissue biopsy was obtained. Patient has decline in his respiratory status and IR biopsy postponed to Thursday. Due to concern of atypical infection possibly fungal ,Dr Waters started him on meropenem, azithromycin and antifungal Cresemba today 02/01. He also did not get any antibiotic trial on recent hospitalization as well. 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 -Recent hospitalization with same diffuse infiltrate. Infectious Workup unrevealing except Human metapneumovirus -Additional infectious work up negative for crypto antigen, fungus, AFB, legionella, HSV, adenovirus, QuantiFERON Gold -Chest CT shows worsening bilateral infiltrates as compared to the CT of the chest done on January 12 -Differential diagnosis: noninfectious causes such as pulmonary malignancy, sarcoid, amyloid, interstitial pneumonitis, lymphangitis carcinomatosis -Percutaneous pulmonary biopsy and VATS are not an option for the patient right now due to his respiratory status. -Will consider transferring to [facility] once again if patient condition improves -Continue trial of solu-medrol, 80 mg intravenously every 8 hours and supportive treatment -Continue with broad-spectrum antibiotics including azithromycin, meropenem, and cresemba 2. Acute kidney injury, not present on admission. Active - Increase in creatinine to 1.46 from 1.29, most likely due to bactrim - Decrease bactrim to one tablet daily and start minocycline, 100 mg orally twice a day - Continue to monitor creatinine 3. Electrolyte disturbances, hyponatremia, hyperkalemia, not present on admission. Active - Start sodium bicarbonate, 1300mg every 6 hours by mouth to help with acidosis and sodium - Monitor potassium 4. Transaminitis, mild, not present on admission. Active - Mile elevation of AST and ALT, most likely due to antibiotic' s toxicity especially cresemba - Continue to monitor 5. Chronic and recurrent CMV - Continue valacyclovir 1000 mg BID. 6. Type 2 diabetes mellitus, chronic, presume stable. - Continue NPH insulin 50 units twice a day - Last A1c was 5.5 7. 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 - Decrease bactrim to one tablet daily and start minocycline, 100 mg twice a day orally for PCP prophylaxis. 8. Seizure disorder, chronic, presume stable. - Continue Keppra 500 mg BID. 9. Hypertension, chronic, presume stable. - Continue metoprolol tartrate 25 mg BID. 10. Depression, chronic, presume stable. - Continue citalopram 20 mg daily. - Antiemetic available PRN. - Antacid available PRN. - Bowel regimen available PRN. - Tylenol available PRN mild pain, fever. Disposition: Patient in acute hypoxic respiratory failure of unclear etiology, may need several days of inpatient hospitalization for workup and treatment. GI Prophylaxis: H2 jeanie VTE Prophylaxis: Sub-Q Heparin (Unfractionated) Resuscitation Status: CPR: Attempt Resuscitation Mr. 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 Hospital day 6 (02/03). 1. Acute hypoxic respiratory failure, secondary to B/L pulmonary infiltrate of unclear etiology, present on admission. Active -Patient continues to be on 70% high-flow nasal oxygen. Saturating 97%. Continues to be unclear whether this is an infectious or inflammatory process. Appreciate infectious disease, Dr. Waters, who is managing the antibiotics, anti-viral and anti-fungal medications. Appreciate oncology, Dr. Thomas, who recommended Solu-Medrol 80 mg IV (1 mg/kg) empiric steroids for possibility of a noninfectious autoimmune process such as a lymphocytic pneumonitis. Respiratory acidosis with hyponatremia - bicarb 1300mg every 6 hours. If patient worsens requiring intubation, will again discuss transfer with patient' s family. At this point, continue with antibiotics, supportive care, steroids, with the hope that patient will improve to the point of getting a tissue biopsy. Patient's overall condition is critical. 2. Acute kidney injury, not present on admission - Creatinine 1.46 from 1.2. Bactrim is contributing. Will continue to monitor creatinine. Patient is eating and drinking but is not on IV fluids given his pulmonary infiltrates. 3. Elevated transaminases, not present on admission - Again, likely to be antibiotic medications. Continue to monitor liver function. 4. Electrolyte disturbances, hyponatremia, hyperkalemia, not present on admission - bicarb 1300mg every 6 hours to help with acidosis and sodium. Monitor K+ closely and treat. 5. Type 2 diabetes mellitus, chronic, presume stable. - Insulin. Last A1c was 5.5 6. 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 - Appreciate oncology, Dr. Thomas 7. Seizure disorder, chronic, presume stable. - Continue Keppra 8. Hypertension, chronic, stable. - currently 102/63 9. Depression, chronic, presume stable. - Continue citalopram 20 mg daily. Total time: 60 minutes Pt. remain stable over night, continue to require O2 HFNC 70%. Chest xray without sig change. Hemodynamics are stable.Evidence of worsening renal function , non oliguric, with associated metabolic acidosis. Will continue HFNC as needed Start PO Bicarb Cont. Abx per ID Agree with decreasing Bactrim dose for concern of renal failure Cont. Steroids empirically Supportive care for now. Pain Evaluation: Adequate Pain Control GI Prophylaxis: H2 jeanie VTE Prophylaxis: Sub-Q Heparin (Unfractionated) Resuscitation Status: CPR: Attempt Resuscitation Attending Statement The patient was seen and examined together with Dr. Barrios on 02/03/2017 and I agree with the history, exam and plan as outlined in the note above. . Daria Barrios DO Feb 03, 2017 15:23 Carlton Pérez MD Feb 06, 2017 07:54
[2017-02-03] MEDS: Polyethylene Glycol (PEG) 17 Gm Powder PO SCH ×2 (15:40→15:52)
--- NOTE | 2017-02-03 18:01 | NUR ---
POTASSIUM Patient's potassium 5.4 this morning w/ recheck this afternoon at 1500. Result of 5.5 on recheck, so Kayexalate ordered to help decrease potassium levels. Patient very apprehensive about taking this medication, does not want to be up all night w/ diarrhea, but explained the side effects of hyperkalemia, and the importance of keeping this value WNL, and patient agreed to one time dose, for now. Repeat labs ordered for AM and will continue to monitor vitals, telemetry and respiratory status.
--- NOTE | 2017-02-03 18:29 | CCS NOTE ---
[facility] [address] [address] MEDICAL ONCOLOGY OFFICE NOTE PATIENT: GERRY VILLALPANDO : 1960 MR#: [id number] DATE: 01/28/2017 JOB ID: [id number] DATE: 02/03/2017 SUBJECTIVE: Patient has been started on Solu-Medrol 80 mg IV every 8 hours since yesterday afternoon around 2 p.m. Overnight, his condition has not deteriorated any further. In fact, he feels a minimal improvement in form of a sense of slightly improved energy and a sense of less cough. His oxygen requirement has not changed, and he is still on high-flow rate with 70% FiO2 but his respiratory rate is stable around 16-18. On exam, he remains afebrile. Oral cavity shows no lesions. No skin lesions. Abdomen nontender. LABORATORIES: Show a low sodium of 126, potassium 5.4. Creatinine increased to 1.46. LFTs relatively stable with minimal elevation of AST and ALT. Bilirubin normal. Albumin 2.0. C-reactive protein clearly elevated with 8.0. MEDICATIONS: He is on Cresemba which, in my communication with Dr. Waters, was started on Thursday for empiric therapy of possible fungal pulmonary infection. In addition, he is on meropenem, azithromycin, and full-dose Bactrim for possibility of Pneumocystis, which has not been confirmed. Dr. Waters has now switched the Bactrim to just one tablet daily for prophylactic dose and started him on minocycline 100 mg p.o. b.i.d. ASSESSMENT/PLAN: A 56-year-old gentleman with ALL in 2013, post allogeneic stem cell transplant, who has been in remission. At least by most recent flow cytometry of peripheral blood from three weeks ago, he continues to be in molecular remission. Details summarized in my notes of yesterday. His pulmonary status at least has not worsened any further over the past 24 hours. The main two changes that have occurred, was the addition of steroids yesterday afternoon, and in my communication with Dr. Waters, the antifungal agent described above was started on Thursday. His pulmonary situation and respiratory status and oxygen requirements continued to deteriorate until yesterday. At this point, it is not clear that whether the stabilization of his respiratory insufficiency is due to the initiated steroids yesterday or the effect of the initiated antifungal agent since Thursday that could have taken place with a delay of few days, but overall, we feel that it is more likely to be an effect from the steroids. I discussed with the family that I would still hope that he will and should get a lung biopsy. I am hopeful that his respiratory status might improve so that we can get a lung biopsy by the end of this week, either percutaneously or by VATS.
[2017-02-04] VITALS (10 sets, daily range): BP systolic 105–143; BP diastolic 55–78; PULSE 62–79; RESP 12–20; O2SAT 95–100
[2017-02-04] MEDS: Sodium Chloride LOK Flush 10 mL Syringe IVFLUSH SCH ×3 (00:19→16:41)
[2017-02-04] MEDS: Heparin 5,000 Unit/mL Inj SUBQ SCH ×3 (00:20→16:41)
[2017-02-04] MEDS: Meropenem Inj 2,000 MG in 0.9% Sodium Chloride 100 ML IV SCH ×3 (00:20→16:41)
[2017-02-04] MEDS: MethylprednisoLONE Sodium Succinate 62.5 mg/mL 2 mL Inj IVPUSH SCH ×3 (02:57→18:44)
[2017-02-04 03:50] LABS: Mean Corpuscular Hemoglobin 34.7 pg (27.0-35.0); Mean Corpuscular Volume 101.6 fL (81-100)
--- NOTE | 2017-02-04 06:21 | ABG ---
DateTimeAnalyzed 06:18:00 -_ pH ____7.440 - 7.350 7.450 pCO2 ___31.5__ -mmHg 35.0 45.0 pO2 ___76.5__ -mmHg 69.0 116 HCO3- ___21.0__ -mmol/L 22.0 26.0 ABE ___-1.9__ -mmol/L -2.0 2.0 tHb ___11.9__ -g/dL O2Hb ___93.9__ -% COHb ____0.7__ -% MetHb ____1.2__ -% sO2 ___95.7__ -% 25.0 FIO2 ___70.0__ -% Drawn By blf - Date/Time Notified____ 06:20:00 -_ Spontaneous_RR ___18.0__ -b/min Liter_Flow ___50.0__ -L/min Oxygen Device 1 HIGH FLOW NC - B 757 -mmHg tO2 ___15.7__ -Vol% Drake test _Positive -
--- NOTE | 2017-02-04 06:27 | NUR ---
Cardiac/Resp Patient rested in bed on High flow O2 at 70%/50L, HR 60-70's NSR denied feeling short of breath all shift, RR 16-20, denied chest pain, no complaints and vital signs stable. Eating well and taking fluids without nausea, afebrile, uneventful shift, ABG drawn by RT, no distress noted this shift. Addendum: 02/04/17 at 0635 by GABRIEL DONOHUE RN Amended: Links added.
[2017-02-04] MEDS: Insulin LISPRO 300 Unit/3 mL Inj SUBQ SCH ×4 (07:29→20:14)
[2017-02-04] MEDS: levETIRAcetam 500 mg Tablet PO SCH ×2 (07:30→20:07)
[2017-02-04] MEDS: Trimethoprim-Sulfa 160 mg-800 mg Tablet PO SCH (07:30)
--- NOTE | 2017-02-04 09:53 | DRSVH ---
PROCEDURE: X-RAY CHEST ONE VIEW, PORTABLE ([id number]) INDICATIONS: HYPOXIA TECHNIQUE: One view of the chest was acquired. COMPARISON: [facility], CR, XR CHEST 1VW (PORTABLE), 02/03/2017, 4:58. [facility], CR, XR CHEST 1VW (PORTABLE), 02/02/2017, 8:35. FINDINGS: Surgical changes and devices: None. Lungs and pleura: No pleural effusions or pneumothorax. Lungs are abnormal with patchy bilateral pn eumonia pattern there is moderately severe, without appreciable change from comparison studies over t he prior 2 days. Mediastinum: Mediastinal contours appear normal. Heart size is normal. Bones and chest wall: No suspicious bony lesions. Overlying soft tissues appear unremarkable. IMPRESSION: Stable bilateral moderately severe patchy pneumonia, symmetric. Dictated by: Parag Lemus M.D. on 02/04/2017 at 9:51 Approved by: Parag Lemus M.D. on 02/04/2017 at 9:52
--- NOTE | 2017-02-04 09:55 | PROG NOTE ---
[address] [address] PROGRESS NOTE PATIENT: GERRY VILLALPANDO : 1960 MR#: [id number] ADMIT: 01/28/2017 JOB ID: [id number] DATE: 02/04/2017 INFECTIOUS DISEASE FOLLOW UP NOTE: REASON FOR FOLLOWUP: Respiratory failure with bilateral infiltrates in a patient status post a stem cell transplant for ALL. INTERVAL HISTORY: This continues to be an incredibly complex case. Today over 1 hour was spent discussing this case with the ICU team as well as the patient, his family and consultants in [place]. The patient reports this morning that he is about the same as yesterday. During the night, he was a bit better, however, in terms or shortness of breath, but this morning he got up to the commode to have a bowel movement and became profoundly dyspneic and required a step-up in his oxygen concentration. He remains relatively comfortable at rest with minimal shortness of breath on the very high flow nasal oxygen but with any movement he desaturates and gets profoundly short of breath. He denies fever, chills, productive cough or pleuritic chest pain. He does have a very minimal nonproductive cough which has not changed in weeks. He has no abdominal complaints. No nausea, vomiting or diarrhea. No dysuria. No itching. No adverse reactions to medications. PHYSICAL EXAMINATION: The patient remains afebrile. Temperature 36.7, pulse 66, respiratory rate 17, blood pressure 114/63. He is on 70% by high-flow nasal oxygen and saturating quite well though with any movement he desaturates. The patient's mental status is completely clear. Oral cavity negative. Lungs: Crackles scattered through the lung esteves but relatively and still surprisingly clear considering his chest x-ray appearance. Cardiac tones: Regular rate and rhythm. Abdomen: Soft and nontender. No organomegaly. No skin rash. He has a peripheral IV in his left forearm which looks fine. No peripheral edema. LABORATORIES: Include a white count which has jumped from 6000 to 22,000 after the institution of high-dose steroids. Platelets stable at 241. His creatinine 1.32. AST is 72, ALT 66, albumin 2.4. Urinalysis: 0-5 white cells. Crypto antigen negative. CMV quantitative PCR negative. Galactomannan and Fungitell from this admission both negative. Note that they were also both completely negative in his late December admission. Micro studies include a MRSA screen x2 negative. Sputum negative. Blood cultures including fungal blood cultures negative. Respiratory viral PCR panel negative. IMAGING: Includes today's chest x-ray which has not changed from yesterday and shows bilateral patchy consolidation. IMPRESSION: This continues to be a case of really tremendous complexity with a patient who is more than two years out status post stem cell transplant for ALL. He has been hospitalized three times before this admission in May, in August and in December with apparent influenza virus, influenza and metapneumovirus respectively. During his December admission, there was a nodular appearance to his CT scan which can be explained by metapneumovirus, but we went as far as we could in terms of trying to make a diagnosis including doing bronchoscopy with routine fungal AFB cultures as well as AFB and fungal PCR studies, all of which were entirely negative. Following his discharge on January 16, the patient worsened and was admitted through my clinic last week, exactly one week ago with respiratory decompensation. CT scan showed that the small pulmonary nodules and interstitial infiltrates present in late December attributed to the metapneumovirus by exclusion had dramatically worsened. We have been trying to get either transbronchial lung biopsy or VATS procedure to get lung tissue ever since then, but have been unable to for a variety of reasons, primarily related to his very borderline respiratory function and the inherent dangers of performing either of these studies. Efforts to transfer the patient to the [facility] have also been stymied as the patient and his family declined to be intubated to ensure safe transport. At this point, we are pursuing a broad strategy where we are treating with minocycline for the possibility of Nocardia as well as atypical pathogens. Until yesterday, I had been using high-dose Bactrim but because of increasing creatinine and potassium, I thought it was as reasonable to use simply minocycline and maintain the patient on once a day Bactrim for Pneumocystis prophylaxis which we have done. In addition, he is receiving a short course of meropenem which I think will be of no benefit. More importantly the patient is on Cresemba for coverage of Aspergillus and perhaps Mucor as fungal possibilities even though we have negative galactomannan and Fungitell as well as a negative fungal culture and PCR from the bronch wash of January 14. The patient has also had high-dose steroids added over the past 48 hours and this may have led to some degree of symptomatic improvement. These are aimed at the possibilities of BOOP or similar related non infectious processes. RECOMMENDATIONS: 1. Will continue with our complex regimen which includes prophylactic daily doses of Bactrim plus minocycline, meropenem and Cresemba. 2. Will continue with a high-dose steroid strategy. 3. Once the patient improves enough, I think he still urgently needs a lung biopsy, either cutaneous, transbronchial with a bronchoscopy or preferably a VATS procedure for a larger piece of tissue. 4. Transfer to the [facility] remains a viable option when the patient is stable. 5. I am awaiting a call back from the Transplant Infectious Disease group with whom I have been discussing this case. Thank you very much and also note that about a half an hour was spent with the blueprinting machine operator discussing this case with the patient and his .
--- NOTE | 2017-02-04 12:11 | PCM.PNMED ---
Subjective Date of Service Feb 04, 2017 Subjective PULMONOLOGY / CRITICAL CARE Patient states that he feels better than yesterday. Still only a mild cough that is the same. He has been eating. Tried to get up to use the bedside commode but he desaturated. Other than the chronic eye problems and B/L foot neuropathy, he denies pain. He has been eating. Also denies nausea, vomiting, constipation, diarrhea. Exam Vital Signs Vital Sign - Last Date Time Temp Pulse Resp B/P Pulse Ox O2 Delivery O2 Flow Rate FiO2 02/04/17 07:19 36.7 66 17 114/63 97 70 02/04/17 07:19 Supplement Oxygen 02/04/17 04:15 50 Intake and Output 02/03/17 02/03/17 02/04/17 Cumulative From/Thru 15:00 23:00 07:00 01/28/17 19:30 - 02/04/17 05:28 Intake Total 1814 ml 265 ml 8414 ml Output Total 1000 ml 475 ml 6328 ml Balance 814 ml -210 ml 2086 ml Intake Oral 1300 ml 4910 ml IV Total 514 ml 265 ml 3504 ml Output Urine Total 1000 ml 475 ml 6328 ml # Voids 9 # Bowel Movements 0 0 2 Exam General: No acute distress. Lying in bed. HEENT: NC/AT Lungs: Clear to auscultation B/L. On high flow nasal oxygen, NC. No use of accessory muscles. Speaking in full sentences without distress. Heart: Regular rate and rhythm, no murmurs appreciated Abdomen: Soft and non-tender Extremities: No edema, diminished dorsalis pedis and posterior tibial pulses but equal B/L Neuro: EOMI IVs and Medications Medications Reviewed: Medications were reviewed in detail Lab and Diagnostics ABG: pH 7.440 / pCO2 32 / pO2 76.5 / cHCO3- 21.0 / cbase -1.9 Hyponatremia improved today over yesterday. Hypokalemia resolved. Transaminases increased. Creatinine decreased. Leukocytosis Result Diagram: 02/04/175 02/04/17314 Microbiology Microbiology 01/28/17 Blood Culture, Received Pending 01/29/17 MRSA (PCR) - Negative 01/29/17 Influenza Screen - Negative 01/29/17 Streptococcus pneumoniae Ag Screen - Negative 01/29/17 Nasopharyngeal viral PCR all negative, including CMV Serology: cryptococcus Ag negative, CMV DNA negative, fungal antibodies negative , Urine L. pneumophilia Ag negative, A. galactomannan Ag 0.03 . X-Rays, CTs and MRIs X-RAY CHEST IMPRESSION: Bilateral patchy confluent opacities in the lungs, appearing mildly worse when compared to 01/12/17. As previously identified, this could be related to infection including atypical like mycobacterial or fungal. However, lymphangitic spread of tumor should also be considered. Dictated and approved by: Mela Solorio M.D. on 01/28/2017 at 20:08 CT CHEST WITH CONTRAST IMPRESSION: 1. Increased bilateral pulmonary nodules with confluent areas of consolidation in a perilymphatic distribution. 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 The differential also includes lymphocytic interstitial pneumonia, sarcoidosis, occupational pneumoconiosis, and amyloidosis. Dictated and approved by: Giovanni Stoll M.D. on 01/29/2017 at 11:07 X-RAY CHEST IMPRESSION: Relatively severe patchy bilateral moderate and moderately severe alveolar opacification best seen by recent CT scanning 4 days ago. No contraindication to anticipated lung biopsy scheduled for later today. Dictated and approved by: Parag Lemus M.D. on 02/02/2017 at 9:18 X-RAY CHEST IMPRESSION: Relatively severe patchy bilateral moderate and moderately severe alveolar opacification best seen by recent CT scanning 4 days ago. No contraindication to anticipated lung biopsy scheduled for later today. Dictated and approved by: Parag Lemus M.D. on 02/02/2017 at 9:18 X-RAY CHEST IMPRESSION: Bilateral patchy consolidations are unchanged. Dictated by: Suzi Gu M.D. on 02/03/2017 at 8:37 Date of Service: 02/04/17 0500 X-RAY CHEST IMPRESSION: Stable bilateral moderately severe patchy pneumonia, symmetric. Dictated by: Parag Lemus M.D. on 02/04/2017 at 9:51 Approved by: Parag Lemus M.D. on 02/04/2017 at 9:52 . Additional Diagnostics 01/28/17 PROCEDURE: X-RAY CHEST ONE VIEW, PORTABLE IMPRESSION: Bilateral patchy confluent opacities in the lungs, appearing mildly worse when compared to 01/12/17. As previously identified, this could be related to infection including atypical like mycobacterial or fungal. However, lymphangitic spread of tumor should also be considered. Dictated by: Mela Solorio M.D. on 01/28/2017 at 20:08 Approved by: Mela Solorio M.D. on 01/28/2017 at 20:11 01/29/17 PROCEDURE: CT CHEST WITH CONTRAST IMPRESSION: 1. Increased bilateral pulmonary nodules with confluent areas of consolidation in a perilymphatic distribution. 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 The differential also includes lymphocytic interstitial pneumonia, sarcoidosis, occupational pneumoconiosis, and amyloidosis. Dictated by: Giovanni Stoll M.D. on 01/29/2017 at 11:07 Approved by: Giovanni Stoll M.D. on 01/29/2017 at 11:19 . Assessment & Plan Mr. 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 Hospital day 7 (02/04). 1. Acute hypoxic respiratory failure, secondary to B/L pulmonary infiltrate of unclear etiology, present on admission. Active -Basically patient is showing not much change. X-ray today was the same as yesterday. He continues to be on 70% high-flow nasal oxygen and saturating well while laying still. Unfortunately, any movement or even discussion causes him to desaturate. Continues to be unclear whether this is an infectious or non- infectious inflammatory process. Appreciate infectious disease, Dr. Waters, who is managing the antibiotics, anti-viral and anti-fungal medications. Appreciate oncology, Dr. Thomas, who recommended Solu-Medrol 80 mg IV (1 mg/kg) empiric steroids for possibility of a noninfectious autoimmune process such as a lymphocytic pneumonitis. Respiratory acidosis with hyponatremia improved today - continue bicarb 1300mg every 6 hours. Kidney function improved (creatinine 1.32 from 1.46) likely as a result of the change in antibiotics. Leukocytosis likely from high-dose steroids. Potassium normalized. Liver transaminases continue to increase also likely to antibiotics as well. Continue supportive care since he is not well-enough to undergo VATS procedure and CT-guided biopsy not likely to yield definitive diagnosis. Steroids can take several days to show improvement, if it is inflammatory. Continue treatment with broad-spectrum antibiotics per infectious disease. If patient worsens requiring intubation, will again discuss transfer with patient's family. At this point, continue with antibiotics, supportive care, steroids, with the hope that patient will improve to the point of getting a tissue biopsy for definitive diagnosis. Patient's overall condition is critical. . GI Prophylaxis: H2 jeanie VTE Prophylaxis: Sub-Q Heparin (Unfractionated) Resuscitation Status: CPR: Attempt Resuscitation Attending Statement [facility] addendum: Above note reviewed , agreed with assessment and plan. Pt.remains stable with out any deterioration in his resp. status except when he used washroom and became very SOB with desaturation into 60's. Placed back quickly on bed with 100% fio2, recovered slowly to base line and now on 70 % fio2 with HFNC.Denies any other complaints.Continue to receive empiric antibiotics, anti viral, anti fungal along with steroids for probable inflammatory disease process involving his lungs. Also D/W , she wants to continue current care. 35 min of CCT provided in care of this Pt. more than 50% time spend in D/W pt. and family and counseling. Brian Castellanos MD Pulm./[facility] Sonia Hernandez DO Feb 04, 2017 11:52 Brian Castellanos MD Feb 04, 2017 15:17
--- NOTE | 2017-02-04 15:11 | NUR ---
RESPIRATORY Patient up to [facility] this morning for BM. SpO2 decreased to 68% on HFNC at 70% FiO2 and 50L, so advised patient that he will have to remain on bedrest until his respiratory and oxygenation status improves. He states he is feeling better, but cannot seem to get a handle on his breathing, which is comfortable at rest, but declines w/ any activity. Will continue to monitor.
--- NOTE | 2017-02-04 17:00 | PCM.PNMED ---
Subjective Date of Service Feb 04, 2017 Subjective Patient continues to feel better. He is afebrile and does not complain of any pain. He has a good appetite. Continues to be on high flow oxygen 50 L FiO2 70 , O2 97%. Any movement or even discussion causes him to desaturate. His family continues to be supportive and are by his bedside. Exam Vital Signs Vital Sign - Last Date Time Temp Pulse Resp B/P Pulse Ox O2 Delivery O2 Flow Rate FiO2 02/04/17 16:00 64 02/04/17 15:53 36.6 18 128/66 98 HFNC 50.00 65 Intake and Output 02/03/17 02/03/17 02/04/17 Cumulative From/Thru 15:00 23:00 07:00 01/28/17 19:30 - 02/04/17 05:28 Intake Total 1814 ml 265 ml 8414 ml Output Total 1000 ml 475 ml 6328 ml Balance 814 ml -210 ml 2086 ml Intake Oral 1300 ml 4910 ml IV Total 514 ml 265 ml 3504 ml Output Urine Total 1000 ml 475 ml 6328 ml # Voids 9 # Bowel Movements 0 0 2 Exam General: Patient is alert and oriented 3, in no acute distress, with eyes open , conversive HEENT: Conjunctival hyperemia, neck, soft supple, no adenopathy Lungs: Mild bilateral crackles in the lung bases otherwise normal, requiring high flow 50 L, FIO2 70% Heart: Regular rate and rhythm, no murmur, bradycardic Abdomen: Soft, nontender, nondistended, bowel sounds active Extremities: No edema Neurologic: Grossly neurologically intact Skin: Warm, dry, intact without rash Lab and Diagnostics Result Diagram: 02/04/17 0315 02/04/17 0315 Microbiology Microbiology 01/28/17 Blood Culture, Received Pending 01/29/17 MRSA (PCR) - Negative 01/29/17 Influenza Screen - Negative 01/29/17 Streptococcus pneumoniae Ag Screen - Negative 01/29/17 Nasopharyngeal viral PCR all negative, including CMV Serology: cryptococcus Ag negative, CMV DNA negative, fungal antibodies negative , Urine L. pneumophilia Ag negative, A. galactomannan Ag 0.03 . X-Rays, CTs and MRIs X-RAY CHEST IMPRESSION: Bilateral patchy confluent opacities in the lungs, appearing mildly worse when compared to 01/12/17. As previously identified, this could be related to infection including atypical like mycobacterial or fungal. However, lymphangitic spread of tumor should also be considered. Dictated and approved by: Mela Solorio M.D. on 01/28/2017 at 20:08 CT CHEST WITH CONTRAST IMPRESSION: 1. Increased bilateral pulmonary nodules with confluent areas of consolidation in a perilymphatic distribution. 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 The differential also includes lymphocytic interstitial pneumonia, sarcoidosis, occupational pneumoconiosis, and amyloidosis. Dictated and approved by: Giovanni Stoll M.D. on 01/29/2017 at 11:07 X-RAY CHEST IMPRESSION: Relatively severe patchy bilateral moderate and moderately severe alveolar opacification best seen by recent CT scanning 4 days ago. No contraindication to anticipated lung biopsy scheduled for later today. Dictated and approved by: Parag Lemus M.D. on 02/02/2017 at 9:18 X-RAY CHEST IMPRESSION: Relatively severe patchy bilateral moderate and moderately severe alveolar opacification best seen by recent CT scanning 4 days ago. No contraindication to anticipated lung biopsy scheduled for later today. Dictated and approved by: Parag Lemus M.D. on 02/02/2017 at 9:18 X-RAY CHEST IMPRESSION: Bilateral patchy consolidations are unchanged. Dictated by: Suzi Gu M.D. on 02/03/2017 at 8:37 Date of Service: 02/04/17 0500 X-RAY CHEST IMPRESSION: Stable bilateral moderately severe patchy pneumonia, symmetric. Dictated by: Parag Lemus M.D. on 02/04/2017 at 9:51 Approved by: Parag Lemus M.D. on 02/04/2017 at 9:52 . Additional Diagnostics 01/28/17 PROCEDURE: X-RAY CHEST ONE VIEW, PORTABLE IMPRESSION: Bilateral patchy confluent opacities in the lungs, appearing mildly worse when compared to 01/12/17. As previously identified, this could be related to infection including atypical like mycobacterial or fungal. However, lymphangitic spread of tumor should also be considered. Dictated by: Mela Solorio M.D. on 01/28/2017 at 20:08 Approved by: Mela Solorio M.D. on 01/28/2017 at 20:11 01/29/17 PROCEDURE: CT CHEST WITH CONTRAST IMPRESSION: 1. Increased bilateral pulmonary nodules with confluent areas of consolidation in a perilymphatic distribution. 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 The differential also includes lymphocytic interstitial pneumonia, sarcoidosis, occupational pneumoconiosis, and amyloidosis. Dictated by: Giovanni Stoll M.D. on 01/29/2017 at 11:07 Approved by: Giovanni Stoll M.D. on 01/29/2017 at 11:19 . Assessment & Plan Mr. 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 1. Acute hypoxic respiratory failure, present on admission. 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 -Patient has somehow rapid decline of his respiratory status in the last 48 hrs. he also had an episode of fever 2 days ago. The initial plan was to hold off on antibiotics until tissue biopsy was obtained. Patient has decline in his respiratory status and IR biopsy postponed to Thursday. Due to concern of atypical infection possibly fungal ,Dr Waters started him on meropenem, azithromycin and antifungal Cresemba today 02/01. He also did not get any antibiotic trial on recent hospitalization as well. 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 -Recent hospitalization with same diffuse infiltrate. Infectious Workup unrevealing except Human metapneumovirus -Additional infectious work up negative for crypto antigen, fungus, AFB, legionella, HSV, adenovirus, QuantiFERON Gold -Chest CT shows worsening bilateral infiltrates as compared to the CT of the chest done on January 12 -Differential diagnosis: noninfectious causes such as pulmonary malignancy, sarcoid, amyloid, interstitial pneumonitis, lymphangitis carcinomatosis -Percutaneous pulmonary biopsy and VATS are not an option for the patient right now due to his respiratory status. -Will consider transferring to [facility] once again if patient condition improves -Continue trial of solu-medrol, 80 mg intravenously every 8 hours and supportive treatment -Continue with broad-spectrum antibiotics including azithromycin, meropenem, and cresemba -New chest x-ray x-ray without changes 2. Acute kidney injury, not present on admission. Active - Improved creatinine today likely due to decrease in bactrim dose - Decreased bactrim to one tablet daily and started minocycline, 100 mg orally twice a day, continued - Continue to monitor creatinine 3. Electrolyte disturbances, hyponatremia, hyperkalemia, not present on admission. Active - Start sodium bicarbonate, 1300mg every 6 hours by mouth to help with acidosis and sodium - Potassium normalized status post kayexalate, 30 mg by mouth -Continue to monitor 4. Transaminitis, mild, not present on admission. Active - Mild elevation of AST and ALT, most likely due to antibiotic' s toxicity especially cresemba - Continues to increase - Continue to monitor 5. Chronic and recurrent CMV - Continue valacyclovir 1000 mg BID. 6. Type 2 diabetes mellitus, chronic, presume stable. - Continue NPH insulin 50 units twice a day - Last A1c was 5.5 7. 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 - Decrease bactrim to one tablet daily and start minocycline, 100 mg twice a day orally for PCP prophylaxis. 8. Seizure disorder, chronic, presume stable. - Continue Keppra 500 mg BID. 9. Hypertension, chronic, presume stable. - Continue metoprolol tartrate 25 mg BID. 10. Depression, chronic, presume stable. - Continue citalopram 20 mg daily. - Antiemetic available PRN. - Antacid available PRN. - Bowel regimen available PRN. - Tylenol available PRN mild pain, fever. Disposition: Patient in acute hypoxic respiratory failure of unclear etiology, may need several days of inpatient hospitalization for workup and treatment. Pain Evaluation: Adequate Pain Control GI Prophylaxis: H2 jeanie VTE Prophylaxis: Sub-Q Heparin (Unfractionated) Resuscitation Status: CPR: Attempt Resuscitation Attending Statement The patient was seen and examined together with Dr. Barrios on 02/04/2017 and I agree with the history, exam and plan as outlined in the note above. . Daria Barrios DO Feb 04, 2017 17:00 Carlton Pérez MD Feb 06, 2017 07:54
--- NOTE | 2017-02-04 17:01 | NUR ---
goals of care/ oral care/ night time request family and patient's goal is to spend quality time together and only intubate if it becomes absolutely necessary. Pt brushes his teeth and washes his face independently. 1600 Dr Pérez sees pt, family is requesting less night time disturbance to let him sleep. Orders received.
--- NOTE | 2017-02-04 20:50 | CCS NOTE ---
[facility] [address] [address] MEDICAL ONCOLOGY OFFICE NOTE PATIENT: GERRY VILLALPANDO : 1960 MR#: [id number] DATE: 01/28/2017 JOB ID: [id number] DATE: 02/04/2017 SUBJECTIVE: I met with the patient with his , son and daughter and other family members who came in later in the afternoon. The patient's respiratory status has not changed significantly over the past 24 hours. There has been a minimal improvement in oxygen requirement from an FiO2 of 70 to now 65 still with high-flow nasal cannula. His saturation has been addressed 98% to 99%, but with movement like using the bathroom, he gets easily short of breath. He has not had any productive cough. No fevers. His chest x-ray of this morning showed bilateral patchy infiltrates. No significant change compared to yesterday. LABORATORIES: Show a white count of 22 that is elevated due to steroid effect. Hemoglobin 11, platelets 241. Chemistry shows improvement of creatinine after reduction of Bactrim to now 1.32. Transaminase is slightly elevated. Albumin 2.4. On exam, oral cavity shows no lesions. Lungs: Coarse breath sounds. Abdomen is soft. A few hyperpigmented areas of skin in the palms and feet. He is fully oriented and fully involved in the conversation. 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 He is admitted with this peculiar bilateral patchy infiltrates with a nodular and condensed appearance involving all lobes in his lungs and worsening room-air hypoxia. For details, please refer to my notes of yesterday and Thursday. Currently, he has had no evidence of any culture growing an organism, and is empirically managed with minocycline to cover for possibility of Nocardia. His meropenem has been now stopped today by Dr. Waters since it has not made any difference and he had gotten worse while on meropenem and there is no evidence of a bacterial infection. The antifungal agent started since January 31 is continuing for possibility of Aspergillus for mucor. Steroids were empirically started per my recommendation on Thursday, February 02, at 80 mg of Solu-Medrol every 8 hours which is 1 mg/kg every 8 hours IV. The main differential has been either an inflammatory/autoimmune lung process/cryptogenic pneumonia versus a fungal infection. His antifungal antibodies, however, have been negative and his BAL and other tests did not support a mycobacterial infection. Another very rare differential diagnosis possibility would be an isolated relapse of leukemic cells within the lungs without having recurrence in the peripheral blood or bone marrow of his leukemia. This is very unusual but case reports exist for recurrences of lymphoblastic leukemia/lymphoma in solid organs without involving the previous site of marrow and therefore this needs to be included although less likely in the differential diagnosis. The addition of steroids has helped stopping the rapid deterioration that he was showing between last Thursday up to Thursday and we are seeing no further deterioration but only a minimal improvement over the past 48 hours. His FiO2 is now down to 65% with high flow per nasal cannula. I have discussed with the family that the patient would still require a more definitive diagnosis by tissue acquisition. The family did not want to have an elective intubation or transfer that would require an intubation before transfer as discussed earlier. I discussed with Dr. Virgil Omalley of Interventional Radiology as well as Dr. Chris Quintero of Radiology in detail today his CAT scan and the possibility of a percutaneous biopsy, and they are willing to consider a percutaneous biopsy under CT guidance of one of these lesions granted that there is anesthesiology support on site during the biopsy so that if he deteriorates, he can be immediately intubated in the emergency setting. In addition, they need him to be able to hold his breath for 20-30 seconds while the needle is being advanced to the lesion. I did perform a test with him in the room, and he was able to hold his breath for 30 seconds without any desaturation. After about 35 seconds, he started breathing again as he was feeling more short of breath. A VATS procedure would deliver a more secure tissue specimen for more definitive evaluation, however, that would clearly require a more intense anesthesia. At this point, after protracted discussion, the patient and family are willing to undergo a percutaneous biopsy but not so much interested in a VATS surgery. They understand that during the biopsy the patient still can get a pneumothorax and require an intubation in an emergency setting and that is a high-risk situation given his reduced pulmonary reserve. I have also spoken this evening to Dr. Leonardo Mckeon of the anesthesiology group, explaining the situation and he will discuss that with his partners at least over the phone. He thinks that this approach with Anesthesiology on sides during the procedure is reasonable but for possible need of emergency intubation. If his respiratory status had shown a significant improvement after 2-3 days of steroid therapy, we could more easily this was an autoimmune inflammatory process in the lungs, but since I am not seeing a very significant improvement, we remain concerned about other possibilities including fungal infection versus the rare possibility of isolated pulmonary leukemic relapse discussed above. In this latter setting, his prognosis would be quite poor. Dr. Waters has had a lot of effort also today in communication with the Infectious Disease group at the [facility], and I have discussed this issue with him as well. If all are agreeable, the procedure could be tentatively scheduled for this Thursday. Dr. Quintero will be on for interventional Radiology. The current dose of steroids are relatively high and I explained to the family that he cannot stay at this level for too long before having other complications. One might consider obtaining a noncontrast CT of chest, abdomen, and pelvis tomorrow, , to see the status of the lungs compared to the chest CT of last week more objectively and also making sure there are no other abnormalities below the diaphragm before committing to the biopsy. The family seems to have now a very good understanding of the situation, and I reviewed the actual CT scan images with them. I am not in the office tomorrow, but I am available if needed over the phone and I am back on Thursday. TIME SPENT WITH PATIENT: Approximately 1 hour and 35 minutes were spent in counseling and coordination of care.
[2017-02-05] VITALS (11 sets, daily range): BP systolic 116–144; BP diastolic 61–75; PULSE 64–74; RESP 13–19; O2SAT 97–100
[2017-02-05] MEDS: Heparin 5,000 Unit/mL Inj SUBQ SCH ×4 (00:17→22:38)
[2017-02-05] MEDS: Dextrose 5% 0.9% NaCl 1,000 ML IV SCH ×2 (00:18→22:10)
[2017-02-05] MEDS: Sodium Chloride LOK Flush 10 mL Syringe IVFLUSH SCH ×4 (00:18→19:39)
[2017-02-05] MEDS: Meropenem Inj 2,000 MG in 0.9% Sodium Chloride 100 ML IV SCH ×3 (00:18→16:54)
[2017-02-05] MEDS: MethylprednisoLONE Sodium Succinate 62.5 mg/mL 2 mL Inj IVPUSH SCH (02:02)
[2017-02-05 03:20] LABS: BASOPHILS % (AUTO) 0.1 % (0-3); EOSINOPHILS % (AUTO) 0 % (0-5); MONOCYTES % (AUTO) 3.6 % (4-12); Mean Corpuscular Hemoglobin 34.6 pg (27.0-35.0); Mean Corpuscular Volume 101.6 fL (81-100); NEUTROPHILS % (AUTO) 83.4 % (40-74); Platelet Count 231 bil/L (150-400)
--- NOTE | 2017-02-05 06:04 | NUR ---
Cardiac/Resp Patient rested in bed on High flow O2 at 65%/50L, HR 60-70's NSR denied feeling short of breath this shift, RR 16-20, denied chest pain, no complaints and vital signs stable, vital signs Q4H. Eating well and taking fluids without nausea, afebrile, uneventful shift, no distress noted this shift, notified xray to wait till after 0800 to do CXR so patient can rest.
[2017-02-05] MEDS: Polyethylene Glycol (PEG) 17 Gm Powder PO SCH (08:10)
[2017-02-05] MEDS: levETIRAcetam 500 mg Tablet PO SCH ×2 (08:12→20:41)
[2017-02-05] MEDS: Trimethoprim-Sulfa 160 mg-800 mg Tablet PO SCH (08:12)
[2017-02-05] MEDS: Insulin LISPRO 300 Unit/3 mL Inj SUBQ SCH ×4 (08:19→22:39)
--- NOTE | 2017-02-05 08:54 | PROG NOTE ---
[address] [address] PROGRESS NOTE PATIENT: GERRY VILLALPANDO : 1960 MR#: [id number] ADMIT: 01/28/2017 JOB ID: [id number] DATE: 02/05/2017 INFECTIOUS DISEASE FOLLOWUP NOTE: REASON FOR FOLLOWUP: Diffuse pulmonary infiltrates and respiratory failure in a patient status post stem cell transplant for ALL. INTERVAL HISTORY: Overnight, little has changed. The patient reports he is minimally short of breath while at rest on high-flow nasal oxygen but with any movement he desaturates and becomes profoundly dyspneic with considerable time to recover. He still has very little cough, which is entirely nonproductive. No fevers and no chills. No headache. He has no GI symptoms. No nausea, vomiting, or diarrhea, and he reports he is eating extremely well. Aside from his shortness of breath, which is almost completely precipitated by exertion, he actually feels not too bad. His , however, has noted some dark-colored spots, which have appeared on the plantar surface of his feet and to a lesser extent, on his hands. These seem to have been coming on over the last few weeks by her report. The patient says these lesions are entirely asymptomatic nor do they itch, and he is really not aware of them. This case was discussed in the room with the road packer operator with the ICU physician, the Internal Medicine team physician, Nursing and the patient's family. PHYSICAL EXAMINATION: Reveals an afebrile gentleman. Temp 36.6, pulse 65, respiratory rate 16, blood pressure 116/72. He is saturating 98% to 100% on 65% which is down a little bit from yesterday's 70%. Mental status is completely clear. Eyes without conjunctival hemorrhage. Oral cavity without thrush or palatal petechia. Neck without adenopathy. His lungs were carefully auscultated on the posterior aspect. There are few wheezes and some scattered rales bilaterally but surprisingly good air flow without much in the way of adventitial sounds. His back is straight and without tenderness. His abdomen is soft and nontender. His feet have innumerable dark-colored macular lesions present scattered across the plantar surface of both feet. These are nontender, nonblanchable and nonexcoriated lesions. There is no palpable substance to these lesions. There are a couple of these similar lesions on his fingers, especially the right 5th finger. Neurologically, the patient is intact. LABORATORIES: Include white count 17,000 today. Creatinine 1.17, which continues to improve. Potassium 4.5. ALT is 60, albumin 2.3. The last procalcitonin was a few days ago and was 0.21. Crypto antigen negative. CMV quantitative PCR negative. Fungitell and galactomannan negative. LDH 351, which is moderately elevated but likely just reflects lung injury. Micro includes negative MRSA screen x2, negative sputum from the 15th, negative fungal and routine blood cultures, negative respiratory viral multiplex PCR. A chest x-ray from yesterday was carefully examined and compared to prior. It sows stable bilateral infiltrates. Today's x-ray has been ordered but not done yet. IMPRESSION: Multiple discussions have been held regarding this patient with the pulmonary attending, Dr. Coleman, as well as the heme/onc attending, Dr. Thomas, as well as the people at the [facility] Transplant/Infectious Disease service and the person I speak to there is Sandra De La Garza PA-C. I discussed this case with these people on an almost daily basis. The people at the [facility] reviewed the CT and x-rays findings. They thought pneumocystis should be included in the differential diagnosis which, of course, is a possibility, though we did bronchoscope the patient recently three weeks ago and had a negative pneumocystis smear, and he has been on prophylaxis throughout for months. They also thought we should consider April-Gaona virus-associated posttransplant lymphoproliferative disorder and order an April-Agona viral study, which I have done. Otherwise, they have little to add other than suggesting that a biopsy be obtained when possible. Dr. Thomas also brought up the possibility that these could be leukemic infiltrates in his lungs and the importance of obtaining an MRI scan as well. My overall feelings about this case are that these infiltrates could represent nocardia or fungal infection. More conventional bacteria seem highly unlikely, as do mycobacterial based on her prior studies. With respect to the non-infectious disease differential diagnosis, I think it is much more broad. The possibilities here would include leukemic infiltrates, April-Gaona virus and associated posttransplant disease, SHADE CLASSIFIER, or some other form of vasculitis or localized hrbiq-auxrbr-huwj disease. We are currently going in two different directions here providing aggressive antibacterial and antifungal therapy while also simultaneously administering high-dose steroids. The patient does seem a bit better over the last 2-3 days but it is hard to know if this is from the institution of Cresemba, now five days ago, or possibly steroids. RECOMMENDATIONS: 1. I agree in general with the plans to move forward with a lung biopsy, acknowledging there will be significant risk. I would still prefer a VATS procedure so we would get more tissue but if a percutaneous biopsy can be done more expeditiously, that makes sense. Will make sure the Micro Lab is alerted for proper distribution of samples. 2. Will continue with our current antibiotics, which include Cresemba, meropenem, minocycline, prophylactic Bactrim and prophylactic Valtrex. 3. Total time I spent on this case per day continues to exceed 1 hour. MTDD
--- NOTE | 2017-02-05 09:31 | ABG ---
DateTimeAnalyzed 09:26:00 -_ pH ____7.457 - 7.350 7.450 pCO2 ___32.4__ -mmHg 35.0 45.0 pO2 ___65.5__ -mmHg 69.0 116 HCO3- ___22.6__ -mmol/L 22.0 26.0 ABE ___-0.3__ -mmol/L -2.0 2.0 tHb ___11.7__ -g/dL O2Hb ___92.5__ -% COHb ____0.8__ -% MetHb ____0.6__ -% sO2 ___93.8__ -% 25.0 FIO2 ___65.0__ -% Drawn By gj - Date/Time Notified____ 09:30:00 -_ Liter_Flow ___50.0__ -L/min Oxygen Device 1 HIGH FLOW - Notified By GJ - Notified Whom ___DR. GATZKE - B 761 -mmHg tO2 ___15.2__ -Vol% Drake test _Positive -
[2017-02-05 10:14] LABS: INR 1.05 ratio
--- NOTE | 2017-02-05 11:32 | DRSVH ---
PROCEDURE: X-RAY CHEST ONE VIEW ([id number]) INDICATIONS: resp failure on high flow TECHNIQUE: One view of the chest was acquired. COMPARISON: [facility], CR, XR CHEST 1VW (PORTABLE), 02/04/2017, 4:57. FINDINGS: Surgical changes and devices: None. Lungs and pleura: Low lung volumes as before. No definite pleural effusion or pneumothorax. Unchanged appearance of diffuse bilateral widespread consolidative and groundglass opacities since yesterday. Mediastinum: Mediastinal contours appear normal. Heart size is normal. Bones and chest wall: No suspicious bony lesions. Overlying soft tissues appear unremarkable. Diff use discogenic changes. IMPRESSION: Overall, stable examination since yesterday minimal with redemonstration of low lung volumes and wide spread bilateral consolidative opacities. Dictated by: Ugo Luevano M.D. on 02/05/2017 at 11:28 Approved by: Ugo Luevano M.D. on 02/05/2017 at 11:30
[2017-02-05] MEDS: MethylprednisoLONE Sodium Succinate 40 mg/mL Inj IVPUSH SCH ×2 (11:34→19:39)
--- NOTE | 2017-02-05 14:39 | PCM.PROC ---
Procedure Note Date of Service: Feb 05, 2017 Pre Procedure Diagnosis: Brown macules on fingertips and soles of feet Post Procedure Diagnosis: Brown macules on fingertips and soles of feet Procedure: Punch biopsy to right fifth fingerpad Provider and Housing Installer: Sonia Hernandez DO Housing Installer, Sally Elizalde RN Attending, Dr. Maddox Indication for Procedure: New onset rash (3 weeks). Considering a vasculitis. Procedural Analgesia: digital block, 2 mL 1% lidocaine Procedure Details: Risks, benefits, alternatives, indications for procedure explained to patient and through [facility] j[facility]ese interpreterThao Consent was obtained with the assistance of the [facility] japanese interpreterThao. Signed Consent in Mauritian and is in the file. Area prepped with chlorhexidine 4mm punch biopsy 2 sutures with 5-0 nylon Adhesive bandage Patient tolerated procedure well Specimen: 4mm tissue sample sent to laboratory in formalin Post Procedure Plan: Remove sutures in 7-10 days Sonia Hernandez DO Feb 05, 2017 14:39
--- NOTE | 2017-02-05 14:50 | PCM.PNMED ---
Subjective Date of Service Feb 05, 2017 Subjective Patient continues to feel better. He is afebrile and does not complain of any pain. He has a good appetite. Continues to be on high flow oxygen 50 L FiO2 65 , O2 98%. Any movement or even discussion causes him to desaturate. His family continues to be supportive and are by his bedside. Percutaneous biopsy planned for tomorrow morning. Family agrees and supports the plan. Exam Vital Signs Vital Sign - Last Date Time Temp Pulse Resp B/P Pulse Ox O2 Delivery O2 Flow Rate FiO2 02/05/17 12:00 68 17 117/61 99 02/05/17 08:00 36.6 02/05/17 07:35 Nasal Cannula 50 65 Intake and Output 02/04/17 02/04/17 02/05/17 Cumulative From/Thru 15:00 23:00 07:00 01/28/17 19:30 - 02/05/17 06:03 Intake Total 1783 ml 471 ml 67672 ml Output Total 1400 ml 525 ml 8253 ml Balance 383 ml -54 ml 2415 ml Intake Oral 1250 ml 240 ml 6400 ml IV Total 533 ml 231 ml 4268 ml Output Urine Total 1400 ml 525 ml 8253 ml # Voids 9 # Bowel Movements 1 3 Exam General: Patient is alert and oriented 3, in no acute distress, with eyes open , conversive HEENT: Conjunctival hyperemia, neck, soft supple, no adenopathy Lungs: Mild bilateral crackles in the lung bases otherwise normal, requiring high flow 50 L, FIO2 70% Heart: Regular rate and rhythm, no murmur, bradycardic Abdomen: Soft, nontender, nondistended, bowel sounds active Extremities: No edema Neurologic: Grossly neurologically intact Skin: Dark-colored macular lesions scattered across the plantar surface of both feet, nontender, nonblanchable and nonexcoriated. And a couple of similar lesions on his fingers, especially the right 5th finger. Lab and Diagnostics Result Diagram: 02/05/17 0305 02/05/17 0305 Microbiology Microbiology 01/28/17 Blood Culture, Received Pending 01/29/17 MRSA (PCR) - Negative 01/29/17 Influenza Screen - Negative 01/29/17 Streptococcus pneumoniae Ag Screen - Negative 01/29/17 Nasopharyngeal viral PCR all negative, including CMV Serology: cryptococcus Ag negative, CMV DNA negative, fungal antibodies negative , Urine L. pneumophilia Ag negative, A. galactomannan Ag 0.03 . X-Rays, CTs and MRIs X-RAY CHEST IMPRESSION: Overall, stable examination since yesterday minimal with redemonstration of low lung volumes and widespread bilateral consolidative opacities. Dictated and approved by: Ugo Luevano M.D. on 02/05/2017 at 11:28 X-RAY CHEST IMPRESSION: Bilateral patchy confluent opacities in the lungs, appearing mildly worse when compared to 01/12/17. As previously identified, this could be related to infection including atypical like mycobacterial or fungal. However, lymphangitic spread of tumor should also be considered. Dictated and approved by: Mela Solorio M.D. on 01/28/2017 at 20:08 CT CHEST WITH CONTRAST IMPRESSION: 1. Increased bilateral pulmonary nodules with confluent areas of consolidation in a perilymphatic distribution. 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 The differential also includes lymphocytic interstitial pneumonia, sarcoidosis, occupational pneumoconiosis, and amyloidosis. Dictated and approved by: Giovanni Stoll M.D. on 01/29/2017 at 11:07 X-RAY CHEST IMPRESSION: Relatively severe patchy bilateral moderate and moderately severe alveolar opacification best seen by recent CT scanning 4 days ago. No contraindication to anticipated lung biopsy scheduled for later today. Dictated and approved by: Parag Lemus M.D. on 02/02/2017 at 9:18 X-RAY CHEST IMPRESSION: Relatively severe patchy bilateral moderate and moderately severe alveolar opacification best seen by recent CT scanning 4 days ago. No contraindication to anticipated lung biopsy scheduled for later today. Dictated and approved by: Parag Lemus M.D. on 02/02/2017 at 9:18 X-RAY CHEST IMPRESSION: Bilateral patchy consolidations are unchanged. Dictated by: Suzi Gu M.D. on 02/03/2017 at 8:37 Date of Service: 02/04/17 0500 X-RAY CHEST IMPRESSION: Stable bilateral moderately severe patchy pneumonia, symmetric. Dictated by: Parag Lemus M.D. on 02/04/2017 at 9:51 Approved by: Parag Lemus M.D. on 02/04/2017 at 9:52 . Additional Diagnostics 01/28/17 PROCEDURE: X-RAY CHEST ONE VIEW, PORTABLE IMPRESSION: Bilateral patchy confluent opacities in the lungs, appearing mildly worse when compared to 01/12/17. As previously identified, this could be related to infection including atypical like mycobacterial or fungal. However, lymphangitic spread of tumor should also be considered. Dictated by: Mela Solorio M.D. on 01/28/2017 at 20:08 Approved by: Mela Solorio M.D. on 01/28/2017 at 20:11 01/29/17 PROCEDURE: CT CHEST WITH CONTRAST IMPRESSION: 1. Increased bilateral pulmonary nodules with confluent areas of consolidation in a perilymphatic distribution. 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 The differential also includes lymphocytic interstitial pneumonia, sarcoidosis, occupational pneumoconiosis, and amyloidosis. Dictated by: Giovanni Stoll M.D. on 01/29/2017 at 11:07 Approved by: Giovanni Stoll M.D. on 01/29/2017 at 11:19 . Assessment & Plan Mr. 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 1. Acute hypoxic respiratory failure, present on admission. 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 -Patient has somehow rapid decline of his respiratory status in the last 48 hrs. he also had an episode of fever 2 days ago. The initial plan was to hold off on antibiotics until tissue biopsy was obtained. Patient has decline in his respiratory status and IR biopsy postponed to Thursday. Due to concern of atypical infection possibly fungal ,Dr Waters started him on meropenem, azithromycin and antifungal Cresemba today 02/01. He also did not get any antibiotic trial on recent hospitalization as well. 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 -Recent hospitalization with same diffuse infiltrate. Infectious Workup unrevealing except Human metapneumovirus -Additional infectious work up negative for crypto antigen, fungus, AFB, legionella, HSV, adenovirus, QuantiFERON Gold -Chest CT shows worsening bilateral infiltrates as compared to the CT of the chest done on January 12 -Differential diagnosis: noninfectious causes such as pulmonary malignancy, sarcoid, amyloid, interstitial pneumonitis, lymphangitis carcinomatosis -Percutaneous pulmonary biopsy and VATS are not an option for the patient right now due to his respiratory status. -Will consider transferring to [facility] once again if patient condition improves -Continue trial of solu-medrol, 80 mg intravenously every 8 hours and supportive treatment -Continue with broad-spectrum antibiotics including azithromycin, meropenem, and cresemba -New chest x-ray revealed stable examination since yesterday minimal with redemonstration of low lung volumes and widespread bilateral consolidative opacities -Percutaneous biopsy planned for tomorrow morning 2. Acute kidney injury, not present on admission. Active - Improved creatinine today likely due to decrease in bactrim dose - Decreased bactrim to one tablet daily and started minocycline, 100 mg orally twice a day, continued - Continue to monitor creatinine 3. Electrolyte disturbances, hyponatremia, hyperkalemia, not present on admission. Active - Start sodium bicarbonate, 1300mg every 6 hours by mouth to help with acidosis and sodium - Potassium normalized status post kayexalate, 30 mg by mouth -Continue to monitor 4. Transaminitis, mild, not present on admission. Active - Mild elevation of AST and ALT, most likely due to antibiotic' s toxicity especially cresemba - Continues to increase - Continue to monitor 5. Chronic and recurrent CMV - Continue valacyclovir 1000 mg BID. 6. Type 2 diabetes mellitus, chronic, presume stable. - Continue NPH insulin 50 units twice a day - Last A1c was 5.5 7. 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 - Decrease bactrim to one tablet daily and start minocycline, 100 mg twice a day orally for PCP prophylaxis. 8. Seizure disorder, chronic, presume stable. - Continue Keppra 500 mg BID. 9. Hypertension, chronic, presume stable. - Continue metoprolol tartrate 25 mg BID. 10. Depression, chronic, presume stable. - Continue citalopram 20 mg daily. - Antiemetic available PRN. - Antacid available PRN. - Bowel regimen available PRN. - Tylenol available PRN mild pain, fever. Disposition: Patient in acute hypoxic respiratory failure of unclear etiology, may need several days of inpatient hospitalization for workup and treatment. Pain Evaluation: Adequate Pain Control GI Prophylaxis: H2 jeanie VTE Prophylaxis: Sub-Q Heparin (Unfractionated) Resuscitation Status: CPR: Attempt Resuscitation Attending Statement The patient was seen and examined together with Dr. Barrios on 02/05/2017 and I agree with the history, exam and plan as outlined in the note above. . Daria Barrios DO Feb 05, 2017 14:50 Carlton Pérez MD Feb 06, 2017 07:55
--- NOTE | 2017-02-05 16:41 | PCM.PNMED ---
Subjective Date of Service Feb 05, 2017 Subjective Patient states that he again feels better than yesterday. He continues to desaturate with movement. showed me the brown macules that patient had on both his feet and the finger pads which began 3 weeks ago. Patient denies pruritus. Had a long discussion today, through the stress test technician Thao, with patient, and Dr. Maldonado, Anesthesiologist, regarding the CT-guided biopsy scheduled for tomorrow. The is afraid that Sumeet will need "three weeks" of intubation if he gets intubated. She is also concerned that his mentation will decrease and he will not wake up from the procedure. Dr. Maldonado was very patient and answered their questions thoroughly. In the end, patient stated that he is willing to have the biopsy with just a local anesthetic to decrease the risk of needing intubation. We also discussed a punch biopsy of one of the macules on his right 5th fingerpad. Still only a mild cough that has not changed. He has been eating and now is asking family to bring in outside food rather than eating hospital food. Other than the chronic eye problems and B/L foot neuropathy, he denies pain, nausea, vomiting, diarrhea, constipation, dizziness. . Exam Vital Signs Vital Sign - Last Date Time Temp Pulse Resp B/P Pulse Ox O2 Delivery O2 Flow Rate FiO2 02/05/17 15:08 61 16 100 Nasal Cannula 50 65 02/05/17 12:00 117/61 02/05/17 08:00 36.6 Intake and Output 02/04/17 02/04/17 02/05/17 Cumulative From/Thru 15:00 23:00 07:00 01/28/17 19:30 - 02/05/17 06:03 Intake Total 1783 ml 471 ml 39303 ml Output Total 1400 ml 525 ml 8253 ml Balance 383 ml -54 ml 2415 ml Intake Oral 1250 ml 240 ml 6400 ml IV Total 533 ml 231 ml 4268 ml Output Urine Total 1400 ml 525 ml 8253 ml # Voids 9 # Bowel Movements 1 3 Exam General: No acute distress. Lying in bed. HEENT: NC/AT Lungs: Clear to auscultation B/L. On high flow nasal oxygen, NC. No use of accessory muscles. Speaking in full sentences without distress. Heart: Regular rate and rhythm, no murmurs appreciated Abdomen: Soft and non-tender Extremities: No edema, diminished dorsalis pedis and posterior tibial pulses but equal B/L Skin: scattered brown macules 4-5mm on soles of feet, 2 on right 5th digit and 1 on right 2nd digit. Not tender, palpable. No edema, erythema, discharge. Neuro: EOMI Psych: Appropriate mood and effect IVs and Medications Medications Reviewed: Medications were reviewed in detail Lab and Diagnostics 02/05/17 ABG: pH7.457 / pCO2 32.4 / pO2 65.5 / HCO3- 22.6 Result Diagram: 02/05/17 0305 02/05/17 0305 Microbiology Microbiology 01/28/17 Blood Culture, Received Pending 01/29/17 MRSA (PCR) - Negative 01/29/17 Influenza Screen - Negative 01/29/17 Streptococcus pneumoniae Ag Screen - Negative 01/29/17 Nasopharyngeal viral PCR all negative, including CMV Serology: cryptococcus Ag negative, CMV DNA negative, fungal antibodies negative , Urine L. pneumophilia Ag negative, A. galactomannan Ag 0.03 . X-Rays, CTs and MRIs X-RAY CHEST IMPRESSION: Overall, stable examination since yesterday minimal with redemonstration of low lung volumes and widespread bilateral consolidative opacities. Dictated and approved by: Ugo Luevano M.D. on 02/05/2017 at 11:28 X-RAY CHEST IMPRESSION: Bilateral patchy confluent opacities in the lungs, appearing mildly worse when compared to 01/12/17. As previously identified, this could be related to infection including atypical like mycobacterial or fungal. However, lymphangitic spread of tumor should also be considered. Dictated and approved by: Mela Solorio M.D. on 01/28/2017 at 20:08 CT CHEST WITH CONTRAST IMPRESSION: 1. Increased bilateral pulmonary nodules with confluent areas of consolidation in a perilymphatic distribution. 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 The differential also includes lymphocytic interstitial pneumonia, sarcoidosis, occupational pneumoconiosis, and amyloidosis. Dictated and approved by: Giovanni Stoll M.D. on 01/29/2017 at 11:07 X-RAY CHEST IMPRESSION: Relatively severe patchy bilateral moderate and moderately severe alveolar opacification best seen by recent CT scanning 4 days ago. No contraindication to anticipated lung biopsy scheduled for later today. Dictated and approved by: Parag Lemus M.D. on 02/02/2017 at 9:18 X-RAY CHEST IMPRESSION: Relatively severe patchy bilateral moderate and moderately severe alveolar opacification best seen by recent CT scanning 4 days ago. No contraindication to anticipated lung biopsy scheduled for later today. Dictated and approved by: Parag Lemus M.D. on 02/02/2017 at 9:18 X-RAY CHEST IMPRESSION: Bilateral patchy consolidations are unchanged. Dictated by: Suzi Gu M.D. on 02/03/2017 at 8:37 Date of Service: 02/04/17 0500 X-RAY CHEST IMPRESSION: Stable bilateral moderately severe patchy pneumonia, symmetric. Dictated by: Paarg Lemus M.D. on 02/04/2017 at 9:51 Approved by: Parag Lemus M.D. on 02/04/2017 at 9:52 X-RAY CHEST IMPRESSION: Overall, stable examination since yesterday minimal with redemonstration of low lung volumes and widespread bilateral consolidative opacities. Dictated by: Ugo Luevano M.D. on 02/05/2017 at 11:28 . . Additional Diagnostics 01/28/17 PROCEDURE: X-RAY CHEST ONE VIEW, PORTABLE IMPRESSION: Bilateral patchy confluent opacities in the lungs, appearing mildly worse when compared to 01/12/17. As previously identified, this could be related to infection including atypical like mycobacterial or fungal. However, lymphangitic spread of tumor should also be considered. Dictated by: Mela Solorio M.D. on 01/28/2017 at 20:08 Approved by: Mela Solorio M.D. on 01/28/2017 at 20:11 01/29/17 PROCEDURE: CT CHEST WITH CONTRAST IMPRESSION: 1. Increased bilateral pulmonary nodules with confluent areas of consolidation in a perilymphatic distribution. 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 The differential also includes lymphocytic interstitial pneumonia, sarcoidosis, occupational pneumoconiosis, and amyloidosis. Dictated by: Giovanni Stoll M.D. on 01/29/2017 at 11:07 Approved by: Giovanni Stoll M.D. on 01/29/2017 at 11:19 . Assessment & Plan Mr. 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 Hospital day 8 (02/05/17). Problem list: 1. Acute hypoxic respiratory failure, present on admission. Active 2. Acute kidney injury, not present on admission. Active 3. Electrolyte disturbances, hyponatremia, hyperkalemia, not present on admission. Active 4. Transaminitis, mild, not present on admission. Active 5. Chronic and recurrent CMV 6. Type 2 diabetes mellitus, chronic, presume stable. 7. 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 8. Seizure disorder, chronic, presume stable. 9. Hypertension, chronic, presume stable. 10. Depression, chronic, presume stable. Still unclear whether this is an infectious or non-infectious inflammatory process. Appreciate infectious disease, Dr. Waters, who is managing the antibiotics, anti-viral and anti-fungal medications. Appreciate oncology, Dr. Thomas, who recommended Solu-Medrol 80 mg IV (1 mg/kg) empiric steroids for possibility of a noninfectious autoimmune process such as a lymphocytic pneumonitis. CT-guided biopsy is planned for tomorrow. Also took a punch biopsy of one of the macules on patient's finger because of a concern for vasculitis ( considered unlikely). Patient continues to be stable -- possibly mildly improving but not deteriorating. X-ray today was the same as yesterday. Saturating well on 65% high-flow nasal oxygen while laying still. Blood gases improved today. pH7.457 / pCO2 32.4 / pO2 65.5 / HCO3- 22.6. BP 110s-140s over 60s-70s. Respiratory acidosis with hyponatremia improved today - continue bicarb 1300mg every 6 hours. Kidney function normalized (cr 1.17). Leukocytosis likely from high-dose steroids. Potassium normalized. Liver transaminases decreasing. GI Prophylaxis: H2 jeanie VTE Prophylaxis: Sub-Q Heparin (Unfractionated) Resuscitation Status: CPR: Attempt Resuscitation Attending Statement CCM Addendum: Above note reviewed, agreed with plan. Respiratory Status remains the same with out significant improvement or deterioration. Pt. is arranged for Ct guided biopsy by Oncology in AM Skin Bx of palm lesion is done Cont current therapy and supportive care. 35 min spend in Pt. care Brian Castellanos MD Pulm./[facility] Sonia Hernandez DO Feb 05, 2017 16:41 Brian Castellanos MD Feb 05, 2017 17:33 fio2 with HFNC.Denies any other complaints.Continue to receive empiric antibiotics, anti viral, anti fungal along with steroids for probable inflammatory disease process involving his lungs. Also D/W , she wants to continue current care. 35 min of CCT provided in care of this Pt. more than 50% time spend in D/W pt. and family and counseling. GI Prophylaxis: H2 jeanie VTE Prophylaxis: Sub-Q Heparin (Unfractionated) Resuscitation Status: CPR: Attempt Resuscitation Sonia Hernandez DO Feb 05, 2017 16:41 8. Seizure disorder, chronic, presume stable. - Continue Keppra 500 mg BID. 9. Hypertension, chronic, presume stable. - Continue metoprolol tartrate 25 mg BID. 10. Depression, chronic, presume stable. - Continue citalopram 20 mg daily. - Antiemetic available PRN. - Antacid available PRN. - Bowel regimen available PRN. - Tylenol available PRN mild pain, fever. Disposition: Patient in acute hypoxic respiratory failure of unclear etiology, may need several days of inpatient hospitalization for workup and treatment. GI Prophylaxis: H2 jeanie VTE Prophylaxis: Sub-Q Heparin (Unfractionated) Resuscitation Status: CPR: Attempt Resuscitation Sonia Hernandez DO Feb 05, 2017 16:41
--- NOTE | 2017-02-05 16:49 | DRSVH ---
[facility] [address] [place] [address] Echocardiogram Report Name: GERRY ARROYO MStudy Date: Height: 66 in Hospital Exam Location: [facility] Weight: 173 lb Gender: Male BSA: 1.9 m2 : 1960 Age: 56 yrs BP: 116/72 mmHg Reason For Study: Ordering Physician: HOSPITALIST [facility] Performed By: Ray Blum Referring Physician: DEWAYNE CAI Interpretation Summary Left ventricular wall thickness is mildly increased. Left ventricular systolic function is normal without focal wall motion abnormalities. The ejection fraction is estimated to be 60-65%. The right ventricle grossly appears normal in size with probable normal systolic function. Pulmonary artery pressures cannot be estimated because of the lack of a measurable TR jet velocity. The left atrium is mildly dilated. Right atrial size is normal. There is no significant valvular heart disease. There is no obvious valvular vegetation identified on this exam. Consider SEBLE if there is a high degree of clinical suspicion for endocarditis and clinically appropriate. The ascending aorta is mildly enlarged. No changes since prior echocardiograms (08/2016, 01/2015, 03/2014). Procedure: A two-dimensional transthoracic echocardiogram with color flow and Doppler was performed. The study quality was technically adequate. Comparison is made with the echocardiogram of 08/23/16. The patient was in normal sinus rhythm during the exam. Left Ventricle: Left ventricular wall thickness is mildly increased. The left ventricle is normal in size. Left ventricular systolic function is normal without focal wall motion abnormalities. The ejection fraction is estimated to be 60-65%. Right Ventricle: The right ventricle grossly appears normal in size with probable normal systolic function. Atria: The left atrium is mildly dilated. Right atrial size is normal. The interatrial septum is intact with no evidence for an atrial septal defect. Mitral Valve: The mitral valve is normal. There is trace mitral regurgitation. Aortic Valve: The aortic valve is normal in structure and function. There is trace aortic regurgitation. Tricuspid Valve: The tricuspid valve is normal. Pulmonary artery pressures cannot be estimated because of the lack of a measurable TR jet velocity. Pulmonic Valve: The pulmonic valve leaflets are thin and pliable; valve motion is normal. There is a trace or physiologic amount of pulmonic regurgitation. There is no significant valvular heart disease. There is no obvious valvular vegetation identified on this exam. Consider SEBLE if there is a high degree of clinical suspicion for endocarditis and clinically appropriate. Great Vessels: The aortic root is normal size. The ascending aorta is mildly enlarged. The pulmonary artery is normal size. The IVC is of normal diameter and collapses greater than 50% with a sniff. This suggests a low right atrial pressure of 3 mm Hg. Pericardium/ Pleura There is no pericardial effusion. There is no pleural effusion. MMode/2D Measurements & Calculations LVIDd: 4.0 cm RA long axis LVOT diam LVIDs: 2.3 cm LA A2 area: 18.4 cm FS: 43.8 % LA A4 area: 22.0 cm RA area Ao root diam IVSd: 1.2 cm LA length (vol): 5.2 cm LVPWd: 1.0 cm LA vol: 66.0 ml : 11.2 cm asc Aorta LA vol index RA vol: 20.1 mlDiam: 3.6 cm RA : 35.1 ml/m2 : 10.7 mm2 LV ley. diameter/BSA LV sys. diameter/BSA RVD1 (basal) TAPSE: 1.8 cm (cm/m^2): 2.1 (cm/m^2): 1.2 Doppler Measurements & Calculations Ao V2 max: 133.8 cm/sec MV E max michael MV E/A: 0.81 PA V2 max Ao max P.2 mmHg : 85.9 cm/sec : 81.9 cm/sec Ao mean P.6 mmHg MV A max michael PA mean PG LVOT Max Michael : 105.8 cm/sec : 1.5 mmHg : 113.4 cm/sec CHIRAG(I,D): 4.3 cm sev ratio: 0.89 MV dec time: 0.30 sec Ao V2 mean LV V1 max PG PA V2 mean : 90.7 cm/sec : 59.2 cm/sec Ao V2 VTI: 25.5 cm LV V1 VTI PA pr(Accel) : 22.8 cm : 35.4 mmHg CHIRAG(V,D): 4.0 cm2 CHIRAG indexed to BSA (cm^2/m^2): 2.3 Reading Physician:PM
--- NOTE | 2017-02-05 17:08 | NUR ---
Breathing is "better" today, reports less dyspnea with activity. Remains on hi-flow 02, tolerating well. Vital signs stable, afebrile. Sinus rhythm on tele. frickertron checker assisted with questions/concerns, plan of care. Biopsy planned for tomorrow afternoon, NPO after 0000, patient aware. Denies pain, appears in no distress. Supportive large family at bedside.
--- NOTE | 2017-02-05 17:17 | NUR ---
spiritual care: follow up with wirer maintenance, brief conversational visit with query about brand activation manager follow up after pt requested blessing/ritual. family and pt welcoming of prayer and referral for brand activation manager follow up.
--- NOTE | 2017-02-05 23:43 | NUR ---
P) Medication While giving HS meds I asked pt. when the last time was that he had a seizure, as he is on Keppra, pt., and mother state that he has never had a seizure and is very concerned as he does not know why he would be on a seizure medication. I reviewed the last 3 admissions and Keppra is listed as a med in each one. Pt. states that when he was on chemo 2 years ago he fell to the floor and could not get up, states he was told this was a side effect of chemo. Pt. initially refused Keppra at hs, but on researching the med it recommends against abrupt discontinuation, so he agreed to take half a tablet and will discuss the need for the medication in the am. I) I will pass info to day shift. E) Resting quietly with eyes closed.
[2017-02-06] VITALS (11 sets, daily range): BP systolic 115–144; BP diastolic 63–76; PULSE 55–64; RESP 16–20; O2SAT 97–100
[2017-02-06] MEDS: Meropenem Inj 2,000 MG in 0.9% Sodium Chloride 100 ML IV SCH ×4 (01:11→23:39)
[2017-02-06 02:59] LABS: BASOPHILS % (AUTO) 0 % (0-3); EOSINOPHILS % (AUTO) 0 % (0-5); MONOCYTES % (AUTO) 6.6 % (4-12); Mean Corpuscular Hemoglobin 34.7 pg (27.0-35.0); Mean Corpuscular Volume 102.5 fL (81-100); NEUTROPHILS % (AUTO) 76.6 % (40-74); Platelet Count 238 bil/L (150-400)
[2017-02-06] MEDS: MethylprednisoLONE Sodium Succinate 40 mg/mL Inj IVPUSH SCH ×3 (03:13→18:49)
[2017-02-06] MEDS: Sodium Chloride LOK Flush 10 mL Syringe IVFLUSH SCH ×3 (03:13→23:40)
--- NOTE | 2017-02-06 04:39 | ABG ---
DateTimeAnalyzed 04:35:00 -_ pH ____7.404 - 7.350 7.450 pCO2 ___43.6__ -mmHg 35.0 45.0 pO2 ___49.7__ -mmHg 69.0 116 HCO3- ___26.7__ -mmol/L 22.0 26.0 ABE ____2.2__ -mmol/L -2.0 2.0 tHb ___10.8__ -g/dL O2Hb ___82.9__ -% COHb ____0.7__ -% MetHb ____1.3__ -% sO2 ___84.6__ -% 25.0 FIO2 ___50.0__ -% Drawn By MK - Date/Time Notified____ 04:38:00 -_ Liter_Flow ___45.0__ -L/min Oxygen Device 1 _highflow - Notified By MK - Notified Whom natacha josiah - B 767 -mmHg tO2 ___12.6__ -Vol% Drake test _Positive -
--- NOTE | 2017-02-06 04:46 | ABG ---
DateTimeAnalyzed 04:42:00 -_ pH ____7.429 - 7.350 7.450 pCO2 ___39.7__ -mmHg 35.0 45.0 pO2 ___76.4__ -mmHg 69.0 116 HCO3- ___25.8__ -mmol/L 22.0 26.0 ABE ____1.9__ -mmol/L -2.0 2.0 tHb ___11.0__ -g/dL O2Hb ___93.7__ -% COHb ____0.7__ -% MetHb ____1.2__ -% sO2 ___95.5__ -% 25.0 FIO2 ___50.0__ -% Drawn By MK - Date/Time Notified____ 04:46:00 -_ Liter_Flow ___45.0__ -L/min Oxygen Device 1 _highflow - B 767 -mmHg tO2 ___14.5__ -Vol% Drake test _Positive -
[2017-02-06] MEDS: Polyethylene Glycol (PEG) 17 Gm Powder PO SCH (07:34)
[2017-02-06] MEDS: levETIRAcetam 500 mg Tablet PO SCH ×2 (07:44→20:27)
[2017-02-06] MEDS: Trimethoprim-Sulfa 160 mg-800 mg Tablet PO SCH (07:45)
[2017-02-06] MEDS: Insulin LISPRO 300 Unit/3 mL Inj SUBQ SCH ×4 (07:53→22:03)
--- NOTE | 2017-02-06 08:48 | PROG NOTE ---
[address] [address] PROGRESS NOTE PATIENT: GERRY VILLALPANDO : 1960 MR#: [id number] ADMIT: 01/28/2017 JOB ID: [id number] DATE: 02/06/2017 INFECTIOUS DISEASE FOLLOW UP NOTE: REASON FOR FOLLOWUP: Bilateral pulmonary infiltrates and respiratory failure in a patient status post stem cell transplant for ALL. INTERVAL HISTORY: Overnight, the patient reports his breathing is a little better. He was able to get up to the commode late yesterday with less shortness of breath than he has had in past days. While lying in bed with his high-flow nasal oxygen going, he has no shortness of breath at all though he does as he moves around in bed even or sits up, but it is less severe than it has been in recent days. He has almost no cough. No headache, no sore throat. No nausea or vomiting. He has been eating and drinking well though not today as he is n.p.o. for an upcoming lung biopsy. PHYSICAL EXAMINATION: Reveals an afebrile gentleman, temperature 36.7, blood pressure 130/69, pulse 72, respiratory rate 16. Examination of the oral cavity is unremarkable. Mental status is clear. Eyes without conjunctivitis. Lungs relatively clear posteriorly with a few crackles, but if anything, more clear than yesterday. Cardiac tones without new murmur. Abdomen benign. The margaret-colored macules that were seen on his hands and feet yesterday have not changed. LABORATORIES: Include a white count of 12,000, platelet 238. Creatinine 1.21. ALT is creeping up, now 91. AST 76, albumin 2.3. Urinalysis negative. EBV PCR is pending. Micro studies include the negative blood cultures, negative MRSA screen, negative respiratory viral PCR. Yesterday's chest x-ray showed unchanged bilateral infiltrates. IMPRESSION: This continues to be an enigmatic case. Our leading differential diagnosis here is an infection such as Nocardia or fungus versus some inflammatory non-infectious conditions such as chronic obstructive pulmonary disease. Remotely possible would be leukemic infiltrates of the lung or EBV associated posttransplant disease. This case has been discussed at the bedside again today with the ICU team, the Medicine team and the ICU nursing staff. I have continued to discuss this case on an almost daily basis with the [facility] transplant team. We are hoping that today we will be able to proceed with the lung biopsies which had been scheduled but canceled earlier in the week because of concerns about his respiratory status. The patient is now somewhat more stable and we are going to have anesthesia standby for this procedure. Hopefully this will give us some better idea whether this is a noninfectious or infectious condition and if it is infectious, perhaps deliver a diagnosis. RECOMMENDATIONS: 1. Will continue with the extremely broad-spectrum antibiotics which include daily Cresemba, meropenem, minocycline and prophylactic doses of trimethoprim sulfamethoxazole and Valtrex. 2. I will again today review with the micro lab, as well as the Interventional Radiology team, the proper handling and processing of the specimens to obtain the many studies which we have outlined clearly in the chart need to be done on the lung biopsy tissue to look for infectious causes. Obviously additional chunks of tissue will need to be sent for histopath as part of our multi pronged attempt to figure out the cause of these pulmonary infiltrates. 3. This case discussed in great detail with the patient's family and the patient himself at the bedside using a office sweeper.
--- NOTE | 2017-02-06 10:01 | PCM.PNMED ---
Subjective Date of Service Feb 06, 2017 Subjective PULMONOLOGY / CRITICAL CARE PROGRESS NOTE Patient states that he again feels better than yesterday. Still only a mild cough that has not changed and has a little bit of diarrhea. He has no trouble eating. Other than the chronic eye problems and B/L foot neuropathy, he denies pain, nausea, vomiting, dizziness or abdominal pain. Exam Vital Signs Vital Sign - Last Date Time Temp Pulse Resp B/P Pulse Ox O2 Delivery O2 Flow Rate FiO2 02/06/17 08:00 36.4 63 16 144/76 97 high flow NC 50 02/06/17 04:48 45 Intake and Output 02/05/17 02/05/17 02/06/17 Cumulative From/Thru 15:00 23:00 07:00 01/28/17 19:30 - 02/06/17 06:35 Intake Total 715 ml 1457 ml 94801 ml Output Total 8253 ml Balance 715 ml 1457 ml 4587 ml Intake Oral 240 ml 720 ml 7360 ml IV Total 475 ml 737 ml 5480 ml Output Urine Total 8253 ml # Voids 3 2 14 # Bowel Movements 1 4 Exam General: No acute distress. Lying in bed. HEENT: NC/AT Lungs: Course breath sounds diffusely but greatest in right base. On high flow nasal oxygen, NC. No use of accessory muscles. Speaking in full sentences without distress. When he sat up so that we could auscultate, he desaturated to 83%. Heart: Regular rate and rhythm, no murmurs appreciated Abdomen: Soft and non-tender Extremities: No edema, diminished dorsalis pedis and posterior tibial pulses but equal B/L Skin: scattered brown macules 4-5mm on soles of feet, fingerpads. Unchanged from yesterday. Not tender, palpable. No edema, erythema, discharge. R 5th digit biopsy site is clean and dry. Neuro: EOMI Psych: Appropriate mood and effect . IVs and Medications Medications Reviewed: Medications were reviewed in detail Lab and Diagnostics ABG 02/06/17: pH 7.42 / pCO2 39.7 / pO2 76.4 / 25.8 Result Diagram: 02/06/17 0239 02/06/17 0239 Microbiology Microbiology 01/28/17 Blood Culture, Received Pending 01/29/17 MRSA (PCR) - Negative 01/29/17 Influenza Screen - Negative 01/29/17 Streptococcus pneumoniae Ag Screen - Negative 01/29/17 Nasopharyngeal viral PCR all negative, including CMV Serology: cryptococcus Ag negative, CMV DNA negative, fungal antibodies negative , Urine L. pneumophilia Ag negative, A. galactomannan Ag 0.03 . X-Rays, CTs and MRIs X-RAY CHEST IMPRESSION: Overall, stable examination since yesterday minimal with redemonstration of low lung volumes and widespread bilateral consolidative opacities. Dictated and approved by: Ugo Luevano M.D. on 02/05/2017 at 11:28 X-RAY CHEST IMPRESSION: Bilateral patchy confluent opacities in the lungs, appearing mildly worse when compared to 01/12/17. As previously identified, this could be related to infection including atypical like mycobacterial or fungal. However, lymphangitic spread of tumor should also be considered. Dictated and approved by: Mela Solorio M.D. on 01/28/2017 at 20:08 CT CHEST WITH CONTRAST IMPRESSION: 1. Increased bilateral pulmonary nodules with confluent areas of consolidation in a perilymphatic distribution. 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 The differential also includes lymphocytic interstitial pneumonia, sarcoidosis, occupational pneumoconiosis, and amyloidosis. Dictated and approved by: Giovanni Stoll M.D. on 01/29/2017 at 11:07 X-RAY CHEST IMPRESSION: Relatively severe patchy bilateral moderate and moderately severe alveolar opacification best seen by recent CT scanning 4 days ago. No contraindication to anticipated lung biopsy scheduled for later today. Dictated and approved by: Parag Lemus M.D. on 02/02/2017 at 9:18 X-RAY CHEST IMPRESSION: Relatively severe patchy bilateral moderate and moderately severe alveolar opacification best seen by recent CT scanning 4 days ago. No contraindication to anticipated lung biopsy scheduled for later today. Dictated and approved by: Parag Lemus M.D. on 02/02/2017 at 9:18 X-RAY CHEST IMPRESSION: Bilateral patchy consolidations are unchanged. Dictated by: Suzi Gu M.D. on 02/03/2017 at 8:37 Date of Service: 02/04/17 0500 X-RAY CHEST IMPRESSION: Stable bilateral moderately severe patchy pneumonia, symmetric. Dictated by: Parga Lemus M.D. on 02/04/2017 at 9:51 Approved by: Parag Lemus M.D. on 02/04/2017 at 9:52 X-RAY CHEST IMPRESSION: Overall, stable examination since yesterday minimal with redemonstration of low lung volumes and widespread bilateral consolidative opacities. Dictated by: Ugo Luevano M.D. on 02/05/2017 at 11:28 . . Additional Diagnostics 01/28/17 PROCEDURE: X-RAY CHEST ONE VIEW, PORTABLE IMPRESSION: Bilateral patchy confluent opacities in the lungs, appearing mildly worse when compared to 01/12/17. As previously identified, this could be related to infection including atypical like mycobacterial or fungal. However, lymphangitic spread of tumor should also be considered. Dictated by: Mela Solorio M.D. on 01/28/2017 at 20:08 Approved by: Mela Solorio M.D. on 01/28/2017 at 20:11 01/29/17 PROCEDURE: CT CHEST WITH CONTRAST IMPRESSION: 1. Increased bilateral pulmonary nodules with confluent areas of consolidation in a perilymphatic distribution. 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 The differential also includes lymphocytic interstitial pneumonia, sarcoidosis, occupational pneumoconiosis, and amyloidosis. Dictated by: Giovanni Stoll M.D. on 01/29/2017 at 11:07 Approved by: Giovanni Stoll M.D. on 01/29/2017 at 11:19 . Assessment & Plan Mr. 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 Hospital day 9 (02/06/17). Problem list: 1. Acute hypoxic respiratory failure, present on admission. Unknown etiology. Active 2. Acute kidney injury, not present on admission. Resolved 3. Electrolyte disturbances, hyponatremia, hyperkalemia, not present on admission. Resolved 4. Transaminitis, mild, not present on admission. Active 5. Chronic and recurrent CMV 6. Type 2 diabetes mellitus, chronic, stable. 7. 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 8. 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 Hypertension 10. Depression Patient continues to be stable -- not deteriorating and mildly improving on high flow O2 which is reduced today to 50%, 45 L. Desaturated to 83% when sitting him up for desaturation. X-ray today was the same as yesterday. Blood gases improved today. pH 7.42 / pCO2 39.7 / pO2 76.4 / HCO3- 25.8. BP 110s-140s over 60s-70s. Kidney function normalized. Leukocytosis likely from high-dose steroids. Potassium normalized. Liver transaminases mildly increased again. Appreciate infectious disease, Dr. Waters, who is managing the antibiotics and is considering deescalating abx treatment tomorrow. Appreciate oncology, Dr. Thomas. CT guided biopsy planned today by interventional radiology with anesthesiology assisting. Appreciate IR and anesthesiology. Punch biopsy of one of the macules on patient's finger 02/05/17. I called pathology today to confirm that the specimen will be evaluated. Patient's continues to be upset and confused. Today stating that he does not take Keppra at home. [facility] and [facility] patient's home medications which include Keppra 500mg BID last picked up from pharmacy on . Our med rec is accurate and told the patient and through the drying equipment operator. continues to be upset and confused regarding patient's care and treatment options. I have consulted palliative care for help discussing patient's condition with the family, especially since there are so many specialists involved. Will continue to follow. If patient's status deteriorates, will again consider transferring to [facility]. If patient's condition improves, consider VATS. . GI Prophylaxis: H2 jeanie VTE Prophylaxis: Sub-Q Heparin (Unfractionated) Resuscitation Status: CPR: Attempt Resuscitation Attending Statement [facility] Addendum: Reviewed above note, agreed with plan. Pt. stable from resp stand poit , minimal improvement in FIO2 requirement.Planned to undergo CT guided Bx as arranged by Oncology. 2d echo negative for valvular vegitations. Will continue current management and supportive care. 35 min provided in this Pt. care including D/w with the help of interprator. Brian Castellanos MD Pulm./[facility] Sonia Hernandez DO Feb 06, 2017 10:00 Brian Castellanos MD Feb 06, 2017 12:57
--- NOTE | 2017-02-06 11:00 | NUR ---
Social Work- Continued D/C Planning D: EMR review. Pt is on day 9 of hospitalization for Resp. Failure. Pt is German speaking and requires an german instructor. Pt is not medically stable at this time. ID continues to follow pt. Palliative care is involved for goals of care. Pt is on high flow O2, which is reduced today to 50%, 45 L. Pt to receive CT guided biopsy. Pt anticipated to discharge home with to transport via POV. SW will continue to follow for needs. A: Pt who is I at baseline. P: Anticipate pt to discharge home via POV; DESKTOP ADMINISTRATOR will follow closely for needs. Debbi Koehler MSW
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
--- NOTE | 2017-02-06 12:17 | PCM.PNMED ---
Subjective Date of Service Feb 06, 2017 Subjective Patient continues to report that he is feeling much better. He states his energy level is better and hi appetite is great. Him and his family are anticipating CT-guided lung biopsy today. Exam Vital Signs Vital Sign - Last Date Time Temp Pulse Resp B/P Pulse Ox O2 Delivery O2 Flow Rate FiO2 02/06/17 08:00 36.4 63 16 144/76 97 high flow NC 50 02/06/17 04:48 45 Intake and Output 02/05/17 02/05/17 02/06/17 Cumulative From/Thru 14:59 22:59 06:59 01/28/17 19:30 - 02/06/17 06:35 Intake Total 715 ml 1457 ml 84148 ml Output Total 8253 ml Balance 715 ml 1457 ml 4587 ml Intake Oral 240 ml 720 ml 7360 ml IV Total 475 ml 737 ml 5480 ml Output Urine Total 8253 ml # Voids 3 2 14 # Bowel Movements 1 4 Exam General: No acute distress. Lying in bed. Lungs: Course breath sounds diffusely, R>L. On high flow nasal oxygen. Heart: Regular rate and rhythm, no murmurs appreciated Abdomen: Soft and non-tender Extremities: No edema, diminished dorsalis pedis and posterior tibial pulses but equal B/L Skin: scattered brown macules 4-5mm on soles of feet, fingerpads. Unchanged from yesterday. Not tender, palpable. No edema, erythema, discharge. R 5th digit biopsy site is clean and dry. Lab and Diagnostics Result Diagram: 02/06/17 0239 02/06/17 0239 Microbiology Microbiology 01/28/17 Blood Culture, Received Pending 01/29/17 MRSA (PCR) - Negative 01/29/17 Influenza Screen - Negative 01/29/17 Streptococcus pneumoniae Ag Screen - Negative 01/29/17 Nasopharyngeal viral PCR all negative, including CMV Serology: cryptococcus Ag negative, CMV DNA negative, fungal antibodies negative , Urine L. pneumophilia Ag negative, A. galactomannan Ag 0.03 . X-Rays, CTs and MRIs X-RAY CHEST IMPRESSION: Overall, stable examination since yesterday minimal with redemonstration of low lung volumes and widespread bilateral consolidative opacities. Dictated and approved by: Ugo Luevano M.D. on 02/05/2017 at 11:28 X-RAY CHEST IMPRESSION: Bilateral patchy confluent opacities in the lungs, appearing mildly worse when compared to 01/12/17. As previously identified, this could be related to infection including atypical like mycobacterial or fungal. However, lymphangitic spread of tumor should also be considered. Dictated and approved by: Mela Solorio M.D. on 01/28/2017 at 20:08 CT CHEST WITH CONTRAST IMPRESSION: 1. Increased bilateral pulmonary nodules with confluent areas of consolidation in a perilymphatic distribution. 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 The differential also includes lymphocytic interstitial pneumonia, sarcoidosis, occupational pneumoconiosis, and amyloidosis. Dictated and approved by: Giovanni Stoll M.D. on 01/29/2017 at 11:07 X-RAY CHEST IMPRESSION: Relatively severe patchy bilateral moderate and moderately severe alveolar opacification best seen by recent CT scanning 4 days ago. No contraindication to anticipated lung biopsy scheduled for later today. Dictated and approved by: Parag Lemus M.D. on 02/02/2017 at 9:18 X-RAY CHEST IMPRESSION: Relatively severe patchy bilateral moderate and moderately severe alveolar opacification best seen by recent CT scanning 4 days ago. No contraindication to anticipated lung biopsy scheduled for later today. Dictated and approved by: Parag Lemus M.D. on 02/02/2017 at 9:18 X-RAY CHEST IMPRESSION: Bilateral patchy consolidations are unchanged. Dictated by: Suzi Gu M.D. on 02/03/2017 at 8:37 Date of Service: 02/04/17 0500 X-RAY CHEST IMPRESSION: Stable bilateral moderately severe patchy pneumonia, symmetric. Dictated by: Parag Lemus M.D. on 02/04/2017 at 9:51 Approved by: Parag Lemus M.D. on 02/04/2017 at 9:52 X-RAY CHEST IMPRESSION: Overall, stable examination since yesterday minimal with redemonstration of low lung volumes and widespread bilateral consolidative opacities. Dictated by: Ugo Luevano M.D. on 02/05/2017 at 11:28 . . Cardiac Echo Impressions ECHO Interpretation Summary Left ventricular wall thickness is mildly increased. Left ventricular systolic function is normal without focal wall motion abnormalities. The ejection fraction is estimated to be 60-65%. The right ventricle grossly appears normal in size with probable normal systolic function. Pulmonary artery pressures cannot be estimated because of the lack of a measurable TR jet velocity. The left atrium is mildly dilated. Right atrial size is normal. There is no significant valvular heart disease. There is no obvious valvular vegetation identified on this exam. Consider SEBLE if there is a high degree of clinical suspicion for endocarditis and clinically appropriate. The ascending aorta is mildly enlarged. No changes since prior echocardiograms (08/2016, 01/2015, 03/2014). Reading Physician:PM Additional Diagnostics 01/28/17 PROCEDURE: X-RAY CHEST ONE VIEW, PORTABLE IMPRESSION: Bilateral patchy confluent opacities in the lungs, appearing mildly worse when compared to 01/12/17. As previously identified, this could be related to infection including atypical like mycobacterial or fungal. However, lymphangitic spread of tumor should also be considered. Dictated by: Mela Solorio M.D. on 01/28/2017 at 20:08 Approved by: Mela Solorio M.D. on 01/28/2017 at 20:11 01/29/17 PROCEDURE: CT CHEST WITH CONTRAST IMPRESSION: 1. Increased bilateral pulmonary nodules with confluent areas of consolidation in a perilymphatic distribution. 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 The differential also includes lymphocytic interstitial pneumonia, sarcoidosis, occupational pneumoconiosis, and amyloidosis. Dictated by: Giovanni Stoll M.D. on 01/29/2017 at 11:07 Approved by: Giovanni Stoll M.D. on 01/29/2017 at 11:19 . Assessment & Plan Mr. 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 1. Acute hypoxic respiratory failure, present on admission. 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 -Patient has somehow rapid decline of his respiratory status in the last 48 hrs. he also had an episode of fever 2 days ago. The initial plan was to hold off on antibiotics until tissue biopsy was obtained. Patient has decline in his respiratory status and IR biopsy postponed to Thursday. Due to concern of atypical infection possibly fungal ,Dr Waters started him on meropenem, azithromycin and antifungal Cresemba today 02/01. He also did not get any antibiotic trial on recent hospitalization as well. 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 -Recent hospitalization with same diffuse infiltrate. Infectious Workup unrevealing except Human metapneumovirus -Additional infectious work up negative for crypto antigen, fungus, AFB, legionella, HSV, adenovirus, QuantiFERON Gold -Chest CT shows worsening bilateral infiltrates as compared to the CT of the chest done on January 12 -Differential diagnosis: noninfectious causes such as pulmonary malignancy, sarcoid, amyloid, interstitial pneumonitis, lymphangitis carcinomatosis -Percutaneous pulmonary biopsy and VATS are not an option for the patient right now due to his respiratory status. -Will consider transferring to [facility] once again if patient condition improves -Continue trial of solu-medrol, 80 mg intravenously every 8 hours and supportive treatment -Continue with broad-spectrum antibiotics including azithromycin, meropenem, and cresemba -New chest x-ray revealed stable examination since yesterday minimal with redemonstration of low lung volumes and widespread bilateral consolidative opacities -Percutaneous biopsy planned for today 2. Acute kidney injury, not present on admission. Improved - Improved creatinine today likely due to decrease in bactrim dose - Decreased bactrim to one tablet daily and started minocycline, 100 mg orally twice a day, continued - Continue to monitor creatinine 3. Electrolyte disturbances, hyponatremia, hyperkalemia, not present on admission. Resolved - Start sodium bicarbonate, 1300mg every 6 hours by mouth to help with acidosis and sodium - Potassium normalized status post kayexalate, 30 mg by mouth -Continue to monitor 4. Transaminitis, mild, not present on admission. Active - Mild elevation of AST and ALT, most likely due to antibiotic' s toxicity especially cresemba - Continue to monitor 5. Chronic and recurrent CMV - Continue valacyclovir 1000 mg BID. 6. Type 2 diabetes mellitus, chronic, presume stable. - Continue NPH insulin 50 units twice a day - Last A1c was 5.5 7. History of ALL Art chromosome positive s/p allogeneic bone marrow transplant, currently in remission. - Decrease bactrim to one tablet daily and start minocycline, 100 mg twice a day orally for PCP prophylaxis. 8. Seizure disorder, chronic, presume stable. - Continue Keppra 500 mg BID. 9. Hypertension, chronic, presume stable. - Continue metoprolol tartrate 25 mg BID. 10. Depression, chronic, presume stable. - Continue citalopram 20 mg daily. - Antiemetic available PRN. - Antacid available PRN. - Bowel regimen available PRN. - Tylenol available PRN mild pain, fever. Disposition: Patient in acute hypoxic respiratory failure of unclear etiology, may need several days of inpatient hospitalization for workup and treatment. Pain Evaluation: Adequate Pain Control GI Prophylaxis: H2 jeanie VTE Prophylaxis: Sub-Q Heparin (Unfractionated) Resuscitation Status: CPR: Attempt Resuscitation Attending Statement The patient was seen and examined together with House Staff/Resident on 02/06/17 and I agree with the history, exam and plan as outlined in the note above. Daria Barrios DO Feb 06, 2017 12:17 Artur Romero Feb 10, 2017 19:20
--- NOTE | 2017-02-06 12:32 | NUR ---
Palliative Care Palliative Care received order from Dr Hernandez 02/06/17 to assist with family support. Patient is a 56 year old Georgian-speaking man with hx of leukemia and chronic immune suppression issues. He was at hospitalized at [facility] 01/13-01/16 and was readmitted 01/28/17 due to acute hypoxic respiratory failure. Patient lives at home with his . Yvette Valles () [phone] Tatianaermelinda Menon (sister in law) [phone] Palliative Care to follow. Beth Batista
--- NOTE | 2017-02-06 14:16 | NUR ---
spiritual care: follow up-- contacted for pastoral follow up. referral made to croatian speaking Fr. Richardson for ongoing care.
--- NOTE | 2017-02-06 14:37 | NUR ---
Respiratory/Pt care/CT scan Pt has been on high flow NC at 50%, 45L throughout shift, sats in the high 90s, RR around 16-22. Desats with extreme movement even in bed, but does not desat with small movements as reported before. Pt denies any pain or nausea at this time. Assessment done with portfolio consultant. Asked pt if he would like me to help him clean up and have a full bed bath and said yes, and that she has had to do it herself because no one has offered. Got all the stuff to help clean up as well as fresh linens and gown and then pt's insisted on doing it herself and did not want assistance with bathing him. Pt went down to CT scan for biopsy with portfolio consultant. Anesthesia at bedside discussing procedure with patient and . Pt on 15L oxymask sats in the high 90s, RR between 19-27/minute. Report passed on to oncoming RONNY Holman
--- NOTE | 2017-02-06 15:06 | NUR ---
1500 Bianka JEFFERSON assuming care from Ambar JEFFERSON. All questions asked and answered. Pt is still in CT.
--- NOTE | 2017-02-06 15:28 | PCM.ANEP1 ---
Post Anesthesia Phase 1 PACU Phase 1 Assessment Date of Service: Feb 05, 2017 Vital Signs Vital Signs Date Time Temp Pulse Resp B/P Pulse Ox O2 Delivery O2 Flow Rate FiO2 02/06/17 12:00 36.6 55 17 137/73 98 high flow 50 02/06/17 08:00 36.4 63 16 144/76 97 high flow NC 50 02/06/17 08:00 Supplement Oxygen Anesthetic Administered: Other Level of Alertness: Awake, talking Pain: Yes (MILD DISCOMFORT AROUND ct SITE) Nausea or Vomiting: No Oxygen Delivery: OxyMask Marcos Do MD Feb 06, 2017 15:28
--- NOTE | 2017-02-06 15:57 | DRSVH ---
PROCEDURE: CT-GUIDED BIOPSY OF THE LUNG OR MEDIASTINUM ([id number]) No conscious sedation. INDICATIONS: Bilateral lung infiltrates TECHNIQUE: The indications, alternatives, benefits, risks, and possible complications of the procedure were comm unicated to the patient. Informed written consent from the patient was obtained and placed in the art. Continuous EKG and hemodynamic monitoring was started by trained personnel. For radiation dose reduction, the following was used: automated exposure control, adjustment of mA and/or kV according to patient size. The patient was brought to the CT suite and fire protection engineering technician spiral CT imaging was performed with localization g rid. The appropriate site for percutaneous access to the biopsy target was marked, was prepped and d raped sterilely, and was infused with local anaesthesia. Under CT guidance, a core biopsy trocar and needle set was advanced to the biopsy target, and specimen(s) were obtained. The trocar and needle were then removed, and the patient was sent for post-procedure monitoring. Procedure imaging demonstrated a moderate-sized right-sided pneumothorax. Access site for percutaneou s pigtail catheter was localized using CT guidance. Access site was prepped and draped in usual steri le fashion. Access site was locally anesthetized using approximately 8 cc 1% lidocaine solution. An 1 8 gauge Chiba needle was advanced under CT guidance into the right hemithorax. An 0.32 inch J-tipped guidewire was advanced the guide needle into the right hemithorax and the access needle was removed o hailey the guidewire. An 8 German pigtail catheter was then advanced over the guidewire to the right hem ithorax and the guidewire was removed. A pigtail catheter was affixed to the skin surface and the cat heter was placed to wall suction. Imaging following the placement of a pigtail catheter demonstrated near-complete resolution of the right-sided pneumothorax. COMPARISON: None. FINDINGS: Biopsy site: Anterolateral right upper lobe infiltrate. Needle: 20 gauge biopsy needle with introducer trocar. Number of passes: 4 Medications: 1% lidocaine for local anaesthesia Complications: Right-sided pneumothorax requiring placement of percutaneous pigtail catheter. IMPRESSION: Successful CT-guided biopsy of right upper lobe infiltrate. Postbiopsy pneumothorax requ iring placement of percutaneous pigtail catheter. There was near complete resolution of the right-feliberto ed pneumothorax following placement of the right-sided catheter. Patient was sent to the floor in bot h hemodynamically and neurologically stable condition. Dictated by: Deepti Quintero MD, PhD on 02/06/2017 at 15:51 Approved by: Deepti Quintero MD, PhD on 02/06/2017 at 15:55
[2017-02-06] MEDS: Dextrose 5% 0.9% NaCl 1,000 ML IV SCH (17:03)
--- NOTE | 2017-02-06 18:40 | NUR ---
chest tube/pain/oxygen Pt returns from CT guided bx with a chest tube in the right flank. 20CM H20 suction, no air leak, no drainage, no crepitus. Pt c/o pain at CT site. Oxycodone given, pt feels better after 1 oxy but declines to take any more this shift. Pt is on 15L OM satting 100%, solar thermal installer turns him down to 7L OM satting in the mid 90's. Dr Thomas rounds on pt, they ask when results will be available, he says not untill mid next week or later.
--- NOTE | 2017-02-06 18:41 | CCS NOTE ---
[facility] [address], [address] [address] MEDICAL ONCOLOGY OFFICE NOTE PATIENT: GERRY VILLALPANDO : 1960 MR#: [id number] DATE: 01/28/2017 JOB ID: [id number] DATE: 02/06/2017 SUBJECTIVE: The patient's oxygen requirements have somewhat improved over the past 48 hours. On Thursday, his FiO2 had to be at 70%. It was gradually titrated down to 60% and today it has been at 50% and he is maintaining his oxygen saturation above 95%. He does desaturate with movement. His states that he was able to get up and sit at the bedside for a few minutes yesterday. LABORATORY DATA: Labs show a white count of 12.1, hemoglobin 11, platelets 238. Chemistry shows normal electrolytes, BUN 1.21. AST 76, ALT 91. Albumin 2.3. Bilirubin normal. MEDICATIONS: He remains on antifungal agent, Cresemba and minocycline and meropenem, and prophylactic dose of Bactrim. At the same time, he is on high-dose steroids with Solu-Medrol 80 mg (1 mg/kg) IV every 8 hours that we started since February 02. PHYSICAL EXAMINATION: His mental status is good. He is communicating and conversing. Oral cavity shows no evidence of thrush. Abdomen is soft. Extremities show no edema. 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 Workup for this peculiar multifocal patchy and nodular pulmonary infiltrates has been ongoing. I have been in communication yesterday with multiple providers involved including Anesthesiology who agree to plan of percutaneous biopsy with Anesthesiology on site for elective emergency intubation if needed and mild sedation. The patient's oxygen requirement over the past two days has slightly improved. He is on 50% FiO2 now instead of 70%. I had several conversations with Dr. Quintero of Radiology today preparing his percutaneous biopsy that was performed around 2 p.m. I have also spoken with pathologist on-call of [facility], which I have requested the specimen to be sent to for histology. At the same time, Dr. Waters has asked additional specimen to be sent for microbiology and fungal evaluation. I have requested the specimen to be processed urgently given the biopsy time of Thursday, and the pathologist is alerted about that. I am hopeful that by early next week we should have some preliminary results. The patient did suffer a small pneumothorax and required a chest tube placement after the biopsy but tolerated the procedure well and did not require any intubation. At this point, I would recommend to reduce the frequency of steroids as consideration at this high dose will possibly lead to further issues associated with high-dose steroids and recommended to reduce it to 80 mg IV q.12 h. instead of every 8 hours. TIME SPENT WITH PATIENT: Approximately 1 hour and 10 minutes were spent in counseling and coordination of care.
[2017-02-06] MEDS: Heparin 5,000 Unit/mL Inj SUBQ SCH ×2 (18:49→23:39)
--- NOTE | 2017-02-06 22:56 | NUR ---
Chest Tube/Pain Pt reports of incisional site pain 03/28. He reports pain down to 4-5/10 with Tylenol and Oxycodone. Chest tube dressing cdi. Noted small sanginous drainage on the chamber. No air leak or fluctuation noted. Addendum: 02/06/17 at 2316 by ANIYAH MCDERMOTT RN Report and transfer care to [facility].
[2017-02-07] VITALS (10 sets, daily range): BP systolic 105–143; BP diastolic 55–90; PULSE 55–77; RESP 16–23; O2SAT 95–100
[2017-02-07] MEDS ORDERED: Insulin LISPRO 300 Unit/3 mL Inj SUBQ ONE (03:20)
[2017-02-07 03:33] LABS: BASOPHILS % (AUTO) 0.1 % (0-3); EOSINOPHILS % (AUTO) 0 % (0-5); Mean Corpuscular Hemoglobin 34.8 pg (27.0-35.0); Mean Corpuscular Volume 103.2 fL (81-100); NEUTROPHILS % (AUTO) 70.7 % (40-74); Platelet Count 228 bil/L (150-400)
--- NOTE | 2017-02-07 05:01 | ABG ---
DateTimeAnalyzed 04:57:00 -_ pH ____7.376 - 7.350 7.450 pCO2 ___45.9__ -mmHg 35.0 45.0 pO2 ___50.4__ -mmHg 69.0 116 HCO3- ___26.3__ -mmol/L 22.0 26.0 ABE ____1.3__ -mmol/L -2.0 2.0 tHb ___10.9__ -g/dL O2Hb ___83.0__ -% COHb ____0.7__ -% MetHb ____1.3__ -% sO2 ___84.7__ -% 25.0 FIO2 ___45.0__ -% Drawn By MK - Date/Time Notified____ 05:00:00 -_ Liter_Flow ____7.0__ -L/min Oxygen Device 1 __oxymask - Notified By MK - B 753 -mmHg tO2 ___12.7__ -Vol% Drake test _Positive -
--- NOTE | 2017-02-07 06:08 | NUR ---
Respiratory/BG Assumed patient care @ 2300, received patient report from Edmond Alexander RN. Pt a/o x4, Romansh speaking only, denies any pain; Rt Chest tube with scanty serious drains, sp02 >96%, slowly weaned off 02 from oxymask of 7L to 4L this am; FBS 363 this am, covered with lispro. vital signs stable.
[2017-02-07] MEDS: Meropenem Inj 2,000 MG in 0.9% Sodium Chloride 100 ML IV SCH ×2 (08:15→15:57)
[2017-02-07] MEDS: Trimethoprim-Sulfa 160 mg-800 mg Tablet PO SCH (08:29)
[2017-02-07] MEDS: levETIRAcetam 500 mg Tablet PO SCH ×2 (08:29→20:10)
[2017-02-07] MEDS: Insulin LISPRO 300 Unit/3 mL Inj SUBQ SCH ×4 (08:29→22:00)
[2017-02-07] MEDS: Polyethylene Glycol (PEG) 17 Gm Powder PO SCH (08:30)
[2017-02-07] MEDS: Sodium Chloride LOK Flush 10 mL Syringe IVFLUSH SCH ×3 (08:30→20:10)
[2017-02-07] MEDS: MethylprednisoLONE Sodium Succinate 40 mg/mL Inj IVPUSH SCH ×2 (08:30→20:09)
[2017-02-07] MEDS: Heparin 5,000 Unit/mL Inj SUBQ SCH ×2 (08:31→15:57)
--- NOTE | 2017-02-07 08:58 | DRSVH ---
PROCEDURE: X-RAY CHEST ONE VIEW, PORTABLE ([id number]) INDICATIONS: b/l infiltrates. High-flow O2 TECHNIQUE: One view of the chest was acquired. COMPARISON: [facility], CT, CT BX LUNG MEDIASTINUM, 02/06/2017, 13:46. [facility], CR, XR CHEST 1VW, 02/05/2017, 9:15. [facility], CR, XR CHEST 1VW (PORTABLE), 2016, 4:57. FINDINGS: Surgical changes and devices: A right-sided lower lateral percutaneous catheter for pneumothorax diane tment after lung biopsy yesterday is again seen, in normal position. Lungs and pleura: No pleural effusions. The residual pneumothorax after placement of the percutaneo us catheter for pneumothorax treatment during CT scanning yesterday had measured up to 1.3 cm and the current measurement of that lateral pneumothorax is 9 mm. Lungs are abnormal with the previously id entified patchy pneumonitis pattern stable over time. Mediastinum: Mediastinal contours appear normal. Heart size is normal. Bones and chest wall: No suspicious bony lesions. Overlying soft tissues appear unremarkable. IMPRESSION: Slowly resolving small lateral residual right pneumothorax previously measuring 1.[address] lung biopsy yesterday and currently measuring 9 mm. The percutaneous catheter for pneumothorax t reatment remains in stable normal position lateral right lower chest. Dictated by: Parag Lemus M.D. on 02/07/2017 at 8:51 Approved by: Parag Lemus M.D. on 02/07/2017 at 8:57
--- NOTE | 2017-02-07 10:06 | NUR ---
Bradycardia / Oxygen/ Pain: Tele: Sinus Bradycardia 50's. Scheduled dose of Metoprolol 50mg PO held. MD Aware. SpO2: high 90's on 4L oxymask at rest and desaturates to low 80's with exertion. Pt reports 3/10 pain at R chest tube site. Declines pain medication at this time.
--- NOTE | 2017-02-07 11:00 | NUR ---
[facility] Signed
--- NOTE | 2017-02-07 11:13 | NUR ---
NUTRITION FOLLOW-UP: ASSESS: 56 YO male admitted with hypoxic respiratory failure, pneumonia dyspnea, shortness of breath. Pulmonology, ID and Oncology are following. Pt is slowly improving. Lung biopsy results pending; pt will likely discharge once results received. PO intake remains good, 50 - 100% trays, when diet advanced beyond NPO status. Pt has lost ~11.2 kg x 10 weeks = 12.19% = severe wt loss. Wt loss likely related to decreased respiratory status. 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 DIET: Consistent carb. PO intake 50 -100% trays. LABS: BUN 33, Glu 396, A1c 5.4, Ca 8.3, ALT 64, Alb 2.4. MEDICATIONS: Reviewed. Solu-medrol. GI: BM x 1 (02/06). Skin Integrity: No issues reported. ANTHROPOMETRICS: Current Wt: 80.0 kg BMI: 28.0 kg/m2. Admit weight: 82 kg ESTIMATED NEEDS: IVETTE Calories: 2050 - 2460 kcal (25 - 30 kcal / kg BW) Protein: 65-80 g protein (.8-1.0 g / kg BW) NUTRITION DIAGNOSIS: 1) Increased nutrient needs related to respiratory status, as evidenced by pt with recent wt loss - IMPROVED. 2) Moderate pro/kcal malnutrition related to chronic illness as evidenced by 12.19% weight loss x 10 weeks and increased weakness - IMPROVED. INTERVENTION: 1) Continue Glucerna on L and D trays. MONITOR/EVALUATE: PO intake, wt, labs, GI/nutrition status. Follow up per moderate nutrition risk guidelines.
--- NOTE | 2017-02-07 13:37 | PROG NOTE ---
[address] [address] PROGRESS NOTE PATIENT: GERRY VILLALPANDO : 1960 MR#: [id number] ADMIT: 01/28/2017 JOB ID: [id number] DATE: 02/07/2017 SUBJECTIVE: The patient appears to be comfortable. Communication was done with the help of nursing staff, who were fluent in Turkmen and were able to communicate with the patient. Patient is stating that he is feeling better from respiratory standpoint. Denies any concern of chest pain. Patient is currently status post CT-guided biopsy on the right lung which led to the complication of pneumothorax and currently he is status post chest tube placement by Interventional Radiology. OBJECTIVE DATA: Temperature 36.5, pulse is 76, respiratory rate 23, blood pressure 129/90. Pulse ox is 96% on OxyMask 4 L. Lungs: Few rhonchi at the right base. Cardiovascular exam: Rate, rhythm regular. Abdomen: Soft, no hepatosplenomegaly. Bowel sounds positive. Extremities: Edema of feet negative. Neurologic exam: No focal deficit appreciated. HEENT exam: Head is Normocephalic, atraumatic. Pupils are equal, reacting fully to light. Neck is supple. No JVD appreciated. No thyromegaly, no cervical lymphadenopathy. Skin exam within normal limits. Lymphatic exam: No peripheral lymphadenopathy appreciated. White count of 9.1, hemoglobin 11.0, hematocrit 32.6, platelets are 228. Chemistry revealed sodium 134, potassium 4.5, chloride 101, bicarb 21. BUN 33, creatinine 1.08, glucose 396. Calcium 8.3. Chest x-ray is evident of a small right pneumothorax. Chest tube is in place and persistent bilateral diffuse infiltrative process does not appear to be any different compared to previous studies. Arterial blood gas analysis, pH 7.37, pCO2 45, pO2 50, bicarb 26, saturation is 83% on 45% Venti mask. ASSESSMENT: 1. Acute hypoxemic respiratory failure secondary to problem #2. 2. Bilateral diffuse infiltrative process, inflammatory versus infectious process. Patient is currently empirically covered with antibacterial, antiviral, and antifungal medications as recommended by Infectious Disease, and he is also receiving high-dose steroid for probable underlying inflammatory process. Patient is status post CT-guided biopsy of his right lung with complications leading to right-sided pneumothorax. Appear to be very small and patient is status post chest tube placement without any evidence of air leak at this time. 3. History of ALL, status post bone marrow transplant three years ago. Appears to be in remission per Oncology. RECOMMENDATION: 1. At this time, will continue steroids. 2. Will continue antibiotics, antifungal, antiviral as recommended by ID. 3. Will follow up on the biopsy reports. 4. Continue otherwise supportive care. Thirty-five minutes provided in this patient's care.
[2017-02-07] MEDS: Dextrose 5% 0.9% NaCl 1,000 ML IV SCH ×2 (15:11→22:07)
--- NOTE | 2017-02-07 18:10 | PCM.PNMED ---
Subjective Date of Service Feb 07, 2017 Subjective Denies any pain or discomfort. Says breathing seems to be improving Exam Vital Signs Vital Sign - Last Date Time Temp Pulse Resp B/P Pulse Ox O2 Delivery O2 Flow Rate FiO2 02/07/17 16:44 Supplement Oxygen 02/07/17 16:15 18 97 02/07/17 16:02 36.6 63 143/74 4.00 02/06/17 12:00 50 Intake and Output 02/06/17 02/06/17 02/07/17 Cumulative From/Thru 15:00 23:00 07:00 01/28/17 19:30 - 02/07/17 06:37 Intake Total 880 ml 868 ml 46495 ml Output Total 1100 ml 525 ml 9878 ml Balance -220 ml 343 ml 4710 ml Intake Oral 400 ml 200 ml 7960 ml IV Total 480 ml 668 ml 6628 ml Output Urine Total 1100 ml 525 ml 9878 ml Chest Tube Drainage Total 0 ml 0 ml # Voids 14 # Bowel Movements 0 4 General: Alert, Oriented X3, Cooperative, No Acute Distress Head: Normal Eyes: Scleral Anicteric Nose: Mucous Membr Moist/[place] Mouth: Mucous Membr Moist/[place] Neck: Supple Chest & Lungs: Clear to auscultation & percussion, Other (right chest tube in place) Cardiovascular: Regular Rate/Rhythm Pulses: NL carotid, radial, femoral, DP, PT Abdomen: Non-tender, Non-distended, Normoactive bowel tones, Soft Extremities: No cyanosis/clubbing/edma bilat Neurological: Grossly Neurologically Intact, Normal Speech IVs and Medications Medications Reviewed: Medications were reviewed in detail Lab and Diagnostics Result Diagram: 02/07/17 0303 02/07/17 0303 Microbiology Microbiology 01/28/17 Blood Culture, Received Pending 01/29/17 MRSA (PCR) - Negative 01/29/17 Influenza Screen - Negative 01/29/17 Streptococcus pneumoniae Ag Screen - Negative 01/29/17 Nasopharyngeal viral PCR all negative, including CMV Serology: cryptococcus Ag negative, CMV DNA negative, fungal antibodies negative , Urine L. pneumophilia Ag negative, A. galactomannan Ag 0.03 . X-Rays, CTs and MRIs X-RAY CHEST IMPRESSION: Overall, stable examination since yesterday minimal with redemonstration of low lung volumes and widespread bilateral consolidative opacities. Dictated and approved by: Ugo Luevano M.D. on 02/05/2017 at 11:28 X-RAY CHEST IMPRESSION: Bilateral patchy confluent opacities in the lungs, appearing mildly worse when compared to 01/12/17. As previously identified, this could be related to infection including atypical like mycobacterial or fungal. However, lymphangitic spread of tumor should also be considered. Dictated and approved by: Mela Solorio M.D. on 01/28/2017 at 20:08 CT CHEST WITH CONTRAST IMPRESSION: 1. Increased bilateral pulmonary nodules with confluent areas of consolidation in a perilymphatic distribution. 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 The differential also includes lymphocytic interstitial pneumonia, sarcoidosis, occupational pneumoconiosis, and amyloidosis. Dictated and approved by: Giovanni Stoll M.D. on 01/29/2017 at 11:07 X-RAY CHEST IMPRESSION: Relatively severe patchy bilateral moderate and moderately severe alveolar opacification best seen by recent CT scanning 4 days ago. No contraindication to anticipated lung biopsy scheduled for later today. Dictated and approved by: Parag Lemus M.D. on 02/02/2017 at 9:18 X-RAY CHEST IMPRESSION: Relatively severe patchy bilateral moderate and moderately severe alveolar opacification best seen by recent CT scanning 4 days ago. No contraindication to anticipated lung biopsy scheduled for later today. Dictated and approved by: Parag Lemus M.D. on 02/02/2017 at 9:18 X-RAY CHEST IMPRESSION: Bilateral patchy consolidations are unchanged. Dictated by: Suzi Gu M.D. on 02/03/2017 at 8:37 Date of Service: 02/04/17 0500 X-RAY CHEST IMPRESSION: Stable bilateral moderately severe patchy pneumonia, symmetric. Dictated by: Parag Lemus M.D. on 02/04/2017 at 9:51 Approved by: Parag Lemus M.D. on 02/04/2017 at 9:52 X-RAY CHEST IMPRESSION: Overall, stable examination since yesterday minimal with redemonstration of low lung volumes and widespread bilateral consolidative opacities. Dictated by: Ugo Luevano M.D. on 02/05/2017 at 11:28 . . Cardiac Echo Impressions ECHO Interpretation Summary Left ventricular wall thickness is mildly increased. Left ventricular systolic function is normal without focal wall motion abnormalities. The ejection fraction is estimated to be 60-65%. The right ventricle grossly appears normal in size with probable normal systolic function. Pulmonary artery pressures cannot be estimated because of the lack of a measurable TR jet velocity. The left atrium is mildly dilated. Right atrial size is normal. There is no significant valvular heart disease. There is no obvious valvular vegetation identified on this exam. Consider SEBLE if there is a high degree of clinical suspicion for endocarditis and clinically appropriate. The ascending aorta is mildly enlarged. No changes since prior echocardiograms (08/2016, 01/2015, 03/2014). Reading Physician:PM Additional Diagnostics 01/28/17 PROCEDURE: X-RAY CHEST ONE VIEW, PORTABLE IMPRESSION: Bilateral patchy confluent opacities in the lungs, appearing mildly worse when compared to 01/12/17. As previously identified, this could be related to infection including atypical like mycobacterial or fungal. However, lymphangitic spread of tumor should also be considered. Dictated by: Mela Solorio M.D. on 01/28/2017 at 20:08 Approved by: Mela Solorio M.D. on 01/28/2017 at 20:11 01/29/17 PROCEDURE: CT CHEST WITH CONTRAST IMPRESSION: 1. Increased bilateral pulmonary nodules with confluent areas of consolidation in a perilymphatic distribution. 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 The differential also includes lymphocytic interstitial pneumonia, sarcoidosis, occupational pneumoconiosis, and amyloidosis. Dictated by: Giovanni Stoll M.D. on 01/29/2017 at 11:07 Approved by: Giovanni Stoll M.D. on 01/29/2017 at 11:19 . 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 # Acute hypoxemic respiratory failure, present on admission. 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 -Continue with supplemental Oxygen -Chest CT shows worsening bilateral infiltrates as compared to the CT of the chest done on January 12 -Percutaneous pulmonary biopsy and VATS are not an option for the patient right now due to his respiratory status. -Continue antibiotics, antifungal, antiviral as recommended by ID. -Follow up on the biopsy reports. -Continue steroids. # Status post CT-guided biopsy of right lung with complications leading to right-sided pneumothorax post chest tube placement on 02/06/17 - Without any evidence of air leak at this time. - Appreciate pulmonology and surgery consults. 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 - Appreciate Oncology consult by Dr. Thomas. Will followup with recommendations. - Decrease Bactrim to one tablet daily and start minocycline, 100 mg twice a day orally for PCP prophylaxis. # Acute kidney injury, not present on admission. Resolved wit IV fluid - Continue to monitor # Acute Electrolyte disturbances, hyponatremia, hyperkalemia, not present on admission. Resolved -Continue to monitor # Acute transaminitis, mild, not present on admission. Improving - Mild elevation of AST and ALT, most likely due to antibiotic' s toxicity especially cresemba - Continue to monitor # Chronic and recurrent CMV - Continue valacyclovir 1000 mg BID. # Type 2 diabetes mellitus, chronic, presume stable. - Continue NPH insulin 50 units twice a day - Last A1c was 5.5 # Seizure disorder, chronic, presume stable. - Continue Keppra 500 mg BID. # Hypertension, chronic, presume stable. - Continue metoprolol tartrate 25 mg BID. # Depression, chronic, presume stable. - Continue citalopram 20 mg daily. Dispo: 2-3 days GI Prophylaxis: H2 jeanie VTE Prophylaxis: Sub-Q Heparin (Unfractionated) Resuscitation Status: CPR: Attempt Resuscitation Artur Romero Feb 07, 2017 18:10 Disposition: Patient in acute hypoxic respiratory failure of unclear etiology, may need several days of inpatient hospitalization for workup and treatment. Pain Evaluation: Adequate Pain Control 1. secondary to problem #2. 2. Bilateral diffuse infiltrative process, inflammatory versus infectious process. Patient is currently empirically covered with antibacterial, antiviral, and antifungal medications as recommended by Infectious Disease, and he is also receiving high-dose steroid for probable underlying inflammatory process. Patient is 3. History of ALL, status post bone marrow transplant three years ago. Appears to be in remission per Oncology. RECOMMENDATION: 1. At this time, will continue steroids. 2. Will continue antibiotics, antifungal, antiviral as recommended by ID. 3. Will follow up on the biopsy reports. 4. Continue otherwise supportive care. GI Prophylaxis: H2 jeanie VTE Prophylaxis: Sub-Q Heparin (Unfractionated) Resuscitation Status: CPR: Attempt Resuscitation Artur Romero Feb 07, 2017 18:10
[2017-02-08] VITALS (8 sets, daily range): BP systolic 134–148; BP diastolic 64–87; PULSE 55–74; RESP 14–20; O2SAT 90–98
[2017-02-08] MEDS: Meropenem Inj 2,000 MG in 0.9% Sodium Chloride 100 ML IV SCH ×3 (00:33→17:32)
[2017-02-08] MEDS: Heparin 5,000 Unit/mL Inj SUBQ SCH ×3 (00:33→17:31)
--- NOTE | 2017-02-08 03:36 | NUR ---
P) Respiratory Alert pt. resting quietly in bed, lots of visitors tonight, denied pain until he apparently moved himself in the bed, then had pain 7/10 at chest tube site. Lungs slightly coarse and decreased, breath sounds greater on the R than the Left. Chest tube in place with a minimal amount of sanguinous drainage, no crepitus or air leak noted. I) Meds per 's orders, one oxycodone. E) Pt. stated oxycodone helped a lot.
[2017-02-08] MEDS: Insulin LISPRO 300 Unit/3 mL Inj SUBQ SCH ×4 (07:53→21:33)
[2017-02-08] MEDS: levETIRAcetam 500 mg Tablet PO SCH ×2 (07:54→20:16)
[2017-02-08] MEDS: MethylprednisoLONE Sodium Succinate 40 mg/mL Inj IVPUSH SCH ×2 (07:54→21:27)
[2017-02-08] MEDS: Sodium Chloride LOK Flush 10 mL Syringe IVFLUSH SCH ×2 (07:55→16:30)
[2017-02-08] MEDS: Trimethoprim-Sulfa 160 mg-800 mg Tablet PO SCH (07:55)
[2017-02-08] MEDS: Polyethylene Glycol (PEG) 17 Gm Powder PO SCH (07:56)
[2017-02-08 08:36] LABS: BASOPHILS % (AUTO) 0.1 % (0-3); EOSINOPHILS % (AUTO) 0 % (0-5); MONOCYTES % (AUTO) 6.5 % (4-12); Mean Corpuscular Hemoglobin 34.7 pg (27.0-35.0); Mean Corpuscular Volume 103.6 fL (81-100); Platelet Count 233 bil/L (150-400)
--- NOTE | 2017-02-08 09:41 | DRSVH ---
PROCEDURE: X-RAY CHEST ONE VIEW ([id number]) INDICATIONS: pneumothorax TECHNIQUE: One view of the chest was acquired. COMPARISON: [facility], CR, XR CHEST 1VW (PORTABLE), 02/07/2017, 3:56. [facility], CR, XR CHEST 1VW, 02/05/2017, 9:15. FINDINGS: Surgical changes and devices: Right-sided pigtail chest tube is stable in position. Lungs and pleura: Right-sided pneumothorax has increased in size compared to 02/07/2017. Patchy opacit ies in the lungs bilaterally unchanged. Mediastinum: Mediastinal contours appear normal. Heart size is normal. Bones and chest wall: No suspicious bony lesions. Overlying soft tissues appear unremarkable. IMPRESSION: 1. Enlarging, moderate-sized, right-sided pneumothorax. 2. Findings telephoned to Dr. Romero on 02/08/2017 at 0935 hours. Dictated by: Deepti Quintero MD, PhD on 02/08/2017 at 9:25 Approved by: Deepti Quintero MD, PhD on 02/08/2017 at 9:40
--- NOTE | 2017-02-08 10:36 | PROG NOTE ---
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 He denies any concern of cough, fever, chills, chest pain. OBJECTIVE: Vital signs include blood pressure 146/79, respiratory rate is 17-20, temperature 36.4, pulse is 58, pulse ox is 95% on 2 L via Oxymizer. Lungs are clear to auscultation. Cardiovascular exam with minimal rhonchi at the right base. Cardiovascular exam rate and rhythm regular. Abdomen is soft, no hepatosplenomegaly. Bowel sounds positive. Extremities: Edema feet negative. Neurologic exam no focal deficit appreciated. HEENT exam within normal limits. Skin exam within normal limits. Lymphatic exam no focal lymphadenopathy appreciated. ANCILLARY DATA: Includes Gram stain and C and S on surgical tissue obtained on February 06 is so far negative for any growth. Rest of the studies still pending. Data otherwise white count of 9.9, hemoglobin 12.7, hematocrit 37.9, platelets are 233. Chemistry revealed sodium 133, potassium 5.4, chloride 102, bicarb is 23, BUN 30, creatinine 1.01. Glucose is 164. Calcifium is 8.5. Magnesium is not available. A chest x-ray done this morning is evident of worsened right-sided pneumothorax. Chest tube appears to be in the soft tissue. ASSESSMENT: 1. Acute hypoxemic respiratory failure secondary to problem #2. Bilateral diffuse infiltrative process, inflammatory versus infectious process. Most likely, inflammatory process. Patient is currently on empiric antibiotic, antifungal, and antiviral along with systemic steroids. The patient is currently status post CT-guided biopsy on February 06, 2017. So far Gram stain and C and S is negative. Rest of the studies and pathology are still pending. 2. Right-sided pneumothorax appeared to be slightly greater than yesterday. This pneumothorax is a complication of the procedure that was CT-guided biopsy. Chest tube appeared to be within the soft tissue. 3. 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 4. Acute kidney injury. Appeared to have resolved. RECOMMENDATION: 1. At this time will continue systemic steroids. 2. Will continue antibiotics, antifungal, and antiviral as per recommendation per ID. 3. Follow up on the pathology and rest of the cultures on CT-guided biopsy on Thursday. 4. I discussed with Dr. Romero who is the admitting physician regarding the need of manipulation of the chest tube either repositioning or having a new chest tube to resolve his pneumothorax as patient does not have any pulmonary reserve to tolerate a small insult on top of his underlying pulmonary pathology. He is going to consult with interventional radiology again regarding the chest tube placement or repositioning of the chest tube and if they are not available he will communicate with the surgery for further help. Meanwhile will increase FiO2 to keep saturation above 92%. Will follow along with you. Thirty-five minutes of time provided in care of this patient.
--- NOTE | 2017-02-08 14:19 | PCM.PNMED ---
Subjective Date of Service Feb 08, 2017 Subjective Denies any pain or discomfort. Says breathing seems to be improving Exam Vital Signs Vital Sign - Last Date Time Temp Pulse Resp B/P Pulse Ox O2 Delivery O2 Flow Rate FiO2 02/08/17 12:55 36.7 67 15 139/87 98 OxyMask 4.00 02/06/17 12:00 50 Intake and Output 02/07/17 02/07/17 02/08/17 Cumulative From/Thru 15:00 23:00 07:00 01/28/17 19:30 - 02/08/17 06:26 Intake Total 1710 ml 447 ml 83324 ml Output Total 740 ml 1 ml 03609 ml Balance 970 ml 446 ml 6126 ml Intake Oral 900 ml 200 ml 9060 ml IV Total 810 ml 247 ml 7685 ml Output Urine Total 700 ml 67402 ml Chest Tube Drainage Total 40 ml 40 ml Drainage Total 1 ml 1 ml # Voids 2 16 # Bowel Movements 1 5 Exam General: Alert, Cooperative, No Acute Distress Head: Normal Eyes: Scleral Anicteric Nose: Mucous Membr Moist/[place] Mouth: Mucous Membr Moist/[place] Neck: Supple Chest & Lungs: Clear to auscultation, Other (right chest tube in place) Cardiovascular: Regular Rate/Rhythm Pulses: NL carotid, radial, femoral, DP, PT Abdomen: Non-tender, Non-distended, Normoactive bowel tones, Soft Extremities: No cyanosis/clubbing/edema bilat Neurological: Grossly Neurologically Intact, Normal Speech IVs and Medications Medications Reviewed: Medications were reviewed in detail Lab and Diagnostics Result Diagram: 02/08/1725 02/08/17 0825 Microbiology Microbiology 01/28/17 Blood Culture, Received Pending 01/29/17 MRSA (PCR) - Negative 01/29/17 Influenza Screen - Negative 01/29/17 Streptococcus pneumoniae Ag Screen - Negative 01/29/17 Nasopharyngeal viral PCR all negative, including CMV Serology: cryptococcus Ag negative, CMV DNA negative, fungal antibodies negative , Urine L. pneumophilia Ag negative, A. galactomannan Ag 0.03 . X-Rays, CTs and MRIs X-RAY CHEST IMPRESSION: Overall, stable examination since yesterday minimal with redemonstration of low lung volumes and widespread bilateral consolidative opacities. Dictated and approved by: Ugo Luevano M.D. on 02/05/2017 at 11:28 X-RAY CHEST IMPRESSION: Bilateral patchy confluent opacities in the lungs, appearing mildly worse when compared to 01/12/17. As previously identified, this could be related to infection including atypical like mycobacterial or fungal. However, lymphangitic spread of tumor should also be considered. Dictated and approved by: Mela Solorio M.D. on 01/28/2017 at 20:08 CT CHEST WITH CONTRAST IMPRESSION: 1. Increased bilateral pulmonary nodules with confluent areas of consolidation in a perilymphatic distribution. 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 The differential also includes lymphocytic interstitial pneumonia, sarcoidosis, occupational pneumoconiosis, and amyloidosis. Dictated and approved by: Giovanni Stoll M.D. on 01/29/2017 at 11:07 X-RAY CHEST IMPRESSION: Relatively severe patchy bilateral moderate and moderately severe alveolar opacification best seen by recent CT scanning 4 days ago. No contraindication to anticipated lung biopsy scheduled for later today. Dictated and approved by: Parag Lemus M.D. on 02/02/2017 at 9:18 X-RAY CHEST IMPRESSION: Relatively severe patchy bilateral moderate and moderately severe alveolar opacification best seen by recent CT scanning 4 days ago. No contraindication to anticipated lung biopsy scheduled for later today. Dictated and approved by: Parag Lemus M.D. on 02/02/2017 at 9:18 X-RAY CHEST IMPRESSION: Bilateral patchy consolidations are unchanged. Dictated by: Suzi Gu M.D. on 02/03/2017 at 8:37 Date of Service: 02/04/17 0500 X-RAY CHEST IMPRESSION: Stable bilateral moderately severe patchy pneumonia, symmetric. Dictated by: Parag Lemus M.D. on 02/04/2017 at 9:51 Approved by: Parag Lemus M.D. on 02/04/2017 at 9:52 X-RAY CHEST IMPRESSION: Overall, stable examination since yesterday minimal with redemonstration of low lung volumes and widespread bilateral consolidative opacities. Dictated by: Ugo Luevano M.D. on 02/05/2017 at 11:28 . . Cardiac Echo Impressions ECHO Interpretation Summary Left ventricular wall thickness is mildly increased. Left ventricular systolic function is normal without focal wall motion abnormalities. The ejection fraction is estimated to be 60-65%. The right ventricle grossly appears normal in size with probable normal systolic function. Pulmonary artery pressures cannot be estimated because of the lack of a measurable TR jet velocity. The left atrium is mildly dilated. Right atrial size is normal. There is no significant valvular heart disease. There is no obvious valvular vegetation identified on this exam. Consider SEBLE if there is a high degree of clinical suspicion for endocarditis and clinically appropriate. The ascending aorta is mildly enlarged. No changes since prior echocardiograms (08/2016, 01/2015, 03/2014). Reading Physician:AMADOU Additional Diagnostics 01/28/17 PROCEDURE: X-RAY CHEST ONE VIEW, PORTABLE IMPRESSION: Bilateral patchy confluent opacities in the lungs, appearing mildly worse when compared to 01/12/17. As previously identified, this could be related to infection including atypical like mycobacterial or fungal. However, lymphangitic spread of tumor should also be considered. Dictated by: Mela Solorio M.D. on 01/28/2017 at 20:08 Approved by: Mela Solorio M.D. on 01/28/2017 at 20:11 01/29/17 PROCEDURE: CT CHEST WITH CONTRAST IMPRESSION: 1. Increased bilateral pulmonary nodules with confluent areas of consolidation in a perilymphatic distribution. 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 The differential also includes lymphocytic interstitial pneumonia, sarcoidosis, occupational pneumoconiosis, and amyloidosis. Dictated by: Giovanni Stoll M.D. on 01/29/2017 at 11:07 Approved by: Giovanni Stoll M.D. on 01/29/2017 at 11:19 . 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 # Acute hypoxemic respiratory failure, present on admission. 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 -Continue with supplemental Oxygen -Chest CT shows worsening bilateral infiltrates as compared to the CT of the chest done on January 12 -Percutaneous pulmonary biopsy and VATS are not an option for the patient right now due to his respiratory status. -Continue antibiotics, antifungal, antiviral as recommended by ID. -Follow up on the biopsy reports. -Continue steroids. # Status post CT-guided biopsy of right lung with complications leading to right-sided pneumothorax - Post chest tube placement on 02/06/17 - CXR today showing enlarging pneumothorax. - Discussed with radiology, pulmonology and surgery. Appreciate surgery consult help in managing the chest tube. 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 - Appreciate Oncology consult by Dr. Thomas. Will followup with recommendations. - Decrease Bactrim to one tablet daily and start minocycline, 100 mg twice a day orally for PCP prophylaxis. # Acute kidney injury, not present on admission. Resolved wit IV fluid - Continue to monitor # Acute Electrolyte disturbances, hyponatremia, hyperkalemia, not present on admission. Resolved -Continue to monitor # Acute transaminitis, mild, not present on admission. Improving - Mild elevation of AST and ALT, most likely due to antibiotic' s toxicity especially cresemba - Continue to monitor # Chronic and recurrent CMV - Continue valacyclovir 1000 mg BID. # Type 2 diabetes mellitus, chronic, presume stable. - Continue NPH insulin 50 units twice a day - Last A1c was 5.5 # Seizure disorder, chronic, presume stable. - Continue Keppra 500 mg BID. # Hypertension, chronic, presume stable. - Continue metoprolol tartrate 25 mg BID. # Depression, chronic, presume stable. - Continue citalopram 20 mg daily. Dispo: 2-3 days GI Prophylaxis: H2 jeanie VTE Prophylaxis: Sub-Q Heparin (Unfractionated) Resuscitation Status: CPR: Attempt Resuscitation Artur Romero Feb 08, 2017 14:19
--- NOTE | 2017-02-08 14:34 | CONS ---
[address] [address] CONSULTATION REPORT PATIENT: GERRY VILLALPANDO : 1960 MR#: [id number] ADMIT: 01/28/2017 JOB ID: [id number] DATE OF SERVICE: 02/08/2017 REQUESTED BY: Artur Romero MD. REASON FOR CONSULTATION: Iatrogenic right pneumothorax. HISTORY: The patient is a 56-year-old man who had a percutaneous lung biopsy on February 06, 2017. Pathology is pending. The indication was bilateral pulmonary infiltrates. He had a pneumothorax and a percutaneous pigtail catheter was placed, but today's chest x-ray showed an increased moderate-sized right-sided pneumothorax. I was consulted. The patient is non-Swazi speaking. I saw him with his nurse, Erika, functioning as an bar assistant. His is also present in the room and she is also a patient of mine. He currently states he has no chest pain and no shortness of breath. He states he feels no different than he did yesterday. He is on subcutaneous heparin but no other anticoagulants. He has never had a previous chest tube. ALLERGIES: 1. GABAPENTIN. 2. LINEZOLID. 3. OSELTA. REVIEW OF SYSTEMS: Otherwise negative. He was previously seen by our team for consideration of a lung biopsy but was felt by Anesthesia not to be stable enough to go to the operating room. PHYSICAL EXAMINATION: Alert, no acute distress. BMI 28.5, temperature 36.4, brachial blood pressure 146/79, pulse 58, respiratory rate is 17. O2 sat on 2 L 95%. HEENT: No scleral icterus. Neck: No subcutaneous air, crepitus. Lungs: Clear. Right chest: Pleural catheter placed right laterally and it is kinked after it comes out of the skin. Cardiac exam: Regular rhythm. No murmurs or gallops appreciated. Chest x-ray from today: Increased right pneumothorax without tension. IMPRESSION: He has an increased right pneumothorax. It is possible that it is simply due to the fact that the catheter was kinked after it exited the skin. I have straightened it out and it is being retaped to prevent further kinking. I discussed options with him. The first intervention I would attempt would be a thoracentesis, simply pumping the air out by using an angio catheter, a three-way stopcock and a 60 cc syringe placed through the midclavicular line anteriorly in the 2nd or 3rd intercostal space. I discussed this with him. Another option would be to place a small apical chest tube. A 3rd option, especially with the fact that the indwelling catheter was kinked, is that we repeat a chest x-ray later this afternoon and to see if this has progressed or diminished. I think because he has already had a complication from an intervention, he is not excited about any further intervention at this time as he does not notice any change of symptoms. Therefore, I am going to repeat a chest x-ray later this afternoon and tomorrow morning. However, if it increases, I think he should have something done. If it is stable to improved, I think he could be further observed. Erika, his nurse, functioned as an bar assistant. The patient is non-Swazi speaking. I also discussed this with his as she is present. I have her scheduled for an elective operation in a couple of weeks and she knows if she needs to, she could postpone her operation. Time spent with patient, family and in coordination of care, one hour.
--- NOTE | 2017-02-08 17:18 | DRSVH ---
PROCEDURE: X-RAY CHEST ONE VIEW, PORTABLE ([id number]) INDICATIONS: pneumothorax TECHNIQUE: One view of the chest was acquired. COMPARISON: [facility], CR, XR CHEST 1VW, 02/08/2017, 8:05. FINDINGS: Surgical changes and devices: Right-sided pigtail chest tube is stable compared to prior examination . Cholecystectomy clips are stable. Lungs and pleura: Moderate-sized right-sided pneumothorax stable to slightly increased in size dioni red to 02/08/17 at 0810 hrs. Patchy bilateral lung opacities are stable. Mediastinum: Mediastinal contours appear normal. Heart size is normal. Bones and chest wall: No suspicious bony lesions. Overlying soft tissues appear unremarkable. IMPRESSION: Moderate-sized, right-sided pneumothorax stable to slightly increased in size compared t o 02/08/17 at 0810 hrs. Dictated by: Deepti Quintero MD, PhD on 02/08/2017 at 17:15 Approved by: Deepti Quintero MD, PhD on 02/08/2017 at 17:17
--- NOTE | 2017-02-08 20:19 | NUR ---
Respiratory/Chest tube: Received call from Dr Merida whom requested that this RN aspirate air/fluid from existing chest drain. Total sero-sanguineous fluid aspirated was 40cc and 60cc of air total. Pt reports breathing is the same or minimally better than before aspiration. SpO2: maintains mid 90's on 4L oxymask. Dr Merida was made aware of the findings and stated that chest x-ray will be repeated in the AM. NOC nurse made aware and Dr Merida should be called with any complications.
[2017-02-09] VITALS (7 sets, daily range): BP systolic 144–165; BP diastolic 78–82; PULSE 56–77; RESP 14–19; O2SAT 95–97
[2017-02-09] MEDS: Sodium Chloride LOK Flush 10 mL Syringe IVFLUSH SCH ×3 (00:19→16:33)
[2017-02-09] MEDS: Heparin 5,000 Unit/mL Inj SUBQ SCH ×3 (00:19→16:33)
[2017-02-09] MEDS: Meropenem Inj 2,000 MG in 0.9% Sodium Chloride 100 ML IV SCH ×2 (00:19→07:59)
[2017-02-09] MEDS: Dextrose 5% 0.9% NaCl 1,000 ML IV SCH (04:57)
--- NOTE | 2017-02-09 06:18 | NUR ---
resp status ls-= clear on left , right with air movement t/o but mildly decreased, right base with fine faint crackles, right lateral chest tube drain in place with 3ml's of serousang output during this shift, ct to 20cm wall suction, no air leak or crepitus noted, dressing with same amount of serousang drainage as per report, resp rate in teens, pt denies sob at rest or when moving self in bed, pt able to sleep with hob at 20 degrees, sats upper 90's on 4 liters o2 per oxymask, tele- sb/sr, denies cp, see ccu flow sheet for vital signs, afebrile, denies n/v, abd round/soft, bt present, no stool, antonio po liquids well during night, rodney uop per urinal, pt's at bedside and helps pt with adl's, community health nurse supervisor offered to pt, his and family, family at bedside during evening spoke very good swedish, pt's understands fair amount of swedish, pt /pt's family state they will request community health nurse supervisor as they feel they need one, pt's spent night at bedside and appeared happy with care, md aware sodium level decreasing, see ccu flow sheet, plan: monitor pt's resp status, am cxr done,
[2017-02-09] MEDS: Trimethoprim-Sulfa 160 mg-800 mg Tablet PO SCH (07:57)
[2017-02-09] MEDS: Polyethylene Glycol (PEG) 17 Gm Powder PO SCH (07:58)
[2017-02-09] MEDS: levETIRAcetam 500 mg Tablet PO SCH ×2 (07:58→20:32)
[2017-02-09] MEDS: MethylprednisoLONE Sodium Succinate 40 mg/mL Inj IVPUSH SCH (07:59)
[2017-02-09] MEDS: Insulin LISPRO 300 Unit/3 mL Inj SUBQ SCH ×4 (08:01→21:40)
--- NOTE | 2017-02-09 08:50 | PCM.PNSURG ---
Subjective Date of Service: Feb 09, 2017 Date of Service: Feb 09, 2017 Visit Information: Reason for Visit Resp Failure Surgery/Surgery Date Post-Op Day # Date of Admission: Jan 28, 2017 at 18:48 Hospital Day # Subjective: The patient is a 56-year-old man who had a percutaneous lung biopsy on January. Pathology is pending. The indication was bilateral pulmonary infiltrates. He had a pneumothorax and a percutaneous pigtail catheter was placed, but today's chest x-ray showed an increased moderate-sized right-sided pneumothorax. Patient is a [place] speaking gentleman. Jennie was present and actin as motor vehicle parts interpreter during the interview Patient's is also present in the room. He currently states he has no chest pain and no shortness of breath. He states he feels no different than he did yesterday. He would like to await a decision regarding chest tube till a bit later today. Objective Vital Sign- Last 8 Hours Date Time Temp Pulse Resp B/P Pulse Ox O2 Delivery O2 Flow Rate FiO2 02/09/17 04:00 36.6 56 16 144/78 96 OxyMask 4.00 02/09/17 04:00 Supplement Oxygen 02/09/17 04:00 56 Intake and Output- Last 8 Hour 02/09/17 Cumulative From/Thru 07:00 01/28/17 19:30 - 02/09/17 05:44 Intake Total 455 ml 22683 ml Output Total 1528 ml 25701 ml Balance -1073 ml 7153 ml Intake Oral 300 ml 15728 ml IV Total 155 ml 8345 ml Output Urine Total 1525 ml 02357 ml Chest Tube Drainage Total 40 ml Drainage Total 3 ml 9 ml # Voids 17 # Bowel Movements 0 5 General: Alert, Oriented X3 Lungs: Diminished, Wheezes, Other (right lateral pleural catheter in place. ) Heart: Regular Rate/Rhythm Abdomen: Benign, Soft Result Diagram: 02/08/17 0825 02/09/17 0400 Assessment & Plan Impression He has a right pneumothorax that is stable from yesterday's CXR without change in patient vitals. It is possible that it is simply due to the fact that the catheter was kinked after it exited the skin. Problems: Plan We discussed options with him regarding stable small right pneumothorax. 1. Place a chest tube. 2. Do nothing, wait and watch. 3. Attempt a thoracentesis. For now we will turn suction off of right lateral pleural catheter and repeat C- XR today. If it increases, I think we should have something done. If it is stable to improved, I think he could befurther observed. VTE Prophylaxis: Sub-Q Heparin (Unfractionated) Resuscitation Status: CPR: Attempt Resuscitation Attending Statement: I examined the pt and I agree with Dr. Storey's assessment and plan. BRODIE STOREY DO Feb 09, 2017 08:41 Izaiah Corbett MD Feb 11, 2017 18:15
--- NOTE | 2017-02-09 08:59 | PCM.PNSURG ---
Subjective Date of Service: Feb 09, 2017 Visit Information: Reason for Visit Resp Failure Surgery/Surgery Date Post-Op Day # Date of Admission: Jan 28, 2017 at 18:48 Hospital Day #13 Subjective: This patient was examined with the assistance of the hospital sheep sorter. The patient believes that his reading is at baseline, no worse than yesterday. Denies shortness of breath, PND, orthopnea. Endorses occasional nonproductive cough. No complaints of pain. Postop General: No Shortness of Breath, Other (as above) Pain Management: PO, No or Minimal Pain Objective Vital Sign- Last 8 Hours Date Time Temp Pulse Resp B/P Pulse Ox O2 Delivery O2 Flow Rate FiO2 02/09/17 04:00 36.6 56 16 144/78 96 OxyMask 4.00 02/09/17 04:00 Supplement Oxygen 02/09/17 04:00 56 Intake and Output- Last 8 Hour 02/09/17 Cumulative From/Thru 07:00 01/28/17 19:30 - 02/09/17 05:44 Intake Total 455 ml 80412 ml Output Total 1528 ml 24300 ml Balance -1073 ml 7153 ml Intake Oral 300 ml 20614 ml IV Total 155 ml 8345 ml Output Urine Total 1525 ml 77105 ml Chest Tube Drainage Total 40 ml Drainage Total 3 ml 9 ml # Voids 17 # Bowel Movements 0 5 General: Alert, Cooperative, No Acute Distress Lungs: Other (decreased at right apex) Heart: Other (irregular) Chest: Minimal chest tube output, no air leak Extremities: Thigh&Calf Soft/Nontender Neuro: Normal Speech Catheters: None Result Diagram: 02/08/17 0825 02/09/17 0400 Diagnostics: Morning chest x-ray reviewed with Dr. Lemus, no change in pneumothorax from yesterday. Assessment & Plan Impression Primary diagnoses: 1. Iatrogenic right pneumothorax. Stable persistent small right pneumothorax. 2. Pulmonary and perihilar opacification, inflammatory versus infectious 3. Acute hypoxemic respiratory failure. Stable at this time. Other chronic conditions: 1. Diabetes mellitus type 2 2. Chronic and recurrent CMV 3. 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 Hypertension 5. Depression 6. Former cigarette smoker 7. Chronic seizure disorder Problems: Plan Chest drain to waterseal. Repeat chest x-ray in 2 hours. If pneumothorax is stable will leave on waterseal and repeat chest x-ray in the morning. This plan was implemented at Dr. Corbett's direction. Pain Management: Oral analgesic VTE Prophylaxis: Sub-Q Heparin (Unfractionated) Resuscitation Status: CPR: Attempt Resuscitation Espinoza Amado PA-C Feb 09, 2017 08:59
--- NOTE | 2017-02-09 09:43 | DRSVH ---
PROCEDURE: X-RAY CHEST ONE VIEW, PORTABLE ([id number]) INDICATIONS: pneumothorax TECHNIQUE: One view of the chest was acquired. COMPARISON: [facility], CR, XR CHEST 1VW, 02/08/2017, 8:05. [facility], CR, XR CHEST 1VW (PORTABLE), 02/07/2017, 3:56. [facility], CT, CT BX LUNG MEDIASTINUM, 017, 13:46. [facility], CR, XR CHEST 1VW (PORTABLE), 02/08/2017, 16:50. FINDINGS: Surgical changes and devices: Right-sided pigtail chest tube is stable compared to prior examination . Cholecystectomy clips are stable. Lungs and pleura: Moderate-sized right-sided pneumothorax stable in size compared to 02/08/17 at 0810 hrs. Patchy bilateral lung opacities are stable. Mediastinum: Mediastinal contours appear normal. Heart size is normal. Bones and chest wall: No suspicious bony lesions. Overlying soft tissues appear unremarkable. IMPRESSION: 1. Stable positioning of right basilar pigtail catheter and size of moderate right pneumothorax. Dictated by: Al Amaya [facility] Interpreted: Parag Lemus MD on 02/09/2017 at 9:40 Transcribed by: JOSELO on 02/09/2017 at 9:42 Approved by: Parag Lemus M.D. on 02/09/2017 at 10:52
--- NOTE | 2017-02-09 09:57 | PROG NOTE ---
[address] [address] PROGRESS NOTE PATIENT: GERRY VILLALPANDO : 1960 MR#: [id number] ADMIT: 01/28/2017 JOB ID: [id number] DATE: 02/09/2017 REASON FOR FOLLOW UP: Respiratory failure and pulmonary infiltrates in a patient status post transplant for AML. INTERVAL HISTORY: Recall that last week, the patient was struggling with very borderline respiratory function and was near intubation most of the week on high-flow oxygen. On Thursday, he underwent Interventional Radiology lung biopsy on the right side. As a complication of this, he developed a pneumothorax but otherwise tolerated the procedure reasonably well. Starting really on late and especially Thursday and over the weekend, the patient's respiratory status, however, has improved considerably. He now reports he is less short of breath at rest and with exertion, and his O2 requirements have declined considerably. No fevers or chills. No productive cough. No significant pain, though he does have a pigtail drain in his right chest because of his pneumothorax there. No abdominal complaints, nausea, vomiting or diarrhea. PHYSICAL EXAMINATION: Reveals an afebrile gentleman, who looks much more comfortable when I last saw him two days ago. Temp 36.6, pulse 56, respiratory rate 16, blood pressure 124/78. He is saturating well on 4 L at this time. His mental status is clear. Conjunctivae normal. Oral cavity benign. Lungs with a few crackles at the bases but not impressive and better than it was on Thursday. His cardiac tones without new murmur. Abdomen soft and nontender. No skin rash at all. Neurologically intact. LABORATORIES: Include a white count down to 9900. His creatinine is 1.08, which is steady. LFTs normal except for an ALT 51, albumin 2.3. Urinalysis without white cells. EBV serology, EBV PCR is pending. Crypto antigen, CMV PCR, galactomannan and Fungitell are negative. All cultures from this admission are negative, and that includes the lung biopsies from the in the afternoon. Those cultures are also negative. We await multiple studies including PCR, cytology, histology and flow cytometry. IMAGING: Includes today's chest x-ray which shows continued right-sided pneumothorax and the bilateral infiltrates. IMPRESSION: Over the past four days or so, there has really been a pretty steady improvement of this patient's course. The difficult question at this point is whether the improvement was due to minocycline, meropenem, Cresemba, or the steroids. We have no proof at this point of a bacterial process and I am inclined to doubt this is a conventional bacteria. Also possible would be Nocardia, and he has been on minocycline for several days, so it is possible that is what is causing his improvement, though I tend to doubt it. A bigger concern would be the possibility that this is a fungal process. The steroids are aimed at multiple possibilities including cough or posttransplant April-[place] virus associated process. My hunch is that the steroids are the main factor here, but it is very difficult to say that the Cresemba or even possibly the minocycline is not causing this improvement. RECOMMENDATIONS: 1. Will go ahead and stop the meropenem today. 2. We await the many lung studies that were sent on Thursday. 3. I have been in close contact with the micro lab to make sure all the specimens are properly process. 4. I will be presenting this case to the [facility] transplant group later this morning and will have additional input into the case later today or tomorrow morning at the latest.
--- NOTE | 2017-02-09 10:41 | DRSVH ---
PROCEDURE: X-RAY CHEST ONE VIEW, PORTABLE ([id number]) INDICATIONS: RIGHT PNEUMOTHORAX TECHNIQUE: One view of the chest was acquired. COMPARISON: [facility], CR, XR CHEST 1VW (PORTABLE), 02/08/2017, 16:50. [facility], CR, XR CHEST 1VW (PORTABLE), 02/09/2017, 4:30. FINDINGS: Surgical changes and devices: A right lateral pigtail catheter is redemonstrated. Lungs and pleura: There is a small right pneumothorax which is unchanged from the study from earlier today. As before, there are diffuse patchy pulmonary opacities bilaterally which are unchanged. Mediastinum: Mediastinal contours appear normal. Heart size is normal. Bones and chest wall: No suspicious bony lesions. Trace subcutaneous emphysema is present around the pigtail drain. IMPRESSION: 1. Stable right pneumothorax. Of note, patient indicates emphysema is present at the pigtail drain. T his suggests that some of the drain sideholes may be extrapleural. Dictated by: Sandra Amaya M.D. on 02/09/2017 at 10:34 Approved by: Sandra Amaya M.D. on 02/09/2017 at 10:39
--- NOTE | 2017-02-09 11:21 | PCM.PNMED ---
Subjective Date of Service Feb 09, 2017 Subjective This morning patient states that he is feeling well and would like to get up out of bed. He has some swelling in his hands that is new. He states that he is eating well. Other than the chronic photosensitivity secondary to cancer treatment and the chronic neuropathy B/L feet, he denies pain. Also denies pleuritic pain, nausea, diarrhea, dizziness, headache. Exam Vital Signs Vital Sign - Last Date Time Temp Pulse Resp B/P Pulse Ox O2 Delivery O2 Flow Rate FiO2 02/09/17 08:00 Supplement Oxygen 02/09/17 08:00 36.8 58 16 165/80 96 4.00 02/06/17 12:00 50 Intake and Output 02/08/17 02/08/17 02/09/17 Cumulative From/Thru 15:00 23:00 07:00 01/28/17 19:30 - 02/09/17 05:44 Intake Total 3205 ml 455 ml 43687 ml Output Total 1105 ml 1528 ml 96837 ml Balance 2100 ml -1073 ml 7153 ml Intake Oral 2700 ml 300 ml 85870 ml IV Total 505 ml 155 ml 8345 ml Output Urine Total 1100 ml 1525 ml 18745 ml Chest Tube Drainage Total 40 ml Drainage Total 5 ml 3 ml 9 ml # Voids 1 17 # Bowel Movements 0 0 5 Exam General: No acute distress. Lying in bed. HEENT: NC/AT Lungs: Very mild crackles b/l lung bases, otherwise clear to auscultation. Saturating well on 4L by nasal canula. Speaking in full sentences without distress. Chest tube in place on right side. Heart: Regular rate and rhythm, no murmurs appreciated Abdomen: Soft and non-tender Extremities: Mild edema B/L hands, no edema in LE, equal B/L posterior tibial pulses Skin: Skin around chest tube site is not edematous and nontender Neuro: EOMI Psych: Appropriate mood and effect . IVs and Medications Medications Reviewed: Medications were reviewed in detail Lab and Diagnostics Result Diagram: 02/08/17 0825 02/09/17 0400 Microbiology Microbiology 01/28/17 Blood Culture, no growth 01/29/17 MRSA (PCR) - Negative 01/29/17 Influenza Screen - Negative 01/29/17 Streptococcus pneumoniae Ag Screen - Negative 01/29/17 Nasopharyngeal viral PCR all negative, including CMV Serology: cryptococcus Ag negative, CMV DNA negative, fungal antibodies negative , Urine L. pneumophilia Ag negative, A. galactomannan Ag 0.03 . X-Rays, CTs and MRIs X-RAY CHEST IMPRESSION: Overall, stable examination since yesterday minimal with redemonstration of low lung volumes and widespread bilateral consolidative opacities. Dictated and approved by: Ugo Luevano M.D. on 02/05/2017 at 11:28 X-RAY CHEST IMPRESSION: Bilateral patchy confluent opacities in the lungs, appearing mildly worse when compared to 01/12/17. As previously identified, this could be related to infection including atypical like mycobacterial or fungal. However, lymphangitic spread of tumor should also be considered. Dictated and approved by: Mela Solorio M.D. on 01/28/2017 at 20:08 CT CHEST WITH CONTRAST IMPRESSION: 1. Increased bilateral pulmonary nodules with confluent areas of consolidation in a perilymphatic distribution. 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 The differential also includes lymphocytic interstitial pneumonia, sarcoidosis, occupational pneumoconiosis, and amyloidosis. Dictated and approved by: Giovanni Stoll M.D. on 01/29/2017 at 11:07 X-RAY CHEST IMPRESSION: Relatively severe patchy bilateral moderate and moderately severe alveolar opacification best seen by recent CT scanning 4 days ago. No contraindication to anticipated lung biopsy scheduled for later today. Dictated and approved by: Parag Lemus M.D. on 02/02/2017 at 9:18 X-RAY CHEST IMPRESSION: Relatively severe patchy bilateral moderate and moderately severe alveolar opacification best seen by recent CT scanning 4 days ago. No contraindication to anticipated lung biopsy scheduled for later today. Dictated and approved by: Parag Lemus M.D. on 02/02/2017 at 9:18 X-RAY CHEST IMPRESSION: Bilateral patchy consolidations are unchanged. Dictated by: Suzi Gu M.D. on 02/03/2017 at 8:37 Date of Service: 02/04/17 0500 X-RAY CHEST IMPRESSION: Stable bilateral moderately severe patchy pneumonia, symmetric. Dictated by: Parag Lemus M.D. on 02/04/2017 at 9:51 Approved by: Parag Lemus M.D. on 02/04/2017 at 9:52 X-RAY CHEST IMPRESSION: Overall, stable examination since yesterday minimal with redemonstration of low lung volumes and widespread bilateral consolidative opacities. Dictated by: Ugo Luevano M.D. on 02/05/2017 at 11:28 . X-RAY CHEST IMPRESSION: 1. Stable right pneumothorax. Of note, patient indicates emphysema is present at the pigtail drain. This suggests that some of the drain sideholes may be extrapleural. Dictated by: Sandra Amaya M.D. on 02/09/2017 at 10:34 . Cardiac Echo Impressions ECHO Interpretation Summary Left ventricular wall thickness is mildly increased. Left ventricular systolic function is normal without focal wall motion abnormalities. The ejection fraction is estimated to be 60-65%. The right ventricle grossly appears normal in size with probable normal systolic function. Pulmonary artery pressures cannot be estimated because of the lack of a measurable TR jet velocity. The left atrium is mildly dilated. Right atrial size is normal. There is no significant valvular heart disease. There is no obvious valvular vegetation identified on this exam. Consider SEBLE if there is a high degree of clinical suspicion for endocarditis and clinically appropriate. The ascending aorta is mildly enlarged. No changes since prior echocardiograms (08/2016, 01/2015, 03/2014). Reading Physician:PM Additional Diagnostics 01/28/17 PROCEDURE: X-RAY CHEST ONE VIEW, PORTABLE IMPRESSION: Bilateral patchy confluent opacities in the lungs, appearing mildly worse when compared to 01/12/17. As previously identified, this could be related to infection including atypical like mycobacterial or fungal. However, lymphangitic spread of tumor should also be considered. Dictated by: Mela Solorio M.D. on 01/28/2017 at 20:08 Approved by: Mela Solorio M.D. on 01/28/2017 at 20:11 01/29/17 PROCEDURE: CT CHEST WITH CONTRAST IMPRESSION: 1. Increased bilateral pulmonary nodules with confluent areas of consolidation in a perilymphatic distribution. 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 The differential also includes lymphocytic interstitial pneumonia, sarcoidosis, occupational pneumoconiosis, and amyloidosis. Dictated by: Giovanni Stoll M.D. on 01/29/2017 at 11:07 Approved by: Giovanni Stoll M.D. on 01/29/2017 at 11:19 . Assessment & Plan Patient is Lao-speaking. Used an senior firmware engineer through the hospital's senior firmware engineer service. Mr. 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 Hospital day 12 (02/09/17). Problem list: 1. Acute hypoxic respiratory failure, present on admission. Unknown etiology. Active 2. Acute kidney injury, not present on admission. Resolved 3. Electrolyte disturbances, hyponatremia, hyperkalemia, not present on admission. Resolved 4. Transaminitis, mild, not present on admission. Resolving 5. Chronic and recurrent CMV 6. Type 2 diabetes mellitus, chronic, stable. 7. 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 Hypertension 10. Depression Overall, patient continues to improve. Continuing to treat for infectious v. non -infectious autoimmune reaction. Now on 4 L oxygen by oxymask. Patient has chest tube in place on right side. Per surgery this morning, will check for leak, retake x-ray, possibly pull chest tube today. Had originally considered a larger chest tube today as well. Defer chest tube management to surgery. Infectious disease, Dr. Waters, has discontinued meropenem today. Continue minocycline, Cresemba, and his chronic medications: Bactrim DS and Valacyclovir. Continues to be afebrile, denies feeling feverish or chills, WBC normal. Methylprednisolone 80mg Q12 hours per oncologist, Dr. Thomas. CT guided biopsy on Thursday. Pathology is pending and will likely take a few days. Appreciate Dr. Waters who has called and confirmed that specimens are being processed. Palliative care has been consulted to help the patient and family understand the numerous specialists' tests and plans. Physical therapy when appropriate. Patient's condition, although improving, continues to be critical. Total time: 45 minutes . GI Prophylaxis: H2 jeanie VTE Prophylaxis: Sub-Q Heparin (Unfractionated) Resuscitation Status: CPR: Attempt Resuscitation Attending Statement The patient was seen and examined together with Dr. Hernandez on 02/09/2017 and I agree with the history, exam and plan as outlined in the note above. Sonia Hernandez DO Feb 09, 2017 11:21 Rusty Nuno MD February 26, 2017 14:57
--- NOTE | 2017-02-09 12:12 | PCM.PNSURG ---
Subjective Visit Information: Reason for Visit Resp Failure Surgery/Surgery Date Post-Op Day # Date of Admission: Jan 28, 2017 at 18:48 Hospital Day # Subjective: case discussed with IR twice today, and pt and his family were informed of his choices (continued observation, IR placement of 2nd pigtail, or chest tube). Repeat CXR so far have shown stable R PTX. Objective Objective R pigtail in place connected to pleurovac Vital Sign- Last 8 Hours Date Time Temp Pulse Resp B/P Pulse Ox O2 Delivery O2 Flow Rate FiO2 02/09/17 11:18 68 97 OxyMask 4.00 02/09/17 08:00 Supplement Oxygen 02/09/17 08:00 36.8 58 16 165/80 96 OxyMask 4.00 Intake and Output- Last 8 Hour 02/09/17 Cumulative From/Thru 07:00 01/28/17 19:30 - 02/09/17 05:44 Intake Total 455 ml 16378 ml Output Total 1528 ml 55734 ml Balance -1073 ml 7153 ml Intake Oral 300 ml 21524 ml IV Total 155 ml 8345 ml Output Urine Total 1525 ml 64712 ml Chest Tube Drainage Total 40 ml Drainage Total 3 ml 9 ml # Voids 17 # Bowel Movements 0 5 Result Diagram: 02/08/17 0825 02/09/17 0400 Assessment & Plan Impression R PTX s/p biopsy Problems: Plan Pt and his family have chosen continued observation. Will put R pigtail drain on suction and repeat CXR in the AM. VTE Prophylaxis: Sub-Q Heparin (Unfractionated) Resuscitation Status: CPR: Attempt Resuscitation Izaiah Corbett MD Feb 09, 2017 12:12
--- NOTE | 2017-02-09 13:01 | PCM.PALLBR ---
Palliative Care Recommendation Summary of palliative recommendations: -Symptom management (Pain/other): per Attending [facility] Hospitalist Team -DPOA/Advanced Directives/POLST: 1. Code Status: FULL CODE -Family/emotional support: , Yvette Valles [phone] Tatiana Menon (sister in law) [phone] -Spiritual Needs: Family is Roman Catholic. Hospital Crop And Soil Scientist has contact divehi- speaking priest Fr. Richardson for ongoing care. Palliative asked to assist in family support. We had a lengthy conversation with and today via Marshallese speaking hospital energy audit advisor. said things were getting better but there had been turmoil earlier this admission with conflicting information given by different providers. She also vented about what she perceives are unsafe practices by some nurses. Dr. Pan listened supportively (without taking sides) and tried to empower her to get names of people whose work she finds fault with and ask through an energy audit advisor to speak to a charge nurse to see what remedies could be made. Dr. Pna apologized for the misunderstandings that happen when various specialists give their individual reports to the family. Clearly Mrs. Vann expects all the specialists to present their opinions at altogether at the bedside and Dr. Pan tried to explain that the hospital culture is for each specialist to make their own separate rounds on the patient. Our purpose today was to allow the family to be heard and to offer some means of control over a hospital situation that makes them feel powerless. Additional Medical Diagnoses with primary management by Hospitalist team include : Problem list: 1. Acute hypoxic respiratory failure, present on admission. Unknown etiology. 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 Unclear now. Active 2. Acute kidney injury, not present on admission. Resolved 3. Electrolyte disturbances, hyponatremia, hyperkalemia, not present on admission. Resolved 4. Transaminitis, mild, not present on admission. Resolving 5. 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 Type 2 diabetes mellitus, chronic, stable. 7. 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 On bactrim for PCP prophylaxis. 8. 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 9. Hypertension 10. Depression, citalopram 20mg daily. Problems: Resuscitation Status Resuscitation Status: CPR: Attempt Resuscitation Total time 65 minutes; >50% face to face with patient and/or family, providing counselling regarding plans and recommendations, and in care coordination with his/her medical teams. Palliative Brief Note Date of Service Feb 09, 2017 . Patient Identification: Mr. 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 Today is Hospital day 12 (02/09/17). Pt discussed in CCU rounds, and overall has continued to improve. He is being treated for infectious v. non-infectious autoimmune reaction with minocycline, Cresemba and his chronic prophylaxis of Bactrim DS and Valacyclovir. ID's Dr. Waters stopped his meropenem today. Dr. Waters points out that it is unclear which drug(s) have led to improvement: minocycline, meropenem, Cresemba, or the steroids. At the end of last week, he had a chest tube placed on the right for a moderate sized pneumothorax that developed after a CT guided percutaneous lung biopsy on 02/06. Pathology came back today (see below). He is now breathing with only 4LPM by oxymask. Surgery plans to repeat CXR and decide whether to pull CT today. Dr. Thomas has him on steroids: methylpredisolone 80mg q 12hrs. Patient is Marshallese-speaking. Used an energy audit advisor through the hospital's energy audit advisor service. Subjective: xxxx Exam General: No acute distress. Lying in bed. HEENT: NC/AT Lungs: Very mild crackles b/l lung bases, otherwise clear to auscultation. Saturating well on 4L by nasal canula. Speaking in full sentences without distress. Chest tube in place on right side. Heart: Regular rate and rhythm, no murmurs appreciated Abdomen: Soft and non-tender Extremities: Mild edema B/L hands, no edema in LE, equal B/L posterior tibial pulses Skin: Skin around chest tube site is not edematous and nontender Neuro: EOMI Psych: Appropriate mood and effect Labs: 02/09/17 0400 Pathology report of lung biopsy 02/06: cryptogenic organizing pneumonia. So sign of ALL, virus, bacteria. Suellen Pan MD Feb 09, 2017 13:01 Suellen Pan MD Feb 09, 2017 13:01
--- NOTE | 2017-02-09 14:54 | CCS NOTE ---
[facility] [address] [place] [id number] MEDICAL ONCOLOGY OFFICE NOTE PATIENT: GERRY VILLALPANDO : 1960 MR#: [id number] DATE: 01/28/2017 JOB ID: [id number] DATE: 02/09/2017 SUBJECTIVE: The patient's status and clinical data over the weekend reviewed. He has the pigtail catheter and the chest x-ray had shown still a residual pneumothorax, and Dr. Corbett of surgery is involved regarding placing either a 2nd pigtail catheter versus switching to a chest tube. His oxygen requirement has improved further over the past three days. He is off high-flow oxygen and is only on 3 L with an OxyMask satting 96% which is a significant improvement. On Thursday I had suggested to reduce his steroids to every 12 hours of Solu-Medrol, rather than every eight, and he has been receiving that over the weekend. He has been able to sit at the bedside briefly. I am visiting him with his , daughter, and son. VITALS: He remains afebrile. Blood pressure 153/81, O2 sat 96% on 3 L OxyMask. Lungs show no wheezing. Oral cavity: No lesions. Skin: No new findings, no rash. LABORATORIES: Show a white count 9.9, hemoglobin 12, platelets 277. Chemistry shows creatinine 1.08, stable. Minimal elevation of ALT. Albumin down to 2.3. MEDICATION: 1. Methylprednisolone 80 mg IV every 12 hours. 2. Bactrim DS one tablet daily for prophylaxis. 3. Sodium bicarb. 4. Minocycline 100 mg b.i.d. 5. Meropenem has been discontinued. 6. He has been on Cresemba which is being planned to be changed to oral. Pathology. I have been in communication on Thursday evening, as well as Thursday, with Dr. Georges Hutchison of [facility], as well as this morning for an expedited workup of the lung biopsy. Stains were performed sequentially and the final stains became available this morning. Overall, the biopsy quality was adequate for analysis and it showed severe inflammatory changes suggestive for an organizing pneumonia with intra-alveolar histiocytes. Immunohistochemistry was negative for lymphoblastic leukemia or lymphoma, and stains were negative for fungal organisms and mycobacteria. 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 Lung biopsy was performed on Thursday afternoon percutaneously, and as discussed earlier, I have been in communication with [facility] in the last three days, several times, to expedite evaluation, which was kindly performed in an excellent fashion and reported this morning. 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 Immunostains were negative for fungal or mycobacterial organisms and solid organ recurrence of lymphoblastic lymphoma was ruled out. Therefore, overall, the management with steroids is adequate and will be continued although with a lowering dose. I am pleased to see that his oxygen requirement has significantly improved over the past three days and he is now one just 3 L of OxyMask. I recommended to cut down the Solu-Medrol to only once daily 80 mg. The chest tube question is being managed with Surgery, and see whether a second pigtailed catheter is placed versus an exchange to chest tubes to more adequately drain the air. I spoke also with Dr. Waters, who had discussed this with a conference call this morning and is waiting for some additional PCR of fungal elements. We both agree that even though there is no evidence of a fungal infection, with this degree of steroid treatment, he will need to be at least on an antifungal prophylaxis, either with Cresemba or posaconazole. 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 Unfortunately, it is fairly likely that he would require steroid therapy for a prolonged period of time to control this process and avoid severe pulmonary fibrosis in those areas of inflammation. A copy of the [facility] report that was faxed to me this morning was placed on the chart for other colleagues. Approximately 1 hour and 5 minutes were spent in counseling and coordination of care.
--- NOTE | 2017-02-09 17:52 | PCM.PNMED ---
Subjective Date of Service Feb 09, 2017 Subjective Patient continues to steadily improve. He is on oxymask now, 3 L, at O2 96%. He states he has increased energy. He denies any pain or discomfort. Exam Vital Signs Vital Sign - Last Date Time Temp Pulse Resp B/P Pulse Ox O2 Delivery O2 Flow Rate FiO2 02/09/17 12:00 37.0 64 16 153/81 96 OxyMask 3.00 02/06/17 12:00 50 Intake and Output 02/08/17 02/08/17 02/09/17 Cumulative From/Thru 15:00 23:00 07:00 01/28/17 19:30 - 02/09/17 05:44 Intake Total 3205 ml 455 ml 48682 ml Output Total 1105 ml 1528 ml 38328 ml Balance 2100 ml -1073 ml 7153 ml Intake Oral 2700 ml 300 ml 35082 ml IV Total 505 ml 155 ml 8345 ml Output Urine Total 1100 ml 1525 ml 97314 ml Chest Tube Drainage Total 40 ml Drainage Total 5 ml 3 ml 9 ml # Voids 1 17 # Bowel Movements 0 0 5 Exam General: Alert, Cooperative, No Acute Distress Head: Normal Eyes: Scleral Anicteric Chest & Lungs: Clear to auscultation, Other (right chest tube in place) Cardiovascular: Regular Rate/Rhythm Abdomen: Non-tender, Non-distended, Normoactive bowel tones, Soft Extremities: No cyanosis/clubbing/edema bilat Neurological: Grossly Neurologically Intact, Normal Speech IVs and Medications Medications Reviewed: Medications were reviewed in detail Lab and Diagnostics Result Diagram: 02/08/17 0825 02/09/17 0400 Microbiology Microbiology 01/28/17 Blood Culture, no growth 01/29/17 MRSA (PCR) - Negative 01/29/17 Influenza Screen - Negative 01/29/17 Streptococcus pneumoniae Ag Screen - Negative 01/29/17 Nasopharyngeal viral PCR all negative, including CMV Serology: cryptococcus Ag negative, CMV DNA negative, fungal antibodies negative , Urine L. pneumophilia Ag negative, A. galactomannan Ag 0.03 . X-Rays, CTs and MRIs X-RAY CHEST IMPRESSION: Overall, stable examination since yesterday minimal with redemonstration of low lung volumes and widespread bilateral consolidative opacities. Dictated and approved by: Ugo Luevano M.D. on 02/05/2017 at 11:28 X-RAY CHEST IMPRESSION: Bilateral patchy confluent opacities in the lungs, appearing mildly worse when compared to 01/12/17. As previously identified, this could be related to infection including atypical like mycobacterial or fungal. However, lymphangitic spread of tumor should also be considered. Dictated and approved by: Mela Solorio M.D. on 01/28/2017 at 20:08 CT CHEST WITH CONTRAST IMPRESSION: 1. Increased bilateral pulmonary nodules with confluent areas of consolidation in a perilymphatic distribution. 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 The differential also includes lymphocytic interstitial pneumonia, sarcoidosis, occupational pneumoconiosis, and amyloidosis. Dictated and approved by: Giovanni Stoll M.D. on 01/29/2017 at 11:07 X-RAY CHEST IMPRESSION: Relatively severe patchy bilateral moderate and moderately severe alveolar opacification best seen by recent CT scanning 4 days ago. No contraindication to anticipated lung biopsy scheduled for later today. Dictated and approved by: Parag Lemus M.D. on 02/02/2017 at 9:18 X-RAY CHEST IMPRESSION: Relatively severe patchy bilateral moderate and moderately severe alveolar opacification best seen by recent CT scanning 4 days ago. No contraindication to anticipated lung biopsy scheduled for later today. Dictated and approved by: Parag Lemus M.D. on 02/02/2017 at 9:18 X-RAY CHEST IMPRESSION: Bilateral patchy consolidations are unchanged. Dictated by: Suzi Gu M.D. on 02/03/2017 at 8:37 Date of Service: 02/04/17 0500 X-RAY CHEST IMPRESSION: Stable bilateral moderately severe patchy pneumonia, symmetric. Dictated by: Parag Lemus M.D. on 02/04/2017 at 9:51 Approved by: Parag Lemus M.D. on 02/04/2017 at 9:52 X-RAY CHEST IMPRESSION: Overall, stable examination since yesterday minimal with redemonstration of low lung volumes and widespread bilateral consolidative opacities. Dictated by: Ugo Luevano M.D. on 02/05/2017 at 11:28 . X-RAY CHEST IMPRESSION: 1. Stable right pneumothorax. Of note, patient indicates emphysema is present at the pigtail drain. This suggests that some of the drain sideholes may be extrapleural. Dictated by: Sandra Amaya M.D. on 02/09/2017 at 10:34 . Cardiac Echo Impressions ECHO Interpretation Summary Left ventricular wall thickness is mildly increased. Left ventricular systolic function is normal without focal wall motion abnormalities. The ejection fraction is estimated to be 60-65%. The right ventricle grossly appears normal in size with probable normal systolic function. Pulmonary artery pressures cannot be estimated because of the lack of a measurable TR jet velocity. The left atrium is mildly dilated. Right atrial size is normal. There is no significant valvular heart disease. There is no obvious valvular vegetation identified on this exam. Consider SEBLE if there is a high degree of clinical suspicion for endocarditis and clinically appropriate. The ascending aorta is mildly enlarged. No changes since prior echocardiograms (08/2016, 01/2015, 03/2014). Reading Physician:AMADOU Additional Diagnostics 01/28/17 PROCEDURE: X-RAY CHEST ONE VIEW, PORTABLE IMPRESSION: Bilateral patchy confluent opacities in the lungs, appearing mildly worse when compared to 01/12/17. As previously identified, this could be related to infection including atypical like mycobacterial or fungal. However, lymphangitic spread of tumor should also be considered. Dictated by: Mela Solorio M.D. on 01/28/2017 at 20:08 Approved by: Mela Solorio M.D. on 01/28/2017 at 20:11 01/29/17 PROCEDURE: CT CHEST WITH CONTRAST IMPRESSION: 1. Increased bilateral pulmonary nodules with confluent areas of consolidation in a perilymphatic distribution. 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 The differential also includes lymphocytic interstitial pneumonia, sarcoidosis, occupational pneumoconiosis, and amyloidosis. Dictated by: Giovanni Stoll M.D. on 01/29/2017 at 11:07 Approved by: Giovanni Stoll M.D. on 01/29/2017 at 11:19 . 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 Acute hypoxemic respiratory failure, present on admission. Ongoing -Due to cryptogenic organizing pneumonia -Continue with supplemental Oxygen -Chest CT shows worsening bilateral infiltrates as compared to the CT of the chest done on January 12 -Percutaneous pulmonary biopsy and VATS are not an option for the patient right now due to his respiratory status. -Continue antibiotics, antifungal, antiviral as recommended by ID. Meropenem discontinued today. -Follow up on the biopsy reports. -Continue steroids, Methylprednisolone 80mg Q12 hours per oncologist, Dr. Thomas. -Physical therapy when chest tube is removed -Palliative care helping with the goals of care Status post CT-guided biopsy of right lung with complications leading to right- sided pneumothorax - Post chest tube placement on 02/06/17 - CXR today showing stable right pneumothorax. - Discussed with radiology, pulmonology and surgery. Appreciate surgery consult help in managing the chest tube. 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 - Oncology following (Dr. Thomas) - Decrease Bactrim to one tablet daily and start minocycline, 100 mg twice a day orally for PCP prophylaxis. Acute kidney injury, not present on admission. Resolved with IV fluid - Continue to monitor Acute Electrolyte disturbances, hyponatremia, hyperkalemia, not present on admission. Resolved -Continue to monitor Acute transaminitis, mild, not present on admission. Improving - Mild elevation of AST and ALT, most likely due to antibiotic' s toxicity especially cresemba - Continue to monitor Chronic and recurrent CMV - Continue valacyclovir 1000 mg BID. Type 2 diabetes mellitus, chronic, presume stable. - Continue NPH insulin 50 units twice a day - Last A1c was 5.5 Seizure disorder, chronic, presume stable. - Continue Keppra 500 mg BID. Hypertension, chronic, presume stable. - Continue metoprolol tartrate 25 mg BID. Depression, chronic, presume stable. - Continue citalopram 20 mg daily. Disposition: Patient is currently been diagnosed with cryptogenic pneumonia and will need to participate in a steroid taper for possibly the next 6 months to a year. Patient is currently progressing as he is decreasing and his oxygen needs most likely secondary to the steroid therapy. Patient's chest tube was remain in place as the patient still has a small pneumothorax surgery is following. Patient's case was discussed in detail with critical care (Dr. Nuno). GI Prophylaxis: H2 jeanie VTE Prophylaxis: Sub-Q Heparin (Unfractionated) Resuscitation Status: CPR: Attempt Resuscitation Attending Statement The patient was seen and examined together with Dr. Barrios on 02/09/17 and I have added additional information to the note above. Daria Barrios DO Feb 09, 2017 17:52 Cassie Gerardo DO Feb 10, 2017 15:43
--- NOTE | 2017-02-09 19:06 | NUR ---
Respiratory/chest tube Pt continues to be on supplemental O2, weaned down from 4L oxymask to 2.5L NC, with sats in the mid 90s, RR 16-22. Pt denies any pain or SOB in bed. Chest tube site C/D/I, hooked up to low suction on wall per surgery. Sero sang drainage in tube, but not in suction cannister. Frequent rounding continues. Pt has good appetite and able to move independently in bed. Family at bedside throughout shift. Assessments and consults done with assistance of medical facilities section director.
[2017-02-10] VITALS (13 sets, daily range): BP systolic 123–158; BP diastolic 73–84; PULSE 54–79; RESP 14–19; O2SAT 94–100
[2017-02-10] MEDS: Sodium Chloride LOK Flush 10 mL Syringe IVFLUSH SCH ×3 (00:25→18:15)
[2017-02-10] MEDS: Heparin 5,000 Unit/mL Inj SUBQ SCH ×3 (00:26→18:15)
--- NOTE | 2017-02-10 01:00 | NUR ---
P) Respiratory Pt.'s lungs with coarse breath sounds, L>R, decreased in bases bilat., SPO2 in mid 90's on 2.5L N/C, afebrile, denies pain. Family at bedside. Cardiac rhythm sinus, no ectopy noted. I) Meds per 's orders, cont. to monitor. E) Resting quietly with eyes closed.
[2017-02-10] MEDS: Dextrose 5% 0.9% NaCl 1,000 ML IV SCH ×2 (02:10→21:36)
[2017-02-10 04:07] LABS: BASOPHILS % (AUTO) 0.1 % (0-3); EOSINOPHILS % (AUTO) 0.1 % (0-5); MONOCYTES % (AUTO) 13.1 % (4-12); Mean Corpuscular Hemoglobin 34.3 pg (27.0-35.0); Mean Corpuscular Volume 101.5 fL (81-100); NEUTROPHILS % (AUTO) 61.7 % (40-74); Platelet Count 208 bil/L (150-400)
[2017-02-10] MEDS: Insulin LISPRO 300 Unit/3 mL Inj SUBQ SCH ×4 (08:00→21:35)
--- NOTE | 2017-02-10 08:00 | PCM.PALLBR ---
Palliative Care Recommendation Summary of palliative recommendations: -Symptom management (Pain/other): per Attending [facility] Hospitalist Team -DPOA/Advanced Directives/POLST: 1. Code Status: FULL CODE -Family/emotional support: , Yvette Valles [phone] Tatiana Menon (sister in law) [phone] -Spiritual Needs: Family is Church. [facility] Supervisor has contact greenlandic- speaking priest Fr. Richardson for ongoing care. Palliative Care is not exploring pt and family's thoughts on AD as we know they prefer aggressive management of pt's cancer. We are here in supportive role to help family when they are confused about the information from multiple providers in a CCU setting. Our purpose is to allow the family to be heard and to offer some means of control over a hospital situation that makes them feel powerless. 02/10: Short conversation today with and with help of greenlandic- speaking RN (no hospital latex thread machine operator available and computer system for interpretation was down). They are feeling pretty satisfied with hospital providers and nursing today. 02/09: Palliative asked to assist in family support. We had a lengthy conversation with and today via Wallisian speaking hospital latex thread machine operator. said things were getting better but there had been turmoil earlier this admission with conflicting information given by different providers. She also vented about what she perceives are unsafe practices by some nurses. Dr. Pan listened supportively (without taking sides) and tried to empower her to get names of people whose work she finds fault with and ask through an latex thread machine operator to speak to a charge nurse to see what remedies could be made. Dr. Pan apologized for the misunderstandings that happen when various specialists give their individual reports to the family. Clearly Mrs. Damon Oseguera expects all the specialists to present their opinions at altogether at the bedside and Dr. Pan tried to explain that the hospital culture is for each specialist to make their own separate rounds on the patient. Additional Medical Diagnoses with primary management by Hospitalist team include : Problem list: 1. Acute hypoxic respiratory failure, present on admission. 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 Treatment for LENS MOLD SETTER is 0.75 to 1 mg/kg/day of ideal body weight (our patient' s ideal is 70kg). So 60-80mg of prednisone daily for 8-12 weeks, with slow taper for a total of 12 months. He will need to be followed outpatient by a bursar since he will need frequent reassessment (every 8-12 weeks) and adjustment of medication. Many of these patients will continue to have exacerbations for the rest of their life. 2. Acute kidney injury, not present on admission. Resolved 3. Electrolyte disturbances, hyponatremia, hyperkalemia, not present on admission. Resolved 4. Transaminitis, mild, not present on admission. Resolving 5. 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 Type 2 diabetes mellitus, chronic, stable. 7. History of ALL Worth chromosome positive s/p allogeneic bone marrow transplant, currently in remission. On bactrim for PCP prophylaxis. 8. 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 9. Hypertension 10. Depression, citalopram 20mg daily. Problems: Resuscitation Status Resuscitation Status: CPR: Attempt Resuscitation Total time 65 minutes; >50% face to face with patient and/or family, providing counselling regarding plans and recommendations, and in care coordination with his/her medical teams. Palliative Brief Note Date of Service Feb 10, 2017 . Patient Identification: Mr. 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 Today is Hospital day 13 (02/10/17). Pt discussed in CCU rounds, and overall has continued to improve. His percutaneous Lung biopsy done 02/06 indicates his lungs have cryptogenic organizing pneumonia (LENS MOLD SETTER), which can be a common fulminant reaction to many different organisms, including his recent human metapneumovirus found on BAL at a prior admission. He is currently on Bactrim once a day with minocycline to prevent PCP pneumonia, Cresemba (anti-fungal) and Valacyclovir. ID's Dr. Waters stopped his meropenem on 02/09. Dr. Thomas recommends decreasing his steroids (methylpredisolone 80mg BID) to once daily, but explains that he needs to continue steroids for an extended period to treat the CROP. This is to avoid pulmonary fibrosis in the areas of inflamed lung. At the end of last week, he had a chest tube placed on the right for a moderate sized pneumothorax that developed after a CT guided percutaneous lung biopsy on 02/06. He continues to breathe well with only 4LPM by oxymask. Surgery plans re: chest tube are pending. Patient is Wallisian-speaking. Used an latex thread machine operator through the hospital's latex thread machine operator service. Subjective: Pt states that he feels well today. No pain or SOB and he has been very hungry today. He is glad that Chest Tube was removed. He says that at the time the air was pulled out (through the pigtail catheter) it hurt, but he is ok now. Mrs. Gonzalez says that "if he is happy, then I am happy." Exam General: No acute distress. Sitting up in bed. HEENT: NC/AT, EOMI Lungs: Very mild crackles b/l lung bases, otherwise clear to auscultation. Saturating well on 4L by nasal canula. Speaking in full sentences without distress. Heart: Regular rate and rhythm, no murmurs appreciated Abdomen: Soft and non-tender Extremities: no edema in LE, equal B/L posterior tibial pulses Neuro: nonfocal Psych: smiles, good eye contact Diagnostic Tests: 02/06 lung biopsy results as above. Immunostains were negative for fungal or mycobacterial organisms and solid organ recurrence of lymphoblastic lymphoma was ruled out. Additional PCR testing being done to r/o any fungal infection. Suellen Pan MD Feb 10, 2017 08:00 Suellen Pan MD Feb 10, 2017 08:00 Suellen Pan MD Feb 10, 2017 08:00
[2017-02-10] MEDS: Polyethylene Glycol (PEG) 17 Gm Powder PO SCH (08:30)
[2017-02-10] MEDS ORDERED: MethylprednisoLONE Sodium Succinate 40 mg/mL Inj IVPUSH SCH (08:30)
[2017-02-10] MEDS: levETIRAcetam 500 mg Tablet PO SCH ×2 (08:35→20:11)
[2017-02-10] MEDS: Trimethoprim-Sulfa 160 mg-800 mg Tablet PO SCH (08:35)
--- NOTE | 2017-02-10 08:57 | PROG NOTE ---
[address] [address] PROGRESS NOTE PATIENT: GERRY VILLALPANDO : 1960 MR#: [id number] ADMIT: 01/28/2017 JOB ID: [id number] DATE: 02/10/2017 INFECTIOUS DISEASE FOLLOW UP NOTE: REASON FOR FOLLOWUP: Complex bilateral pulmonary infiltrates and respiratory failure in a patient with ALL status post stem cell transplant. INTERVAL HISTORY: Overnight, the patient has continued to improve. He unfortunately still has a chest tube in his right chest as a result of his lung biopsy procedure which was done on Thursday, the , but otherwise he is much improved. No fever, no chills. No sweats. He has no significant cough and he has not throughout this hospital stay. He has some right pleuritic chest pain, not surprisingly because of his chest tube. No sore throat. No GI symptoms. No symptoms. His shortness of breath is much improved and he is now down to 2 L nasal oxygen. Temperature 36.8, pulse 58, respiratory rate 16, blood pressure 154/82. He is saturating well on 2.5 L. Eyes without conjunctivitis. Oral cavity negative. Lungs with decreased breath sounds at the right base and a few crackles at both bases. Chest tube still in place on the right side. It is a pigtail catheter. Abdomen benign. No skin rash. Extremities warm and well perfused. LABORATORIES: Include a white count of 10,600, basically normal differential. Creatinine 1.08. LFTs normalizing. ALT 45. Quantitative PCR is pending. Cultures from the biopsy remain negative. PCRs from the biopsy are pending. Blood fungus cultures done previous to the biopsy negative. The full biopsy report is now available and I discussed it in detail with Hematology Oncology. It shows organizing pneumonia. No evidence for infection. No fungal organisms were identified with special stain. No bacteria with a Gram stain and no mycobacteria with AFB stains. No changes of CMV or EBV are seen and no evidence for recurrent ALL. IMAGING: Chest x-ray done yesterday showed a stable right pneumothorax. There continues to be some bilateral patchy infiltrates. IMPRESSION: It appears we are finally close to a diagnosis in this patient. I presented this case yesterday to the [facility]plant ID group, and after a long discussion, they thought the most likely diagnosis was cryptogenic organizing pneumonia, which has also been at the top of our differential diagnosis throughout this long and difficult case. Interestingly, the path report just came back and the pathologist concur that they think the most likely diagnosis based on the tissue they obtained was cryptogenic organizing pneumonia. The only thing we really lack here to say that that is our definitive diagnosis is the PCR studies on tissue for AFB fungus and routine bacteria. If these are negative, I think that we can finally completely exclude Nocardia as well as fungus and conclude this is really a cryptogenic organizing pneumonia. RECOMMENDATIONS: 1. This case discussed within the past 24 hours since I wrote my last progress note with Hematology/Oncology, Pulmonary, Pathology and the entire ICU team. 2. We agree the patient will need long-term high-dose steroids probably 6-12 months. 3. The patient should probably be kept on fungal prophylaxis during this long period of steroids. In addition he may need additional treatment or surveillance for CMV as he is likely to reactivate given his prior problems with CMV and the addition of prolonged steroids. 4. Will continue today with minocycline, Cresemba and the prophylactic Bactrim and Valcyte. 5. Tomorrow, if we get back the PCRs, we will certainly go ahead and stop the minocycline and might consider switching the Cresemba to posaconazole at a prophylactic dose.
--- NOTE | 2017-02-10 09:10 | PCM.PNMED ---
Subjective Date of Service Feb 10, 2017 Subjective PULMONARY PROGRESS NOTE This morning patient states that he is feeling well and would like to get up out of bed. He has been able to tolerate movement and sitting at the edge of the bed since yesterday. Physical therapy has not worked with patient yet. He continues to eat well. Other than the chronic photosensitivity secondary to cancer treatment and the chronic neuropathy B/L feet, he denies pain. Also denies pleuritic pain, nausea, diarrhea, dizziness, headache. Exam Vital Signs Vital Sign - Last Date Time Temp Pulse Resp B/P Pulse Ox O2 Delivery O2 Flow Rate FiO2 02/10/17 08:39 Supplement Oxygen 02/10/17 08:39 36.5 60 14 158/79 95 2.00 02/06/17 12:00 50 Intake and Output 02/09/17 02/09/17 02/10/17 Cumulative From/Thru 14:59 22:59 06:59 01/28/17 19:30 - 02/10/17 06:23 Intake Total 369 ml 366 ml 01699 ml Output Total 1050 ml 1009 ml 12428 ml Balance -681 ml -643 ml 5829 ml Intake Oral 250 ml 73677 ml IV Total 369 ml 116 ml 8830 ml Output Urine Total 1050 ml 1000 ml 50719 ml Chest Tube Drainage Total 40 ml Drainage Total 0 ml 9 ml 18 ml # Voids 17 # Bowel Movements 5 Exam General: No acute distress. Lying in bed. HEENT: NC/AT Lungs: Clear to auscultation. Saturating well on 2L by nasal canula. Speaking in full sentences without distress. Chest tube in place on right side. Heart: Regular rate and rhythm, no murmurs appreciated Abdomen: Soft and non-tender Extremities: Mild edema B/L hands, no edema in LE, equal B/L posterior tibial pulses Skin: Skin around chest tube site is not edematous and nontender, skin on right 5th finger punch biopsy site healing Neuro: EOMI Psych: Appropriate mood and effect . IVs and Medications Medications Reviewed: Medications were reviewed in detail Lab and Diagnostics Result Diagram: 02/10/17 0400 02/10/17 0400 Microbiology Microbiology 01/28/17 Blood Culture, no growth 01/29/17 MRSA (PCR) - Negative 01/29/17 Influenza Screen - Negative 01/29/17 Streptococcus pneumoniae Ag Screen - Negative 01/29/17 Nasopharyngeal viral PCR all negative, including CMV Serology: cryptococcus Ag negative, CMV DNA negative, fungal antibodies negative , Urine L. pneumophilia Ag negative, A. galactomannan Ag 0.03, EBV PCR positive - quantification pending . X-Rays, CTs and MRIs X-RAY CHEST IMPRESSION: Overall, stable examination since yesterday minimal with redemonstration of low lung volumes and widespread bilateral consolidative opacities. Dictated and approved by: Ugo Luevano M.D. on 02/05/2017 at 11:28 X-RAY CHEST IMPRESSION: Bilateral patchy confluent opacities in the lungs, appearing mildly worse when compared to 01/12/17. As previously identified, this could be related to infection including atypical like mycobacterial or fungal. However, lymphangitic spread of tumor should also be considered. Dictated and approved by: Mela Solorio M.D. on 01/28/2017 at 20:08 CT CHEST WITH CONTRAST IMPRESSION: 1. Increased bilateral pulmonary nodules with confluent areas of consolidation in a perilymphatic distribution. 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 The differential also includes lymphocytic interstitial pneumonia, sarcoidosis, occupational pneumoconiosis, and amyloidosis. Dictated and approved by: Giovanni Stoll M.D. on 01/29/2017 at 11:07 X-RAY CHEST IMPRESSION: Relatively severe patchy bilateral moderate and moderately severe alveolar opacification best seen by recent CT scanning 4 days ago. No contraindication to anticipated lung biopsy scheduled for later today. Dictated and approved by: Parag Lemus M.D. on 02/02/2017 at 9:18 X-RAY CHEST IMPRESSION: Relatively severe patchy bilateral moderate and moderately severe alveolar opacification best seen by recent CT scanning 4 days ago. No contraindication to anticipated lung biopsy scheduled for later today. Dictated and approved by: Parag Lemus M.D. on 02/02/2017 at 9:18 X-RAY CHEST IMPRESSION: Bilateral patchy consolidations are unchanged. Dictated by: Suzi Gu M.D. on 02/03/2017 at 8:37 Date of Service: 02/04/17 0500 X-RAY CHEST IMPRESSION: Stable bilateral moderately severe patchy pneumonia, symmetric. Dictated by: Parag Lemus M.D. on 02/04/2017 at 9:51 Approved by: Parag Lemus M.D. on 02/04/2017 at 9:52 X-RAY CHEST IMPRESSION: Overall, stable examination since yesterday minimal with redemonstration of low lung volumes and widespread bilateral consolidative opacities. Dictated by: Ugo Luevano M.D. on 02/05/2017 at 11:28 . X-RAY CHEST IMPRESSION: 1. Stable right pneumothorax. Of note, patient indicates emphysema is present at the pigtail drain. This suggests that some of the drain sideholes may be extrapleural. Dictated by: Sandra Amaya M.D. on 02/09/2017 at 10:34 . Cardiac Echo Impressions ECHO Interpretation Summary Left ventricular wall thickness is mildly increased. Left ventricular systolic function is normal without focal wall motion abnormalities. The ejection fraction is estimated to be 60-65%. The right ventricle grossly appears normal in size with probable normal systolic function. Pulmonary artery pressures cannot be estimated because of the lack of a measurable TR jet velocity. The left atrium is mildly dilated. Right atrial size is normal. There is no significant valvular heart disease. There is no obvious valvular vegetation identified on this exam. Consider SEBLE if there is a high degree of clinical suspicion for endocarditis and clinically appropriate. The ascending aorta is mildly enlarged. No changes since prior echocardiograms (08/2016, 01/2015, 03/2014). Reading Physician:PM Additional Diagnostics 01/28/17 PROCEDURE: X-RAY CHEST ONE VIEW, PORTABLE IMPRESSION: Bilateral patchy confluent opacities in the lungs, appearing mildly worse when compared to 01/12/17. As previously identified, this could be related to infection including atypical like mycobacterial or fungal. However, lymphangitic spread of tumor should also be considered. Dictated by: Mela Solorio M.D. on 01/28/2017 at 20:08 Approved by: Mela Solorio M.D. on 01/28/2017 at 20:11 01/29/17 PROCEDURE: CT CHEST WITH CONTRAST IMPRESSION: 1. Increased bilateral pulmonary nodules with confluent areas of consolidation in a perilymphatic distribution. 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 The differential also includes lymphocytic interstitial pneumonia, sarcoidosis, occupational pneumoconiosis, and amyloidosis. Dictated by: Giovanni Stoll M.D. on 01/29/2017 at 11:07 Approved by: Giovanni Stoll M.D. on 01/29/2017 at 11:19 Pathology report 02/09/17 Specimen consistent with cryptogenic organizing pneumonia (LIGHT BULB REPLACER). Assessment & Plan Patient is Icelandic-speaking. Used an bag bleacher through the hospital's bag bleacher service. Mr. 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 Hospital day 13 (02/10/17). Problem list: 1. Acute hypoxic respiratory failure, likely secondary to cryptogenic organizing pneumonia, present on admission. Active 2. Acute kidney injury, not present on admission. Resolved 3. Electrolyte disturbances, hyponatremia, hyperkalemia, not present on admission. Resolved 4. Transaminitis, mild, not present on admission. Resolving 5. Chronic and recurrent CMV 6. Type 2 diabetes mellitus, chronic, stable. 7. 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 Hypertension 10. Depression Patient continues to improve, now on 2 L oxygen by oxymask. Pathology on biopsy taken 02/06/17 consistent with cryptogenic organizing pneumonia (LIGHT BULB REPLACER). Additional pathology is pending. Per Dr. Thomas, patient now on 80mg methylprednisolone daily. Treatment for LIGHT BULB REPLACER is 0.75 to 1 mg/kg/day of ideal body weight (our patient's ideal is 70kg). Will order 60mg of prednisone daily which should continue for 8-12 weeks, with slow taper for a total of 12 months. He will need to be followed outpatient by a operator weapon locating radar since he will need frequent reassessment (every 8-12 weeks) and adjustment of medication. Many of these patients will continue to have exacerbations for the rest of their life. Patient has a stable pneumothorax with a small chest tube in place on right side. Per surgery and family, considering a larger chest tube v. adding a second chest tube. Defer chest tube management to surgery. Infectious disease, Dr. Waters, is managing antifungal, antibacterial, antiviral medications. He is currently on minocycline, Cresemba, and his chronic medications: Bactrim DS and Valacyclovir. Continues to be afebrile, denies feeling feverish or chills, WBC slightly elevated today in the setting of steroid use. Palliative care is involved to help the patient and family understand the numerous specialists' tests and plans. Physical therapy at this time. Patient's condition has improved to the point of downgrading from CCU. Total time: 35 minutes Critical Care Attending Mr Vann is an unfortunate 56yo man with a Hx of ALL s/p ablation and allogenic stem cell transplant 3years ago who has chronic neuropathy as well as chronic CMV as a result who was admitted in December and again 10days ago with worsening, profound hypoxia and progressive multifocal pulmonary infiltrates. After a complicated hospital course and inability to get a VATS lung biopsy, he was empirically started on high dose glucocorticoid and ultimately got a CT- guided core needle lung biopsy. Remarkably, his biopsy was read as consistent with LIGHT BULB REPLACER (cryptogenic organizing pneumonia). In the setting of his CT, BAL, and negative culture results, LIGHT BULB REPLACER appears to be the best diagnosis. Additionally, over the past 5days, his oxygen requirement and clinical status have improved significantly. His TTNBx was complicated by pneumothorax. The basilar pigtail has been insufficient to re-inflate his R lung. Surgery was consulted for CT management but the patient has refused replacement of his chest tube. He remains minimally symptomatic at this point from his PTX but ultimately he will need re-inflation of his R lung to achieve full recovery. We will decrease his steroid dosing to prednisone 60mg/day. He will need careful monitoring of his BP and glucose over the next year as he remains on high dose glucocorticoid therapy for his LIGHT BULB REPLACER. We will discuss with Dr Waters stopping his remaining antimicrobials in the face of negative cultures and the lung biopsy results. We will encourage the patient and to agree to replacement of his malfunctioning chest tube in order to facilitate his full recovery. Push physical therapy now that his O2 requirement is diminishing. GI Prophylaxis: H2 jeanie VTE Prophylaxis: Sub-Q Heparin (Unfractionated) Resuscitation Status: CPR: Attempt Resuscitation Attending Statement The patient was seen and examined together with Dr. Hernandez today and I have added additional information to the note above. Sonia Hernandez DO Feb 10, 2017 09:09 Angus Greenfield MD Feb 10, 2017 16:40
--- NOTE | 2017-02-10 09:16 | DRSVH ---
PROCEDURE: X-RAY CHEST ONE VIEW, PORTABLE ([id number]) INDICATIONS: PNEUMOTHORAX TECHNIQUE: One view of the chest was acquired. COMPARISON: [facility], CR, XR CHEST 1VW (PORTABLE), 02/09/2017, 4:30. [facility], CR, XR CHEST 1VW (PORTABLE), 02/08/2017, 16:50. [facility], CR, XR CHEST 1VW (PORT ABLE), prior examinations.7, 10:19. FINDINGS: Surgical changes and devices: Right-sided pigtail chest tube is stable. Lungs and pleura: Moderate-sized right-sided pneumothorax is stable compared to prior examinations. P atchy airspace opacity in the lungs are stable. Mediastinum: Mediastinal contours appear normal. Heart size is normal. Bones and chest wall: No suspicious bony lesions. Overlying soft tissues appear unremarkable. Subcu taneous emphysema in the right chest wall adjacent to right-sided pigtail tube is stable. IMPRESSION: Stable moderate-sized, right-sided pneumothorax. Dictated by: Deepti Quintero MD, PhD on 02/10/2017 at 9:12 Approved by: Deepti Quintero MD, PhD on 02/10/2017 at 9:15
--- NOTE | 2017-02-10 09:19 | NUR ---
NUTRITION FOLLOW-UP: ASSESS: 56 YO male admitted with hypoxic respiratory failure, pneumonia dyspnea, shortness of breath. Pulmonology, ID and Oncology are following. Pt continues to improve. He is s/p CT-guided biopsy of rt lung. Pt developed pneumothorax as a result of biopsy and has chest tube in place. Biopsy results showed most likely diagnosis of cryptogenic organizing pneumonia. He continues to tolerate diet well at 75-100% of meals. 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 DIET: Consistent carb. PO intake 75 -100% trays. LABS: Bun 35, Glu 160, Ca 8.3, ALT 45, Alb 2.4 MEDICATIONS: Reviewed. Solu-medrol. GI: BM x 1 (02/07). Skin Integrity: No issues reported. ANTHROPOMETRICS: Current Wt: 83.2 kg BMI: 29.6 kg/m2. Admit weight: 82 kg ESTIMATED NEEDS: IVETTE Calories: 2050 - 2460 kcal (25 - 30 kcal / kg BW) Protein: 65-80 g protein (.8-1.0 g / kg BW) NUTRITION DIAGNOSIS: 1) Increased nutrient needs related to respiratory status, as evidenced by pt with recent wt loss - IMPROVED. 2) Moderate pro/kcal malnutrition related to chronic illness as evidenced by 12.19% weight loss x 10 weeks and increased weakness - IMPROVED. INTERVENTION: 1) Continue Glucerna on L and D trays. MONITOR/EVALUATE: PO intake, wt, labs, GI/nutrition status. Follow up per moderate nutrition risk guidelines.
--- NOTE | 2017-02-10 11:36 | PROG NOTE ---
[address] [address] PROGRESS NOTE PATIENT: GERRY VILLALPANDO : 1960 MR#: [id number] ADMIT: 01/28/2017 JOB ID: [id number] DATE: 02/10/17 SUBJECTIVE: The patient is seen in followup for his iatrogenic right pneumothorax. His chest x-ray today looks the same. He has had no change despite things we done the last several days with his percutaneous pleural drain. REVIEW OF SYSTEMS: He is denies shortness of breath although his FiO2 has been decreased. He also denies chest pain. PHYSICAL EXAMINATION: Temperature 36.5, brachial blood pressure 158 systolic, pulse 65, respiratory rate 14, O2 sat now on 2 L 95%. He looks comfortable. Lungs are symmetric. IMPRESSION: Persisting moderate iatrogenic right pneumothorax. Using his daughter and then later his nurse, rEika, as an language interpreter, as he is non-Irish speaking, I discussed options. The options include further observation with repeat chest x-rays versus doing something to get the air out. I listed three choices. One is to do a thoracentesis with air aspiration, the other is to have interventional radiology place an apical drain or to place a small apical chest tube. I discussed all these options in detail listing the pros and cons of each. I have made it very clear to him the doing nothing was not necessarily without its downside. I think he will recover quicker should we get his lung expanded. I explained to him the simplest, least invasive and least potentially complicated procedure is to do a right apical thoracentesis with aspiration of the air. I described the procedure to him in detail and again with Erika functioning as an language interpreter, he consented to that. TIME: Time spent with patient, daughter and and in coordination of care 40 minutes. The patient seen for decision to operate.
--- NOTE | 2017-02-10 12:37 | DRSVH ---
PROCEDURE: X-RAY CHEST ONE VIEW, PORTABLE ([id number]) INDICATIONS: POST PROCEDURE POSSIBLE PNEUMOTHORAX TECHNIQUE: One view of the chest was acquired. COMPARISON: [facility], CR, XR CHEST 1VW (PORTABLE), 02[facility]09/2017, 10:19[facility]W (PORTABLE), 02/09/2017, 4:30. [facility], CR, XR CHEST 1VW (PORT ABLE), 02/10/2017, 8:33. FINDINGS: Surgical changes and devices: Stable positioning of right peripheral basilar percutaneous pleural anthony in. Lungs and pleura: Right pneumothorax is decreased in size. Patchy air space opacities again visualiz ed within the right and left lungs with no significant change. Mediastinum: Mediastinal contours appear normal. Heart size is normal. Bones and chest wall: No suspicious bony lesions. Overlying soft tissues appear unremarkable. Trac e subcutaneous emphysema present at the entrance site of the right percutaneous pleural drain. IMPRESSION: 1. Percutaneous right pleural drain redemonstrated and interval decrease in size of right pneumothora x. 2. Persistent bilateral patchy airspace opacities unchanged. Dictated by: Al Amaya RRA Interpreted: Deepti Quintero MD on 02/10/2017 at 12:36 Transcribed by: SIVAN on 02/10/2017 at 12:37 Approved by: Deepti Quintero MD, PhD on 02/10/2017 at 13:16
--- NOTE | 2017-02-10 13:16 | PCM.PROC ---
Procedure Note Date of Service: Feb 10, 2017 Pre Procedure Diagnosis: iatrogenic right pneumothorax Post Procedure Diagnosis: Same Procedure: Pigtail pleural drain removal Provider and Dynamic Balancer Set Up Worker: Joseph Alvares PA-C Indication for Procedure: Improved chest x ray after right apical thoracentesis with aspiration of the air Findings: None Procedure Details: Chest tube taken off suction, pigtail catheter cut to allow removal. Chest tube removed and covered with gauze. Patient tolerated procedure well. SpO2 97 before and 95 after. No dypnea or pain. Specimen: None Post Procedure Plan: Will repeat chest xray in AM. Oswaldo Alvares PA-C Feb 10, 2017 13:16
--- NOTE | 2017-02-10 15:50 | PCM.PNMED ---
Subjective Date of Service Feb 10, 2017 Subjective Patient continues to do well. He has a good appetite and is willing to get out of bed. He has been able to tolerate movement and sitting at the edge of the bed without desaturating. 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 Family is by bedside. Exam Vital Signs Vital Sign - Last Date Time Temp Pulse Resp B/P Pulse Ox O2 Delivery O2 Flow Rate FiO2 02/10/17 14:26 36.7 73 14 123/73 97 Nasal Cannula 2.00 02/06/17 12:00 50 Intake and Output 02/09/17 02/09/17 02/10/17 Cumulative From/Thru 15:00 23:00 07:00 01/28/17 19:30 - 02/10/17 06:23 Intake Total 369 ml 366 ml 54061 ml Output Total 1050 ml 1009 ml 00010 ml Balance -681 ml -643 ml 5829 ml Intake Oral 250 ml 60238 ml IV Total 369 ml 116 ml 8830 ml Output Urine Total 1050 ml 1000 ml 51083 ml Chest Tube Drainage Total 40 ml Drainage Total 0 ml 9 ml 18 ml # Voids 17 # Bowel Movements 5 Exam General: Patient is in no acute distress, resting in bed HEENT: PERRLA, normocephalic atraumatic EOMI Lungs: Clear to auscultation. Saturating well on 2L by nasal canula. Speaking in full sentences without distress. Right sided chest tube Heart: Regular rate and rhythm, no murmurs appreciated Abdomen: Soft and non-tender, positive bowel sounds 4 Extremities: Mild hand edema, bilaterally, no edema in lower extremities Psych: Appropriate mood and affect IVs and Medications Medications Reviewed: Medications were reviewed in detail Lab and Diagnostics Result Diagram: 02/10/17 0400 02/10/17 0400 Microbiology Microbiology 01/28/17 Blood Culture, no growth 01/29/17 MRSA (PCR) - Negative 01/29/17 Influenza Screen - Negative 01/29/17 Streptococcus pneumoniae Ag Screen - Negative 01/29/17 Nasopharyngeal viral PCR all negative, including CMV Serology: cryptococcus Ag negative, CMV DNA negative, fungal antibodies negative , Urine L. pneumophilia Ag negative, A. galactomannan Ag 0.03, EBV PCR positive - quantification pending . X-Rays, CTs and MRIs X-RAY CHEST IMPRESSION: Overall, stable examination since yesterday minimal with redemonstration of low lung volumes and widespread bilateral consolidative opacities. Dictated and approved by: Ugo Luevano M.D. on 02/05/2017 at 11:28 X-RAY CHEST IMPRESSION: Bilateral patchy confluent opacities in the lungs, appearing mildly worse when compared to 01/12/17. As previously identified, this could be related to infection including atypical like mycobacterial or fungal. However, lymphangitic spread of tumor should also be considered. Dictated and approved by: Mela Solorio M.D. on 01/28/2017 at 20:08 CT CHEST WITH CONTRAST IMPRESSION: 1. Increased bilateral pulmonary nodules with confluent areas of consolidation in a perilymphatic distribution. 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 The differential also includes lymphocytic interstitial pneumonia, sarcoidosis, occupational pneumoconiosis, and amyloidosis. Dictated and approved by: Giovanni Stoll M.D. on 01/29/2017 at 11:07 X-RAY CHEST IMPRESSION: Relatively severe patchy bilateral moderate and moderately severe alveolar opacification best seen by recent CT scanning 4 days ago. No contraindication to anticipated lung biopsy scheduled for later today. Dictated and approved by: Parag Lemus M.D. on 02/02/2017 at 9:18 X-RAY CHEST IMPRESSION: Relatively severe patchy bilateral moderate and moderately severe alveolar opacification best seen by recent CT scanning 4 days ago. No contraindication to anticipated lung biopsy scheduled for later today. Dictated and approved by: Parag Lemus M.D. on 02/02/2017 at 9:18 X-RAY CHEST IMPRESSION: Bilateral patchy consolidations are unchanged. Dictated by: Suzi Gu M.D. on 02/03/2017 at 8:37 Date of Service: 02/04/17 0500 X-RAY CHEST IMPRESSION: Stable bilateral moderately severe patchy pneumonia, symmetric. Dictated by: Parag Lemus M.D. on 02/04/2017 at 9:51 Approved by: Parag Lemus M.D. on 02/04/2017 at 9:52 X-RAY CHEST IMPRESSION: Overall, stable examination since yesterday minimal with redemonstration of low lung volumes and widespread bilateral consolidative opacities. Dictated by: Ugo Luevano M.D. on 02/05/2017 at 11:28 . X-RAY CHEST IMPRESSION: 1. Stable right pneumothorax. Of note, patient indicates emphysema is present at the pigtail drain. This suggests that some of the drain sideholes may be extrapleural. Dictated by: Sandra Amaya M.D. on 02/09/2017 at 10:34 . Cardiac Echo Impressions ECHO Interpretation Summary Left ventricular wall thickness is mildly increased. Left ventricular systolic function is normal without focal wall motion abnormalities. The ejection fraction is estimated to be 60-65%. The right ventricle grossly appears normal in size with probable normal systolic function. Pulmonary artery pressures cannot be estimated because of the lack of a measurable TR jet velocity. The left atrium is mildly dilated. Right atrial size is normal. There is no significant valvular heart disease. There is no obvious valvular vegetation identified on this exam. Consider SEBLE if there is a high degree of clinical suspicion for endocarditis and clinically appropriate. The ascending aorta is mildly enlarged. No changes since prior echocardiograms (08/2016, 01/2015, 03/2014). Reading Physician:PM Additional Diagnostics 01/28/17 PROCEDURE: X-RAY CHEST ONE VIEW, PORTABLE IMPRESSION: Bilateral patchy confluent opacities in the lungs, appearing mildly worse when compared to 01/12/17. As previously identified, this could be related to infection including atypical like mycobacterial or fungal. However, lymphangitic spread of tumor should also be considered. Dictated by: Mela Solorio M.D. on 01/28/2017 at 20:08 Approved by: Mela Solorio M.D. on 01/28/2017 at 20:11 01/29/17 PROCEDURE: CT CHEST WITH CONTRAST IMPRESSION: 1. Increased bilateral pulmonary nodules with confluent areas of consolidation in a perilymphatic distribution. 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 The differential also includes lymphocytic interstitial pneumonia, sarcoidosis, occupational pneumoconiosis, and amyloidosis. Dictated by: Giovanni Stoll M.D. on 01/29/2017 at 11:07 Approved by: Giovanni Stoll M.D. on 01/29/2017 at 11:19 Pathology report 02/09/17 Specimen consistent with cryptogenic organizing pneumonia ([employer]). Assessment & Plan Patient is Czech-speaking. Used an interpreter and translator through the hospital's interpreter and translator service. Mr. 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 Hospital day 13 (02/10/17). 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 Hospital day 13. Acute hypoxemic respiratory failure, present on admission. 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 -Continue antibiotics, antifungal, antiviral as recommended by ID. Meropenem discontinued -Lung biopsy results revealed evidence of cryptogenic organizing pneumonia which may represent a response to recent metapneumovirus infection -Discontinued Methylprednisolone IV. Will start prednisone 60 mg by mouth tomorrow for at least 8-12 weeks with very slow taper for 8 months -Patient will need to be followed as an outpatient by a mutton puncher for frequent reassessments and adjustment of medication -Continue physical therapy evaluation -Palliative care helping with the family understanding the complexity of care. We appreciate their help Status post CT-guided biopsy of right lung with complications leading to right- sided pneumothorax - Lung biopsy results revealed evidence of cryptogenic organizing pneumonia which may represent a response to recent metapneumovirus infection - Post chest tube placement on 02/06/17 - CXR today showing decrease in size of right pneumothorax and persistent bilateral patchy airspace opacities - Per surgery considering a larger chest tube versus adding a second chest tube. 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 - Appreciate Oncology consult by Dr. Thomas. Will followup with recommendations. - Decrease Bactrim to one tablet daily, continue minocycline, 100 mg twice a day orally for PCP prophylaxis. Acute kidney injury, not present on admission. Resolved with IV fluid - Continue to monitor Acute Electrolyte disturbances, hyponatremia, hyperkalemia, not present on admission. Resolved -Continue to monitor Acute transaminitis, mild, not present on admission. Improving - Mild elevation of AST and ALT, most likely due to antibiotic' s toxicity especially cresemba - Continue to monitor Chronic and recurrent CMV - Continue valacyclovir 1000 mg BID. Type 2 diabetes mellitus, chronic, presume stable. - Continue NPH insulin 50 units twice a day - Last A1c was 5.5 Seizure disorder, chronic, presume stable. - Continue Keppra 500 mg BID. Hypertension, chronic, presume stable. - Continue metoprolol tartrate 25 mg BID. Depression, chronic, presume stable. - Continue citalopram 20 mg daily. Disposition: Pending clinical status GI Prophylaxis: H2 jeanie VTE Prophylaxis: Sub-Q Heparin (Unfractionated) Resuscitation Status: CPR: Attempt Resuscitation Attending Statement The patient was seen and examined together with Dr. Barrios on 02/10/17 and I have added additional information to the note above. Daria Barrios DO Feb 10, 2017 15:50 Cassie Gerardo DO Feb 15, 2017 18:35 Acute transaminitis, mild, not present on admission. Improving - Mild elevation of AST and ALT, most likely due to antibiotic' s toxicity especially cresemba - Continue to monitor Chronic and recurrent CMV - Continue valacyclovir 1000 mg BID. Type 2 diabetes mellitus, chronic, presume stable. - Continue NPH insulin 50 units twice a day - Last A1c was 5.5 Seizure disorder, chronic, presume stable. - Continue Keppra 500 mg BID. Hypertension, chronic, presume stable. - Continue metoprolol tartrate 25 mg BID. Depression, chronic, presume stable. - Continue citalopram 20 mg daily. Disposition: Pending clinical status GI Prophylaxis: H2 jeanie VTE Prophylaxis: Sub-Q Heparin (Unfractionated) Resuscitation Status: CPR: Attempt Resuscitation GI Prophylaxis: H2 jeanie VTE Prophylaxis: Sub-Q Heparin (Unfractionated) Resuscitation Status: CPR: Attempt Resuscitation Daria Barrios DO Feb 10, 2017 15:50
--- NOTE | 2017-02-10 16:05 | NUR ---
Evaluation completed. Please go to "Notes" then click on "Assessments and Notes" (bottom left corner of screen). Then select appropriate discipline tab on top of screen.
--- NOTE | 2017-02-10 17:04 | OP ---
[address] [address] OPERATIVE REPORT PATIENT: GERRY VILLALPANDO : 1960 MR#: [id number] ADMIT: 01/28/2017 JOB ID: [id number] DATE OF SURGERY: 02/10/2017 PREOPERATIVE DIAGNOSIS(ES): Iatrogenic right pneumothorax. POSTOPERATIVE DIAGNOSIS(ES): Iatrogenic right pneumothorax. PROCEDURE: Right apical thoracentesis with air aspiration. SURGEON: Keven Merida MD. INDICATIONS: A 56-year-old man with an iatrogenic pneumothorax following a percutaneous lung biopsy which has failed to improve on nonoperative management and despite placement of a previous right pleural catheter by Interventional Radiology. Again, he is not even speaking and a long discussion was held with him, his , his daughter and ultimately concluded to proceed with a right apical thoracentesis with air aspiration. FINDINGS: 300-400 cc of air was aspirated and after that I could not aspirate any additional air. DESCRIPTION OF PROCEDURE: After obtaining informed written consent, in the intensive care unit, he was placed in the supine position semi sitting. Using ChloraPrep, his right anterior chest was prepped in the usual fashion and sterilely covered. Sterile technique was used. His skin and intercostal tissues were infiltrated with 1% lidocaine. A small skin incision was made and then using the blunt tip catheter included in the thoracentesis kit, I entered the pleural space and withdrew the needle and then continued by using the stopcock to aspirate between 300 and 400 cc of air. As stated above, at that point, I could not get any additional air out. I applied suction with a syringe as I removed the angiocatheter and no additional air came out. The small incision was then covered with a Band-Aid. The patient tolerated the procedure well. No apparent complications. A chest x-ray is ordered.
--- NOTE | 2017-02-10 19:10 | NUR ---
Activity/Oxygenation: Pt was able to stand and sit in chair with pt, but had symptomatic hypotension, BP 98/41 (51). Pt became lightheaded and diaphoretic after standing up. His SpO2: dropped to low 80's with exertion and took several minutes to recover on 2L NC. Pt tolerated sitting in chair for about 5 minutes before requesting to get back in bed. SpO2: dropped to mid 80's once again and pt reported SOB. O2 was increased to 4L NC.
[2017-02-11] VITALS (14 sets, daily range): BP systolic 93–146; BP diastolic 60–92; PULSE 57–80; RESP 12–24; O2SAT 92–99
[2017-02-11] MEDS: Sodium Chloride LOK Flush 10 mL Syringe IVFLUSH SCH ×3 (01:24→16:55)
[2017-02-11] MEDS: Heparin 5,000 Unit/mL Inj SUBQ SCH ×3 (01:24→16:56)
[2017-02-11 04:13] LABS: BASOPHILS % (AUTO) 0.1 % (0-3); EOSINOPHILS % (AUTO) 0.1 % (0-5); MONOCYTES % (AUTO) 12.7 % (4-12); Mean Corpuscular Hemoglobin 34.4 pg (27.0-35.0); Mean Corpuscular Volume 102.8 fL (81-100); NEUTROPHILS % (AUTO) 59.6 % (40-74); Platelet Count 182 bil/L (150-400)
--- NOTE | 2017-02-11 04:25 | NUR ---
02sat/Pain Pt reports pain 2/10 and comfortable at this time. He refused further pain meds at this time. 02sat mid to high 90s on 3L NC. No c/o sob. Mild dsypnea with exertion. Right anterior bandaid with scant old blood. No further drainage noted. Right/lateral dressing cdi and without any drainage noted. Telemetry SR in 60s.
[2017-02-11] MEDS: predniSONE 20 mg Tablet PO SCH (08:30)
[2017-02-11] MEDS: Polyethylene Glycol (PEG) 17 Gm Powder PO SCH ×2 (08:30→16:55)
[2017-02-11] MEDS: levETIRAcetam 500 mg Tablet PO SCH ×2 (08:30→20:14)
[2017-02-11] MEDS: Trimethoprim-Sulfa 160 mg-800 mg Tablet PO SCH (08:30)
[2017-02-11] MEDS: Insulin LISPRO 300 Unit/3 mL Inj SUBQ SCH ×4 (08:30→22:00)
--- NOTE | 2017-02-11 09:07 | PROG NOTE ---
[address] [address] PROGRESS NOTE PATIENT: GERRY VILLALPANDO : 1960 MR#: [id number] ADMIT: 01/28/2017 JOB ID: [id number] DATE: 02/11/2017 INFECTIOUS DISEASE FOLLOW UP NOTE: REASON FOR FOLLOWUP: Bilateral infiltrates with respiratory failure. DATE: INTERVAL HISTORY: Yesterday, the patient had his pneumothorax aspirated and his chest tube was peeled. Today, he feels much improved. He states that he has no fevers, no chills, minimal sweating just on his forehead. He has no pleuritic chest pain. No shortness of breath and essentially no cough. No nausea, vomiting, diarrhea. No skin rash. No trouble with antibiotics. Laptop. PHYSICAL EXAMINATION: Reveals an afebrile gentleman, temperature 36.4, his pulse is 69, respiratory rate 15, blood pressure 134/77. He is saturating well on 3 L, in no acute distress. Examination of the mental status reveals it to be completely clear. He is alert and smiling today. Oral cavity negative. Lungs: Crackles at the bases posteriorly with deep inspiration but really much improved on a day-by-day basis. Cardiac tones regular rate and rhythm. Abdomen: Soft and nontender. No skin rashes noted. He is neurologically intact. LABORATORIES: Include a white count of 9500 with a normal differential. Creatinine is 1.04 and stable. ALT 54, otherwise LFTs normal. Our EBV PCR quantitation is still pending. Lung biopsy culture negative at this point. The PCRs from the lung biopsy for bacteria, fungi and AFB are still pending and we again are contacting the [facility] this morning to attempt to get these results. The histopath, however, is available and it shows what appears to be an organizing pneumonia or . There is no evidence for active infection seen on the path or the special stains. IMPRESSION: We moved closer to a diagnosis on this extremely complex patient based on discussions with the [facility] Transplant group as well as the histopathology cultures and special stains. It appears we have a noninfectious organizing pneumonia picture in a patient status post stem cell transplant. The only thing we lack at this point is our PCR studies and we anticipate seeing these back later today or tomorrow morning. At this point, there is no evidence for Nocardia infection on the routine cultures or special stains. I think we can drop the minocycline. Dr. Thomas and I have discussed the need for continued antifungal prophylaxis going forward and I think that would be important in this patient who is going to remain on long-term steroids for his organizing pneumonia. RECOMMENDATIONS: 1. Would go ahead and discontinue the minocycline today. 2. Will continue with Cresemba at least for the next day or two. 3. The PCR studies should be back within the next 1-2 days from the [facility]. Assuming the bacterial, fungal and AFB PCR studies are negative, we could go ahead and switch the Cresemba to posaconazole for long-term prophylaxis for fungal infections while he remains on the steroids. The posaconazole dose for prophylaxis would be 200 mg q.8 of the suspension or 300 once a day of the delayed release tablets with a loading dose of 300 b.i.d. on the first day only for those delayed release tablets. 4. Note that I will be out of the country the next six days starting tonight returning to work February 3. Given that this patient will almost certainly be discharged before my return, I am going to go ahead and sign off at this time, but if there are questions or problems interpreting those PCR tests or any other aspect of his care, do not hesitate to try and reach out to me by text message or E-mail. Telephone will probably not be available. 5. Also note that as the patient continues on high-dose steroids for his organizing pneumonia, he will be at risk once again for CMV reactivation and I believe Dr. Thomas will be monitoring this.
--- NOTE | 2017-02-11 10:10 | PCM.PNMED ---
Subjective Date of Service Feb 11, 2017 Subjective PULMONARY PROGRESS NOTE This morning patient again states that he is feeling well. Yesterday physical therapy worked with patient and he said that he felt dizzy but recovered well with increasing the oxygen. He continues to eat well. He is aware that physical therapy is recommending SNF, but he would like to go home with home physical therapy. Discussed the fact that long-term steroids will require more intensive blood glucose monitoring and perhaps more intensive blood pressure control. Other than the chronic photosensitivity secondary to cancer treatment and the chronic neuropathy B/L feet, he denies pain. Also denies pleuritic pain, nausea , diarrhea, dizziness, headache, shortness of breath. apologized for being upset at the staff in the last 2 weeks. . Exam Vital Signs Vital Sign - Last Date Time Temp Pulse Resp B/P Pulse Ox O2 Delivery O2 Flow Rate FiO2 02/11/17 08:26 36.5 58 16 146/77 96 Nasal Cannula 2.00 02/06/17 12:00 50 Intake and Output 02/10/17 02/10/17 02/11/17 Cumulative From/Thru 15:00 23:00 07:00 01/28/17 19:30 - 02/11/17 05:01 Intake Total 60 ml 400 ml 07986 ml Output Total 800 ml 10620 ml Balance 60 ml -400 ml 5489 ml Intake Oral 400 ml 69255 ml IV Total 60 ml 8890 ml Output Urine Total 800 ml 02709 ml Chest Tube Drainage Total 40 ml Drainage Total 18 ml # Voids 17 # Bowel Movements 0 5 Exam General: No acute distress. Lying in bed. HEENT: NC/AT Lungs: Clear to auscultation. Saturating well on 2L by nasal canula. Speaking in full sentences without distress. Chest tube removed. Heart: Regular rate and rhythm, no murmurs appreciated Abdomen: Soft and non-tender Extremities: Trace edema B/L hands, R>L. Improved since yesterday. Equal B/L posterior tibial pulses Skin: Skin around chest tube site is not edematous and nontender, skin on right 5th finger punch biopsy site healing Neuro: EOMI Psych: Appropriate mood and affect . IVs and Medications Medications Reviewed: Medications were reviewed in detail Lab and Diagnostics Result Diagram: 02/11/17 0329 02/11/17 0329 Microbiology Microbiology 01/28/17 Blood Culture, no growth 01/29/17 MRSA (PCR) - Negative 01/29/17 Influenza Screen - Negative 01/29/17 Streptococcus pneumoniae Ag Screen - Negative 01/29/17 Nasopharyngeal viral PCR all negative, including CMV Serology: cryptococcus Ag negative, CMV DNA negative, fungal antibodies negative , Urine L. pneumophilia Ag negative, A. galactomannan Ag 0.03, EBV PCR positive - quantification pending . X-Rays, CTs and MRIs X-RAY CHEST IMPRESSION: Overall, stable examination since yesterday minimal with redemonstration of low lung volumes and widespread bilateral consolidative opacities. Dictated and approved by: Ugo Luevano M.D. on 02/05/2017 at 11:28 X-RAY CHEST IMPRESSION: Bilateral patchy confluent opacities in the lungs, appearing mildly worse when compared to 01/12/17. As previously identified, this could be related to infection including atypical like mycobacterial or fungal. However, lymphangitic spread of tumor should also be considered. Dictated and approved by: Mela Solorio M.D. on 01/28/2017 at 20:08 CT CHEST WITH CONTRAST IMPRESSION: 1. Increased bilateral pulmonary nodules with confluent areas of consolidation in a perilymphatic distribution. 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 The differential also includes lymphocytic interstitial pneumonia, sarcoidosis, occupational pneumoconiosis, and amyloidosis. Dictated and approved by: Giovanni Stoll M.D. on 01/29/2017 at 11:07 X-RAY CHEST IMPRESSION: Relatively severe patchy bilateral moderate and moderately severe alveolar opacification best seen by recent CT scanning 4 days ago. No contraindication to anticipated lung biopsy scheduled for later today. Dictated and approved by: Parag Lemus M.D. on 02/02/2017 at 9:18 X-RAY CHEST IMPRESSION: Relatively severe patchy bilateral moderate and moderately severe alveolar opacification best seen by recent CT scanning 4 days ago. No contraindication to anticipated lung biopsy scheduled for later today. Dictated and approved by: Parag Lemus M.D. on 02/02/2017 at 9:18 X-RAY CHEST IMPRESSION: Bilateral patchy consolidations are unchanged. Dictated by: Suzi Gu M.D. on 02/03/2017 at 8:37 Date of Service: 02/04/17 0500 X-RAY CHEST IMPRESSION: Stable bilateral moderately severe patchy pneumonia, symmetric. Dictated by: Parag Lemus M.D. on 02/04/2017 at 9:51 Approved by: Parag Lemus M.D. on 02/04/2017 at 9:52 X-RAY CHEST IMPRESSION: Overall, stable examination since yesterday minimal with redemonstration of low lung volumes and widespread bilateral consolidative opacities. Dictated by: Ugo Luevano M.D. on 02/05/2017 at 11:28 . X-RAY CHEST IMPRESSION: 1. Stable right pneumothorax. Of note, patient indicates emphysema is present at the pigtail drain. This suggests that some of the drain sideholes may be extrapleural. Dictated by: Sandra Amaya M.D. on 02/09/2017 at 10:34 . Cardiac Echo Impressions ECHO Interpretation Summary Left ventricular wall thickness is mildly increased. Left ventricular systolic function is normal without focal wall motion abnormalities. The ejection fraction is estimated to be 60-65%. The right ventricle grossly appears normal in size with probable normal systolic function. Pulmonary artery pressures cannot be estimated because of the lack of a measurable TR jet velocity. The left atrium is mildly dilated. Right atrial size is normal. There is no significant valvular heart disease. There is no obvious valvular vegetation identified on this exam. Consider SEBLE if there is a high degree of clinical suspicion for endocarditis and clinically appropriate. The ascending aorta is mildly enlarged. No changes since prior echocardiograms (08/2016, 01/2015, 03/2014). Reading Physician:PM Additional Diagnostics 01/28/17 PROCEDURE: X-RAY CHEST ONE VIEW, PORTABLE IMPRESSION: Bilateral patchy confluent opacities in the lungs, appearing mildly worse when compared to 01/12/17. As previously identified, this could be related to infection including atypical like mycobacterial or fungal. However, lymphangitic spread of tumor should also be considered. Dictated by: Mela Solorio M.D. on 01/28/2017 at 20:08 Approved by: Mela Solorio M.D. on 01/28/2017 at 20:11 01/29/17 PROCEDURE: CT CHEST WITH CONTRAST IMPRESSION: 1. Increased bilateral pulmonary nodules with confluent areas of consolidation in a perilymphatic distribution. 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 The differential also includes lymphocytic interstitial pneumonia, sarcoidosis, occupational pneumoconiosis, and amyloidosis. Dictated by: Giovanni Stoll M.D. on 01/29/2017 at 11:07 Approved by: Giovanni Stoll M.D. on 01/29/2017 at 11:19 Pathology report 02/09/17 Specimen consistent with cryptogenic organizing pneumonia (WOOD REPATCHER). Assessment & Plan Patient is Kinyarwanda-speaking. 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 Mr. 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 Hospital day 14 (02/11/17). Problem list: 1. Acute hypoxic respiratory failure, likely secondary to cryptogenic organizing pneumonia, present on admission. Improving 2. Acute kidney injury, not present on admission. Resolved 3. Electrolyte disturbances, hyponatremia, hyperkalemia, not present on admission. Resolved 4. Transaminitis, mild, not present on admission. Resolving 5. Chronic and recurrent CMV 6. Type 2 diabetes mellitus, chronic, stable. 7. 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 Hypertension 10. Depression Patient continues to improve, now on 2 L oxygen by oxymask. Pathology on biopsy taken 02/06/17 consistent with cryptogenic organizing pneumonia (WOOD REPATCHER). Treatment for WOOD REPATCHER: 60mg of prednisone daily which should continue for 8-12 weeks, with slow taper for a total of 12 months. I have called Dr. Sandra De La Garza at [facility] who is familiar with this case since she was part of the group when Dr. Waters presented his case. She stated that she will personally put in a referral for pulmonology at . will contact patient, but Dr. De La Garza assured me that she will call me and let me know that the referral is in process. Patient and are agreeable to driving to for the appointments. Home oxygen to be set up prior to discharge. Dr. Merida performed a right apical thoracentesis with air aspiration yesterday afternoon and the pneumothorax almost completely resolved. Chest tube placed 02/06 was removed. Repeat x-ray of today still shows small pneumothorax, stable since yesterday. Infectious disease, Dr. Waters, is managing antifungal, antibacterial, antiviral medications. He has stopped minocycline. Cresemba, and his chronic medications: Bactrim DS and Valacyclovir have continued. Continues to be afebrile, denies feeling feverish or chills, no leukocytosis. Palliative care is involved to help the patient and family understand the numerous specialists' tests and plans. Continue physical therapy at this time. Physical therapy through home health recommended. Patient's condition has improved to the point of downgrading from CCU. Total time: 40 minutes Critical Care Attending Mr Vann is an unfortunate 56yo man with a Hx of ALL s/p ablation and allogenic stem cell transplant 3years ago who has chronic neuropathy as well as chronic CMV as a result who was admitted in December and again 10days ago with worsening, profound hypoxia and progressive multifocal pulmonary infiltrates. After a complicated hospital course and inability to get a VATS lung biopsy, he was empirically started on high dose glucocorticoid and ultimately got a CT- guided core needle lung biopsy. Remarkably, his biopsy was read as consistent with WOOD REPATCHER (cryptogenic organizing pneumonia). In the setting of his CT, BAL, and negative culture results, WOOD REPATCHER appears to be the best diagnosis. Additionally, over the past 5days, his oxygen requirement and clinical status have improved significantly. His TTNBx was complicated by pneumothorax. The basilar pigtail has been insufficient to re-inflate his R lung. Surgery was consulted for CT management but the patient refused replacement of his chest tube. He did agree to air aspiration yesterday. His pCXR this AM documents removal of the non- functioning pigtail and decrease in his R apical pneumothorax. He remains minimally symptomatic at this point from his small PTX. He continues on prednisone 60mg/day for his WOOD REPATCHER. We are working on careful outpatient Pulmonary follow-up at as above. He will need careful monitoring of his BP and glucose over the next year as he remains on high dose glucocorticoid therapy for his WOOD REPATCHER. Dr Waters has stopped the minocycline but wants to continue the isavuconazole for now. If his PCR studies come back negative later this week. then we can decrease antifungal treatment to antifungal prophylaxis with voriconazole. Continue to push physical therapy as his O2 requirement is diminishing. GI Prophylaxis: H2 jeanie VTE Prophylaxis: Sub-Q Heparin (Unfractionated) Resuscitation Status: CPR: Attempt Resuscitation Attending Statement The patient was seen and examined together with Dr. Hernandez today and I have added additional information to the note above. Sonia Hernandez DO Feb 11, 2017 10:10 Angus Greenfield MD Feb 11, 2017 17:17
--- NOTE | 2017-02-11 10:30 | PROG NOTE ---
[address] [address] PROGRESS NOTE PATIENT: GERRY VILLALPANDO : 1960 MR#: [id number] ADMIT: 01/28/2017 JOB ID: [id number] DATE: 02/11/2017 SUBJECTIVE: The patient is seen in followup. He says he is comfortable. He denies shortness of breath or chest pain. He has no shortness of breath at rest but with exertion he does get it. REVIEW OF SYSTEMS: He specifically denies any right chest pain or pain at his thoracentesis site. PHYSICAL EXAMINATION: Alert, no distress. While I am at the bedside, his oxygen is off and his O2 sat on room air is 92%. He is not tachypneic. Brachial blood pressure 146/77, pulse 58, respiratory rate 16, O2 sat on 2 L is 96%. Right and left chest breath sounds are symmetric. I believe his right-sided breath sounds are improved compared to yesterday before the thoracentesis. Today's chest x-ray shows a small lateral residual pneumothorax but I think it is less than what there was after his thoracentesis yesterday. Improved. IMPRESSION: Iatrogenic right pneumothorax improved following thoracentesis and evacuation of air. I will order another chest x-ray for tomorrow but assuming that that one is stable, then surgery would likely not need to continue to follow.
--- NOTE | 2017-02-11 10:38 | PCM.PNMED ---
Subjective Date of Service Feb 11, 2017 Subjective Patient continues to steadily improve. Voiding without difficulties, good appetite, but have been constipated lately. He will continue to work with physical therapy today. Anticipating discharge home with home health in 2-3 days. Exam Vital Signs Vital Sign - Last Date Time Temp Pulse Resp B/P Pulse Ox O2 Delivery O2 Flow Rate FiO2 02/11/17 08:26 36.5 58 16 146/77 96 Nasal Cannula 2.00 02/06/17 12:00 50 Intake and Output 02/10/17 02/10/17 02/11/17 Cumulative From/Thru 15:00 23:00 07:00 01/28/17 19:30 - 02/11/17 05:01 Intake Total 60 ml 400 ml 32607 ml Output Total 800 ml 06939 ml Balance 60 ml -400 ml 5489 ml Intake Oral 400 ml 49153 ml IV Total 60 ml 8890 ml Output Urine Total 800 ml 06052 ml Chest Tube Drainage Total 40 ml Drainage Total 18 ml # Voids 17 # Bowel Movements 0 5 Exam General: Patient is in no acute distress, resting in bed Lungs: Clear to auscultation. Saturating well on 2L by nasal canula. Speaking in full sentences without distress. Right sided chest has been removed yesterday without complications Heart: Regular rate and rhythm, no murmurs appreciated Abdomen: Soft and non-tender Extremities: Mild hand edema has been improving, bilaterally, no edema in lower extremities Psych: Appropriate mood and effect IVs and Medications Medications Reviewed: Medications were reviewed in detail Lab and Diagnostics Result Diagram: 02/11/17 0329 02/11/17 0329 Microbiology Microbiology 01/28/17 Blood Culture, no growth 01/29/17 MRSA (PCR) - Negative 01/29/17 Influenza Screen - Negative 01/29/17 Streptococcus pneumoniae Ag Screen - Negative 01/29/17 Nasopharyngeal viral PCR all negative, including CMV Serology: cryptococcus Ag negative, CMV DNA negative, fungal antibodies negative , Urine L. pneumophilia Ag negative, A. galactomannan Ag 0.03, EBV PCR positive - quantification pending . X-Rays, CTs and MRIs X-RAY CHEST IMPRESSION: Overall, stable examination since yesterday minimal with redemonstration of low lung volumes and widespread bilateral consolidative opacities. Dictated and approved by: Ugo Luevano M.D. on 02/05/2017 at 11:28 X-RAY CHEST IMPRESSION: Bilateral patchy confluent opacities in the lungs, appearing mildly worse when compared to 01/12/17. As previously identified, this could be related to infection including atypical like mycobacterial or fungal. However, lymphangitic spread of tumor should also be considered. Dictated and approved by: Mela Solorio M.D. on 01/28/2017 at 20:08 CT CHEST WITH CONTRAST IMPRESSION: 1. Increased bilateral pulmonary nodules with confluent areas of consolidation in a perilymphatic distribution. 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 The differential also includes lymphocytic interstitial pneumonia, sarcoidosis, occupational pneumoconiosis, and amyloidosis. Dictated and approved by: Giovanni Stoll M.D. on 01/29/2017 at 11:07 X-RAY CHEST IMPRESSION: Relatively severe patchy bilateral moderate and moderately severe alveolar opacification best seen by recent CT scanning 4 days ago. No contraindication to anticipated lung biopsy scheduled for later today. Dictated and approved by: Parag Lemus M.D. on 02/02/2017 at 9:18 X-RAY CHEST IMPRESSION: Relatively severe patchy bilateral moderate and moderately severe alveolar opacification best seen by recent CT scanning 4 days ago. No contraindication to anticipated lung biopsy scheduled for later today. Dictated and approved by: Parag Lemus M.D. on 02/02/2017 at 9:18 X-RAY CHEST IMPRESSION: Bilateral patchy consolidations are unchanged. Dictated by: Suzi Gu M.D. on 02/03/2017 at 8:37 Date of Service: 02/04/17 0500 X-RAY CHEST IMPRESSION: Stable bilateral moderately severe patchy pneumonia, symmetric. Dictated by: Parag Lemus M.D. on 02/04/2017 at 9:51 Approved by: Parag Lemus M.D. on 02/04/2017 at 9:52 X-RAY CHEST IMPRESSION: Overall, stable examination since yesterday minimal with redemonstration of low lung volumes and widespread bilateral consolidative opacities. Dictated by: Ugo Luevano M.D. on 02/05/2017 at 11:28 . X-RAY CHEST IMPRESSION: 1. Stable right pneumothorax. Of note, patient indicates emphysema is present at the pigtail drain. This suggests that some of the drain sideholes may be extrapleural. Dictated by: Sandra Amaya M.D. on 02/09/2017 at 10:34 . Cardiac Echo Impressions ECHO Interpretation Summary Left ventricular wall thickness is mildly increased. Left ventricular systolic function is normal without focal wall motion abnormalities. The ejection fraction is estimated to be 60-65%. The right ventricle grossly appears normal in size with probable normal systolic function. Pulmonary artery pressures cannot be estimated because of the lack of a measurable TR jet velocity. The left atrium is mildly dilated. Right atrial size is normal. There is no significant valvular heart disease. There is no obvious valvular vegetation identified on this exam. Consider SEBLE if there is a high degree of clinical suspicion for endocarditis and clinically appropriate. The ascending aorta is mildly enlarged. No changes since prior echocardiograms (08/2016, 01/2015, 03/2014). Reading Physician:AMADOU Additional Diagnostics 01/28/17 PROCEDURE: X-RAY CHEST ONE VIEW, PORTABLE IMPRESSION: Bilateral patchy confluent opacities in the lungs, appearing mildly worse when compared to 01/12/17. As previously identified, this could be related to infection including atypical like mycobacterial or fungal. However, lymphangitic spread of tumor should also be considered. Dictated by: Mela Solorio M.D. on 01/28/2017 at 20:08 Approved by: Mela Solorio M.D. on 01/28/2017 at 20:11 01/29/17 PROCEDURE: CT CHEST WITH CONTRAST IMPRESSION: 1. Increased bilateral pulmonary nodules with confluent areas of consolidation in a perilymphatic distribution. 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 The differential also includes lymphocytic interstitial pneumonia, sarcoidosis, occupational pneumoconiosis, and amyloidosis. Dictated by: Giovanni Stoll M.D. on 01/29/2017 at 11:07 Approved by: Giovanni Stoll M.D. 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 Hospital day 14. Acute hypoxemic respiratory failure, present on admission. 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 -Per ID, discontinue minocycline today. Continue cresemba for another day or two. Consider switching cresemba to posaconazole (200 mg every 8 hours of the suspension or 300 once a day of the delayed release tablets with a loading dose of 300 twice a day on the first day only for those delayed release tablets) for long-term prophylaxis for fungal infections while patient remains on the steroids -Lung biopsy results revealed evidence of cryptogenic organizing pneumonia which may represent a response to recent metapneumovirus infection -Continue prednisone 60 mg by mouth tomorrow for at least 8-12 weeks with very slow taper for 8 months -Patient will need to be followed as an outpatient by a park worker supervisor for frequent reassessments and adjustment of medication. Dr. Hernandez is searching for pulmonology referral -Continue physical therapy evaluation -Palliative care helping with the family understanding the complexity of care. We appreciate their help -Continue to monitor blood pressure and blood glucose closely -Anticipate discharge home on home oxygen with home health in 2-3 days if patient remains stable Status post CT-guided biopsy of right lung with complications leading to right- sided pneumothorax - Lung biopsy results revealed evidence of cryptogenic organizing pneumonia which may represent a response to recent metapneumovirus infection - Status post chest tube removal on 02/10/17 (chest tube placed on 02/06/17) - CXR showing decrease in size of right pneumothorax and persistent bilateral patchy airspace opacities 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 - Appreciate Oncology consult by Dr. Thomas. Will followup with recommendations. - Continue Bactrim to one tablet daily,discontinue minocycline Acute kidney injury, not present on admission. Resolved with IV fluid - Continue to monitor Acute Electrolyte disturbances, hyponatremia, hyperkalemia, not present on admission. Resolved -Continue to monitor Acute transaminitis, mild, not present on admission. Improving - Mild elevation of AST and ALT, most likely due to antibiotic' s toxicity especially cresemba - Continue to monitor Chronic and recurrent CMV - Continue valacyclovir 1000 mg BID. Type 2 diabetes mellitus, chronic, presume stable. - Continue NPH insulin 50 units twice a day - Last A1c was 5.5 - Monitor blood glucose closely Seizure disorder, chronic, presume stable. - Continue keppra 500 mg BID - Patient did not have another seizure for a long time. Consider tapering off the medication Hypertension, chronic, presume stable. - Continue metoprolol tartrate 25 mg BID. Depression, chronic, presume stable. - Continue citalopram 20 mg daily. Disposition: Home with oxygen with home health in 2-3 days if stable Pain Evaluation: Adequate Pain Control GI Prophylaxis: H2 jeanie VTE Prophylaxis: Sub-Q Heparin (Unfractionated) Resuscitation Status: CPR: Attempt Resuscitation Attending Statement The patient was seen and examined together with Dr. Barrios on 02/11/2017 and I agree with the history, exam and plan as outlined in the note above. . Daria Barrios DO Feb 11, 2017 10:38 Carlton Pérez MD Feb 12, 2017 02:43
--- NOTE | 2017-02-11 10:52 | DRSVH ---
PROCEDURE: X-RAY CHEST ONE VIEW, PORTABLE ([id number]) INDICATIONS: rule out pneumothorax TECHNIQUE: One view of the chest was acquired. COMPARISON: [facility], CR, XR CHEST 1VW (PORTABLE), 02/10/2017, 11:17. FINDINGS: Surgical changes and devices: Right percutaneous pleural drain is been removed. Lungs and pleura: Slight decrease in small right pneumothorax. Diffuse patchy air space opacities re demonstrated unchanged. Mediastinum: Mediastinal contours appear normal. Heart size is normal. Bones and chest wall: No suspicious bony lesions. Overlying soft tissues appear unremarkable. IMPRESSION: Removal of right percutaneous pleural drain and slight decrease in small pneumothorax. Dictated by: Al Amaya Maria De Jesus Interpreted: Parag Lemus MD on 02/11/2017 at 10:51 Transcribed by: JOSELO on 02/11/2017 at 10:52 Approved by: Parag Lemus M.D. on 02/11/2017 at 15:40
--- NOTE | 2017-02-11 13:39 | PCM.PALLBR ---
Palliative Care Recommendation Summary of palliative recommendations: -Symptom management (Pain/other): per Attending [facility] Hospitalist Team -DPOA/Advanced Directives/POLST: 1. Code Status: FULL CODE -Family/emotional support: , Yvette Valles [phone] Tatiana Menon (sister in law) [phone] -Spiritual Needs: Family is Evangelical. Hospital Filler Feeder has contact yemeni- speaking priest Fr. Richardson for ongoing care. Palliative Care is not exploring pt and family's thoughts on AD as we know they prefer aggressive management of pt's cancer. We are here in supportive role to help family when they are confused about the information from multiple providers in a CCU setting. Our purpose is to allow the family to be heard and to offer some means of control over a hospital situation that makes them feel powerless. 02/11: Care coordination with [facility] Care and [facility] Team as they plan for pt's discharge. 02/10: Short conversation today with and with help of yemeni- speaking RN (no hospital financial sales associate available and computer system for interpretation was down). They are feeling pretty satisfied with hospital providers and nursing today. 02/09: Palliative asked to assist in family support. We had a lengthy conversation with and today via [place] speaking hospital financial sales associate. said things were getting better but there had been turmoil earlier this admission with conflicting information given by different providers. She also vented about what she perceives are unsafe practices by some nurses. Dr. Pan listened supportively (without taking sides) and tried to empower her to get names of people whose work she finds fault with and ask through an financial sales associate to speak to a charge nurse to see what remedies could be made. Dr. Pan apologized for the misunderstandings that happen when various specialists give their individual reports to the family. Clearly Mrs. VallesJesse Resendiztone expects all the specialists to present their opinions at altogether at the bedside and Dr. Pan tried to explain that the hospital culture is for each specialist to make their own separate rounds on the patient. Additional Medical Diagnoses with primary management by Hospitalist team include : Problem list: 1. Acute hypoxic respiratory failure, present on admission. Now likely dx is SOCIOLOGY FACULTY MEMBER. Treatment for SOCIOLOGY FACULTY MEMBER is 0.75 to 1 mg/kg/day of ideal body weight (our patient' s ideal is 70kg). So 60-80mg of prednisone daily for 8-12 weeks, with slow taper for a total of 12 months. He will need to be followed outpatient by a freight inspector since he will need frequent reassessment (every 8-12 weeks) and adjustment of medication. Many of these patients will continue to have exacerbations for the rest of their life. 2. Acute kidney injury, not present on admission. Resolved 3. Electrolyte disturbances, hyponatremia, hyperkalemia, not present on admission. Resolved 4. Transaminitis, mild, not present on admission. Resolving 5. 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 Type 2 diabetes mellitus, chronic, stable. 7. 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 On bactrim for PCP prophylaxis. 8. 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 9. Hypertension 10. Depression, citalopram 20mg daily. Palliative Care will sign off today as pt is recovering and goals are clear. Problems: Resuscitation Status Resuscitation Status: CPR: Attempt Resuscitation Total time 15 minutes; >50% face to face with patient and/or family, providing counselling regarding plans and recommendations, and in care coordination with his/her medical teams. Palliative Brief Note Date of Service Feb 11, 2017 . Patient Identification: Mr. 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 Today is Hospital day 13 (02/10/17). Pt discussed in CCU rounds, and overall has continued to improve. 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 He is currently on Bactrim once a day with minocycline to prevent PCP pneumonia, Cresemba (anti-fungal) and Valacyclovir. ID's Dr. Waters stopped his meropenem on 02/09. Dr. Thomas recommends decreasing his steroids (methylpredisolone 80mg BID) to once daily, but explains that he needs to continue steroids for an extended period to treat the CROP. This is to avoid pulmonary fibrosis in the areas of inflamed lung. At the end of last week, he had a chest tube placed on the right for a moderate sized pneumothorax that developed after a CT guided percutaneous lung biopsy on 02/06. He continues to breathe well on NC O2 now. Chest tube removed yesterday(02/10). Subjective: Pt states that he feels well today. Dr. Pérez and his team are asking pt and about home vs. SNF preferences using financial sales associate through the Hospital's financial sales associate service. Family wants to go home with home health services. Exam General: No acute distress. Sitting up in bed. Neuro: nonfocal Psych: smiles, good eye contact Diagnostic Tests: 02/06 lung biopsy results as above. Immunostains were negative for fungal or mycobacterial organisms and solid organ recurrence of lymphoblastic lymphoma was ruled out. Additional PCR testing being done to r/o any fungal infection. Suellen Pan MD Feb 11, 2017 13:39
--- NOTE | 2017-02-11 17:18 | NUR ---
Social Work Note: Continued Discharge Planning Data& Assessment: SW met with pt and pt family to discuss discharge planning. PT is recommending SNF. Pt and pt family wish for pt to go home at time of discharge. MD is recommending Home health Services. Home Health list provided for preferences. Pt family does not have a preference and agreed to refer to the rotating calender. Access provided to [facility]. SW to speak with [facility] Liaison to provide referral for RN for vital and PT for strengthening and ambulation. Pt family also provided with [employer] list per their request out of interest in renting a wheelchair, pt family plans to follow up with local [employer] Pt family also requested a new entry level financial analyst application which was provided. Pt family plans to transport pt privately when medically ready. Pt family denies any other needs. SW to continue to follow if any needs arise. Plan: Anticipated discharge home via POV with [facility] PT and RN to follow. SW to speak with [facility] Liaison to provide referral for RN for vital and PT for strengthening and ambulation. Pt family denies any other needs. SW to continue to follow if any needs arise. AISHA Bee
[2017-02-11] MEDS: Dextrose 5% 0.9% NaCl 1,000 ML IV SCH (17:33)
--- NOTE | 2017-02-11 21:33 | CCS NOTE ---
[facility] [address], [address] [address] MEDICAL ONCOLOGY OFFICE NOTE PATIENT: GERRY VILLALPANDO : 1960 MR#: [id number] DATE: 01/28/2017 JOB ID: [id number] DATE: 02/11/2017 SUBJECTIVE: The patient's situation continues to improve in regards to his oxygenation. He is currently on nasal cannula with 4-5 L satting about 94%. His residual loculated pneumothorax has been aspirated by the Surgical Department and his pigtail catheter has been removed. There is hope that he would not require a chest tube placement with a repeat chest x-ray pending tomorrow. I reviewed the clinical data in [facility] over the past two days and notes of Dr. Waters. PHYSICAL EXAMINATION: His oral cavity shows no signs of yeast infection. Lungs show coarse breath sounds. No wheezing. Heart regular. Abdomen is soft. Extremities show no edema. He has been able to stand up to the bedside for a couple of times for physical therapy today for a short while. LABORATORY STUDIES: Reviewed with normalization of creatinine and stable slight elevation of transaminases and stable blood count. ASSESSMENT AND PLAN: A 56-year-old gentleman with previous acute lymphocytic leukemia post allogeneic stem cell transplant who is in remission and is now found to likely have cryptogenic organizing pneumonia as the explanation of his multifocal severe pulmonary infiltrates and respiratory failure. I agree with further reduction of the dose of steroids to now prednisone orally 60 mg daily. His antifungal could be switched to a prophylactic dose of posaconazole to prevent fungal infection given the expected protracted steroid therapy as prophylaxis. I encouraged the family and the patient to now start working with physical therapy to improve his strength and with the ongoing decline of his oxygen requirements, hopefully in the next few days he can be looking towards discharge and further management of steroids as an outpatient. Also, the pneumothorax is now managed with aspiration assuming that the chest x-ray of tomorrow shows no reaccumulation. He seems to have not required a chest tube.
[2017-02-12 00:01] VITALS: PULSE 78
[2017-02-12] MEDS: Heparin 5,000 Unit/mL Inj SUBQ SCH ×2 (00:24→08:26)
[2017-02-12] MEDS: Sodium Chloride LOK Flush 10 mL Syringe IVFLUSH SCH ×2 (00:24→08:26)
[2017-02-12 03:28] VITALS: BP 146/74; PULSE 59; RESP 14; O2SAT 99
[2017-02-12 04:00] LABS: Mean Corpuscular Hemoglobin 34.8 pg (27.0-35.0)
[2017-02-12 07:28] VITALS: BP 156/81; PULSE 54; RESP 17; O2SAT 96
[2017-02-12 07:49] VITALS: PULSE 59
[2017-02-12] MEDS: Insulin LISPRO 300 Unit/3 mL Inj SUBQ SCH ×2 (08:00→12:00)
[2017-02-12] MEDS: Polyethylene Glycol (PEG) 17 Gm Powder PO SCH ×2 (08:18→08:29)
[2017-02-12] MEDS: Trimethoprim-Sulfa 160 mg-800 mg Tablet PO SCH (08:25)
[2017-02-12] MEDS: levETIRAcetam 500 mg Tablet PO SCH (08:25)
[2017-02-12] MEDS: predniSONE 20 mg Tablet PO SCH (08:25)
--- NOTE | 2017-02-12 08:54 | DRSVH ---
PROCEDURE: X-RAY CHEST ONE VIEW, PORTABLE ([id number]) INDICATIONS: pneumothorax TECHNIQUE: One view of the chest was acquired. COMPARISON: [facility], CR, XR CHEST 1VW (PORTABLE), 02/10/2017, 11:17. [facility], CR, XR CHEST 1VW (PORTABLE), 02/10/2017, 8:33. [facility], CR, XR CHEST 1VW (PORT ABLE), 02/09/2017, 10:19. [facility], CR, XR CHEST 1VW (PORTABLE), 02/09/2017, 4:30. [facility], CR, XR CHEST 1VW (PORTABLE), 02/11/2017, 7:49. FINDINGS: Surgical changes and devices: None. Lungs and pleura: Resolved right pneumothorax. Persistent widespread bilateral patchy pulmonary air space opacities not significantly changed. Mediastinum: Mediastinal contours appear normal. Heart size is normal. Bones and chest wall: No suspicious bony lesions. Overlying soft tissues appear unremarkable. IMPRESSION: Resolved right pneumothorax and persistent bilateral patchy airspace opacities consistent with pneumonia. Dictated by: Al Amaya RRA Interpreted: Mela Solorio MD on 02/12/2017 at 8:53 Transcribed by: UMU on 02/12/2017 at 8:54 Approved by: Mela Solorio M.D. on 02/14/2017 at 9:05
--- NOTE | 2017-02-12 10:51 | PROG NOTE ---
[address] [address] PROGRESS NOTE PATIENT: GERRY VILLALPANDO : 1960 MR#: [id number] ADMIT: 01/28/2017 JOB ID: [id number] DATE: 02/12/2017 SUBJECTIVE: The patient is seen in followup for his iatrogenic right pneumothorax. He is doing well. He denies chest pain or shortness of breath. PHYSICAL EXAMINATION: He is alert, comfortable, in no distress. Temperature 36.4, brachial blood pressure 156 systolic, pulse 59, respiratory rate 17, O2 sat on 2 L 96%. Chest x-ray, pneumothorax completely resolved. IMPRESSION: Iatrogenic pneumothorax, resolved. PLAN: He can be discharged to home at any time from my perspective. He does not need specific followup with me.
--- NOTE | 2017-02-12 11:25 | PCM.PNMED ---
Subjective Date of Service Feb 12, 2017 Subjective PULMONARY PROGRESS NOTE Featheredge Machine Operator, Barb, through the hospital translation service. , Yvette, at bedside. This morning patient again states that he is feeling well and is excited to go home. Yesterday physical therapy worked with patient. Patient did much better turning up oxygen prior to working with PT. Discussed follow up with oncology, pulmonology at and primary care provider. Also discussed home oxygen use and role of [facility]. Denies pleuritic pain, nausea, diarrhea, dizziness, headache, shortness of breath. . Exam Vital Signs Vital Sign - Last Date Time Temp Pulse Resp B/P Pulse Ox O2 Delivery O2 Flow Rate FiO2 02/12/17 07:49 59 02/12/17 07:28 36.4 17 156/81 96 Nasal Cannula 2.00 02/06/17 12:00 50 Intake and Output 02/11/17 02/11/17 02/12/17 Cumulative From/Thru 15:00 23:00 07:00 01/28/17 19:30 - 02/12/17 05:18 Intake Total 1780 ml 960 ml 82312 ml Output Total 1700 ml 1100 ml 72719 ml Balance 80 ml -140 ml 5429 ml Intake Oral 1780 ml 960 ml 04727 ml IV Total 0 ml 8890 ml Output Urine Total 1700 ml 1100 ml 57878 ml Chest Tube Drainage Total 40 ml Drainage Total 18 ml # Voids 17 # Bowel Movements 0 5 Exam General: No acute distress. Lying in bed. HEENT: NC/AT Lungs: Clear to auscultation. Saturating well on 2L by nasal canula. Speaking in full sentences without distress. Heart: Regular rate and rhythm, no murmurs appreciated Abdomen: Soft and non-tender Extremities: Trace edema B/L hands, R>L. Equal B/L posterior tibial pulses. No LE edema Neuro: EOMI, A&O Psych: Appropriate mood and affect although allows to do most of the speaking . IVs and Medications Medications Reviewed: Medications were reviewed in detail Lab and Diagnostics Result Diagram: 02/12/1734802/12/17348 Microbiology EBV DNA (PCR) pending; EBV DNA Quant PCR pending 02/06 tissue sample - AFB pending PCR, SMEAR, Culture pending. CMV culture pending. Fungal culture pending. No organisms or poly 01/28/17 Blood Culture, no growth 01/29/17 MRSA (PCR) - Negative 01/29/17 Influenza Screen - Negative 01/29/17 Streptococcus pneumoniae Ag Screen - Negative 01/29/17 Nasopharyngeal viral PCR all negative, including CMV cryptococcus Ag negative, CMV DNA negative, fungal antibodies negative, Urine L. pneumophilia Ag negative, A. galactomannan Ag 0.03, EBV PCR positive - quantification pending . X-Rays, CTs and MRIs X-RAY CHEST IMPRESSION: Overall, stable examination since yesterday minimal with redemonstration of low lung volumes and widespread bilateral consolidative opacities. Dictated and approved by: Ugo Luevano M.D. on 02/05/2017 at 11:28 X-RAY CHEST IMPRESSION: Bilateral patchy confluent opacities in the lungs, appearing mildly worse when compared to 01/12/17. As previously identified, this could be related to infection including atypical like mycobacterial or fungal. However, lymphangitic spread of tumor should also be considered. Dictated and approved by: Mela Solorio M.D. on 01/28/2017 at 20:08 CT CHEST WITH CONTRAST IMPRESSION: 1. Increased bilateral pulmonary nodules with confluent areas of consolidation in a perilymphatic distribution. 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 The differential also includes lymphocytic interstitial pneumonia, sarcoidosis, occupational pneumoconiosis, and amyloidosis. Dictated and approved by: Giovanni Stoll M.D. on 01/29/2017 at 11:07 X-RAY CHEST IMPRESSION: Relatively severe patchy bilateral moderate and moderately severe alveolar opacification best seen by recent CT scanning 4 days ago. No contraindication to anticipated lung biopsy scheduled for later today. Dictated and approved by: Parag Lemus M.D. on 02/02/2017 at 9:18 X-RAY CHEST IMPRESSION: Relatively severe patchy bilateral moderate and moderately severe alveolar opacification best seen by recent CT scanning 4 days ago. No contraindication to anticipated lung biopsy scheduled for later today. Dictated and approved by: Parag Lemus M.D. on 02/02/2017 at 9:18 X-RAY CHEST IMPRESSION: Bilateral patchy consolidations are unchanged. Dictated by: Suzi Gu M.D. on 02/03/2017 at 8:37 Date of Service: 02/04/17 0500 X-RAY CHEST IMPRESSION: Stable bilateral moderately severe patchy pneumonia, symmetric. Dictated by: Parag Lemus M.D. on 02/04/2017 at 9:51 Approved by: Parag Lemus M.D. on 02/04/2017 at 9:52 X-RAY CHEST IMPRESSION: Overall, stable examination since yesterday minimal with redemonstration of low lung volumes and widespread bilateral consolidative opacities. Dictated by: Ugo Luevano M.D. on 02/05/2017 at 11:28 . X-RAY CHEST IMPRESSION: 1. Stable right pneumothorax. Of note, patient indicates emphysema is present at the pigtail drain. This suggests that some of the drain sideholes may be extrapleural. Dictated by: Sandra Amaya M.D. on 02/09/2017 at 10:34 . Cardiac Echo Impressions ECHO Interpretation Summary Left ventricular wall thickness is mildly increased. Left ventricular systolic function is normal without focal wall motion abnormalities. The ejection fraction is estimated to be 60-65%. The right ventricle grossly appears normal in size with probable normal systolic function. Pulmonary artery pressures cannot be estimated because of the lack of a measurable TR jet velocity. The left atrium is mildly dilated. Right atrial size is normal. There is no significant valvular heart disease. There is no obvious valvular vegetation identified on this exam. Consider SEBLE if there is a high degree of clinical suspicion for endocarditis and clinically appropriate. The ascending aorta is mildly enlarged. No changes since prior echocardiograms (08/2016, 01/2015, 03/2014). Reading Physician:PM Additional Diagnostics 01/28/17 PROCEDURE: X-RAY CHEST ONE VIEW, PORTABLE IMPRESSION: Bilateral patchy confluent opacities in the lungs, appearing mildly worse when compared to 01/12/17. As previously identified, this could be related to infection including atypical like mycobacterial or fungal. However, lymphangitic spread of tumor should also be considered. Dictated by: Mela Solorio M.D. on 01/28/2017 at 20:08 Approved by: Mela Solorio M.D. on 01/28/2017 at 20:11 01/29/17 PROCEDURE: CT CHEST WITH CONTRAST IMPRESSION: 1. Increased bilateral pulmonary nodules with confluent areas of consolidation in a perilymphatic distribution. 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 The differential also includes lymphocytic interstitial pneumonia, sarcoidosis, occupational pneumoconiosis, and amyloidosis. Dictated by: Giovanni Stoll M.D. on 01/29/2017 at 11:07 Approved by: Giovanni Stoll M.D. on 01/29/2017 at 11:19 Pathology report 02/09/17 Specimen consistent with cryptogenic organizing pneumonia (MACHINE STOPPAGE FREQUENCY CHECKER). Assessment & Plan Patient is Azeri-speaking. Used an footwear stitcher, Barb, through the hospital's footwear stitcher service. Mr. 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 Hospital day 15 (02/12/17). Problem list: 1. Acute hypoxic respiratory failure, likely secondary to cryptogenic organizing pneumonia, present on admission. Improving 2. Acute kidney injury, not present on admission. Resolved 3. Electrolyte disturbances, hyponatremia, hyperkalemia, not present on admission. Resolved 4. Transaminitis, mild, not present on admission. Resolving 5. Chronic and recurrent CMV 6. Type 2 diabetes mellitus, chronic, stable. 7. 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 Hypertension 10. Depression - Patient is stable enough to discharge today. He continues to improve, this morning on 2 L oxygen. - Chest x-ray of today shows resolved pneumothorax and surgery has signed off. - Pathology on biopsy taken 02/06/17 consistent with cryptogenic organizing pneumonia (MACHINE STOPPAGE FREQUENCY CHECKER). Treatment for MACHINE STOPPAGE FREQUENCY CHECKER: 60mg of prednisone daily which should continue for 8-12 weeks, with slow taper for a total of 12 months. Most patients with MACHINE STOPPAGE FREQUENCY CHECKER have a recurrence and patient needs a cafeteria director to manage the MACHINE STOPPAGE FREQUENCY CHECKER. -Patient did much better with PT yesterday after increasing oxygen for 10 minutes prior to his exercising. -Continue antibiotics per infectious disease, Dr. Waters, which includes antiviral, antifungal, antibacterial. PCR studies pending. Per Dr. Waters, may decrease antifungal treatment to prophylaxis. Dr. Thomas has worked closely with Dr. Waters and it is my understanding that this will be addressed at follow up with Dr. Thomas - Hospitalist team addressed hypertension with family and added a diuretic to his regimen - Stressed closer control of blood sugar and diet with family, especially while on prednisone - Also educated family that if his breathing should worsen, that he should be taken to hospital if not immediately life-threatening Follow up: - Infectious disease, Dr. Waters, does not need to see patient for routine follow up. - Primary care physician - [facility]: Again discussed this follow-up with Freeman Singh, of oncology. Sandra has personally discussed this case with pulmonologists and placed a referral for a Pulmonology. At this time, patient does not have an appointment but he will be contacted directly by Pulmonology. Patient and are agreeable to driving to for the appointments. - Home oxygen to be set up prior to discharge and [facility] to provide support and physical therapy. Total time: 45 minutes . GI Prophylaxis: H2 jeanie VTE Prophylaxis: Sub-Q Heparin (Unfractionated) Resuscitation Status: CPR: Attempt Resuscitation Attending Statement The patient was seen and examined together with Dr. Hernandez and I agree with the history, exam and plan as outlined in the note above. Sonia Hernandez DO Feb 12, 2017 11:25 Angus Greenfield MD Feb 12, 2017 13:17 of his BP and glucose over the next year as he remains on high dose glucocorticoid therapy for his MACHINE STOPPAGE FREQUENCY CHECKER. Dr Waters has stopped the minocycline but wants to continue the isavuconazole for now. If his PCR studies come back negative later this week. then we can decrease antifungal treatment to antifungal prophylaxis with voriconazole. Continue to push physical therapy as his O2 requirement is diminishing. GI Prophylaxis: H2 jeanie VTE Prophylaxis: Sub-Q Heparin (Unfractionated) Resuscitation Status: CPR: Attempt Resuscitation Sonia Hernandez DO Feb 12, 2017 11:25
[2017-02-12 11:30] VITALS: BP 128/79; PULSE 62; RESP 18; O2SAT 97
[2017-02-12 11:57] VITALS: BP 124/72; PULSE 59; RESP 18; O2SAT 96
--- NOTE | 2017-02-12 12:31 | NUR ---
Social Work: Discharge D: Pt discussed in am rounds. Pt is medically stable for discharge. Pt has been cleared for discharge home with . F2F Order obtained and referral provided to Rolly Coleman with [facility]. They will follow up with the pt and family with the assistance of an truck bench mechanic. VICE PRESIDENT & GENERAL MANAGER [employer] [place] met with pt and spouse at bedside with Clinical Pharmacy Specialist. Pt and spouse confirm discharge plan and express no concerns about discharge home. They will be waiting on communication from [facility] . EMR reviewed and no further sw needs identified. RT is arranging for pt's home 02. A: Pt who is I at baseline and lives with his s/o. P: Pt to discharge home with [facility] for RN, PT via POV. AISHA Morrow
[2017-02-12] MEDS: Dextrose 5% 0.9% NaCl 1,000 ML IV SCH (12:37)
--- NOTE | 2017-02-12 12:53 | NUR ---
PTS O2 SATS AT REST ON ROOM AIR ARE 91% HE DROPPED TO 86% JUST STANDING AT THE BEDSIDE AND 83% WALKING LESS THAN 10 FEET WHICH WAS ALL HE WAS ABLE TO PERFORM. hE CAME UP TO 90% ON 4 LITERS STANDING AND WHEN WALKING BACK TO BE HE AGAIN DESATURATED AND NEEDED 6 LITERS TO KEEP SATS 90%
--- NOTE | 2017-02-12 13:34 | PCM.DIMED ---
Daria Barrios DO 02/12/17 1156: Discharge Instructions Date of Service Feb 12, 2017 Dates of Hospitalization Jan 28, 2017 at 18:48 Discharge Diagnosis Discharge Diagnosis Acute hypoxemic respiratory failure, present on admission. Improved Status post CT-guided biopsy of right lung with complications leading to right- sided pneumothorax. 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 Resolved Acute electrolyte disturbances, hyponatremia, hyperkalemia, not present on admission. Resolved Acute transaminitis, mild, not present on admission. Resolved. Chronic and recurrent CMV. Stable Type 2 diabetes mellitus, chronic. Presume stable Seizure disorder, chronic, presume stable Hypertension, chronic. Presume stable Depression, chronic. Presume stable Medication Instructions 1. Please start taking posaconazole for long-term prophylaxis for fungal infections while you remains on the steroids. The posaconazole dose for prophylaxis is 300 mg once a day of the delayed release tablets with a loading dose of 300 mg twice a day on the first day. 2. Start taking chlorthalidone, 12.5 mg daily for high blood pressure. 3. Please continue taking prednisone, 60 mg by mouth for the next 8-12 weeks with slow taper for a total of 12 months. Your primary care provider, , will assist you in this. 4. Blood glucose management: use the following as a guideline: Blood Glucose: Insulin dose BG 141-199 mg/dl 3 unit BG 200-249 4 units BG 250-299 5 units [id number] 6 units BG >349 7 units 5. Continue your home medications. Discuss with Dr. Lakhani the best way of stopping keppra (anti-seizure medication, since you did not have any seizures for a long time) Diet Diabetic Activity Home Health Phyical Therapy Call your provider Fever or Chills, Shortness of breath, Bleeding, Chest pain, Vomitting, Excessive diarrhea, Weakness (unilateral) Patient Instructions Follow-up Provider: Jr Lakhani MD Follow-up with PCP in: 1 week Provider: Mckinley Rahman MD Follow-up in: 2 weeks Additional Information 1. Please monitor blood sugar closely, especially while on prednisone 2. Follow up with Dr. Lakhani in 1 week 3. Follow up with Dr. Thomas in 2 weeks 4. Follow up with Dr. Waters if needed (concern for infection) 5. Expect to receive a phone call from the [facility] regarding a follow up appointment with a tree trimmer helper. We discussed your case with Freeman Singh, of [facility] oncology, who personally discussed this case with pulmonologists and placed a referral. If you do not receive a phone call from them within the next week or two, please give them a call at 6. Home oxygen use: please preoxygenate with 6 liters for 10 minutes before attempting a physical activity 7. [facility] 8. If your breathing worsens, you should go to [facility] immediately Carlton Pérez MD 02/12/17 1736: Discharge Instructions Attending's Statement The patient was seen and examined together with Dr. Barrios on 02/12/2017 and I agree with the history, exam and plan as outlined in the note above. . Draia Barrios DO Feb 12, 2017 11:56 Carlton Pérez MD Feb 12, 2017 17:36
[2017-02-12] MEDS ORDERED: PRE20 PO (13:38)
[2017-02-12] MEDS ORDERED: HYG25 PO (13:53)
--- NOTE | 2017-02-12 16:11 | NUR ---
Discharge Pt d/c'd home with family at 1611. D/C teaching completed with respiratory technician, PT and GLASS CURVATURE GAUGER also at bedside to answer pt questions. Upon d/c pt and pt's stated understanding and denied further questions. Sent home on O2 2L NC with instruction to increase to 6L with activity. RT set up on home O2 service to meet pt and family at their home and set up oxygen.
--- NOTE | 2017-02-12 18:13 | PCM.DC.MED ---
Discharge Summary Date of Service Feb 12, 2017 Dates of Hospitalization Date of Hospital Admission Jan 28, 2017 at 18:48 Date of Discharge: Feb 12, 2017 Providers: Admitting Physician: Drake Merida MD Primary Care Physician: Jr Lakhani MD Attending Physician: Drake Merida MD Diagnosis at Time of Discharge Diagnosis at Time of Discharge Acute hypoxemic respiratory failure, present on admission. Improved Status post CT-guided biopsy of right lung with complications leading to right- sided pneumothorax. 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 Resolved Acute electrolyte disturbances, hyponatremia, hyperkalemia, not present on admission. Resolved Acute transaminitis, mild, not present on admission. Resolved. Chronic and recurrent CMV. Stable Type 2 diabetes mellitus, chronic. Presume stable Seizure disorder, chronic, presume stable Hypertension, chronic. Presume stable Depression, chronic. Presume stable Consultations Infectious disease, Dr. Waters Medical oncology, Dr. Thomas Palliative care, Dr. Pan Procedures XRay, CTs & MRIs X-RAY CHEST IMPRESSION: Overall, stable examination since yesterday minimal with redemonstration of low lung volumes and widespread bilateral consolidative opacities. Dictated and approved by: Ugo Luevano M.D. on 02/05/2017 at 11:28 X-RAY CHEST IMPRESSION: Bilateral patchy confluent opacities in the lungs, appearing mildly worse when compared to 01/12/17. As previously identified, this could be related to infection including atypical like mycobacterial or fungal. However, lymphangitic spread of tumor should also be considered. Dictated and approved by: Mela Solorio M.D. on 01/28/2017 at 20:08 CT CHEST WITH CONTRAST IMPRESSION: 1. Increased bilateral pulmonary nodules with confluent areas of consolidation in a perilymphatic distribution. 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 The differential also includes lymphocytic interstitial pneumonia, sarcoidosis, occupational pneumoconiosis, and amyloidosis. Dictated and approved by: Giovanni Stoll M.D. on 01/29/2017 at 11:07 X-RAY CHEST IMPRESSION: Relatively severe patchy bilateral moderate and moderately severe alveolar opacification best seen by recent CT scanning 4 days ago. No contraindication to anticipated lung biopsy scheduled for later today. Dictated and approved by: Parag Lemus M.D. on 02/02/2017 at 9:18 X-RAY CHEST IMPRESSION: Relatively severe patchy bilateral moderate and moderately severe alveolar opacification best seen by recent CT scanning 4 days ago. No contraindication to anticipated lung biopsy scheduled for later today. Dictated and approved by: Parag Lemus M.D. on 02/02/2017 at 9:18 X-RAY CHEST IMPRESSION: Bilateral patchy consolidations are unchanged. Dictated by: Suzi Gu M.D. on 02/03/2017 at 8:37 Date of Service: 02/04/17 0500 X-RAY CHEST IMPRESSION: Stable bilateral moderately severe patchy pneumonia, symmetric. Dictated by: Parag Lemus M.D. on 02/04/2017 at 9:51 Approved by: Parag Lemus M.D. on 02/04/2017 at 9:52 X-RAY CHEST IMPRESSION: Overall, stable examination since yesterday minimal with redemonstration of low lung volumes and widespread bilateral consolidative opacities. Dictated by: Ugo Luevano M.D. on 02/05/2017 at 11:28 . X-RAY CHEST IMPRESSION: 1. Stable right pneumothorax. Of note, patient indicates emphysema is present at the pigtail drain. This suggests that some of the drain sideholes may be extrapleural. Dictated by: Sandra Amaya M.D. on 02/09/2017 at 10:34 X-RAY CHEST IMPRESSION: Resolved right pneumothorax and persistent bilateral patchy airspace opacities consistent with pneumonia. Dictated by: Al Amaya [facility] Interpreted: Mela Solorio MD on 02/12/2017 at 8:53 Cardiac Echo Impression ECHO Interpretation Summary Left ventricular wall thickness is mildly increased. Left ventricular systolic function is normal without focal wall motion abnormalities. The ejection fraction is estimated to be 60-65%. The right ventricle grossly appears normal in size with probable normal systolic function. Pulmonary artery pressures cannot be estimated because of the lack of a measurable TR jet velocity. The left atrium is mildly dilated. Right atrial size is normal. There is no significant valvular heart disease. There is no obvious valvular vegetation identified on this exam. Consider SEBLE if there is a high degree of clinical suspicion for endocarditis and clinically appropriate. The ascending aorta is mildly enlarged. No changes since prior echocardiograms (08/2016, 01/2015, 03/2014). Reading Physician:PM Other Diagnostics 01/28/17 PROCEDURE: X-RAY CHEST ONE VIEW, PORTABLE IMPRESSION: Bilateral patchy confluent opacities in the lungs, appearing mildly worse when compared to 01/12/17. As previously identified, this could be related to infection including atypical like mycobacterial or fungal. However, lymphangitic spread of tumor should also be considered. Dictated by: Mela Solorio M.D. on 01/28/2017 at 20:08 Approved by: Mela Solorio M.D. on 01/28/2017 at 20:11 01/29/17 PROCEDURE: CT CHEST WITH CONTRAST IMPRESSION: 1. Increased bilateral pulmonary nodules with confluent areas of consolidation in a perilymphatic distribution. 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 The differential also includes lymphocytic interstitial pneumonia, sarcoidosis, occupational pneumoconiosis, and amyloidosis. Dictated by: Giovanni Stoll M.D. on 01/29/2017 at 11:07 Approved by: Giovanni Stoll M.D. on 01/29/2017 at 11:19 Pathology report 02/09/17 Specimen consistent with cryptogenic organizing pneumonia (LARD TUB WASHER). 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 On chronic Bactrim for PCP prophylaxis. Patient was recently admitted to [facility] on 01/13/2017 at the request of Dr. Thomas, following two-week history of upper respiratory infection symptoms to include productive cough and dyspnea. Patient had CT of the chest done suggestive of moderate to severe degree pulmonary and perihilar opacification most suggestive of lymphangitic spread of tumor. However fungal infection such as mycobacteria was also a possibility. Patient underwent bronchoscopy with Dr. Purvis with bronchial alveolar lavage sent for cytology, Gram stain and culture. Results of BAL were negative acid-fast bacilli but came back positive for Metaneumovirus. His pathology was negative for malignancy. His CMV culture was negative. Patient was discharge on 01/16/2017 after showing clinical improvement. Patient and patient's family report that he was feeling improvement. About 1 week prior to admission he started to experience shortness of breath, and worsening of his productive cough, dizziness, and nausea. He was seen as an outpatient in Dr. Waters's on 01/28 and was having dyspnea with exertion. Patient states he is only able to ambulate 10 feet before becoming short of breath and dizzy and needing to sit down. Patient was admitted to the hospital at the request of Dr. Waters infectious disease. Pneumonia workup was initiated to include viral PCR. He denies fever, chills, recent sick contacts, recent travel since last hospitalization, abdominal pain, constipation. Patient was born in [place] and grew up in the [facility] region near [facility]. He left [place] about 30 years ago and has been living in [place], [place] since. His last visit to [place] was about two years ago and he has not travelled since then. Serologies done on last admission 01/13/2017 were as follows: Coccidioides inconclusive Cryptococcus is negative Fungal antibodies less than 31 and negative Hepatitis B surface antigen negative Hepatitis B antibody nonreactive Hepatitis C antibody was in 0.1 HIV nonreactive Urine Legionella negative Galactomannan 0.04 Strongyloides immunglobulin negative TB Quant gold negative Bronchial washings from 01/14/2017: Metaneumovirus Virus positive Legionella negative AFB negative PCP negative Sputum Gram stain negative for PMNs, negative organisms Fungal culture negative HSV negative Adenovirus negative Coronavirus negative Influenza negative Hospital Course Sumeet Vann is a 56 year old gentleman with well-controlled diabetes mellitus 2, a history acute lymphocytic leukemia status post marrow transplant, chronic cytomegalovirus infection on valacyclovir and Bactrim for Pneumocystis pneumonia prophylaxis who presented with respiratory failure believed to be secondary to cryptogenic organizing pneumonia. Acute hypoxemic respiratory failure, present on admission. Improving -Lung biopsy results revealed evidence of cryptogenic organizing pneumonia which may represent a response to recent metapneumovirus infection -Continued with supplemental Oxygen, nasal canula -Chest CT showed worsening bilateral infiltrates as compared to the CT of the chest done on January 12 -Treated with minocycline, meropenem, cresemba -Lung biopsy results revealed evidence of cryptogenic organizing pneumonia which may represent a response to recent metapneumovirus infection -Treated with solumedrol intravenously -Continued physical therapy evaluation -Palliative care helped with the family understanding the complexity of care -Discharged with posaconazole 300 mg once a day of the delayed release tablets with a loading dose of 300 twice a day on the first day for fungal infections while patient remains on the steroids -Discharged with prednisone 60 mg by mouth tomorrow for at least 8-12 weeks with very slow taper for 8 months -Discharged with close follow up with Dr. Lakhani, Dr. 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 - Appreciated Oncology consult by Dr. Thomas - Continued Bactrim Acute kidney injury, not present on admission. Resolved with IV fluid Acute Electrolyte disturbances, hyponatremia, hyperkalemia, not present on admission. Resolved Acute transaminitis, mild, not present on admission. Improving - Mild elevation of AST and ALT, most likely due to antibiotic' s toxicity especially cresemba Chronic and recurrent CMV - Continued valacyclovir 1000 mg twice a day Type 2 diabetes mellitus, chronic, presume stable. - Continue NPH insulin 50 units twice a day - Last A1c was 5.5 - Recommended to monitor blood sugars closely especially when chronically on prednisone Seizure disorder, chronic, presume stable. - Continued keppra 500 mg twice a day - Recommended to stop this medication under Dr. Ott's supervision since patient did not have any seizures for a long time Hypertension, chronic, presume stable. - Continued metoprolol tartrate 25 mg BID. Depression, chronic, presume stable. - Continued citalopram 20 mg daily. Disposition: Patient has been discharged home in a stable condition with home oxygen and [facility] to provide support and physical therapy. Patient is Kenyan-speaking. Used an sap bobj developer, Barb, through the hospital's sap bobj developer service. Exam Vital Signs (Last) Date Time Temp Pulse Resp B/P Pulse Ox O2 Delivery O2 Flow Rate FiO2 02/12/17 11:57 36.6 59 18 124/72 96 Nasal Cannula 2.00 02/06/17 12:00 50 Exam General: Patient is in no acute distress, resting in bed Lungs: Clear to auscultation. Saturating well on 2L by nasal canula. Speaking in full sentences without distress. Right sided chest has been removed yesterday without complications Heart: Regular rate and rhythm, no murmurs appreciated Abdomen: Soft and non-tender Extremities: Mild hand edema has been improving, bilaterally, no edema in lower extremities Psych: Appropriate mood and effect Test 01/28/17 20:12 01/29/17 04:20 01/29/17 04:25 01/30/17 08:15 Hemoglobin A1c 5.4% (4.8-5.6) Pro-B-Type Natriuretic Peptide 602.0pg/mL (0-210) Urine Color Yellow (YELLOW) Urine Appearance Clear (CLEAR,HAZY) Urine pH 7.0 (5.0-8.0) Urine Specific [place] 1.005 (1.003-1.035) Urine Protein Negativemg/dL (NEG,TRACE) Urine Glucose (UA) Negativemg/dL (NEGATIVE) Urine Ketones Negativemg/dL (NEGATIVE) Urine Occult Blood Small (NEGATIVE) Urine Nitrite Negative (NEGATIVE) Urine Bilirubin Negative (NEGATIVE) Urine Urobilinogen Normalmg/dL (NORMAL) Urine Leukocyte Esterase Negative (NEGATIVE) Urine RBC 3-10/hpf (0-2) Urine WBC 0-5/hpf (0-5) Urine Epithelial Cells Occasional/hpf (NONE-MOD) Urine Crystals None seen (NONE SEEN) Urine Bacteria None/hpf (NONE-FEW) Urine Hyaline Casts None/lpf (NONE) Urine Granular Casts None seen (NONE SEEN) Urine Waxy Casts None seen (NONE SEEN) Urine Red Blood Cell Casts None seen (NONE SEEN) Urine White Blood Cell Casts None seen (NONE SEEN) Urine Mucus None seen (None Seen) Urine Trichomonas None seen (NONE SEEN) Urine Yeast None (NONE SEEN) Urinalysis Comment None Urine Culture Reflexed Not indicated Urine Legionella pneumophilia Ag Negative (Negative) Cytomegalovirus DNA Quant (PCR) NegativeIU/mL (Negative) Fungal Antibodies <31pg/mL (<80) Aspergillus galactomannan Antigen 0.03Index (0.00-0.49) Test 02/02/17 04:40 02/03/17 03:30 02/05/17 09:50 02/09/17 04:00 Procalcitonin 0.21ng/mL (0.00-0.08) Chemistry Comments Comment (.) Hold Tovar Top Tube Received (Received) EFRA-1 Antibody <0.2AI (0.0-0.9) Sjogren's Antibody (T) < 0.2AI (0.0-0.9) SM Antibody <0.2AI (0.0-0.9) TREASURY SPECIALIST Antibody < 0.2AI (0.0-0.9) SM/TREASURY SPECIALIST Antibody <0.2AI (0.0-0.9) Scl-70 (Scleroderma) Antibody <0.2AI (0.0-0.9) Anti-Double Strand DNA Antibody <1IU/mL (0-9) Anti-Ribosomal Antibody <0.2AI (0.0-0.9) Chromatin Antibody 0.7AI (0.0-0.9) Centromere B Antibody < 0.2AI (0.0-0.9) Cryptococcus Antigen Negative (Negative) Magnesium Level 2.2mg/dL (1.6-2.6) Lactate Dehydrogenase 351U/L (100-190) C-Reactive Protein 8.0mg/dL (0.0-0.5) Prothrombin Time 11.3sec (8.1-12.5) Prothromb Time International Ratio 1.05ratio Test 02/11/17 03:29 02/12/17 03:49 Neutrophils (%) (Auto) 59.6% (40-74) Lymphocytes (%) (Auto) 24.6% (14-46) Monocytes (%) (Auto) 12.7% (4-12) Eosinophils (%) (Auto) 0.1% (0-5) Basophils (%) (Auto) 0.1% (0-3) White Blood Count 8.8th/mm3 (3.8-10.1) Red Blood Count 2.99mil/mm3 (4.40-5.80) Hemoglobin 10.4g/dL (13.8-17.2) Hematocrit 30.8% (41.0-50.0) Mean Corpuscular Volume 103.0fL (81-100) Mean Corpuscular Hemoglobin 34.8pg (27.0-35.0) Mean Corpuscular Hemoglobin Concent 33.8% (32.0-37.0) Red Cell Distribution Width 14.2% (12.3-15.4) Platelet Count 149bil/L (150-400) Sodium Level 135mEq/L (134-144) Potassium Level 4.8mEq/L (3.5-5.2) Chloride Level 103mEq/L (97-108) Carbon Dioxide Level 22mmol/L (18-29) Blood Urea Nitrogen 35mg/dL (6-24) Creatinine 1.06mg/dL (0.76-1.27) Estimat Glomerular Filtration Rate 77mL/min (>59) Glucose Level 138mg/dL (60-99) Calcium Level 8.3mg/dL (8.5-10.1) Total Bilirubin 0.2mg/dL (0.0-1.2) Aspartate Amino Transf (AST/SGOT) 32U/L (0-50) Alanine Aminotransferase (ALT/SGPT) 51U/L (0-44) Alkaline Phosphatase 78U/L (25-150) Total Protein 4.9g/dL (6.4-8.4) Albumin 2.4g/dL (3.4-5.0) Microbiology Results EBV DNA (PCR) pending; EBV DNA Quant PCR pending 02/06 tissue sample - AFB pending PCR, SMEAR, Culture pending. CMV culture pending. Fungal culture pending. No organisms or poly 01/28/17 Blood Culture, no growth 01/29/17 MRSA (PCR) - Negative 01/29/17 Influenza Screen - Negative 01/29/17 Streptococcus pneumoniae Ag Screen - Negative 01/29/17 Nasopharyngeal viral PCR all negative, including CMV cryptococcus Ag negative, CMV DNA negative, fungal antibodies negative, Urine L. pneumophilia Ag negative, A. galactomannan Ag 0.03, EBV PCR positive - quantification pending . Discharge Medications Discharge Medications Calcium Citrate/Vitamin D3 (Citracal + D Maximum Caplet) 1 Each Tablet 2 EACH PO BIDWM (Reported) Chlorthalidone (Chlorthalidone) 25 Mg Tablet 12.5 MG PO DAILY Prescribed by: HERVE SOARES DO Cholecalciferol (Vitamin D3) (Vitamin D) 1,000 Unit Tablet 1,000 UNIT PO DAILY ( Reported) Citalopram (Citalopram) 20 Mg Tablet 20 MG PO DAILY (Reported) Insulin Aspart (NovoLOG U100 Insulin Vial) 100 U/Ml U 2-4 UNIT SUBQ TIDWM ( Reported) Levetiracetam (Keppra) 500 Mg Tablet 500 MG PO BID (Reported) Magnesium Oxide (Magnesium Oxide) 400 Mg Tablet 400 MG PO DAILY (Reported) Metoprolol Tartrate (Metoprolol Tartrate) 50 Mg Tablet 25 MG PO BID (Reported) Multivitamin (Once Daily) 1 Each Tablet 1 EACH PO DAILY (Reported) [place]-3 Fatty Acids ([place]-3) 1,000 Mg Capsule 1,000 MG PO DAILY (Reported) Prednisone (PredniSONE) 20 Mg Tablet 60 MG PO DAILY Prescribed by: HERVE SOARES DO Sulfamethoxazole/Trimeth 800-160 mg (Bactrim DS 800-160 mg) 1 Each Tablet 1 TABLET PO DAILY (Reported) Valacyclovir (Valacyclovir) 500 Mg Tablet 1,000 MG PO BID (Reported) As needed Acetaminophen (Acetaminophen) 325 Mg Tablet 325 MG PO DAILY PRN PRN For Pain ( Reported) Docusate Sodium (Colace) 100 Mg Capsule 100 MG PO BID PRN PRN For Constipation ( Reported) Guaifenesin (Guaifenesin ER) 600 Mg Tab.er.12h 1,200 MG PO BID PRN PRN For Cough (Reported) Lorazepam (Ativan) 0.5 Mg Tablet 0.5 MG PO Q6HRS PRN PRN PRN For Insomnia ( Reported) Ondansetron (Zofran) 8 Mg Tab 8 MG PO Q8HRS PRN PRN PRN For Nausea (Reported) Sennosides (Senna) 8.6 Mg Tablet 17.2 MG PO DAILY PRN PRN For Constipation ( Reported) Additional med instructions 1. Please start taking posaconazole for long-term prophylaxis for fungal infections while you remains on the steroids. The posaconazole dose for prophylaxis is 300 mg once a day of the delayed release tablets with a loading dose of 300 mg twice a day on the first day. 2. Start taking chlorthalidone, 12.5 mg daily for high blood pressure. 3. Please continue taking prednisone, 60 mg by mouth for the next 8-12 weeks with slow taper for a total of 12 months. Your primary care provider, , will assist you in this. 4. Blood glucose management: use the following as a guideline: Blood Glucose: Insulin dose BG 141-199 mg/dl 3 unit BG 200-249 4 units BG 250-299 5 units [id number] 6 units BG >349 7 units 5. Continue your home medications. Discuss with Dr. Lakhani the best way of stopping keppra (anti-seizure medication, since you did not have any seizures for a long time) Followup Plan Discharge Diet: Diabetic Discharge Activity: Home Health Phyical Therapy Follow-up Provider: Jr Lakhani MD Follow-up with PCP in: 1 week Provider: Mckinley Rahman MD Follow-up in: 2 weeks Time spent Greater than 30 minutes was spent in preparation of discharge with greater than 50% of that time dedicated to patient counseling and coordination of care. . Attending Statement The patient was seen and examined together with Dr. Soares on 02/12/2017 and I agree with the history, exam and plan as outlined in the note above. . copies to: Jr Lakhani MD, Oksana S DO Feb 12, 2017 18:13 Carlton Pérez MD Feb 14, 2017 07:34
--- NOTE | 2017-02-16 14:31 | PATH ---
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 1). RIGHT 5TH FINGER FINAL DIAGNOSIS: POST-INFLAMMATORY HYPERPIGMENTATION WITH MILD SUPERFICIAL DERMATITIS. NO EVIDENCE FOR VASCULITIS. SEE COMMENT. ICD L81.0 GABBY, 02/16/2017 NOTE: The background mild superficial dermatitis is non-specific. If further clinical pathological correlation is desired, please do not hesitate to contact me. This case has been reviewed by Dr. Edmond Kramer, board-certified dermatopathologist. GROSS DESCRIPTION: The specimen is received in one formalin filled container labeled with the patient's name, sublabeled "R. fifth finger" and consists of a 0.4 x 0.4 x 0.3 CM hughes-santos mottled punch biopsy of skin. Inked blue. Bisected and entirely submitted one cassette. 02/05/2017 [facility] ICD-9 CODES: CPT CODES: 1: 66091 Electronically Signed Out Kolton Díaz M.D.,[facility] [address], [place] [address] Technical component performed at [facility], [facility] [address], [place], [address]
[2017-02-20] MEDS ORDERED: FLUC100T4 PO (11:30)
[2017-02-25] MEDS ORDERED: PRE20 PO (11:16)
== END 2017-02-12 16:25 | disposition home health service (06) | DRG 167 ==
LOC: PCC 18:48 → CCU 02-02 11:26 → PCC 02-10 08:24
PROVIDERS: ADMIT Hospitalist; ATTEND Hospitalist
PROC: 4A033R1 Measurement of Arterial Saturation, Peripheral, Percutaneous Approach (ICD-10-PCS; 2017-01-28)
PROC: 0HBFXZX Excision of Right Hand Skin, External Approach, Diagnostic (ICD-10-PCS; 2017-02-05)
PROC: 0BBC3ZX Excision of Right Upper Lung Lobe, Percutaneous Approach, Diagnostic (ICD-10-PCS; principal; 2017-02-06)
PROC: 0B9K30Z Drainage of Right Lung with Drainage Device, Percutaneous Approach (ICD-10-PCS; 2017-02-06)
PROC: 0W993ZZ Drainage of Right Pleural Cavity, Percutaneous Approach (ICD-10-PCS; 2017-02-10)
DX: J96.01 Acute respiratory failure with hypoxia (principal); J84.116 Cryptogenic organizing pneumonia; B25.9 Cytomegaloviral disease, unspecified; C91.01 Acute lymphoblastic leukemia, in remission; Z94.84 Stem cells transplant status; N17.9 Acute kidney failure, unspecified; E87.1 Hypo-osmolality and hyponatremia; E87.2 Acidosis; J95.811 Postprocedural pneumothorax; E11.9 Type 2 diabetes mellitus without complications; I10 Essential (primary) hypertension; G40.909 Epilepsy, unspecified, not intractable, without status epilepticus; F32.9 Major depressive disorder, single episode, unspecified; Z87.891 Personal history of nicotine dependence; Z79.4 Long term (current) use of insulin; E87.5 Hyperkalemia; R74.0 Nonspecific elevation of levels of transaminase and lactic acid dehydrogenase [LDH]